=== PATIENT | female | born 1950 | race Caucasian/White ===

== ENCOUNTER 2019-12-05 06:48 | Observation (INO) | payer MEDICARE ==
[2019-12-05] MEDS ORDERED: Sodium Chloride 0.9% 10 ML Syringe FLUSH PRN ×2 (06:51→10:22)
[2019-12-05] MEDS ORDERED: Diltiazem 25 MG/5 ML SDV IVPUSH ONE (06:55)
[2019-12-05] MEDS ORDERED: Sodium Chloride 0.9% 1,000 ML IV SCH ×2 (07:00→10:22)
--- NOTE | 2019-12-05 07:03 | EDM.PDOC ---
<OfficerBabak - Last Filed: 12/05/19 18:29> ED HPI GENERAL MEDICAL PROBLEM - General Chief Complaint: Cardiovascular Problem Stated Complaint: MEDICAL Time Seen by Provider: 12/05/19 06:51 Source of Information: Reports: Patient, Old Records, RN Notes Reviewed History Limitations: Reports: No Limitations - History of Present Illness INITIAL COMMENTS - FREE TEXT/NARRATIVE: 6-year-old female presents emergency department a complaint of diaphoresis and weakness, she states this came on suddenly while she was going to work usually can walk into work without difficulty however going up the steps today she had a stop twice at rest because she felt so weak and was very diaphoretic by the time she arrived at work. She does have a history of paroxysmal atrial fibrillation total of 3 events over 10 years. Otherwise denies any chest pain or shortness of breath takes no medications has no cardiac history other than the remote history of the paroxysmal atrial fibrillation no diabetes. 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: Musculoskeletal History: Reports: Other (See Below) Other Musculoskeletal History: L knee pain - Infectious Disease History Infectious Disease History: Reports: Chicken Pox, Measles, Mumps, Rubella - Past Surgical History Head Surgeries/Procedures: Reports: None Female Surgical History: Reports: D&C Musculoskeletal Surgical History: Reports: None Social & Family History - Family History Cardiac: Reports: CAD - Tobacco Use Smoking Status *Q: Never Smoker - Caffeine Use Caffeine Use: Reports: Coffee ED ROS GENERAL - Review of Systems Review Of Systems: See Below Constitutional: Reports: Weakness, Diaphoresis HEENT: Reports: No Symptoms Respiratory: Reports: No Symptoms Cardiovascular: Reports: No Symptoms GI/Abdominal: Reports: No Symptoms : Reports: No Symptoms ED EXAM, GENERAL - Physical Exam Exam: See Below Exam Limited By: No Limitations General Appearance: Alert, WD/WN, No Apparent Distress Respiratory/Chest: No Respiratory Distress, Lungs Clear, Normal Breath Sounds, No Accessory Muscle Use, Chest Non-Tender Cardiovascular: No Murmur, Tachycardia GI/Abdominal: Soft, Non-Tender Departure - Departure Time of Disposition: 18:29 Disposition: Admitted As Inpatient 65 Condition: Fair Clinical Impression: Atrial fibrillation with rapid ventricular response, Hypotension <Aracely Marmolejo - Last Filed: 12/09/19 18:33> Course - Vital Signs Last Recorded V/S: Last Vital Signs Temp 36.3 C 12/05/19 10:22 Pulse 69 12/05/19 15:00 Resp 11 L 12/05/19 15:00 BP 123/71 12/05/19 16:00 Pulse Ox 97 12/05/19 10:22 - Orders/Labs/Meds Labs: Laboratory Tests 12/05/19 12/05/19 12/05/19 Range/Units 06:56 06:56 06:56 WBC 6.8 (4.5-11.0) K/uL RBC 4.15 (3.30-5.50) M/uL Hgb 12.5 (12.0-15.0) g/dL Hct 39.5 (36.0-48.0) % MCV 95 (80-98) fL MCH 30 (27-31) pg MCHC 32 (32-36) % Plt Count 341 (150-400) K/uL Neut % (Auto) 53 (36-66) % Lymph % (Auto) 35 (24-44) % [place] % (Auto) 9 H (2-6) % Eos % (Auto) 2 (2-4) % Baso % (Auto) 1 (0-1) % Sodium 137 L (140-148) mmol/L Potassium 4.4 (3.6-5.2) mmol/L Chloride 104 (100-108) mmol/L Carbon Dioxide 24 (21-32) mmol/L Anion Gap 13.4 (5.0-14.0) mmol/L BUN 16 (7-18) mg/dL Creatinine 0.8 (0.6-1.0) mg/dL Est Cr Clr Drug Dosing 51.75 mL/min Estimated GFR (MDRD) > 60 (>60) Glucose 178 H (74-106) mg/dL Lactic Acid 3.5 H (0.4-2.0) mmol/L Calcium 8.9 (8.5-10.1) mg/dL Phosphorus 3.7 (2.5-4.9) mg/dL Magnesium 2.2 (1.8-2.4) mg/dL Total Bilirubin 0.6 D (0.2-1.0) mg/dL AST 33 (15-37) U/L ALT 38 (12-78) U/L Alkaline Phosphatase 91 (46-116) U/L Troponin I < 0.017 (0.000-0.056) ng/mL Total Protein 6.8 (6.4-8.2) g/dL Albumin 3.2 L (3.4-5.0) g/dL Globulin 3.6 H (2.3-3.5) g/dL Albumin/Globulin Ratio 0.9 L (1.2-2.2) Meds: Medications Discontinued Medications Generic Name Dose Route Start Last Admin Trade Name Freq PRN Reason Stop Dose Admin Acetaminophen 650 mg 12/05/19 10:22 Tylenol PO Q4H PRN Pain (Mild 1-3)/fever Diltiazem HCl 25 mg 12/05/19 06:55 12/05/19 07:01 Diltiazem IVPUSH 12/05/19 06:56 25 mg ONETIME ONE Administration Enoxaparin Sodium 40 mg 12/05/19 10:22 12/05/19 10:54 Lovenox SUBCUT 40 mg DAILY ANA Administration Sodium Chloride 1,000 mls @ 125 mls/hr 12/05/19 07:00 12/05/19 07:01 Normal Saline IV 125 mls/hr ASDIRECTED ANA Administration Diltiazem HCl 125 mg/ Sodium 125 mls @ 5 mls/hr 12/05/19 09:45 12/05/19 09:50 Chloride IV 5 mls/hr TITRATE ANA 5 mls/hr Administration Protocol Sodium Chloride 1,000 mls @ 100 mls/hr 12/05/19 10:22 Normal Saline IV ASDIRECTED ANA Diltiazem HCl 125 mg/ Sodium 125 mls @ 5 mls/hr 12/05/19 10:30 Chloride IV TITRATE ANA Protocol Ondansetron HCl 4 mg 12/05/19 10:22 Zofran IV Q4H PRN Nausea/Vomiting Polyethylene Glycol 17 gm 12/05/19 10:22 Miralax PO DAILY PRN Constipation Sodium Chloride 10 ml 12/05/19 06:51 12/05/19 07:01 Saline Flush FLUSH 10 ml ASDIRECTED PRN Administration Keep Vein Open Sodium Chloride 10 ml 12/05/19 10:22 Saline Flush FLUSH ASDIRECTED PRN Keep Vein Open - Re-Assessments/Exams Free Text/Narrative Re-Assessment/Exam: 12/05/19 08:52 pt remains quite hypotensiveafter the 20 mg of cardizem. She did slow down to the 80-90 range but she remains in atrial fib. She has been over doing inher estimation. will have Dr Nguyen see in consult to consider a cardioversion. This is her third episode of atrial fib in 10 years.
[2019-12-05] MEDS ORDERED: Diltiazem 100 MG in Sodium Chloride 0.9% 100 ML IV SCH ×2 (09:30→10:22)
[2019-12-05] MEDS ORDERED: Diltiazem 125 MG in Sodium Chloride 0.9% 100 ML IV SCH ×2 (09:45→10:30)
--- NOTE | 2019-12-05 09:49 | PCM.HP.2 ---
H&P History of Present Illness - General Date of Service: 12/05/19 Admit Problem/Dx: Admission Diagnosis/Problem Admission Diagnosis/Problem Atrial fibrillation Source of Information: Patient, Old Records, Provider, RN Notes Reviewed History Limitations: Reports: No Limitations - History of Present Illness Initial Comments - Free Text/Narative: Ms. Powers is a 69-year-old woman who was admitted to observation status through the emergency department for further evaluation and management of atrial fibrillation with rapid ventricular response. She has had 2 previous documented episodes of atrial fibrillation, most recent of which was 4 years ago. She feels that she may have rare episodes of shorter duration atrial fibrillation but is not needed to come in for medical care. She felt well through the day yesterday but does admit that she has been under more stress and has been very active lately. She did not sleep well last night and feels that she went into the atrial fibrillation sometime between 2 and 3 AM. This morning she felt weak, lightheaded, with poor exercise tolerance. She denies overt shortness of breath or chest pain. She presented to the emergency department for evaluation was noted to be in atrial fibrillation with rapid ventricular response. She did receive a 20 mg bolus dose of diltiazem which did work well to control her rate but resulted in significant hypotension with systolic pressures into the 70s. Blood pressure has now recovered but as the diltiazem is wearing off her heart rate is slowly increasing. We discussed options for ongoing management including ongoing medical management versus elective electrical cardioversion this morning. She is very leery about cardioversion and would like to see if medical management is better tolerated going forward. - Related Data Allergies/Adverse Reactions: Allergies Allergy/AdvReac Type Severity Reaction Status Date / Time Penicillins Allergy Hives Verified 12/05/19 06:52 Home Medications: Home Meds Ubidecarenone [Coenzyme Q10] 100 mg PO DAILY 03/01/16 [History] Cholecalciferol (Vitamin D3) [Vitamin D] 5,000 unit PO DAILY 03/16/19 [History] Magnesium Oxide [Magnesium] 3 tab PO BEDTIME 10/05/19 [History] Zinc 50 mg PO DAILY 10/05/19 [History] Vit C/Ascorbate Calcium,Sodium [Vitamin C] 500 mg PO DAILY 12/05/19 [History] Past Medical History HEENT History: Reports: Impaired Vision Cardiovascular History: Reports: Afib (Paroxysmal) Respiratory History: Reports: None Gastrointestinal History: Reports: None Genitourinary History: Reports: None P[employer] F[employer]ER History: Reports: Musculoskeletal History: Reports: Other (See Below) Other Musculoskeletal History: L knee pain Neurological History: Reports: None Psychiatric History: Reports: None Endocrine/Metabolic History: Reports: None Hematologic History: Reports: None Immunologic History: Reports: None Oncologic (Cancer) History: Reports: None Dermatologic History: Reports: None - Infectious Disease History Infectious Disease History: Reports: Chicken Pox, Measles, Mumps, Rubella Other Infectious Disease History: staph on the skin - Past Surgical History Head Surgeries/Procedures: Reports: None Female Surgical History: Reports: D&C Musculoskeletal Surgical History: Reports: None Social & Family History - Family History Cardiac: Reports: CAD - Tobacco Use Smoking Status *Q: Never Smoker - Caffeine Use Caffeine Use: Reports: Coffee H&P Review of Systems - Review of Systems: Review Of Systems: See Below General: Reports: Malaise, Weakness, Fatigue. Denies: Fever, Chills HEENT: Reports: No Symptoms Pulmonary: Reports: No Symptoms Cardiovascular: Reports: Palpitations, Lightheadedness. Denies: Chest Pain, Dyspnea on Exertion, Orthopnea, PND, Edema Gastrointestinal: Reports: No Symptoms Genitourinary: Reports: No Symptoms Musculoskeletal: Reports: No Symptoms Skin: Reports: No Symptoms Psychiatric: Reports: No Symptoms Neurological: Reports: No Symptoms Hematologic/Lymphatic: Reports: No Symptoms Immunologic: Reports: No Symptoms Exam - Exam Exam: See Below - Vital Signs Vital Signs: Last Vital Signs Temp 97.4 F 12/05/19 08:40 Pulse 78 12/05/19 09:21 Resp 11 L 12/05/19 09:21 BP 130/91 H 12/05/19 09:21 Pulse Ox 100 12/05/19 09:21 Weight: 190 lb - Exam Quality Assessment: DVT Prophylaxis General: Alert, Oriented, Cooperative, Mild Distress HEENT: Conjunctiva Clear, Hearing Intact, Mucosa Moist & [place], Normal Nasal Septum, Posterior Pharynx Clear, Pupils Equal Neck: Supple, Trachea Midline Lungs: Clear to Auscultation, Normal Respiratory Effort Cardiovascular: Normal S1, Irregular Rhythm, Tachycardia. No: Systolic Murmur, Diastolic Murmur GI/Abdominal Exam: Soft, Non-Tender, No Organomegaly, No Distention Back Exam: Normal Inspection, Full Range of Motion Extremities: Non-Tender, No Pedal Edema Skin: Warm, Dry, Intact Neurological: Cranial Nerves Intact, Strength Equal Bilateral, Normal Speech, Normal Tone, Sensation Intact. No: Focal Deficit Neuro Extensive - Mental Status: Alert, Oriented x3, Normal Mood/Affect, Normal Cognition, Memory Intact - Patient Data Lab Results Last 24 hrs: Laboratory Results - last 24 hr 12/05/19 12/05/19 12/05/19 Range/Units 06:56 06:56 06:56 WBC 6.8 (4.5-11.0) K/uL RBC 4.15 (3.30-5.50) M/uL Hgb 12.5 (12.0-15.0) g/dL Hct 39.5 (36.0-48.0) % MCV 95 (80-98) fL MCH 30 (27-31) pg MCHC 32 (32-36) % Plt Count 341 (150-400) K/uL Neut % (Auto) 53 (36-66) % Lymph % (Auto) 35 (24-44) % [place] % (Auto) 9 H (2-6) % Eos % (Auto) 2 (2-4) % Baso % (Auto) 1 (0-1) % Sodium 137 L (140-148) mmol/L Potassium 4.4 (3.6-5.2) mmol/L Chloride 104 (100-108) mmol/L Carbon Dioxide 24 (21-32) mmol/L Anion Gap 13.4 (5.0-14.0) mmol/L BUN 16 (7-18) mg/dL Creatinine 0.8 (0.6-1.0) mg/dL Est Cr Clr Drug Dosing 51.75 mL/min Estimated GFR (MDRD) > 60 (>60) Glucose 178 H (74-106) mg/dL Lactic Acid 3.5 H (0.4-2.0) mmol/L Calcium 8.9 (8.5-10.1) mg/dL Phosphorus 3.7 (2.5-4.9) mg/dL Magnesium 2.2 (1.8-2.4) mg/dL Total Bilirubin 0.6 D (0.2-1.0) mg/dL AST 33 (15-37) U/L ALT 38 (12-78) U/L Alkaline Phosphatase 91 (46-116) U/L Troponin I < 0.017 (0.000-0.056) ng/mL Total Protein 6.8 (6.4-8.2) g/dL Albumin 3.2 L (3.4-5.0) g/dL Globulin 3.6 H (2.3-3.5) g/dL Albumin/Globulin Ratio 0.9 L (1.2-2.2) Result Diagrams: 12/05/19 06:56 12/05/19 06:56 Sepsis Event Note - Evaluation Sepsis Screening Result: No Definite Risk - Focused Exam Vital Signs: Vital Signs Temp Pulse Resp BP Pulse Ox 12/05/19 09:21 78 11 L 130/91 H 100 12/05/19 09:10 60 17 114/68 97 12/05/19 09:00 82 17 106/67 96 12/05/19 08:50 89 17 102/73 99 12/05/19 08:40 97.4 F 69 14 99/67 99 12/05/19 08:31 67 17 84/57 L 98 12/05/19 08:20 72 18 77/53 L 97 12/05/19 08:06 67 20 85/52 L 98 12/05/19 08:01 61 18 75/51 L 95 12/05/19 07:56 64 19 82/51 L 96 12/05/19 07:51 65 20 80/47 L 96 12/05/19 07:46 70 19 86/65 L 98 12/05/19 07:41 57 L 12 82/55 L 97 12/05/19 07:36 64 12 92/56 L 99 12/05/19 07:31 65 13 80/57 L 98 12/05/19 07:26 67 13 87/59 L 97 12/05/19 07:22 63 13 80/53 L 97 12/05/19 07:21 60 14 84/55 L 97 12/05/19 07:20 64 15 89/62 L 97 12/05/19 07:13 66 13 85/62 L 98 12/05/19 07:10 57 L 16 87/63 L 98 12/05/19 07:06 66 14 87/63 L 99 12/05/19 07:02 98 19 82/57 L 98 12/05/19 06:49 96.8 F L 130 H 19 133/103 H 98 Date Exam was Performed: 12/05/19 Time Exam was Performed: 09:44 *Q Meaningful Use (ADM) - VTE Risk Assess *Q Each Risk Factor Represents 1 Point: Obesity ( BMI > 25 kg/m2) Total Score 1 Point Risk Factors: 1 Each Risk Factor Represents 2 Points: Age 60 - 74 Years Total Score 2 Point Risk Factors: 2 Each Risk Factor Represents 3 Points: None Total Score 3 Point Risk Factors: 0 Each Risk Factor Represents 5 Points: None Total Score 5 Point Risk Factors: 0 Venous Thromboembolism Risk Factor Score *Q: 3 Problem List Initiated/Reviewed/Updated: Yes Orders Last 24hrs: Active Orders 24 hr Category Date Time Status Patient Status Manage Transfer [TRANSFER] Routine ADT 12/05/19 09:40 Active Cardiac Monitoring [RC] .As Directed Care 12/05/19 06:51 Active EKG Documentation Completion [RC] ASDIRECTED Care 12/05/19 06:52 Active Peripheral IV Care [RC] . DIRECTED Care 12/05/19 06:52 Active Chest 1V Frontal [CR] Stat Exams 12/05/19 06:52 Taken UA W/MICROSCOPIC [URIN] Urgent Lab 12/05/19 08:51 Ordered Diltiazem [Cardizem] 125 mg Med 12/05/19 09:45 Active Sodium Chloride 0.9% [Normal Saline] 100 ml IV TITRATE Sodium Chloride 0.9% [Normal Saline] 1,000 ml Med 12/05/19 07:00 Active IV ASDIRECTED Sodium Chloride 0.9% [Saline Flush] Med 12/05/19 06:51 Active 10 ml FLUSH ASDIRECTED PRN Peripheral IV Insertion Adult [OM.PC] Stat Oth 12/05/19 06:51 Ordered Saline Lock Insert [OM.PC] Stat Oth 12/05/19 06:51 Ordered Resuscitation Status Routine Resus Stat 12/05/19 09:41 Ordered EKG 12 Lead [EK] Stat Ther 12/05/19 06:52 Ordered Medication Orders Sodium Chloride (Normal Saline) 1,000 mls @ 125 mls/hr IV ASDIRECTED ANA Last Admin: 12/05/19 07:01 Dose: 125 mls/hr Documented by: BAR Diltiazem HCl 125 mg/ Sodium (Chloride) 125 mls @ 5 mls/hr IV TITRATE ANA; Protocol Sodium Chloride (Saline Flush) 10 ml FLUSH ASDIRECTED PRN PRN Reason: Keep Vein Open Last Admin: 12/05/19 07:01 Dose: 10 ml Documented by: BAR Assessment/Plan Comment:: ASSESSMENT AND PLAN ATRIAL FIBRILLATION WITH RAPID VENTRICULAR RESPONSE-set during the night with symptoms of weakness, lightheadedness, and decreased exercise tolerance noted this morning. On evaluation in the emergency department found to have atrial fibrillation with rapid ventricular response. Bolus dose of IV diltiazem did result in good rate control but also resulted in significant systolic hypotension. We discussed options concerning medical management versus electrical cardioversion. She prefers to proceed with medical management at this time. -Continuous infusion of IV diltiazem without repeating bolus dose -Consider electrical cardioversion if she has recurrent hypotension with diltiazem RECENT SKIN INFECTIONS-resolved after 2 weeks of IV antibiotic therapy with vanc omycin and doxycycline MAINTENANCE ISSUES -DVT prophylaxis; Lovenox 40 mg subcu daily -GI prophylaxis; not indicated -Marrero catheter; not indicated -Nutrition; n.p.o. -Nicotine dependence; not required CODE STATUS-FULL CODE ADMISSION STATUS-this patient will be admitted to observation status, expect no more than a one night hospital stay for evaluation and management of problems as outlined above. DISPOSITION-anticipate discharge to home after the hospital stay. PRIMARY CARE PROVIDER-Drs. Urbano - Mortality Measure Prognosis:: Good
[2019-12-05] MEDS ORDERED: Polyethylene Glycol 3350 Powder 17 GM Packet PO PRN (10:22)
[2019-12-05] MEDS ORDERED: Ondansetron 4 MG/2 ML SDV IV PRN (10:22)
[2019-12-05] MEDS ORDERED: Enoxaparin 40 MG/0.4 ML Syringe SUBCUT SCH (10:22)
[2019-12-05] MEDS ORDERED: Acetaminophen 325 MG Tab PO PRN (10:22)
[2019-12-05 15:27] VITALS: PULSE 69
[2019-12-05 16:54] VITALS: BP 123/71
--- NOTE | 2019-12-05 17:11 | PCM.DCSUM1 ---
Discharge Summary - Hospital Course Brief History: Ms. Powers is a 69-year-old woman who was admitted to observation status through the emergency department for further management of atrial fibrillation with rapid ventricular response. - Discharge Data Discharge Date: 12/05/19 Discharge Disposition: Home, Self-Care 01 Condition: Good - Referral to Home Health Primary Care Physician: PCP None - Discharge Diagnosis/Problem(s) (1) Atrial fibrillation with rapid ventricular response SNOMED Code(s): 414446575958368 ICD Code: I48.91 - UNSPECIFIED ATRIAL FIBRILLATION Status: Acute Current Visit: Yes - Patient Summary/Data Hospital Course: Ms. Powers is a 69-year-old woman who was admitted to observation status through the emergency department for further evaluation and management of atrial fibrillation with rapid ventricular response. She has had 2 previous documented episodes of atrial fibrillation, most recent of which was 4 years ago. She feels that she may have rare episodes of shorter duration atrial fibrillation but has not needed to come in for medical care. She felt well through the day yesterday but does admit that she has been under more stress and has been very active lately. She did not sleep well last night and feels that she went into the atrial fibrillation sometime between 2 and 3 AM. This morning she felt weak, lightheaded, with poor exercise tolerance. She denies overt shortness of breath or chest pain. She presented to the emergency department for evaluation was noted to be in atrial fibrillation with rapid ventricular response. She did receive a 20 mg bolus dose of diltiazem which did work well to control her rate but resulted in significant hypotension with systolic pressures into the 70s. Blood pressure has now recovered but as the diltiazem is wearing off her heart rate is slowly increasing. We discussed options for ongoing management including ongoing medical management versus elective electrical cardioversion this morning. She is very leery about cardioversion and would like to see if medical management is better tolerated going forward. On admission she was started on continuous infusion of IV diltiazem, which she tolerated well. Shortly after admission she spontaneously converted to sinus rhythm and remained in sinus rhythm through the rest of her hospital stay. She reported feeling much improved and much better energy. She will be discharged home on her usual diet with activity as tolerated. Follow-up appointment should be scheduled with her primary care provider within 1 week. - Patient Instructions Diet: Usual Diet as Tolerated Activity: As Tolerated Other/Special Instructions: Please schedule follow-up appointment with primary care provider within 1 week. - Discharge Plan *PRESCRIPTION DRUG MONITORING PROGRAM REVIEWED*: Not Applicable *COPY OF PRESCRIPTION DRUG MONITORING REPORT IN PATIENT ANIVAL: Not Applicable Home Medications: Home Meds Ubidecarenone [Coenzyme Q10] 100 mg PO DAILY 03/01/16 [History] Cholecalciferol (Vitamin D3) [Vitamin D] 5,000 unit PO DAILY 03/16/19 [History] Magnesium Oxide [Magnesium] 3 tab PO BEDTIME 10/05/19 [History] Zinc 50 mg PO DAILY 10/05/19 [History] Vit C/Ascorbate Calcium,Sodium [Vitamin C] 500 mg PO DAILY 12/05/19 [History] Referrals: Ab Urbano MD [Physician] - - Discharge Summary/Plan Comment DC Time >30 min.: No - Patient Data Vitals - Most Recent: Last Vital Signs Temp 97.3 F 12/05/19 10:22 Pulse 69 12/05/19 15:00 Resp 11 L 12/05/19 15:00 BP 123/71 12/05/19 16:00 Pulse Ox 97 12/05/19 10:22 Weight - Most Recent: 192 lb I&O - Last 24 hours: Intake & Output 12/05/19 12/05/19 12/05/19 06:59 14:59 22:59 Intake Total 200 Balance 200 Lab Results - Last 24 hrs: Laboratory Results - last 24 hr 12/05/19 12/05/19 12/05/19 Range/Units 06:56 06:56 06:56 WBC 6.8 (4.5-11.0) K/uL RBC 4.15 (3.30-5.50) M/uL Hgb 12.5 (12.0-15.0) g/dL Hct 39.5 (36.0-48.0) % MCV 95 (80-98) fL MCH 30 (27-31) pg MCHC 32 (32-36) % Plt Count 341 (150-400) K/uL Neut % (Auto) 53 (36-66) % Lymph % (Auto) 35 (24-44) % [place] % (Auto) 9 H (2-6) % Eos % (Auto) 2 (2-4) % Baso % (Auto) 1 (0-1) % Sodium 137 L (140-148) mmol/L Potassium 4.4 (3.6-5.2) mmol/L Chloride 104 (100-108) mmol/L Carbon Dioxide 24 (21-32) mmol/L Anion Gap 13.4 (5.0-14.0) mmol/L BUN 16 (7-18) mg/dL Creatinine 0.8 (0.6-1.0) mg/dL Est Cr Clr Drug Dosing 51.75 mL/min Estimated GFR (MDRD) > 60 (>60) Glucose 178 H (74-106) mg/dL Lactic Acid 3.5 H (0.4-2.0) mmol/L Calcium 8.9 (8.5-10.1) mg/dL Phosphorus 3.7 (2.5-4.9) mg/dL Magnesium 2.2 (1.8-2.4) mg/dL Total Bilirubin 0.6 D (0.2-1.0) mg/dL AST 33 (15-37) U/L ALT 38 (12-78) U/L Alkaline Phosphatase 91 (46-116) U/L Troponin I < 0.017 (0.000-0.056) ng/mL Total Protein 6.8 (6.4-8.2) g/dL Albumin 3.2 L (3.4-5.0) g/dL Globulin 3.6 H (2.3-3.5) g/dL Albumin/Globulin Ratio 0.9 L (1.2-2.2) Med Orders - Current: Current Medications Acetaminophen (Tylenol) 650 mg PO Q4H PRN PRN Reason: Pain (Mild 1-3)/fever Enoxaparin Sodium (Lovenox) 40 mg SUBCUT DAILY [facility] Last Admin: 12/05/19 10:54 Dose: 40 mg Documented by: Sodium Chloride (Normal Saline) 1,000 mls @ 100 mls/hr IV ASDIRECTED ANA Diltiazem HCl 125 mg/ Sodium (Chloride) 125 mls @ 5 mls/hr IV TITRATE ANA; Protocol Ondansetron HCl (Zofran) 4 mg IV Q4H PRN PRN Reason: Nausea/Vomiting Polyethylene Glycol (Miralax) 17 gm PO DAILY PRN PRN Reason: Constipation Sodium Chloride (Saline Flush) 10 ml FLUSH ASDIRECTED PRN PRN Reason: Keep Vein Open Discontinued Medications Diltiazem HCl (Diltiazem) 25 mg IVPUSH ONETIME ONE Stop: 12/05/19 06:56 Last Admin: 12/05/19 07:01 Dose: 25 mg Documented by: Sodium Chloride (Normal Saline) 1,000 mls @ 125 mls/hr IV ASDIRECTED ANA Last Admin: 12/05/19 07:01 Dose: 125 mls/hr Documented by: Diltiazem HCl 125 mg/ Sodium (Chloride) 125 mls @ 5 mls/hr IV TITRATE ANA; Protocol Last Admin: 12/05/19 09:50 Dose: 5 mls/hr, 5 mls/hr Documented by: Sodium Chloride (Saline Flush) 10 ml FLUSH ASDIRECTED PRN PRN Reason: Keep Vein Open Last Admin: 12/05/19 07:01 Dose: 10 ml Documented by: - Exam General: Reports: Alert, Oriented, Cooperative, No Acute Distress Lungs: Reports: Clear to Auscultation, Normal Respiratory Effort Cardiovascular: Reports: Regular Rate, Regular Rhythm, No Murmurs GI/Abdominal Exam: Soft, Non-Tender, No Organomegaly, No Distention
--- NOTE | 2019-12-06 09:24 | CR ---
CHEST: Portable 12/05/2019 at 7:11 AM CLINICAL HISTORY:Weakness COMPARISON:2016 FINDINGS: The heart is enlarged. Pulmonary vascularity is normal. There are atherosclerotic changes in the aorta and proximal brachiocephalic vessels. No infiltrate effusion or pneumothorax is seen Impression: Cardiomegaly Atherosclerotic and widening of the aortic arch and proximal brachycephalic vessels No acute cardiopulmonary process.
== END 2019-12-05 17:25 | disposition home or self-care (01) ==
LOC: JP.ED 06:48 → JP.ICU 09:40
PROVIDERS: ADMIT Hospitalist; ATTEND Hospitalist
DX: I48.91 Unspecified atrial fibrillation (principal); I95.9 Hypotension, unspecified; L08.9 Local infection of the skin and subcutaneous tissue, unspecified; Z88.0 Allergy status to penicillin; Z79.899 Other long term (current) drug therapy
CPT/HCPCS: 36415; 71045; 80053; 83605; 83735; 84100; 84484; 85025; 93005; 96361; 96365; 96372; 96376; 99285; G0378; J1650; J3490; J7030; J7050

== ENCOUNTER 2020-06-26 05:31 | Inpatient (IN) | payer MEDICARE ==
[2020-06-26] MEDS ORDERED: Povidone-Iodine 10% Soln 118.25 ML Bottle ONE (06:32)
[2020-06-26] MEDS ORDERED: Lactated Ringers 1,000 ML IV SCH (07:00)
[2020-06-26] MEDS ORDERED: Propofol 200 MG/20 ML SDV ONE (07:28)
[2020-06-26] MEDS ORDERED: fentaNYL 100 MCG/2 ML SDV ONE (07:28)
[2020-06-26] MEDS ORDERED: Midazolam 1 MG/ML 2 ML SDV ONE ×2 (07:28→10:21)
[2020-06-26] MEDS ORDERED: Nozin Nasal Sanitizer NASBOTH SCH (07:30)
[2020-06-26] MEDS ORDERED: Lactated Ringers 1,000 ML ONE (09:01)
[2020-06-26] MEDS ORDERED: Magnesium Hydroxide 400 MG/5 ML Susp 30 ML Cup PO PRN (10:53)
[2020-06-26] MEDS ORDERED: Acetaminophen/HYDROcodone 325-5 MG Tab PO PRN (10:53)
[2020-06-26] MEDS ORDERED: Morphine 2 MG/ML SYRINGE IVPUSH PRN (10:53)
[2020-06-26] MEDS ORDERED: Acetaminophen 325 MG Tab PO PRN (10:53)
[2020-06-26] MEDS ORDERED: Metoprolol Succinate 25 MG Tab.ER PO PRN (11:00)
--- NOTE | 2020-06-26 11:21 | CR ---
Knee 1V or 2V Rt CLINICAL HISTORY: Postop FINDINGS: Patient has had recent 3 component total arthroplasty. Components appear well seated. There is intra-articular and subcutaneous air Impression: Postop 3 component total knee arthroplasty
[2020-06-26] MEDS: Ondansetron 4 MG/2 ML SDV IVPUSH PRN (11:56)
[2020-06-26] MEDS: Morphine 2 MG/ML SYRINGE IVPUSH PRN ×2 (13:29→15:05)
[2020-06-26] MEDS ORDERED: Ketorolac 30 MG/ML SDV IVPUSH ONE (13:30)
[2020-06-26] MEDS ORDERED: Sodium Chloride 0.9% 10 ML SDV IV ONE (13:50)
[2020-06-26] MEDS: Acetaminophen/oxyCODONE 325-5 MG Tab PO PRN ×2 (13:59→19:49)
[2020-06-26] MEDS ORDERED: Sodium Chloride 0.9% 500 ML IV ONE (14:00)
[2020-06-26] MEDS: Sodium Chloride 0.9% 1,000 ML IV SCH (14:59)
[2020-06-26] MEDS: hydrOXYzine HCl 25 MG Tab PO PRN (18:09)
[2020-06-26] MEDS ORDERED: Docusate Sodium 100 MG Cap PO SCH (21:00)
[2020-06-26] MEDS: Nozin Nasal Sanitizer NASBOTH SCH (21:06)
[2020-06-26] MEDS: Docusate Sodium 100 MG Cap PO SCH (21:06)
[2020-06-26] MEDS: Melatonin 3 MG Tab PO PRN (21:06)
--- NOTE | 2020-06-26 23:07 | OR ---
DATE OF PROCEDURE: 06/26/2020 SURGEON: Segun Bustillo MD PREOPERATIVE DIAGNOSIS: Osteoarthritis, right knee. POSTOPERATIVE DIAGNOSIS: Severe osteoarthritis, right knee. PROCEDURE: Right total knee arthroplasty using [employer] Oxinium components with a size 6 femur, size 5 tibia, 9 mm polyethylene, and 32 mm patella. PUBLIC SPEAKER: JANETT Koch. ANESTHESIA: Spinal with sedation. INDICATIONS: Donna is a 69-year-old female with a history of long-standing knee pain and arthritic changes on x-ray. Pain and limited range of motion have been getting progressively worse for the past year. Now having increasing difficulty with activities of daily living and at work. X-rays reveal severe osteoarthritis with medial compartment collapse and varus deformity and large osteophyte formation. She now presents for right total knee arthroplasty. She does have a history of nickel allergy, and therefore the Oxinium components were being utilized. chef assistant duties are performed by JANETT Koch and required for leg positioning, exposure, and assistance with closure. Risks, benefits, and potential complications of the procedure were discussed. DESCRIPTION OF PROCEDURE: After adequate anesthesia was obtained, the patient was placed supine with a tourniquet about the right upper thigh. The right leg was prepped and draped in a sterile fashion. The leg was exsanguinated and tourniquet inflated to 300 mmHg pressure. A longitudinal incision was made over the patella, carried down to the subcutaneous tissues, and a medial parapatellar arthrotomy was performed. A small-to- moderate effusion was present. Synovitis was present throughout the knee with hypertrophic synovium. Severe arthritic changes were noted with large medial peripheral osteophytes and complete articular cartilage loss. The patella was partially everted, and the posterior aspect of the patella was resected with an oscillating saw. Intramedullary canal of the femur was drilled. Intramedullary guide was placed. Distal cutting jig was secured to the femur and the distal femoral cut was then made. Attention was turned to the tibia. Extramedullary tibial alignment jig was placed, positioned 4 mm distal to the medial joint line, aligned with the long axis and secured with 3 pins. The proximal tibial resection was then completed. Attention was returned to the femur, which was sized to a number 6 component. Drill holes were placed, and the cutting jig was secured. Anterior, posterior, and chamfer cuts were completed. Remaining meniscus excised medially and laterally. The tibia was sized to a number 6 component. This was pinned in position. PEG was drilled and pins were then cut into the metaphysis. Femoral trial was then tapped into position. Intercondylar groove was cut for a posterior cruciate-sacrificing component. Trial reduction was then made with a 9 mm insert, which provided full extension and excellent balance in flexion and extension. The patella was sized to a 32 mm. Trial patella was placed after drilling the PEG holes, and patella sat centrally with no lateral release. Trial components were then removed. The knee was then thoroughly irrigated with pulse lavage. Bone surfaces were dried, and components were cemented in place. Excess cement was removed. The knee was held in full extension with a 9 mm trial insert as the cement cured. The knee was again taken through range of motion. She had full extension with excellent balance in flexion and extension, and the patella tracked very well. The trial polyethylene was removed. The knee was irrigated and the final polyethylene was snapped into position. The knee was irrigated once again. A dilute Betadine solution was then placed and left in the knee for 2-1/2 minutes, and then irrigated out once again. The knee was closed with #2 Vicryl in an interrupted fashion in the capsule, 2-0 Vicryl and a running 3-0 Monocryl in the skin. Steri-Strips were applied. Sterile dressing was then placed with a light compressive dressing. The patient tolerated the procedure well. There were no complications. She was taken from the operating room in stable condition. Segun Bustillo MD /[id number]
[2020-06-27] MEDS: hydrOXYzine HCl 25 MG Tab PO PRN ×3 (00:26→20:43)
[2020-06-27] MEDS: Sodium Chloride 0.9% 1,000 ML IV SCH ×3 (00:26→17:19)
[2020-06-27] MEDS: Acetaminophen/oxyCODONE 325-5 MG Tab PO PRN ×6 (00:27→21:34)
[2020-06-27] MEDS: Nozin Nasal Sanitizer NASBOTH SCH ×3 (07:55→20:37)
[2020-06-27] MEDS: Docusate Sodium 100 MG Cap PO SCH ×2 (08:04→20:37)
[2020-06-27] MEDS: Magnesium Oxide 400 MG Tab PO SCH (08:04)
[2020-06-27] MEDS: Enoxaparin 30 MG/0.3 ML Syringe SUBCUT SCH (08:04)
--- NOTE | 2020-06-27 08:19 | PCM.SURGPN ---
- General Info Date of Service: 06/27/20 Date of Surgery/Procedure: 06/26/20 POD#: 1 Post-Op Diagnosis: right knee osteoarthritis Functional Status: Reports: Tolerating Diet - Review of Systems General: Reports: No Symptoms HEENT: Reports: No Symptoms Pulmonary: Reports: No Symptoms Cardiovascular: Reports: No Symptoms Gastrointestinal: Reports: Nausea Genitourinary: Reports: No Symptoms Musculoskeletal: Reports: Leg Pain (right ), Joint Swelling (right lower extremity ) Skin: Reports: No Symptoms Neurological: Reports: No Symptoms Psychiatric: Reports: Anxiety - Patient Data Vitals - Most Recent: Last Vital Signs Temp 97.2 F 06/27/20 02:19 Pulse 68 06/27/20 02:19 Resp 16 06/27/20 02:19 BP 92/57 L 06/27/20 02:19 Pulse Ox 96 06/27/20 02:19 Weight - Most Recent: 187 lb 1.6 oz I&O - Last 24 Hours: Intake & Output 06/26/20 06/27/20 06/27/20 22:59 06:59 14:59 Intake Total 750 3526 Output Total 100 340 Balance 650 3186 Lab Results Last 24 Hrs: Laboratory Results - last 24 hr 06/27/20 Range/Units 05:11 WBC 6.9 (4.5-11.0) K/uL RBC 3.11 L (3.30-5.50) M/uL Hgb 9.5 L D (12.0-15.0) g/dL Hct 30.7 L (36.0-48.0) % MCV 99 H (80-98) fL MCH 31 (27-31) pg MCHC 31 L (32-36) % Plt Count 221 (150-400) K/uL Med Orders - Current: Current Medications Acetaminophen (Tylenol) 650 mg PO Q4H PRN PRN Reason: Pain/Fever Hydrocodone Bitart/Acetaminophen (Ceresco 325-5 Mg) 1 tab PO Q4H PRN PRN Reason: Pain (mild 1-3) Last Admin: 06/26/20 12:47 Dose: 1 tab Documented by: Bandage/Support Products ( Nasal Shrimp Packer) 1 applic NASBOTH BID ANA Stop: 07/02/20 21:01 Last Admin: 06/26/20 21:06 Dose: 1 applic Documented by: Docusate Sodium (Colace) 100 mg PO BID [facility] Last Admin: 06/26/20 21:06 Dose: 100 mg Documented by: Enoxaparin Sodium (Lovenox) 30 mg SUBCUT DAILY [facility] Hydroxyzine HCl (Atarax) 25 mg PO Q6H PRN PRN Reason: Nausea Last Admin: 06/27/20 00:26 Dose: 25 mg Documented by: Sodium Chloride (Normal Saline) 1,000 mls @ 125 mls/hr IV ASDIRECTED [facility] Last Admin: 06/27/20 00:26 Dose: 125 mls/hr Documented by: Vancomycin HCl 1 gm/ Sodium (Chloride) 250 mls @ 150 mls/hr IV Q12H [facility] Stop: 06/27/20 21:39 Last Admin: 06/26/20 19:49 Dose: 150 mls/hr Documented by: Magnesium Hydroxide (Milk Of Magnesia) 30 ml PO BID PRN PRN Reason: Constipation Magnesium Oxide (Magnesium Oxide) 800 mg PO DAILY [facility] Melatonin (Melatonin) 9 mg PO ASDIRECTED PRN PRN Reason: Insomnia Last Admin: 06/26/20 21:06 Dose: 9 mg Documented by: Metoprolol Succinate (Toprol Xl) 25 mg PO BID PRN PRN Reason: Arrhythmia Morphine Sulfate (Morphine) 2 mg IVPUSH Q1H PRN PRN Reason: Pain (severe 7-10) Last Admin: 06/26/20 15:05 Dose: 1 mg Documented by: Ondansetron HCl (Zofran) 4 mg IVPUSH Q4H PRN PRN Reason: Nausea/Vomiting Last Admin: 06/26/20 11:56 Dose: 4 mg Documented by: Oxycodone/Acetaminophen (Percocet 325-5 Mg) 1 - 2 tab PO Q4H PRN PRN Reason: Pain Last Admin: 06/27/20 05:19 Dose: 2 tab Documented by: Discontinued Medications Bandage/Support Products ( Nasal Shrimp Packer) 1 applic NASBOTH BID [facility] Last Admin: 06/26/20 07:02 Dose: 1 applic Documented by: Docusate Sodium (Colace) 100 mg PO BID [facility] Enoxaparin Sodium (Lovenox) 30 mg SUBCUT DAILY [facility] Fentanyl (Sublimaze) Confirm Administered Dose 100 mcg .ROUTE .[facility]-MED ONE Stop: 06/26/20 07:29 Vancomycin HCl 1 gm/ Sodium (Chloride) 250 mls @ 167 mls/hr IV ONETIME ONE Stop: 06/26/20 09:59 Last Admin: 06/26/20 08:46 Dose: 167 mls/hr Documented by: Lactated Ringer's (Ringers, Lactated) 1,000 mls @ 75 mls/hr IV ASDIRECTED [facility] Last Admin: 06/26/20 07:24 Dose: 75 mls/hr Documented by: Lactated Ringer's (Ringers, Lactated) Confirm Administered Dose 1,000 mls @ as directed .ROUTE .ST[facility]-MED ONE Stop: 06/26/20 09:02 Vancomycin HCl 1 gm/ Sodium (Chloride) 250 mls @ 150 mls/hr IV Q12H [facility] Stop: 06/27/20 13:39 Sodium Chloride (Normal Saline) 500 mls @ 500 mls/hr IV ONETIME ONE Stop: 06/26/20 14:59 Last Admin: 06/26/20 13:54 Dose: 500 mls/hr Documented by: Ketorolac Tromethamine (Toradol) 30 mg IVPUSH ONETIME ONE Stop: 06/26/20 13:31 Last Admin: 06/26/20 13:27 Dose: 30 mg Documented by: Midazolam HCl (Versed 1 Mg/Ml) Confirm Administered Dose 2 mg .ROUTE .STK-MED ONE Stop: 06/26/20 07:29 Midazolam HCl (Versed 1 Mg/Ml) Confirm Administered Dose 2 mg .ROUTE .STK-MED ONE Stop: 06/26/20 10:22 Morphine Sulfate (Morphine) 1 mg IVPUSH Q1H PRN PRN Reason: Breakthrough Pain Last Admin: 06/26/20 12:45 Dose: 1 mg Documented by: Non-Formulary Medication (Magnesium Oxide [Magnesium]) 1,000 mg PO DAILY [facility] Povidone Iodine (Betadine 10% Soln) Confirm Administered Dose 1 ml .ROUTE .STK- MED ONE Stop: 06/26/20 06:33 Last Admin: 06/26/20 09:33 Dose: 1 ml Documented by: Propofol (Diprivan 20 Ml) Confirm Administered Dose 200 mg .ROUTE .STK-MED ONE Stop: 06/26/20 07:29 - Exam Wound/Incisions: Dressing Dry and Intact, No Drainage General: Alert, Oriented, Cooperative Extremities: Normal Capillary Refill, Pedal Edema (Right ), Joint Swelling (R knee ), Leg Pain (Right ), Limited Range of Motion (R LE ) Skin: Dry, Intact Neurological: No New Focal Deficit, Sensation Intact Psy/Mental Status: Alert, Normal Affect, Anxious Sepsis Event Note - Evaluation Sepsis Screening Result: No Definite Risk - Focused Exam Vital Signs: Vital Signs Temp Pulse Resp BP Pulse Ox 06/27/20 02:19 97.2 F 68 16 92/57 L 96 06/26/20 22:48 97.3 F 63 16 96/61 97 - Problem List & Annotations (1) Status post total right knee replacement SNOMED Code(s): 7076751585790, 4331294977614 Code(s): Z96.651 - PRESENCE OF RIGHT ARTIFICIAL KNEE JOINT Status: Acute Current Visit: Yes (2) Anemia, posthemorrhagic, acute SNOMED Code(s): 019566263 Code(s): D62 - ACUTE POSTHEMORRHAGIC ANEMIA Status: Acute Current Visit: Yes - Problem List Review Problem List Initiated/Reviewed/Updated: Yes - My Orders Last 24 Hours: Active Orders 24 hr Category Date Time Status Patient Status [ADT] Routine ADT 06/26/20 10:53 Active Ambulate [RC] QID Care 06/26/20 10:53 Active Dietary Supplements [RC] BIDMEALS Care 06/26/20 11:03 Active Head of Bed Elevation [RC] ASDIRECTED Care 06/26/20 10:53 Active Intake and Output [RC] QSHIFT Care 06/26/20 10:53 Active May Shower [RC] ASDIRECTED Care 06/26/20 10:53 Active Neurovascular Check [RC] Q4H Care 06/26/20 10:53 Active Notify Provider Vital Signs [RC] ASDIRECTED Care 06/26/20 10:53 Active Oxygen Therapy [RC] PRN Care 06/26/20 10:53 Active Pneumonia Education [RC] UPON Care 06/26/20 10:53 Active RT Incentive Spirometry [RC] Q1HWA Care 06/26/20 10:53 Active Up to Chair [RC] QID Care 06/26/20 10:53 Active VTE/DVT Education [RC] Click to Edit Care 06/26/20 10:54 Active Vital Signs [RC] Q4H Care 06/26/20 10:53 Active Wound Care [RC] Q12H Care 06/26/20 10:53 Active Consult to Case Management/Plasterer Spray Gun [CONS] Cons 06/26/20 10:53 Active Routine OT Evaluation and Treatment [CONS] Routine Cons 06/26/20 10:53 Active PT Evaluation and Treatment [CONS] Routine Cons 06/26/20 10:53 Active PT Evaluation and Treatment [CONS] Routine Cons 06/26/20 10:53 Active Regular Diet [DIET] Diet 06/26/20 Lunch Active Acetaminophen [TylenoL] Med 06/26/20 10:53 Active 650 mg PO Q4H PRN Acetaminophen/HYDROcodone [Ceresco 325-5 MG] Med 06/26/20 10:53 Active 1 tab PO Q4H PRN Acetaminophen/oxyCODONE [Percocet 325-5 MG] Med 06/26/20 10:53 Active 1 - 2 tab PO Q4H PRN Docusate Sodium [Colace] Med 06/26/20 21:00 Active 100 mg PO BID Enoxaparin [Lovenox] Med 06/27/20 09:00 Active 30 mg SUBCUT DAILY Magnesium Hydroxide [Milk of Magnesia] Med 06/26/20 10:53 Active 30 ml PO BID PRN Magnesium Oxide Med 06/27/20 09:00 Active 800 mg PO DAILY Melatonin Med 06/26/20 11:10 Active 9 mg PO ASDIRECTED PRN Metoprolol Succinate [Toprol XL] Med 06/26/20 11:00 Active 25 mg PO BID PRN Morphine Med 06/26/20 13:21 Active 2 mg IVPUSH Q1H PRN Nozin [ Nasal Shrimp Packer] Med 06/26/20 21:00 Active 1 applic NASBOTH BID Ondansetron [Zofran] Med 06/26/20 10:53 Active 4 mg IVPUSH Q4H PRN Sodium Chloride 0.9% [Normal Saline] 1,000 ml Med 06/26/20 11:00 Active IV ASDIRECTED Vancomycin 1 gm Med 06/26/20 20:00 Active Sodium Chloride 0.9% [Normal Saline] 250 ml IV Q12H hydrOXYzine HCL [Atarax] Med 06/26/20 17:49 Active 25 mg PO Q6H PRN Antiembolic Hose [OM.PC] Routine Oth 06/26/20 10:53 Ordered DVT/VTE Prophylaxis Reflex [OM.PC] Routine Oth 06/26/20 10:53 Ordered Ice Therapy [OM.PC] Per Unit Routine Oth 06/26/20 10:53 Ordered Medication Continuation Instructions [OM.PC] Per Unit Oth 06/26/20 10:53 Ordered Routine Oral Care [OM.PC] Routine Oth 06/26/20 10:53 Ordered Sequential Compression Device [OM.PC] Routine Oth 06/26/20 10:53 Ordered Resuscitation Status Routine Resus Stat 06/26/20 10:53 Ordered Medication Orders Acetaminophen (Tylenol) 650 mg PO Q4H PRN PRN Reason: Pain/Fever Hydrocodone Bitart/Acetaminophen (Ceresco 325-5 Mg) 1 tab PO Q4H PRN PRN Reason: Pain (mild 1-3) Last Admin: 06/26/20 12:47 Dose: 1 tab Documented by: EDDY Bandage/Support Products ( Nasal Shrimp Packer) 1 applic NASBOTH BID [facility] Stop: 07/02/20 21:01 Last Admin: 06/26/20 21:06 Dose: 1 applic Documented by: TYESHA Docusate Sodium (Colace) 100 mg PO BID [facility] Last Admin: 06/26/20 21:06 Dose: 100 mg Documented by: TYESHA Enoxaparin Sodium (Lovenox) 30 mg SUBCUT DAILY [facility] Hydroxyzine HCl (Atarax) 25 mg PO Q6H PRN PRN Reason: Nausea Last Admin: 06/27/20 00:26 Dose: 25 mg Documented by: Admin: 06/26/20 18:09 Dose: 25 mg Documented by: JENNIFER Sodium Chloride (Normal Saline) 1,000 mls @ 125 mls/hr IV ASDIRECTED [facility] Last Admin: 06/27/20 00:26 Dose: 125 mls/hr Documented by: Infusion: 06/26/20 22:59 Dose: 125 mls/hr Documented by: Admin: 06/26/20 14:59 Dose: 125 mls/hr Documented by: JENNIFER Vancomycin HCl 1 gm/ Sodium (Chloride) 250 mls @ 150 mls/hr IV Q12H [facility] Stop: 06/27/20 21:39 Last Admin: 06/26/20 19:49 Dose: 150 mls/hr Documented by: TYESHA Magnesium Hydroxide (Milk Of Magnesia) 30 ml PO BID PRN PRN Reason: Constipation Magnesium Oxide (Magnesium Oxide) 800 mg PO DAILY [facility] Melatonin (Melatonin) 9 mg PO ASDIRECTED PRN PRN Reason: Insomnia Last Admin: 06/26/20 21:06 Dose: 9 mg Documented by: TYESHA Metoprolol Succinate (Toprol Xl) 25 mg PO BID PRN PRN Reason: Arrhythmia Morphine Sulfate (Morphine) 2 mg IVPUSH Q1H PRN PRN Reason: Pain (severe 7-10) Last Admin: 06/26/20 15:05 Dose: 1 mg Documented by: Admin: 06/26/20 13:29 Dose: 2 mg Documented by: EDDY Ondansetron HCl (Zofran) 4 mg IVPUSH Q4H PRN PRN Reason: Nausea/Vomiting Last Admin: 06/26/20 11:56 Dose: 4 mg Documented by: EDDY Oxycodone/Acetaminophen (Percocet 325-5 Mg) 1 - 2 tab PO Q4H PRN PRN Reason: Pain Last Admin: 06/27/20 05:19 Dose: 2 tab Documented by: Admin: 06/27/20 00:27 Dose: 2 tab Documented by: Admin: 06/26/20 19:49 Dose: 2 tab Documented by: Admin: 06/26/20 13:59 Dose: 2 tab Documented by: EDDY - Assessment Assessment (Free Text/Narrative):: Patient is a pleasant 69 y/o female, s/p R TKA, POD#1. Patient tolerated surgery well. Struggled with pain management, anxiety, and nausea post-operatively. After the block wore out, patient was in severe pain and anxious about pain level. PRN pain medications were utilized yesterday; patient reports improvement in pain this morning, 6-7/10 [address] in bed. Did require 1-2L Oxygen throughout yesterday afternoon due to a decline in O2 sats; this was attributed to patient hyperventilating with anxiety. Patient is now on RA with O2 >96%. Endorsed improvement in anxiety level this morning, but still anxious surrounding her recovery and pain level. PRN Hydroxyzine was added and utilized yesterday evening for nausea, may also help with anxiety. Patient denied nausea this morning. Patient was able to transfer from bed to chair with a 2-person assist yesterday evening. Unable to ambulate yesterday due to pain. HgB POD#1 dropped to 9.5; attributed to acute post-operative anemia. Patient has been hypotensive, but asymptomatic. Denied dizziness, fatigue, or lightheadedness this morning. Patient status changed from same day surgery to inpatient, as patient requires additional hospitalization for physical and occupational therapy services to be safe for discharge. Patient is also requiring better pain control with PO medications prior to discharge. Exam: R knee dressing dry and intact. Edema present in R LE. Tibialis posterior pulse appreciated 2+. Sensation intact in R LE. Plan: -Participate in physical therapy and occupational therapy services daily while in the hospital -May discontinue thompson catheter this afternoon, pending improvement with ambulation status -Continue with IV fluids this morning, will reassess BP this afternoon and adjust this order accordingly -Dressing change will be performed by orthopedic provider tomorrow -Discussed anxiety surrounding pain and recovery with patient; assured patient that she is on the road to a good recovery. Discussed the prn pain medications available and the physical therapy plan to progress ambulation status today. Encouraged patient to engage in activities like reading her book, watching TV, etc. during down time to distract her from solely focusing on pain.
[2020-06-27] MEDS ORDERED: Enoxaparin 30 MG/0.3 ML Syringe SUBCUT SCH (09:00)
[2020-06-27] MEDS ORDERED: MAGNESIUM OXIDE 1000 MG PO SCH (09:00)
[2020-06-27] MEDS: Ondansetron 4 MG/2 ML SDV IVPUSH PRN (13:27)
[2020-06-27] MEDS: Melatonin 3 MG Tab PO PRN (20:43)
[2020-06-28] MEDS: Acetaminophen/oxyCODONE 325-5 MG Tab PO PRN ×5 (01:31→20:24)
[2020-06-28] MEDS: hydrOXYzine HCl 25 MG Tab PO PRN (03:00)
[2020-06-28] MEDS: Enoxaparin 30 MG/0.3 ML Syringe SUBCUT SCH (08:13)
[2020-06-28] MEDS: Magnesium Oxide 400 MG Tab PO SCH (08:13)
[2020-06-28] MEDS: Nozin Nasal Sanitizer NASBOTH SCH ×2 (08:13→20:23)
[2020-06-28] MEDS: Docusate Sodium 100 MG Cap PO SCH ×2 (08:13→20:24)
--- NOTE | 2020-06-28 11:42 | PCM.SURGPN ---
- General Info Date of Service: 06/28/20 Date of Surgery/Procedure: 06/26/20 POD#: 2 Post-Op Diagnosis: right knee osteoarthritis Functional Status: Reports: Tolerating Diet, Ambulating (with FWW, 1 assist ), Urinating, Incentive Spirometry - Review of Systems General: Reports: No Symptoms HEENT: Reports: No Symptoms Pulmonary: Reports: No Symptoms Cardiovascular: Reports: No Symptoms Gastrointestinal: Reports: No Symptoms Genitourinary: Reports: No Symptoms Musculoskeletal: Reports: Leg Pain (right ), Joint Pain (right knee ), Joint Swelling (right knee, right ankle ) Skin: Reports: No Symptoms Neurological: Reports: No Symptoms Psychiatric: Reports: Anxiety - Patient Data Vitals - Most Recent: Last Vital Signs Temp 97.8 F 06/28/20 10:41 Pulse 80 06/28/20 10:41 Resp 18 06/28/20 10:41 BP 117/57 L 06/28/20 10:41 Pulse Ox 93 L 06/28/20 10:41 Weight - Most Recent: 187 lb 1.595 oz I&O - Last 24 Hours: Intake & Output 06/27/20 06/28/20 06/28/20 22:59 06:59 14:59 Intake Total 3258 638 1100 Output Total 1600 1475 Balance 1658 -837 1100 Med Orders - Current: Current Medications Acetaminophen (Tylenol) 650 mg PO Q4H PRN PRN Reason: Pain/Fever Hydrocodone Bitart/Acetaminophen ([place] 325-5 Mg) 1 tab PO Q4H PRN PRN Reason: Pain (mild 1-3) Last Admin: 06/26/20 12:47 Dose: 1 tab Documented by: Bandage/Support Products ( Nasal Nursery Teacher) 1 applic NASBOTH BID [facility] Stop: 07/02/20 21:01 Last Admin: 06/28/20 08:13 Dose: 1 applic Documented by: Docusate Sodium (Colace) 100 mg PO BID [facility] Last Admin: 06/28/20 08:13 Dose: 100 mg Documented by: Enoxaparin Sodium (Lovenox) 30 mg SUBCUT DAILY [facility] Last Admin: 06/28/20 08:13 Dose: 30 mg Documented by: Hydroxyzine HCl (Atarax) 25 mg PO Q6H PRN PRN Reason: Nausea Last Admin: 06/28/20 03:00 Dose: 25 mg Documented by: Magnesium Hydroxide (Milk Of Magnesia) 30 ml PO BID PRN PRN Reason: Constipation Magnesium Oxide (Magnesium Oxide) 800 mg PO DAILY [facility] Last Admin: 06/28/20 08:13 Dose: 800 mg Documented by: Melatonin (Melatonin) 9 mg PO ASDIRECTED PRN PRN Reason: Insomnia Last Admin: 06/27/20 20:43 Dose: 9 mg Documented by: Metoprolol Succinate (Toprol Xl) 25 mg PO BID PRN PRN Reason: Arrhythmia Morphine Sulfate (Morphine) 2 mg IVPUSH Q1H PRN PRN Reason: Pain (severe 7-10) Last Admin: 06/26/20 15:05 Dose: 1 mg Documented by: Ondansetron HCl (Zofran) 4 mg IVPUSH Q4H PRN PRN Reason: Nausea/Vomiting Last Admin: 06/27/20 13:27 Dose: 4 mg Documented by: Oxycodone/Acetaminophen (Percocet 325-5 Mg) 1 - 2 tab PO Q4H PRN PRN Reason: Pain Last Admin: 06/28/20 11:03 Dose: 2 tab Documented by: Discontinued Medications Bandage/Support Products ( Nasal Nursery Teacher) 1 applic NASBOTH BID [facility] Last Admin: 06/26/20 07:02 Dose: 1 applic Documented by: Docusate Sodium (Colace) 100 mg PO BID [facility] Enoxaparin Sodium (Lovenox) 30 mg SUBCUT DAILY [facility] Fentanyl (Sublimaze) Confirm Administered Dose 100 mcg .ROUTE .STK-MED ONE Stop: 06/26/20 07:29 Vancomycin HCl 1 gm/ Sodium (Chloride) 250 mls @ 167 mls/hr IV ONETIME ONE Stop: 06/26/20 09:59 Last Admin: 06/26/20 08:46 Dose: 167 mls/hr Documented by: Lactated Ringer's (Ringers, Lactated) 1,000 mls @ 75 mls/hr IV ASDIRECTED [facility] Last Admin: 06/26/20 07:24 Dose: 75 mls/hr Documented by: Lactated Ringer's (Ringers, Lactated) Confirm Administered Dose 1,000 mls @ as directed .ROUTE .STK-MED ONE Stop: 06/26/20 09:02 Sodium Chloride (Normal Saline) 1,000 mls @ 125 mls/hr IV ASDIRECTED [facility] Last Admin: 06/27/20 17:19 Dose: 125 mls/hr Documented by: Vancomycin HCl 1 gm/ Sodium (Chloride) 250 mls @ 150 mls/hr IV Q12H [facility] Stop: 06/27/20 13:39 Vancomycin HCl 1 gm/ Sodium (Chloride) 250 mls @ 150 mls/hr IV Q12H [facility] Stop: 06/27/20 21:39 Last Admin: 06/27/20 19:37 Dose: 150 mls/hr Documented by: Sodium Chloride (Normal Saline) 500 mls @ 500 mls/hr IV ONETIME ONE Stop: 06/26/20 14:59 Last Admin: 06/26/20 13:54 Dose: 500 mls/hr Documented by: Ketorolac Tromethamine (Toradol) 30 mg IVPUSH ONETIME ONE Stop: 06/26/20 13:31 Last Admin: 06/26/20 13:27 Dose: 30 mg Documented by: Midazolam HCl (Versed 1 Mg/Ml) Confirm Administered Dose 2 mg .ROUTE .STK-MED ONE Stop: 06/26/20 07:29 Midazolam HCl (Versed 1 Mg/Ml) Confirm Administered Dose 2 mg .ROUTE .STK-MED ONE Stop: 06/26/20 10:22 Morphine Sulfate (Morphine) 1 mg IVPUSH Q1H PRN PRN Reason: Breakthrough Pain Last Admin: 06/26/20 12:45 Dose: 1 mg Documented by: Non-Formulary Medication (Magnesium Oxide [Magnesium]) 1,000 mg PO DAILY [facility] Povidone Iodine (Betadine 10% Soln) Confirm Administered Dose 1 ml .ROUTE .STK- MED ONE Stop: 06/26/20 06:33 Last Admin: 06/26/20 09:33 Dose: 1 ml Documented by: Propofol (Diprivan 20 Ml) Confirm Administered Dose 200 mg .ROUTE .STK-MED ONE Stop: 06/26/20 07:29 - Exam Wound/Incisions: Healing Well, Dressing Dry and Intact, No Drainage General: Alert, Oriented, Cooperative Extremities: Normal Capillary Refill, Pedal Edema (right ), Joint Swelling (right knee ), Leg Pain (right ), Limited Range of Motion Skin: Dry, Intact Neurological: No New Focal Deficit Psy/Mental Status: Alert, Normal Affect, Anxious Sepsis Event Note - Evaluation Sepsis Screening Result: No Definite Risk - Focused Exam Vital Signs: Vital Signs Temp Temp Pulse Resp BP Pulse Ox 06/28/20 10:41 97.8 F 80 18 117/57 L 93 L 06/28/20 07:06 98.7 F 84 18 113/67 92 L 06/28/20 03:00 97.5 F 70 14 110/53 L 92 L - Problem List & Annotations (1) Status post total right knee replacement SNOMED Code(s): 8123769966741, 3353834552635 Code(s): Z96.651 - PRESENCE OF RIGHT ARTIFICIAL KNEE JOINT Status: Acute Current Visit: Yes (2) Anemia, posthemorrhagic, acute SNOMED Code(s): 220691552 Code(s): D62 - ACUTE POSTHEMORRHAGIC ANEMIA Status: Acute Current Visit: Yes - Problem List Review Problem List Initiated/Reviewed/Updated: Yes - My Orders Last 24 Hours: Active Orders 24 hr Category Date Time Status Convert IV to Saline Lock [OM.PC] Routine Oth 06/28/20 11:09 Ordered Medication Orders Acetaminophen (Tylenol) 650 mg PO Q4H PRN PRN Reason: Pain/Fever Hydrocodone Bitart/Acetaminophen ([place] 325-5 Mg) 1 tab PO Q4H PRN PRN Reason: Pain (mild 1-3) Last Admin: 06/26/20 12:47 Dose: 1 tab Documented by: EDDY Bandage/Support Products ( Nasal Nursery Teacher) 1 applic NASBOTH BID [facility] Stop: 07/02/20 21:01 Last Admin: 06/28/20 08:13 Dose: 1 applic Documented by: Admin: 06/27/20 20:37 Dose: 1 applic Documented by: Admin: 06/27/20 08:04 Dose: Not Given Documented by: Admin: 06/27/20 07:55 Dose: 1 applic Documented by: Admin: 06/26/20 21:06 Dose: 1 applic Documented by: TYESHA Docusate Sodium (Colace) 100 mg PO BID [facility] Last Admin: 06/28/20 08:13 Dose: 100 mg Documented by: Admin: 06/27/20 20:37 Dose: 100 mg Documented by: Admin: 06/27/20 08:04 Dose: 100 mg Documented by: Admin: 06/26/20 21:06 Dose: 100 mg Documented by: TYESHA Enoxaparin Sodium (Lovenox) 30 mg SUBCUT DAILY [facility] Last Admin: 06/28/20 08:13 Dose: 30 mg Documented by: Admin: 06/27/20 08:04 Dose: 30 mg Documented by: ASHELY Hydroxyzine HCl (Atarax) 25 mg PO Q6H PRN PRN Reason: Nausea Last Admin: 06/28/20 03:00 Dose: 25 mg Documented by: Admin: 06/27/20 20:43 Dose: 25 mg Documented by: Admin: 06/27/20 08:27 Dose: 25 mg Documented by: Admin: 06/27/20 00:26 Dose: 25 mg Documented by: Admin: 06/26/20 18:09 Dose: 25 mg Documented by: JENNIFER Magnesium Hydroxide (Milk Of Magnesia) 30 ml PO BID PRN PRN Reason: Constipation Magnesium Oxide (Magnesium Oxide) 800 mg PO DAILY [facility] Admin: 06/28/20 08:13 Dose: 800 mg Documented by: Admin: 06/27/20 08:04 Dose: 800 mg Documented by: ASHELY Melatonin (Melatonin) 9 mg PO ASDIRECTED PRN PRN Reason: Insomnia Last Admin: 06/27/20 20:43 Dose: 9 mg Documented by: Admin: 06/26/20 21:06 Dose: 9 mg Documented by: TYESHA Metoprolol Succinate (Toprol Xl) 25 mg PO BID PRN PRN Reason: Arrhythmia Morphine Sulfate (Morphine) 2 mg IVPUSH Q1H PRN PRN Reason: Pain (severe 7-10) Last Admin: 06/26/20 15:05 Dose: 1 mg Documented by: Admin: 06/26/20 13:29 Dose: 2 mg Documented by: EDDY Ondansetron HCl (Zofran) 4 mg IVPUSH Q4H PRN PRN Reason: Nausea/Vomiting Last Admin: 06/27/20 13:27 Dose: 4 mg Documented by: Admin: 06/26/20 11:56 Dose: 4 mg Documented by: EDDY Oxycodone/Acetaminophen (Percocet 325-5 Mg) 1 - 2 tab PO Q4H PRN PRN Reason: Pain Last Admin: 06/28/20 11:03 Dose: 2 tab Documented by: Admin: 06/28/20 07:10 Dose: 2 tab Documented by: Admin: 06/28/20 01:31 Dose: 2 tab Documented by: Admin: 06/27/20 21:34 Dose: 2 tab Documented by: Admin: 06/27/20 17:31 Dose: 2 tab Documented by: Admin: 06/27/20 13:28 Dose: 2 tab Documented by: Admin: 06/27/20 09:52 Dose: 2 tab Documented by: Admin: 06/27/20 05:19 Dose: 2 tab Documented by: Admin: 06/27/20 00:27 Dose: 2 tab Documented by: Admin: 06/26/20 19:49 Dose: 2 tab Documented by: Admin: 06/26/20 13:59 Dose: 2 tab Documented by: EDDY - Assessment Assessment (Free Text/Narrative):: Patient is a pleasant 69 y/o female, s/p R TKA, POD #2. Patient tolerated surgery well. Struggled post-operatively with pain management and anxiety. Patient endorsed pain 6/10 at rest in chair this afternoon. Endorsed heaviness and swelling in R LE. Denied numbness/tingling to R LE. Anxiety much improved from the evening of surgery, but does endorse anxious thoughts regarding pain level and recovery process. Patient is still having persistent pain with ambulation, limiting her ambulation distance. Has been compliant with physical and occupational therapy daily. Was able to ambulate 10 feet with FWW yesterday and 30 ft with FWW today with physical therapy. Flexion to 90 degrees in R knee. In occupational therapy, nikolai alba is completing ADLs with appropriate assistive equipment and a mod x1 assist. Knee is painful with prolonged standing and patient is requiring breaks to sit/rest knee frequently throughout ADLs. IV was saline locked this morning as blood pressures are improving and patient tolerating oral intake. With ambulation status improving, Marrero catheter was discontinued with morning. Patient has been tolerating regular diet. Some mild nausea, prns have been utilized. Exam: R knee incision healing well; dried blood on steri strips. Modest edema of R knee, expected s/p TKA. Pedal edema in R foot. Mild ecchymosis. No surrounding erythema, active drainage to R knee. Mild warmth to touch. Capillary refill appropriate. Sensation to R LE intact. Plan: * Marrero was discontinued and IV was saline locked this morning. * Dressing change was performed by orthopedic provider this morning. * Patient requiring prolonged hospitalization for additional physical and occupational therapy services to be safe for discharge home. Continue with physical and occupational therapy services daily while in the hospital. * Acute post-operative anemia stable; patient remains asymptomatic. Will continue to monitor for dizziness, lightheadedness, or orthostatic hypotension. Will re-check CBC if patient becomes symptomatic. * Encouraged patient to engage in reading, watching tv, visiting with friends on phone during her down time to distract her from solely focusing on pain and anxious thoughts.
[2020-06-29] MEDS: Acetaminophen/oxyCODONE 325-5 MG Tab PO PRN ×6 (00:40→21:38)
[2020-06-29] MEDS: hydrOXYzine HCl 25 MG Tab PO PRN ×2 (00:52→10:59)
--- NOTE | 2020-06-29 08:03 | PCM.SURGPN ---
- General Info Date of Service: 06/29/20 Date of Surgery/Procedure: 06/26/20 POD#: 3 Post-Op Diagnosis: right knee osteoarthritis Functional Status: Reports: Tolerating Diet, Ambulating (with FWW, x1 assist for safety ), Urinating, Incentive Spirometry - Review of Systems General: Reports: No Symptoms HEENT: Reports: No Symptoms Pulmonary: Reports: No Symptoms Cardiovascular: Reports: No Symptoms Gastrointestinal: Reports: No Symptoms Genitourinary: Reports: No Symptoms Musculoskeletal: Reports: Leg Pain (Right ), Joint Pain (R knee ), Joint Swelling (R knee ) Skin: Reports: No Symptoms Neurological: Reports: No Symptoms Psychiatric: Reports: No Symptoms - Patient Data Vitals - Most Recent: Last Vital Signs Temp 98.0 F 06/29/20 04:22 Pulse 93 06/28/20 23:00 Resp 18 06/29/20 04:22 BP 100/60 06/29/20 04:22 Pulse Ox 94 L 06/29/20 04:22 Weight - Most Recent: 187 lb 1.595 oz I&O - Last 24 Hours: Intake & Output 06/28/20 06/29/20 06/29/20 22:59 06:59 14:59 Intake Total 1080 Output Total 550 850 Balance 530 -850 Med Orders - Current: Current Medications Acetaminophen (Tylenol) 650 mg PO Q4H PRN PRN Reason: Pain/Fever Hydrocodone Bitart/Acetaminophen ([place] 325-5 Mg) 1 tab PO Q4H PRN PRN Reason: Pain (mild 1-3) Last Admin: 06/26/20 12:47 Dose: 1 tab Documented by: Bandage/Support Products ( Nasal Dessert Cup Machine Feeder) 1 applic NASBOTH BID [facility] Stop: 07/02/20 21:01 Last Admin: 06/28/20 20:23 Dose: 1 applic Documented by: Docusate Sodium (Colace) 100 mg PO BID [facility] Last Admin: 06/28/20 20:24 Dose: 100 mg Documented by: Enoxaparin Sodium (Lovenox) 30 mg SUBCUT DAILY [facility] Last Admin: 06/28/20 08:13 Dose: 30 mg Documented by: Hydroxyzine HCl (Atarax) 25 mg PO Q6H PRN PRN Reason: Nausea Last Admin: 06/29/20 00:52 Dose: 25 mg Documented by: Magnesium Hydroxide (Milk Of Magnesia) 30 ml PO BID PRN PRN Reason: Constipation Magnesium Oxide (Magnesium Oxide) 800 mg PO DAILY [facility] Last Admin: 06/28/20 08:13 Dose: 800 mg Documented by: Melatonin (Melatonin) 9 mg PO ASDIRECTED PRN PRN Reason: Insomnia Last Admin: 06/27/20 20:43 Dose: 9 mg Documented by: Metoprolol Succinate (Toprol Xl) 25 mg PO BID PRN PRN Reason: Arrhythmia Morphine Sulfate (Morphine) 2 mg IVPUSH Q1H PRN PRN Reason: Pain (severe 7-10) Last Admin: 06/26/20 15:05 Dose: 1 mg Documented by: Ondansetron HCl (Zofran) 4 mg IVPUSH Q4H PRN PRN Reason: Nausea/Vomiting Last Admin: 06/27/20 13:27 Dose: 4 mg Documented by: Oxycodone/Acetaminophen (Percocet 325-5 Mg) 1 - 2 tab PO Q4H PRN PRN Reason: Pain Last Admin: 06/29/20 04:31 Dose: 2 tab Documented by: Discontinued Medications Bandage/Support Products ( Nasal Dessert Cup Machine Feeder) 1 applic NASBOTH BID [facility] Last Admin: 06/26/20 07:02 Dose: 1 applic Documented by: Docusate Sodium (Colace) 100 mg PO BID [facility] Enoxaparin Sodium (Lovenox) 30 mg SUBCUT DAILY [facility] Fentanyl (Sublimaze) Confirm Administered Dose 100 mcg .ROUTE .[facility] ONE Stop: 06/26/20 07:29 Vancomycin HCl 1 gm/ Sodium (Chloride) 250 mls @ 167 mls/hr IV ONETIME ONE Stop: 06/26/20 09:59 Last Admin: 06/26/20 08:46 Dose: 167 mls/hr Documented by: Lactated Ringer's (Ringers, Lactated) 1,000 mls @ 75 mls/hr IV ASDIRECTED [facility] Last Admin: 06/26/20 07:24 Dose: 75 mls/hr Documented by: Lactated Ringer's (Ringers, Lactated) Confirm Administered Dose 1,000 mls @ as directed .ROUTE .[facility] ONE Stop: 06/26/20 09:02 Sodium Chloride (Normal Saline) 1,000 mls @ 125 mls/hr IV ASDIRECTED [facility] Last Admin: 06/27/20 17:19 Dose: 125 mls/hr Documented by: Vancomycin HCl 1 gm/ Sodium (Chloride) 250 mls @ 150 mls/hr IV Q12H [facility] Stop: 06/27/20 13:39 Vancomycin HCl 1 gm/ Sodium (Chloride) 250 mls @ 150 mls/hr IV Q12H [facility] Stop: 06/27/20 21:39 Last Admin: 06/27/20 19:37 Dose: 150 mls/hr Documented by: Sodium Chloride (Normal Saline) 500 mls @ 500 mls/hr IV ONETIME ONE Stop: 06/26/20 14:59 Last Admin: 06/26/20 13:54 Dose: 500 mls/hr Documented by: Ketorolac Tromethamine (Toradol) 30 mg IVPUSH ONETIME ONE Stop: 06/26/20 13:31 Last Admin: 06/26/20 13:27 Dose: 30 mg Documented by: Midazolam HCl (Versed 1 Mg/Ml) Confirm Administered Dose 2 mg .ROUTE .STK-MED ONE Stop: 06/26/20 07:29 Midazolam HCl (Versed 1 Mg/Ml) Confirm Administered Dose 2 mg .ROUTE .STK-MED ONE Stop: 06/26/20 10:22 Morphine Sulfate (Morphine) 1 mg IVPUSH Q1H PRN PRN Reason: Breakthrough Pain Last Admin: 06/26/20 12:45 Dose: 1 mg Documented by: Non-Formulary Medication (Magnesium Oxide [Magnesium]) 1,000 mg PO DAILY [facility] Povidone Iodine (Betadine 10% Soln) Confirm Administered Dose 1 ml .ROUTE .STK- MED ONE Stop: 06/26/20 06:33 Last Admin: 06/26/20 09:33 Dose: 1 ml Documented by: Propofol (Diprivan 20 Ml) Confirm Administered Dose 200 mg .ROUTE .STK-MED ONE Stop: 06/26/20 07:29 - Exam Wound/Incisions: Dressing Dry and Intact, No Drainage General: Alert, Oriented, Cooperative Extremities: Normal Capillary Refill, Joint Swelling (R knee ), Leg Pain (Right ), Limited Range of Motion Skin: Dry, Intact Neurological: Sensation Intact Psy/Mental Status: Alert, Normal Affect Sepsis Event Note - Evaluation Sepsis Screening Result: No Definite Risk - Focused Exam Vital Signs: Vital Signs Temp Pulse Resp BP Pulse Ox 06/29/20 04:22 98.0 F 18 100/60 94 L 06/28/20 23:00 97.0 F 93 20 136/66 - Problem List & Annotations (1) Status post total right knee replacement SNOMED Code(s): 1185696331185, 4528888676963 Code(s): Z96.651 - PRESENCE OF RIGHT ARTIFICIAL KNEE JOINT Status: Acute Current Visit: Yes (2) Anemia, posthemorrhagic, acute SNOMED Code(s): 186665125 Code(s): D62 - ACUTE POSTHEMORRHAGIC ANEMIA Status: Acute Current Visit: Yes - Problem List Review Problem List Initiated/Reviewed/Updated: Yes - My Orders Last 24 Hours: Active Orders 24 hr Category Date Time Status Convert IV to Saline Lock [OM.PC] Routine Oth 06/28/20 11:09 Ordered Medication Orders Acetaminophen (Tylenol) 650 mg PO Q4H PRN PRN Reason: Pain/Fever Hydrocodone Bitart/Acetaminophen ([place] 325-5 Mg) 1 tab PO Q4H PRN PRN Reason: Pain (mild 1-3) Last Admin: 06/26/20 12:47 Dose: 1 tab Documented by: EDDY Bandage/Support Products ( Nasal Dessert Cup Machine Feeder) 1 applic NASBOTH BID [facility] Stop: 07/02/20 21:01 Last Admin: 06/28/20 20:23 Dose: 1 applic Documented by: Admin: 06/28/20 08:13 Dose: 1 applic Documented by: Admin: 06/27/20 20:37 Dose: 1 applic Documented by: Admin: 06/27/20 08:04 Dose: Not Given Documented by: Admin: 06/27/20 07:55 Dose: 1 applic Documented by: Admin: 06/26/20 21:06 Dose: 1 applic Documented by: TYESHA Docusate Sodium (Colace) 100 mg PO BID [facility] Admin: 06/28/20 20:24 Dose: 100 mg Documented by: Admin: 06/28/20 08:13 Dose: 100 mg Documented by: Admin: 06/27/20 20:37 Dose: 100 mg Documented by: Admin: 06/27/20 08:04 Dose: 100 mg Documented by: Admin: 06/26/20 21:06 Dose: 100 mg Documented by: TYESHA Enoxaparin Sodium (Lovenox) 30 mg SUBCUT DAILY [facility] Last Admin: 06/28/20 08:13 Dose: 30 mg Documented by: Admin: 06/27/20 08:04 Dose: 30 mg Documented by: ASHELY Hydroxyzine HCl (Atarax) 25 mg PO Q6H PRN PRN Reason: Nausea Last Admin: 06/29/20 00:52 Dose: 25 mg Documented by: Admin: 06/28/20 03:00 Dose: 25 mg Documented by: Admin: 06/27/20 20:43 Dose: 25 mg Documented by: Admin: 06/27/20 08:27 Dose: 25 mg Documented by: Admin: 06/27/20 00:26 Dose: 25 mg Documented by: Admin: 06/26/20 18:09 Dose: 25 mg Documented by: JENNIFER Magnesium Hydroxide (Milk Of Magnesia) 30 ml PO BID PRN PRN Reason: Constipation Magnesium Oxide (Magnesium Oxide) 800 mg PO DAILY [facility] Last Admin: 06/28/20 08:13 Dose: 800 mg Documented by: Admin: 06/27/20 08:04 Dose: 800 mg Documented by: ASHELY Melatonin (Melatonin) 9 mg PO ASDIRECTED PRN PRN Reason: Insomnia Last Admin: 06/27/20 20:43 Dose: 9 mg Documented by: Admin: 06/26/20 21:06 Dose: 9 mg Documented by: TYESHA Metoprolol Succinate (Toprol Xl) 25 mg PO BID PRN PRN Reason: Arrhythmia Morphine Sulfate (Morphine) 2 mg IVPUSH Q1H PRN PRN Reason: Pain (severe 7-10) Last Admin: 06/26/20 15:05 Dose: 1 mg Documented by: Admin: 06/26/20 13:29 Dose: 2 mg Documented by: EDDY Ondansetron HCl (Zofran) 4 mg IVPUSH Q4H PRN PRN Reason: Nausea/Vomiting Last Admin: 06/27/20 13:27 Dose: 4 mg Documented by: Admin: 06/26/20 11:56 Dose: 4 mg Documented by: EDDY Oxycodone/Acetaminophen (Percocet 325-5 Mg) 1 - 2 tab PO Q4H PRN PRN Reason: Pain Last Admin: 06/29/20 04:31 Dose: 2 tab Documented by: Admin: 06/29/20 00:40 Dose: 2 tab Documented by: Admin: 06/28/20 20:24 Dose: 2 tab Documented by: Admin: 06/28/20 16:14 Dose: 2 tab Documented by: Admin: 06/28/20 11:03 Dose: 2 tab Documented by: Admin: 06/28/20 07:10 Dose: 2 tab Documented by: Admin: 06/28/20 01:31 Dose: 2 tab Documented by: Admin: 06/27/20 21:34 Dose: 2 tab Documented by: Admin: 06/27/20 17:31 Dose: 2 tab Documented by: Admin: 06/27/20 13:28 Dose: 2 tab Documented by: Admin: 06/27/20 09:52 Dose: 2 tab Documented by: Admin: 06/27/20 05:19 Dose: 2 tab Documented by: Admin: 06/27/20 00:27 Dose: 2 tab Documented by: Admin: 06/26/20 19:49 Dose: 2 tab Documented by: Admin: 06/26/20 13:59 Dose: 2 tab Documented by: EDDY - Assessment Assessment (Free Text/Narrative):: Assessment: Patient is a pleasant 69 y/o female, s/p R TKA, POD #3. Patient tolerated surgery well. Has struggled with pain management, anxiety, ambulation, and performing ADLs independently post-operatively. Patient reports pain 4/10 this morning at rest. Denied numbness or tingling of LE. Endorsed swelling in R LE. Patient remains hemodynamically stable. Denied lightheadedness, dizziness. No orthostatic hypotension. Anxiety is much improved from the previous days; patient denied any anxious thoughts this morning. Has been complaint with daily physical and occupational therapy services. Ambulated 50 ft with FWW and got to 90 degrees flexion of R knee with physical therapy yesterday. Is requiring assistive devices + mod x1 assist to complete ADLs during occupational therapy. Knee discomfort continues to limit her ability to ambulate past 50 ft and complete ADLs without frequent breaks to sit/rest R knee. Tolerating regular diet well. Endorsed mild nausea; prns have been utilized. No emesis. On POD#2, thompson catheter was d/c, IV was saline locked, and dressing change was performed. Exam: R knee dressing dry and intact. No surrounding erythema, ecchymosis, nor active drainage. Mild warmth to touch of R knee. Modest edema of R knee and R pedal edema, appropriate following R TKA. Capillary refill appropriate. Sensation intact in R LE. Plan: * Post-operative anemia is stable. Patient remains hemodynamically stable and asymptomatic. Continue to monitor for dizziness, lightheadedness, or orthostatic hypotension. Can recheck CBC if patient becomes symptomatic. * Patient is requiring further physical and occupational therapy sessions to progress ambulation and ability to perform ADLs independently prior to safe discharge home. Continue with physical therapy and occupational therapy sessions daily while in the hospital. * Pain management: continue with Percocet prn, elevation, and ice for pain control.
[2020-06-29] MEDS: Docusate Sodium 100 MG Cap PO SCH ×2 (08:29→21:35)
[2020-06-29] MEDS: Magnesium Oxide 400 MG Tab PO SCH (08:29)
[2020-06-29] MEDS: Enoxaparin 30 MG/0.3 ML Syringe SUBCUT SCH (08:30)
[2020-06-29] MEDS: Nozin Nasal Sanitizer NASBOTH SCH ×2 (08:30→21:35)
[2020-06-30] MEDS: Acetaminophen/oxyCODONE 325-5 MG Tab PO PRN ×3 (03:01→13:49)
[2020-06-30] MEDS: Nozin Nasal Sanitizer NASBOTH SCH (09:52)
[2020-06-30] MEDS: Magnesium Oxide 400 MG Tab PO SCH (09:53)
[2020-06-30] MEDS: Enoxaparin 30 MG/0.3 ML Syringe SUBCUT SCH (09:53)
[2020-06-30] MEDS: Docusate Sodium 100 MG Cap PO SCH (09:53)
--- NOTE | 2020-06-30 10:09 | PCM.DCSUM1 ---
Discharge Summary - Hospital Course HPI Initial Comments: Patient is a 69 y/o female, severe R knee osteoarthritis. Failed conservative management. Elected to undergo R TKA on 06/26/20. Tolerated surgery well. Patient had a prolonged hospital stay to obtain adequate pain control and for progression of safe ambulation + ability to perform ADLs independently prior to discharge home. Diagnosis: Stroke: No Modified [place] Scale: No Symptoms at All Modified [place] Scale Score: 0 - Discharge Data Discharge Date: 06/30/20 Discharge Disposition: Home, Self-Care 01 Condition: Good - Referral to Home Health Date of Face to Face Encounter: 06/30/20 Reason for Homebound Status: Able to ambulate with FWW and complete ADLs independently and safely. Primary Care Physician: Ab Urbano MD - Discharge Diagnosis/Problem(s) (1) Status post total right knee replacement SNOMED Code(s): 4408580936126, [id number] ICD Code: Z96.651 - PRESENCE OF RIGHT ARTIFICIAL KNEE JOINT Status: Acute Current Visit: Yes (2) Anemia, posthemorrhagic, acute SNOMED Code(s): 953062591 ICD Code: D62 - ACUTE POSTHEMORRHAGIC ANEMIA Status: Acute Current Visit: Yes - Patient Summary/Data Operative Procedure(s) Performed: Right total knee arthroplasty Consults: Consultations 06/26/20 10:53 Consult to Case Management/Integrated Circuit Design Engineer [CONS] Routine Comment: Physician Instructions: Service(s) to be Consulted: Case Management Reason for Consult: Plan for Discharge OT Evaluation and Treatment [CONS] Routine Please Evaluate and Treat. OT Reason for Consult: ADL's Special Instructions: s/p r TKA This query below is only for informational purposes and is not editable. PT Evaluation and Treatment [CONS] Routine Please Evaluate and Treat. PT Reason for Consult: Post op Ortho Surgery Special Instructions: s/p r tka This query below is only for informational purposes and is not editable. PT Evaluation and Treatment [CONS] Routine Please Evaluate and Treat. PT Reason for Consult: Post op Ortho Surgery Knee Pending Discharge: Yes, 1- 2 days Special Instructions: Schedule first outpatient PT appointment in 3-5 day post discharge. This query below is only for informational purposes and is not editable. Hospital Course: Patient is a pleasant 69 y/o female, s/p R TKA, POD #4. Patient tolerated surge ry well. She struggled with pain management, anxiety, and ambulation abilities post-operatively, resulting in a prolonged hospital stay. On the afternoon of surgery, patient struggled with pain management after the block wore off; had severe anxiety with her pain and hyperventilated, requiring 2L of O2. PRN pain medications were utilized and patient was weaned off of O2 on POD#1. Due to pain and anxiety, ambulation was limited on POD#1. On POD#2 Marrero catheter was discontinued, IV was saline locked, and dressing change was performed. Tolerated regular diet well throughout stay. Some nausea on POD#1, 2, and 3. No emesis. Patient had bowel movement on POD#4. Patient did have acute post-operative anemia; HgB 9.5 on POD#1. Patient remained hemodynamically stable throughout her stay. No symptoms of dizziness, weakness, lightheadedness. No orthostatic hypotension. Patient was compliant with physical therapy BID and occupational therapy daily while in the hospital. Patient feels more confident with weight bearing and ambulation; ambulated 200 ft with FWW and completed stairs successfully with physical therapy on POD#4. Worked on bilateral LE ROM and exercises with PT throughout stay. Demonstrated ability to safely transfer in/out of bed and into chair independently, and has shown improvements in performing ADLs independently with occupational therapy. Patient made improvements with ambulation status daily, pain is well controlled with PO medications, and anxiety has significantly decreased. Patient voiced confidence in ability to safely return home. Care team is in agreement patient is safe for discharge to home. Exam: Incision intact and healing well. No surrounding erythema, ecchymosis, nor active drainage. Mild warmth to touch. Edema of R LE compared to L LE. Sensation of R LE intact. Capillary refill appropriate. Tibialis posterior pulse appreciated 2+. - Patient Instructions Diet: Usual Diet as Tolerated Activity: Apply Ice, Elevate Extremity, Full Weight Bearing Driving: Do Not Drive Showering/Bathing: May Shower Wound/Incision Care: Keep Operative Site/Wound Site Clean and Dry, Change Dressing Daily Notify Provider of: Fever, Increased Pain, Swelling and Redness, Drainage - Discharge Plan *PRESCRIPTION DRUG MONITORING PROGRAM REVIEWED*: Yes *COPY OF PRESCRIPTION DRUG MONITORING REPORT IN PATIENT ANIVAL: Not Applicable Prescriptions/Med Rec: Acetaminophen/oxyCODONE [Percocet 325-5 MG] 2 tab PO Q6HR PRN 7 Days #56 tab PRN Reason: Pain Home Medications: Home Meds Ubidecarenone [Coenzyme Q10] 100 mg PO DAILY 03/01/16 [History] Magnesium Oxide [Magnesium] 1,000 mg PO DAILY 10/05/19 [History] Vit C/Ascorbate Calcium,Sodium [Vitamin C] 500 mg PO DAILY 12/05/19 [History] Metoprolol Succinate 25 mg PO BID PRN 05/24/20 [History] Multivitamin with Minerals [Multiple Vitamin] 1 tab PO DAILY 05/24/20 [History] Cholecalciferol (Vitamin D3) [Vitamin D] 5,000 unit PO DAILY 06/26/20 [History] Melatonin 10 mg PO ASDIRECTED PRN 06/26/20 [History] Acetaminophen/oxyCODONE [Percocet 325-5 MG] 2 tab PO Q6HR PRN 7 Days #56 tab 06/30/20 [Rx] Aspirin [Halfprin] 81 mg PO BID 06/30/20 [History] Oxygen Therapy Mode: Room Air Referrals: Segun Bustillo MD [Physician] - 07/11/20 2:30 pm (Please arrive 15 minutes early to register for appointment.) - Discharge Summary/Plan Comment DC Time >30 min.: No Discharge Summary/Plan Comment: * Anticipate discharge to home today * Patient to complete outpatient physical therapy; associate financial planner has sent the appropriate order to patients requested PT location * Script for 1 week supply of pain medication sent to patients pharmacy; 5mg-325 mg Percocet 2 tabs PO q6 hrs prn #56. * Educated patient to take 1 Aspirin BID for DVT/VTE prophylaxis * Educated patient to continue with Nozin spray * Patient to follow up with orthopedic clinic in 2 weeks * Encouraged patient to call with any concerns or questions prior to scheduled apt. Patient agreeable to and expressed understanding of above plan. - General Info Date of Service: 06/30/20 Functional Status: Reports: Pain Controlled, Tolerating Diet, Ambulating (with FWW ), Urinating - Review of Systems General: Reports: No Symptoms HEENT: Reports: No Symptoms Pulmonary: Reports: No Symptoms Cardiovascular: Reports: No Symptoms Gastrointestinal: Reports: No Symptoms Genitourinary: Reports: No Symptoms Musculoskeletal: Reports: Leg Pain (Right ), Joint Pain (Right Knee ), Joint Swelling (R knee ) Skin: Reports: No Symptoms Neurological: Reports: No Symptoms Psychiatric: Reports: No Symptoms - Patient Data Vitals - Most Recent: Last Vital Signs Temp 98.4 F 06/30/20 08:27 Pulse 107 H 06/30/20 08:27 Resp 16 06/30/20 08:27 BP 128/74 06/30/20 08:27 Pulse Ox 98 06/30/20 08:27 Weight - Most Recent: 187 lb 1.595 oz I&O - Last 24 hours: Intake & Output 06/29/20 06/30/20 06/30/20 22:59 06:59 14:59 Intake Total 600 120 240 Output Total 900 Balance -300 120 240 Med Orders - Current: Current Medications Acetaminophen (Tylenol) 650 mg PO Q4H PRN PRN Reason: Pain/Fever Hydrocodone Bitart/Acetaminophen ([place] 325-5 Mg) 1 tab PO Q4H PRN PRN Reason: Pain (mild 1-3) Last Admin: 06/26/20 12:47 Dose: 1 tab Documented by: Bandage/Support Products ( Nasal Sleeve Wheel Maker) 1 applic NASBOTH BID [facility] Stop: 07/02/20 21:01 Last Admin: 06/30/20 09:52 Dose: 1 applic Documented by: Docusate Sodium (Colace) 100 mg PO BID [facility] Last Admin: 06/30/20 09:53 Dose: 100 mg Documented by: Enoxaparin Sodium (Lovenox) 30 mg SUBCUT DAILY [facility] Last Admin: 06/30/20 09:53 Dose: 30 mg Documented by: Hydroxyzine HCl (Atarax) 25 mg PO Q6H PRN PRN Reason: Nausea Last Admin: 06/29/20 10:59 Dose: 25 mg Documented by: Magnesium Hydroxide (Milk Of Magnesia) 30 ml PO BID PRN PRN Reason: Constipation Last Admin: 06/29/20 17:41 Dose: 30 ml Documented by: Magnesium Oxide (Magnesium Oxide) 800 mg PO DAILY [facility] Last Admin: 06/30/20 09:53 Dose: 800 mg Documented by: Melatonin (Melatonin) 9 mg PO ASDIRECTED PRN PRN Reason: Insomnia Last Admin: 06/27/20 20:43 Dose: 9 mg Documented by: Metoprolol Succinate (Toprol Xl) 25 mg PO BID PRN PRN Reason: Arrhythmia Morphine Sulfate (Morphine) 2 mg IVPUSH Q1H PRN PRN Reason: Pain (severe 7-10) Last Admin: 06/26/20 15:05 Dose: 1 mg Documented by: Ondansetron HCl (Zofran) 4 mg IVPUSH Q4H PRN PRN Reason: Nausea/Vomiting Last Admin: 06/27/20 13:27 Dose: 4 mg Documented by: Oxycodone/Acetaminophen (Percocet 325-5 Mg) 1 - 2 tab PO Q4H PRN PRN Reason: Pain Last Admin: 06/30/20 07:48 Dose: 2 tab Documented by: Discontinued Medications Bandage/Support Products ( Nasal Sleeve Wheel Maker) 1 applic NASBOTH BID [facility] Last Admin: 06/26/20 07:02 Dose: 1 applic Documented by: Docusate Sodium (Colace) 100 mg PO BID [facility] Enoxaparin Sodium (Lovenox) 30 mg SUBCUT DAILY [facility] Fentanyl (Sublimaze) Confirm Administered Dose 100 mcg .ROUTE .STK-MED ONE Stop: 06/26/20 07:29 Vancomycin HCl 1 gm/ Sodium (Chloride) 250 mls @ 167 mls/hr IV ONETIME ONE Stop: 06/26/20 09:59 Last Admin: 06/26/20 08:46 Dose: 167 mls/hr Documented by: Lactated Ringer's (Ringers, Lactated) 1,000 mls @ 75 mls/hr IV ASDIRECTED [facility] Last Admin: 06/26/20 07:24 Dose: 75 mls/hr Documented by: Lactated Ringer's (Ringers, Lactated) Confirm Administered Dose 1,000 mls @ as directed .ROUTE .STK-MED ONE Stop: 06/26/20 09:02 Sodium Chloride (Normal Saline) 1,000 mls @ 125 mls/hr IV ASDIRECTED [facility] Last Admin: 06/27/20 17:19 Dose: 125 mls/hr Documented by: Vancomycin HCl 1 gm/ Sodium (Chloride) 250 mls @ 150 mls/hr IV Q12H [facility] Stop: 06/27/20 13:39 Vancomycin HCl 1 gm/ Sodium (Chloride) 250 mls @ 150 mls/hr IV Q12H [facility] Stop: 06/27/20 21:39 Last Admin: 06/27/20 19:37 Dose: 150 mls/hr Documented by: Sodium Chloride (Normal Saline) 500 mls @ 500 mls/hr IV ONETIME ONE Stop: 06/26/20 14:59 Last Admin: 06/26/20 13:54 Dose: 500 mls/hr Documented by: Ketorolac Tromethamine (Toradol) 30 mg IVPUSH ONETIME ONE Stop: 06/26/20 13:31 Last Admin: 06/26/20 13:27 Dose: 30 mg Documented by: Midazolam HCl (Versed 1 Mg/Ml) Confirm Administered Dose 2 mg .ROUTE .STK-MED ON E Stop: 06/26/20 07:29 Midazolam HCl (Versed 1 Mg/Ml) Confirm Administered Dose 2 mg .ROUTE .STK-MED ONE Stop: 06/26/20 10:22 Morphine Sulfate (Morphine) 1 mg IVPUSH Q1H PRN PRN Reason: Breakthrough Pain Last Admin: 06/26/20 12:45 Dose: 1 mg Documented by: Non-Formulary Medication (Magnesium Oxide [Magnesium]) 1,000 mg PO DAILY [facility] Povidone Iodine (Betadine 10% Soln) Confirm Administered Dose 1 ml .ROUTE .STK- MED ONE Stop: 06/26/20 06:33 Last Admin: 06/26/20 09:33 Dose: 1 ml Documented by: Propofol (Diprivan 20 Ml) Confirm Administered Dose 200 mg .ROUTE .STK-MED ONE Stop: 06/26/20 07:29 - Exam General: Reports: Alert, Oriented, Cooperative, No Acute Distress Extremities: Normal Capillary Refill, Pedal Edema (right ), Joint Swelling (R knee ), Leg Pain (Right ), Limited Range of Motion Skin: Reports: Warm, Dry, Intact Wound/Incisions: Reports: Healing Well, Dressing Dry and Intact, No Drainage Neurological: Reports: No New Focal Deficit Psy/Mental Status: Reports: Alert, Normal Affect, Normal Mood
[2020-06-30 11:46] VITALS: BP 127/79; PULSE 88
== END 2020-06-30 17:25 | disposition home or self-care (01) | DRG 470 ==
LOC: JP.SDSSCHI 05:31 → JP.SDS 05:31 → EDSTATUS 07:30 → JP.MS 11:38
PROVIDERS: ADMIT Specialist; ATTEND Specialist
PROC: 0SRC069 Replacement of Right Knee Joint with Oxidized Zirconium on Polyethylene Synthetic Substitute, Cemented, Open Approach (ICD-10-PCS; principal; 2020-06-26)
DX: M17.11 Unilateral primary osteoarthritis, right knee (principal); D62 Acute posthemorrhagic anemia; R06.4 Hyperventilation; E78.5 Hyperlipidemia, unspecified; I48.0 Paroxysmal atrial fibrillation; I95.9 Hypotension, unspecified; F41.9 Anxiety disorder, unspecified; Z88.8 Allergy status to other drugs, medicaments and biological substances; Z79.899 Other long term (current) drug therapy
CPT/HCPCS: 36415; 73560-26-RT; 73560-RT; 80053; 85027; 86850; 86900; 86901; 97110-GP; 97116-GP; 97161-GP; 97165-GO; 97530-GP; 97535-GO; 97535-GP; A9270-GY; C1713; C1776; J1650; J1885; J2250; J2270; J2405; J2704; J3010; J3370; J7030; J7040; J7050; J7120

== ENCOUNTER 2020-07-05 16:25 | Observation (INO) | payer MEDICARE ==
[2020-07-05] MEDS ORDERED: Diltiazem 25 MG/5 ML SDV IVPUSH ONE (16:44)
--- NOTE | 2020-07-05 16:52 | EDM.PDOC ---
ED HPI GENERAL MEDICAL PROBLEM - General Chief Complaint: Cardiovascular Problem Stated Complaint: AFIB Time Seen by Provider: 07/05/20 16:48 Source of Information: Reports: Patient History Limitations: Reports: No Limitations - History of Present Illness INITIAL COMMENTS - FREE TEXT/NARRATIVE: pt has a past history of atrial fib which has converted on the cardiozem. She had pt today and had alot of pain with exercise of the knee. She thinks she went into the atrial fib this afternoon after therapy. She did not have actuial chest pain. Onset: Today, Sudden Duration: Hour(s): Location: Reports: Chest, Lower Extremity, Right, Other (pt has alot of swelling in the rt lower leg, with tenderness, She is not on lovenox. ) Associated Symptoms: Reports: Other (pt is nauseated and she is feeling quite weak, q) - Related Data Allergies Allergy/AdvReac Type Severity Reaction Status Date / Time nickel Allergy Rash Verified 07/05/20 16:44 Penicillins Allergy Hives Verified 07/05/20 16:44 Home Meds: Home Meds Ubidecarenone [Coenzyme Q10] 100 mg PO DAILY 03/01/16 [History] Magnesium Oxide [Magnesium] 1,000 mg PO DAILY 10/05/19 [History] Vit C/Ascorbate Calcium,Sodium [Vitamin C] 500 mg PO DAILY 12/05/19 [History] Metoprolol Succinate 25 mg PO BID PRN 05/24/20 [History] Multivitamin with Minerals [Multiple Vitamin] 1 tab PO DAILY 05/24/20 [History] Cholecalciferol (Vitamin D3) [Vitamin D] 5,000 unit PO DAILY 06/26/20 [History] Melatonin 10 mg PO ASDIRECTED PRN 06/26/20 [History] Acetaminophen/oxyCODONE [Percocet 325-5 MG] 2 tab PO Q6HR PRN 7 Days #56 tab 06/30/20 [Rx] Aspirin [Halfprin] 81 mg PO BID 06/30/20 [History] Acetaminophen/HYDROcodone [[place] 325-5 MG] 1 tab PO Q6H PRN #28 tab 07/03/20 [Rx] hydrOXYzine HCL [Atarax] 25 mg PO Q6H PRN 7 Days #28 tab 07/03/20 [Rx] Past Medical History HEENT History: Reports: Impaired Vision Cardiovascular History: Reports: Afib Respiratory History: Reports: None Gastrointestinal History: Reports: None Genitourinary History: Reports: None SPECIMEN PROCESSOR History: Reports: Musculoskeletal History: Reports: Other (See Below) Other Musculoskeletal History: R knee pain Neurological History: Reports: None Psychiatric History: Reports: None Endocrine/Metabolic History: Reports: Obesity/BMI 30+ Hematologic History: Reports: None Immunologic History: Reports: None Oncologic (Cancer) History: Reports: None Dermatologic History: Reports: None - Infectious Disease History Infectious Disease History: Reports: Chicken Pox, Measles, Mumps, Rubella Other Infectious Disease History: staph on the skin - Past Surgical History Head Surgeries/Procedures: Reports: None GI Surgical History: Reports: Colonoscopy Female Surgical History: Reports: D&C Musculoskeletal Surgical History: Reports: None, Knee Replacement Social & Family History - Family History Cardiac: Reports: CAD Oncologic: Reports: Lung - Caffeine Use Caffeine Use: Reports: Coffee ED ROS GENERAL - Review of Systems Review Of Systems: See Below Constitutional: Reports: Weakness, Fatigue, Diaphoresis HEENT: Reports: No Symptoms Respiratory: Reports: Shortness of Breath Cardiovascular: Reports: Palpitations Endocrine: Reports: No Symptoms GI/Abdominal: Reports: No Symptoms Musculoskeletal: Reports: No Symptoms Skin: Reports: No Symptoms Neurological: Reports: Dizziness ED EXAM, GENERAL - Physical Exam Exam: See Below Free Text/Narrative:: pt arrived very pale with a heart rate of nearly 170 in atrial fib. She is a few days post total knee on the rt. Exam Limited By: No Limitations General Appearance: Anxious, Other (pupils equal and reactive. ) Ears: Normal TMs Nose: Normal Inspection Throat/Mouth: Normal Inspection Head: Atraumatic Neck: Normal Inspection Respiratory/Chest: No Respiratory Distress Cardiovascular: Tachycardia, Irregularly Irregular, Other (pt had a rate nearly 170. ) GI/Abdominal: Soft, Non-Tender (Female) Exam: Deferred Rectal (Female) Exam: Deferred Back Exam: Normal Inspection Extremities: Other (pt has alot of swelling in the rt leg. She is a few days post total knee. ) Neurological: Alert, Oriented, Normal Cognition Course - Vital Signs Last Recorded V/S: Last Vital Signs Temp 36.5 C 07/05/20 16:41 Pulse 66 07/05/20 17:12 Resp 13 07/05/20 17:09 BP 104/66 07/05/20 17:09 Pulse Ox 96 07/05/20 17:09 - Orders/Labs/Meds Orders: Active Orders 24 hr Category Date Time Status EKG Documentation Completion [RC] ASDIRECTED Care 07/05/20 16:39 Active Chest 1V Frontal [CR] Stat Exams 07/05/20 16:46 Taken VL Duplex Lwr Ext Veins Ltd Rt [US] Stat Exams 07/05/20 16:47 Ordered UA W/MICROSCOPIC [URIN] Urgent Lab 07/05/20 16:39 Ordered Diltiazem [Cardizem] 100 mg Med 07/05/20 16:45 Active Sodium Chloride 0.9% [Normal Saline] 100 ml IV TITRATE Sodium Chloride 0.9% [Normal Saline] 1,000 ml Med 07/05/20 17:00 Active IV ASDIRECTED EKG 12 Lead [EK] Routine Ther 07/05/20 16:39 Ordered Medication Orders Diltiazem HCl 100 mg/ Sodium (Chloride) 100 mls @ 5 mls/hr IV TITRATE ANA; Protocol Last Admin: 07/05/20 16:57 Dose: 5 mg/hr, 5 mls/hr Documented by: PREILOR Sodium Chloride (Normal Saline) 1,000 mls @ 100 mls/hr IV ASDIRECTED ANA Last Admin: 07/05/20 16:59 Dose: 100 mls/hr Documented by: PREILOR Labs: Laboratory Tests 07/05/20 07/05/20 07/05/20 Range/Units 16:48 16:48 16:48 WBC 9.7 (4.5-11.0) K/uL RBC 3.21 L (3.30-5.50) M/uL Hgb 10.0 L (12.0-15.0) g/dL Hct 31.5 L (36.0-48.0) % MCV 98 (80-98) fL MCH 31 (27-31) pg MCHC 32 (32-36) % Plt Count 500 H (150-400) K/uL Neut % (Auto) 68 H (36-66) % Lymph % (Auto) 18 L (24-44) % [place] % (Auto) 12 H (2-6) % Eos % (Auto) 2 (2-4) % Baso % (Auto) 0 (0-1) % Sodium 138 L (140-148) mmol/L Potassium 4.0 (3.6-5.2) mmol/L Chloride 101 (100-108) mmol/L Carbon Dioxide 24 (21-32) mmol/L Anion Gap 17.0 H (5.0-14.0) mmol/L BUN 20 H (7-18) mg/dL Creatinine 0.7 (0.6-1.0) mg/dL Est Cr Clr Drug Dosing 56.43 mL/min Estimated GFR (MDRD) > 60 (>60) Glucose 144 H (74-106) mg/dL Calcium 9.3 (8.5-10.1) mg/dL Total Bilirubin 0.6 (0.2-1.0) mg/dL AST 39 H (15-37) U/L ALT 94 H (12-78) U/L Alkaline Phosphatase 359 H D (46-116) U/L Troponin I < 0.017 (0.000-0.056) ng/mL Total Protein 6.8 (6.4-8.2) g/dL Albumin 2.9 L (3.4-5.0) g/dL Globulin 3.9 H (2.3-3.5) g/dL Albumin/Globulin Ratio 0.7 L (1.2-2.2) Meds: Medications Generic Name Dose Route Start Last Admin Trade Name Freq PRN Reason Stop Dose Admin Diltiazem HCl 100 mg/ Sodium 100 mls @ 5 mls/hr 07/05/20 16:45 07/05/20 16:57 Chloride IV 5 mg/hr TITRATE ANA 5 mls/hr Administration Protocol 5 MG/HR Sodium Chloride 1,000 mls @ 100 mls/hr 07/05/20 17:00 07/05/20 16:59 Normal Saline IV 100 mls/hr ASDIRECTED ANA Administration Discontinued Medications Generic Name Dose Route Start Last Admin Trade Name Freq PRN Reason Stop Dose Admin Diltiazem HCl 10 mg 07/05/20 16:44 07/05/20 16:55 Diltiazem 25 Mg/5 Ml Sdv IVPUSH 07/05/20 16:45 10 mg ONETIME ONE Administration Ondansetron HCl 4 mg 07/05/20 16:56 07/05/20 17:04 Ondansetron 4 Mg/2 Ml Sdv IVPUSH 07/05/20 16:57 4 mg ONETIME ONE Administration - Re-Assessments/Exams Free Text/Narrative Re-Assessment/Exam: 07/05/20 17:31 pt was given a 10 mg bolus of cardizem and she did slow her rate to 100. She does remain in atrial fib. She is on a cardizem drip. She has marked swelling in the rt leg and a US will be done to r/o a clot. Pt is feeling much better since her rate is better. Departure - Departure Time of Disposition: 17:33 Disposition: Admitted As Inpatient 65 Condition: Fair Clinical Impression: Atrial fibrillation, FH: total knee replacement Referrals: PCP,None [Primary Care Provider] - Forms: ED Department Discharge Care Plan Goals: admit to Dr Russell. Sepsis Event Note (ED) - Focused Exam Vital Signs: Vital Signs Temp Pulse Resp BP Pulse Ox 07/05/20 17:12 66 07/05/20 17:09 66 13 104/66 96 07/05/20 16:53 78 23 H 108/74 99 07/05/20 16:41 36.5 C 160 H 18 111/70 99 - My Orders Last 24 Hours: My Active Orders 07/05/20 16:39 EKG Documentation Completion [RC] ASDIRECTED UA W/MICROSCOPIC [URIN] Urgent EKG 12 Lead [EK] Routine 07/05/20 16:45 Diltiazem [Cardizem] 100 mg Sodium Chloride 0.9% [Normal Saline] 100 ml IV TITRATE 07/05/20 16:46 Chest 1V Frontal [CR] Stat 07/05/20 16:47 VL Duplex Lwr Ext Veins Ltd Rt [US] Stat 07/05/20 17:00 Sodium Chloride 0.9% [Normal Saline] 1,000 ml IV ASDIRECTED - Assessment/Plan Last 24 Hours: My Active Orders 07/05/20 16:39 EKG Documentation Completion [RC] ASDIRECTED UA W/MICROSCOPIC [URIN] Urgent EKG 12 Lead [EK] Routine 07/05/20 16:45 Diltiazem [Cardizem] 100 mg Sodium Chloride 0.9% [Normal Saline] 100 ml IV TITRATE 07/05/20 16:46 Chest 1V Frontal [CR] Stat 07/05/20 16:47 VL Duplex Lwr Ext Veins Ltd Rt [US] Stat 07/05/20 17:00 Sodium Chloride 0.9% [Normal Saline] 1,000 ml IV ASDIRECTED
[2020-07-05] MEDS ORDERED: Ondansetron 4 MG/2 ML SDV IVPUSH ONE (16:56)
[2020-07-05] MEDS: Diltiazem 100 MG in Sodium Chloride 0.9% 100 ML IV SCH (16:57)
[2020-07-05] MEDS: Sodium Chloride 0.9% 1,000 ML IV SCH (16:59)
[2020-07-05] MEDS ORDERED: Sodium Chloride 0.9% 10 ML Syringe FLUSH PRN (17:56)
[2020-07-05] MEDS ORDERED: Acetaminophen 325 MG Tab PO PRN (17:56)
[2020-07-05] MEDS ORDERED: Prochlorperazine 10 MG in Sodium Chloride 0.9% 50 ML IV PRN (18:00)
[2020-07-05] MEDS ORDERED: Enoxaparin 40 MG/0.4 ML Syringe SUBCUT SCH (18:00)
--- NOTE | 2020-07-05 18:15 | PCM.HP.2 ---
H&P History of Present Illness - General Date of Service: 07/05/20 Admit Problem/Dx: Admission Diagnosis/Problem Admission Diagnosis/Problem Atrial fibrillation with rapid ventricular response Source of Information: Patient History Limitations: Reports: No Limitations - History of Present Illness Initial Comments - Free Text/Narative: 6-year-old female with a past medical history of paroxysmal atrial fibrillation. She is required several admissions for this in the past with her last being in November of last year. She is prescribed metoprolol to take as needed and reports typically taking that in the evenings of late. Notably, the patient is postop from a right knee replacement on 06/26. She reports significant swelling since surgery and required prolonged admission due to pain. She continues to have pain primarily with physical therapy and had physical therapy earlier today. During physical therapy, the patient requested the therapist stop moving her leg due to severe pain. Following her appointment, the patient reports "knowing [she] went into A. fib" at around 1500. She subsequently had her daughter bring her to the ER. In the ER, the patient was noted to be in atrial fibrillation with rapid ventricular response and a rate of 167 bpm. She received 10 mg of IV diltiazem and subsequently was placed on a drip. Even on the drip, the patient continued to have heart rates in the 110s to 120s. She did report improved symptoms with improved rate control. Admission was requested for further evaluation and treatment of A. fib/RVR. Onset of Symptoms: Reports: Today Symptom Onset Date: 07/05/20 Symptom Onset Time: 15:00 Duration of Symptoms: Reports: Hour(s): Location: Reports: Chest Quality: Reports: Pressure Severity: Mild Improves with: Reports: Immobilization Worsens with: Reports: Movement Associated Symptoms: Reports: No Other Symptoms - Related Data Allergies/Adverse Reactions: Allergies Allergy/AdvReac Type Severity Reaction Status Date / Time nickel Allergy Rash Verified 07/05/20 16:44 Penicillins Allergy Hives Verified 07/05/20 16:44 Home Medications: Home Meds Ubidecarenone [Coenzyme Q10] 100 mg PO DAILY 03/01/16 [History] Magnesium Oxide [Magnesium] 1,000 mg PO DAILY 10/05/19 [History] Vit C/Ascorbate Calcium,Sodium [Vitamin C] 500 mg PO DAILY 12/05/19 [History] Metoprolol Succinate 25 mg PO BID PRN 05/24/20 [History] Multivitamin with Minerals [Multiple Vitamin] 1 tab PO DAILY 05/24/20 [History] Cholecalciferol (Vitamin D3) [Vitamin D] 5,000 unit PO DAILY 06/26/20 [History] Melatonin 10 mg PO ASDIRECTED PRN 06/26/20 [History] Acetaminophen/oxyCODONE [Percocet 325-5 MG] 2 tab PO Q6HR PRN 7 Days #56 tab 06/30/20 [Rx] Aspirin [Halfprin] 81 mg PO BID 06/30/20 [History] Acetaminophen/HYDROcodone [[place] 325-5 MG] 1 tab PO Q6H PRN #28 tab 07/03/20 [Rx] hydrOXYzine HCL [Atarax] 25 mg PO Q6H PRN 7 Days #28 tab 07/03/20 [Rx] Past Medical History HEENT History: Reports: Impaired Vision Cardiovascular History: Reports: Afib Respiratory History: Reports: None Gastrointestinal History: Reports: None Genitourinary History: Reports: None 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: Musculoskeletal History: Reports: Other (See Below) Other Musculoskeletal History: R knee pain Neurological History: Reports: None Psychiatric History: Reports: None Endocrine/Metabolic History: Reports: Obesity/BMI 30+ Hematologic History: Reports: None Immunologic History: Reports: None Oncologic (Cancer) History: Reports: None Dermatologic History: Reports: None - Infectious Disease History Infectious Disease History: Reports: Chicken Pox, Measles, Mumps, Rubella Other Infectious Disease History: staph on the skin - Past Surgical History Head Surgeries/Procedures: Reports: None GI Surgical History: Reports: Colonoscopy Female Surgical History: Reports: D&C Musculoskeletal Surgical History: Reports: None, Knee Replacement Social & Family History - Family History Cardiac: Reports: CAD Oncologic: Reports: Lung - Tobacco Use Tobacco Use Status *Q: Never Tobacco User - Caffeine Use Caffeine Use: Reports: Coffee H&P Review of Systems - Review of Systems: Review Of Systems: See Below General: Reports: No Symptoms. Denies: Fever, Chills HEENT: Reports: No Symptoms Pulmonary: Reports: No Symptoms Cardiovascular: Reports: Chest Pain, Palpitations Gastrointestinal: Reports: No Symptoms Genitourinary: Reports: No Symptoms Musculoskeletal: Reports: Leg Pain Skin: Reports: No Symptoms Psychiatric: Reports: No Symptoms Neurological: Reports: No Symptoms Hematologic/Lymphatic: Reports: No Symptoms Immunologic: Reports: No Symptoms Exam - Exam Exam: See Below - Vital Signs Vital Signs: Last Vital Signs Temp 97.7 F 07/05/20 16:41 Pulse 74 07/05/20 17:42 Resp 18 07/05/20 17:42 BP 101/70 07/05/20 17:42 Pulse Ox 95 07/05/20 17:42 Weight: 195 lb - Exam General: Alert, Oriented HEENT: Conjunctiva Clear, Hearing Intact Neck: Supple, Trachea Midline. No: JVD Lungs: Clear to Auscultation Cardiovascular: Irregular Rhythm, Tachycardia GI/Abdominal Exam: Soft, Non-Tender Extremities: Leg Pain Skin: Warm, Dry Psychiatric: Normal Affect, Normal Mood Physical Exam Comments:: Right lower extremity with significant edema. No significant erythema to suggest infection. No palpable cord at the right calf. Trace pretibial edema on the left lower extremity compared to 2-3+ edema on the right. - Patient Data Lab Results Last 24 hrs: Laboratory Results - last 24 hr 07/05/20 07/05/20 07/05/20 Range/Units 16:48 16:48 16:48 WBC 9.7 (4.5-11.0) K/uL RBC 3.21 L (3.30-5.50) M/uL Hgb 10.0 L (12.0-15.0) g/dL Hct 31.5 L (36.0-48.0) % MCV 98 (80-98) fL MCH 31 (27-31) pg MCHC 32 (32-36) % Plt Count 500 H (150-400) K/uL Neut % (Auto) 68 H (36-66) % Lymph % (Auto) 18 L (24-44) % [place] % (Auto) 12 H (2-6) % Eos % (Auto) 2 (2-4) % Baso % (Auto) 0 (0-1) % Sodium 138 L (140-148) mmol/L Potassium 4.0 (3.6-5.2) mmol/L Chloride 101 (100-108) mmol/L Carbon Dioxide 24 (21-32) mmol/L Anion Gap 17.0 H (5.0-14.0) mmol/L BUN 20 H (7-18) mg/dL Creatinine 0.7 (0.6-1.0) mg/dL Est Cr Clr Drug Dosing 56.43 mL/min Estimated GFR (MDRD) > 60 (>60) Glucose 144 H (74-106) mg/dL Calcium 9.3 (8.5-10.1) mg/dL Total Bilirubin 0.6 (0.2-1.0) mg/dL AST 39 H (15-37) U/L ALT 94 H (12-78) U/L Alkaline Phosphatase 359 H D (46-116) U/L Troponin I < 0.017 (0.000-0.056) ng/mL Total Protein 6.8 (6.4-8.2) g/dL Albumin 2.9 L (3.4-5.0) g/dL Globulin 3.9 H (2.3-3.5) g/dL Albumin/Globulin Ratio 0.7 L (1.2-2.2) Result Diagrams: 07/05/20 16:48 07/05/20 16:48 #1 Interpretation EKG Date: 07/05/20 Rhythm: A-Fib P-Wave: Absent QRS: Other QT: Prolonged (Atrial fibrillation with rapid ventricular response. Right bundle branch block with left anterior fascicular block. Rate of 167.) Sepsis Event Note - Evaluation Sepsis Screening Result: No Definite Risk - Focused Exam Vital Signs: Vital Signs Temp Pulse Resp BP Pulse Ox 07/05/20 17:42 74 18 101/70 95 07/05/20 17:12 66 07/05/20 17:09 66 13 104/66 96 07/05/20 16:53 78 23 H 108/74 99 07/05/20 16:41 97.7 F 160 H 18 111/70 99 Problem List Initiated/Reviewed/Updated: Yes Orders Last 24hrs: Active Orders 24 hr Category Date Time Status Patient Status [ADT] Routine ADT 07/05/20 17:56 Ordered Bedrest Bathroom Privileges [RC] ASDIRECTED Care 07/05/20 17:56 Ordered Cardiac Monitoring [RC] .As Directed Care 07/05/20 17:57 Ordered EKG Documentation Completion [RC] ASDIRECTED Care 07/05/20 16:39 Active Height and Weight [RC] DAILY Care 07/05/20 17:56 Ordered Intake and Output [RC] QSHIFT Care 07/05/20 17:57 Ordered Oxygen Therapy [RC] PRN Care 07/05/20 17:56 Ordered Peripheral IV Care [RC] . DIRECTED Care 07/05/20 17:59 Ordered VTE/DVT Education [RC] Per Unit Routine Care 07/05/20 17:56 Ordered Vital Signs [RC] Q4H Care 07/05/20 17:56 Ordered Heart Healthy Diet [DIET] Diet 07/06/20 Breakfast Ordered Chest 1V Frontal [CR] Stat Exams 07/05/20 16:46 Taken VL Duplex Lwr Ext Veins Ltd Rt [US] Stat Exams 07/05/20 16:47 Taken BASIC METABOLIC PANEL,BMP [CHEM] AM Lab 07/06/20 05:11 Ordered MAGNESIUM [CHEM] Stat Lab 07/05/20 18:00 Ordered UA W/MICROSCOPIC [URIN] Urgent Lab 07/05/20 16:39 Ordered Acetaminophen [TylenoL] Med 07/05/20 17:56 Ordered 650 mg PO Q4H PRN Diltiazem [Cardizem] 100 mg Med 07/05/20 16:45 Active Sodium Chloride 0.9% [Normal Saline] 100 ml IV TITRATE Enoxaparin [Lovenox] Med 07/05/20 18:00 Ordered 40 mg SUBCUT DAILY Prochlorperazine [Compazine] 10 mg Med 07/05/20 18:00 Ordered Sodium Chloride 0.9% [Normal Saline] 50 ml IV Q6H Sodium Chloride 0.9% [Normal Saline] 1,000 ml Med 07/05/20 17:00 Active IV ASDIRECTED Sodium Chloride 0.9% [Saline Flush] Med 07/05/20 17:56 Ordered 10 ml FLUSH ASDIRECTED PRN oxyCODONE Med 07/05/20 18:00 Ordered 10 mg PO Q4H PRN oxyCODONE Med 07/05/20 18:02 Ordered 5 mg PO Q4H PRN Peripheral IV Insertion Adult [OM.PC] Routine Oth 07/05/20 17:56 Ordered Saline Lock Insert [OM.PC] Routine Oth 07/05/20 17:56 Ordered Resuscitation Status Routine Resus Stat 07/05/20 17:56 Ordered EKG 12 Lead [EK] Routine Ther 07/05/20 16:39 Ordered Medication Orders Acetaminophen (Acetaminophen 325 Mg Tab) 650 mg PO Q4H PRN PRN Reason: Pain (Mild 1-3)/fever Enoxaparin Sodium (Enoxaparin 40 Mg/0.4 Ml Syringe) 40 mg SUBCUT DAILY [facility] Diltiazem HCl 100 mg/ Sodium (Chloride) 100 mls @ 5 mls/hr IV TITRATE ANA; Protocol Last Admin: 07/05/20 16:57 Dose: 5 mg/hr, 5 mls/hr Documented by: PREILOR Sodium Chloride (Normal Saline) 1,000 mls @ 100 mls/hr IV ASDIRECTED ANA Last Admin: 07/05/20 16:59 Dose: 100 mls/hr Documented by: PREILOR Prochlorperazine Edisylate 10 (mg/ Sodium Chloride) 52 mls @ 150 mls/hr IV Q6H PRN PRN Reason: Nausea/Vomiting Oxycodone HCl (Oxycodone 5 Mg Tab) 10 mg PO Q4H PRN PRN Reason: Pain (severe 7-10) Sodium Chloride (Sodium Chloride 0.9% 10 Ml Syringe) 10 ml FLUSH ASDIRECTED PRN PRN Reason: Keep Vein Open Assessment/Plan Comment:: ATRIAL FIBRILLATION WITH RAPID VENTRICULAR RESPONSE Patient with paroxysmal atrial fibrillation last admitted in November. She reports taking nightly metoprolol and had been doing well. Likely went into A. fib/RVR due to significant pain from therapy session today. Continue Cardizem drip. Goal heart rate less than 100. Add on magnesium. Assure optimization of electrolytes. Reassess BMP in a.m. Recommend consideration for anticoagulation given [id number] score of 2. Given known time of patient going into A. fib, consideration for electrical ablation was discussed. The patient would like to defer that for now. I advised her that she could see how her symptoms are with rate control and if remains significant, consider electrical cardioversion tomorrow. Recommend consideration for cardiology consult and possible electrical ablation given frequency of A. fib/RVR. RIGHT LOWER EXTREMITY SWELLING Status post right total knee arthroplasty on 06/26. Follow-up right lower extremity ultrasound to rule out DVT performed in ER. Elevate right lower extremity as able. Requested oxycodone if needed for pain. DVT PROPHYLAXIS Requested Lovenox DISPOSITION Patient admitted under observation. Projected hospitalization is less than 48 hours with target disposition home.
[2020-07-05] MEDS ORDERED: LORazepam 2 MG/ML SDV IVPUSH PRN (18:25)
[2020-07-05] MEDS: oxyCODONE 5 MG Tab PO PRN ×2 (18:26→22:28)
[2020-07-06] MEDS: Sodium Chloride 0.9% 1,000 ML IV SCH (02:25)
[2020-07-06] MEDS: oxyCODONE 5 MG Tab PO PRN ×6 (02:25→22:05)
[2020-07-06] MEDS: Diltiazem 100 MG in Sodium Chloride 0.9% 100 ML IV SCH (07:35)
--- NOTE | 2020-07-06 09:09 | CR ---
CHEST: Portable 07/05/2020 at 5:06 PM CLINICAL HISTORY:Atrial fibrillation COMPARISON:November 2019 FINDINGS: The heart is enlarged. Pulmonary vascularity is normal. No infiltrate effusion or pneumothorax is seen. There are atherosclerotic changes in the aorta. IMPRESSION: Mild cardiomegaly with normal pulmonary vascularity No infiltrates are seen .
--- NOTE | 2020-07-06 09:09 | US ---
VL Duplex Lwr Ext Veins Ltd Rt INDICATION: pt had a total knee on Friday. FINDINGS: Ultrasound examination of the lower extremity using Doppler and compressive technique demonstrates that the common femoral, femoral, and popliteal veins are patent, and negative for thrombus. The calf veins were segmentally visualized and are negative where seen. IMPRESSION: Negative for deep venous thrombosis.
--- NOTE | 2020-07-06 12:06 | PCM.PN ---
- General Info Date of Service: 07/06/20 Subjective Update: No acute events overnight. Patient converted to sinus rhythm about 7 PM last night and has remained in sinus rhythm overnight. No complaints of shortness of breath and no palpitations. She is complaining of persistent moderate right knee and leg pain. Still has a fair amount of right leg swelling but this is a little better. She was able to ambulate in the hallway. Functional Status: Reports: Pain Controlled, Tolerating Diet - Review of Systems General: Denies: Fever Cardiovascular: Reports: Edema (right leg) - Patient Data Vitals - Most Recent: Last Vital Signs Temp 36.1 C 07/06/20 04:00 Pulse 67 07/06/20 09:00 Resp 16 07/06/20 09:00 BP 130/79 07/06/20 10:00 Pulse Ox 93 L 07/06/20 09:00 Weight - Most Recent: 83.915 kg I&O - Last 24 Hours: Intake & Output 07/05/20 07/06/20 07/06/20 22:59 06:59 14:59 Intake Total 1916 360 Output Total 400 Balance 1916 -40 Lab Results Last 24 Hours: Laboratory Results - last 24 hr 07/05/20 07/05/20 07/05/20 Range/Units 16:48 16:48 16:48 WBC 9.7 (4.5-11.0) K/uL RBC 3.21 L (3.30-5.50) M/uL Hgb 10.0 L (12.0-15.0) g/dL Hct 31.5 L (36.0-48.0) % MCV 98 (80-98) fL MCH 31 (27-31) pg MCHC 32 (32-36) % Plt Count 500 H (150-400) K/uL Neut % (Auto) 68 H (36-66) % Lymph % (Auto) 18 L (24-44) % [place] % (Auto) 12 H (2-6) % Eos % (Auto) 2 (2-4) % Baso % (Auto) 0 (0-1) % Sodium 138 L (140-148) mmol/L Potassium 4.0 (3.6-5.2) mmol/L Chloride 101 (100-108) mmol/L Carbon Dioxide 24 (21-32) mmol/L Anion Gap 17.0 H (5.0-14.0) mmol/L BUN 20 H (7-18) mg/dL Creatinine 0.7 (0.6-1.0) mg/dL Est Cr Clr Drug Dosing 56.43 mL/min Estimated GFR (MDRD) > 60 (>60) Glucose 144 H (74-106) mg/dL Calcium 9.3 (8.5-10.1) mg/dL Magnesium (1.8-2.4) mg/dL Total Bilirubin 0.6 (0.2-1.0) mg/dL AST 39 H (15-37) U/L ALT 94 H (12-78) U/L Alkaline Phosphatase 359 H D (46-116) U/L Troponin I < 0.017 (0.000-0.056) ng/mL Total Protein 6.8 (6.4-8.2) g/dL Albumin 2.9 L (3.4-5.0) g/dL Globulin 3.9 H (2.3-3.5) g/dL Albumin/Globulin Ratio 0.7 L (1.2-2.2) 07/05/20 07/06/20 Range/Units 18:00 05:30 WBC (4.5-11.0) K/uL RBC (3.30-5.50) M/uL Hgb (12.0-15.0) g/dL Hct (36.0-48.0) % MCV (80-98) fL MCH (27-31) pg MCHC (32-36) % Plt Count (150-400) K/uL Neut % (Auto) (36-66) % Lymph % (Auto) (24-44) % [place] % (Auto) (2-6) % Eos % (Auto) (2-4) % Baso % (Auto) (0-1) % Sodium 140 (140-148) mmol/L Potassium 4.1 (3.6-5.2) mmol/L Chloride 105 (100-108) mmol/L Carbon Dioxide 28 (21-32) mmol/L Anion Gap 6.8 (5.0-14.0) mmol/L BUN 13 (7-18) mg/dL Creatinine 0.6 (0.6-1.0) mg/dL Est Cr Clr Drug Dosing 65.84 mL/min Estimated GFR (MDRD) > 60 (>60) Glucose 92 (74-106) mg/dL Calcium 8.9 (8.5-10.1) mg/dL Magnesium 2.0 (1.8-2.4) mg/dL Total Bilirubin (0.2-1.0) mg/dL AST (15-37) U/L ALT (12-78) U/L Alkaline Phosphatase (46-116) U/L Troponin I (0.000-0.056) ng/mL Total Protein (6.4-8.2) g/dL Albumin (3.4-5.0) g/dL Globulin (2.3-3.5) g/dL Albumin/Globulin Ratio (1.2-2.2) Med Orders - Current: Current Medications Acetaminophen (Acetaminophen 325 Mg Tab) 650 mg PO Q4H PRN PRN Reason: Pain (Mild 1-3)/fever Enoxaparin Sodium (Enoxaparin 40 Mg/0.4 Ml Syringe) 40 mg SUBCUT Q24H ANA Prochlorperazine Edisylate 10 (mg/ Sodium Chloride) 52 mls @ 150 mls/hr IV Q6H PRN PRN Reason: Nausea/Vomiting Lorazepam (Lorazepam 2 Mg/Ml Sdv) 1 mg IVPUSH Q2H PRN PRN Reason: Anxiety Oxycodone HCl (Oxycodone 5 Mg Tab) 10 mg PO Q4H PRN PRN Reason: Pain (severe 7-10) Last Admin: 07/05/20 22:28 Dose: 10 mg Documented by: Oxycodone HCl (Oxycodone 5 Mg Tab) 5 mg PO Q4H PRN PRN Reason: Pain (moderate 4-6) Last Admin: 07/06/20 10:39 Dose: 5 mg Documented by: Sodium Chloride (Sodium Chloride 0.9% 10 Ml Syringe) 10 ml FLUSH ASDIRECTED PRN PRN Reason: Keep Vein Open Discontinued Medications Diltiazem HCl (Diltiazem 25 Mg/5 Ml Sdv) 10 mg IVPUSH ONETIME ONE Stop: 07/05/20 16:45 Last Admin: 07/05/20 16:55 Dose: 10 mg Documented by: Enoxaparin Sodium (Enoxaparin 40 Mg/0.4 Ml Syringe) 40 mg SUBCUT DAILY ANA Last Admin: 07/05/20 18:36 Dose: 40 mg Documented by: Diltiazem HCl 100 mg/ Sodium (Chloride) 100 mls @ 5 mls/hr IV TITRATE ANA; Protocol Last Admin: 07/06/20 07:35 Dose: 5 mg/hr, 5 mls/hr Documented by: Sodium Chloride (Normal Saline) 1,000 mls @ 100 mls/hr IV ASDIRECTED ANA Last Admin: 07/06/20 02:25 Dose: 100 mls/hr Documented by: Ondansetron HCl (Ondansetron 4 Mg/2 Ml Sdv) 4 mg IVPUSH ONETIME ONE Stop: 07/05/20 16:57 Last Admin: 07/05/20 17:04 Dose: 4 mg Documented by: - Exam Quality Assessment: No: Supplemental Oxygen General: Alert, Oriented, Cooperative, No Acute Distress Lungs: Normal Respiratory Effort Cardiovascular: Regular Rate, Regular Rhythm GI/Abdominal Exam: Soft, No Distention Extremities: Pedal Edema (right leg) Psy/Mental Status: Alert, Normal Affect - Patient Data Lab Results Last 24 hrs: Laboratory Results - last 24 hr 07/05/20 07/05/20 07/05/20 Range/Units 16:48 16:48 16:48 WBC 9.7 (4.5-11.0) K/uL RBC 3.21 L (3.30-5.50) M/uL Hgb 10.0 L (12.0-15.0) g/dL Hct 31.5 L (36.0-48.0) % MCV 98 (80-98) fL MCH 31 (27-31) pg MCHC 32 (32-36) % Plt Count 500 H (150-400) K/uL Neut % (Auto) 68 H (36-66) % Lymph % (Auto) 18 L (24-44) % [place] % (Auto) 12 H (2-6) % Eos % (Auto) 2 (2-4) % Baso % (Auto) 0 (0-1) % Sodium 138 L (140-148) mmol/L Potassium 4.0 (3.6-5.2) mmol/L Chloride 101 (100-108) mmol/L Carbon Dioxide 24 (21-32) mmol/L Anion Gap 17.0 H (5.0-14.0) mmol/L BUN 20 H (7-18) mg/dL Creatinine 0.7 (0.6-1.0) mg/dL Est Cr Clr Drug Dosing 56.43 mL/min Estimated GFR (MDRD) > 60 (>60) Glucose 144 H (74-106) mg/dL Calcium 9.3 (8.5-10.1) mg/dL Magnesium (1.8-2.4) mg/dL Total Bilirubin 0.6 (0.2-1.0) mg/dL AST 39 H (15-37) U/L ALT 94 H (12-78) U/L Alkaline Phosphatase 359 H D (46-116) U/L Troponin I < 0.017 (0.000-0.056) ng/mL Total Protein 6.8 (6.4-8.2) g/dL Albumin 2.9 L (3.4-5.0) g/dL Globulin 3.9 H (2.3-3.5) g/dL Albumin/Globulin Ratio 0.7 L (1.2-2.2) 07/05/20 07/06/20 Range/Units 18:00 05:30 WBC (4.5-11.0) K/uL RBC (3.30-5.50) M/uL Hgb (12.0-15.0) g/dL Hct (36.0-48.0) % MCV (80-98) fL MCH (27-31) pg MCHC (32-36) % Plt Count (150-400) K/uL Neut % (Auto) (36-66) % Lymph % (Auto) (24-44) % [place] % (Auto) (2-6) % Eos % (Auto) (2-4) % Baso % (Auto) (0-1) % Sodium 140 (140-148) mmol/L Potassium 4.1 (3.6-5.2) mmol/L Chloride 105 (100-108) mmol/L Carbon Dioxide 28 (21-32) mmol/L Anion Gap 6.8 (5.0-14.0) mmol/L BUN 13 (7-18) mg/dL Creatinine 0.6 (0.6-1.0) mg/dL Est Cr Clr Drug Dosing 65.84 mL/min Estimated GFR (MDRD) > 60 (>60) Glucose 92 (74-106) mg/dL Calcium 8.9 (8.5-10.1) mg/dL Magnesium 2.0 (1.8-2.4) mg/dL Total Bilirubin (0.2-1.0) mg/dL AST (15-37) U/L ALT (12-78) U/L Alkaline Phosphatase (46-116) U/L Troponin I (0.000-0.056) ng/mL Total Protein (6.4-8.2) g/dL Albumin (3.4-5.0) g/dL Globulin (2.3-3.5) g/dL Albumin/Globulin Ratio (1.2-2.2) Result Diagrams: 07/05/20 16:48 07/06/20 05:30 Sepsis Event Note - Evaluation Sepsis Screening Result: No Definite Risk - Focused Exam Vital Signs: Vital Signs Temp Pulse Resp BP Pulse Ox 07/06/20 10:00 130/79 07/06/20 09:00 67 16 115/69 93 L 07/06/20 07:00 84 12 127/82 07/06/20 06:00 61 13 115/65 93 L 07/06/20 05:00 60 14 114/62 92 L 07/06/20 04:00 36.1 C 58 L 12 107/64 95 07/06/20 03:00 59 L 12 109/65 94 L 07/06/20 01:59 57 L 13 110/62 92 L 07/06/20 01:00 67 12 100/56 L 96 - Problem List Review Problem List Initiated/Reviewed/Updated: Yes - My Orders Last 24 Hours: My Active Orders 07/06/20 12:04 Transfer Patient (Change bed) [ADT] Routine Up With Assistance [RC] ASDIRECTED - Plan Plan:: ATRIAL FIBRILLATION WITH RAPID VENTRICULAR RESPONSE-converted to sinus rhythm last night and has remained there. Still in sinus rhythm after the diltiazem infusion was stopped. Electrolytes have been optimized. She has not tolerated low-dose beta-nafisa in the past except as needed for A. fib. Stop diltiazem infusion Continue beta-nafisa -Continue cardiac monitoring Outpatient follow-up for consideration of ablation RIGHT LOWER EXTREMITY SWELLING-Status post right total knee arthroplasty on 06/26. Ultrasound negative for DVT. Elevate right lower extremity as able Pain control DVT PROPHYLAXIS Enoxaparin DISPOSITION-anticipate discharge home tomorrow if stable overnight Kee Valdivia MD
[2020-07-06] MEDS ORDERED: Enoxaparin 40 MG/0.4 ML Syringe SUBCUT SCH (18:00)
[2020-07-07] MEDS: oxyCODONE 5 MG Tab PO PRN ×3 (02:04→09:59)
--- NOTE | 2020-07-07 09:15 | PCM.DCSUM1 ---
Discharge Summary - Hospital Course Brief History: 69-year-old female with history of paroxysmal atrial fibrillation and recent right knee arthroplasty who presented with palpitations and fatigue. She was admitted for management of paroxysmal atrial fibrillation with a rapid ventricular response. Diagnosis: Stroke: No - Discharge Data Discharge Date: 07/07/20 Discharge Disposition: Home, Self-Care 01 Condition: Good - Referral to Home Health Primary Care Physician: PCP None - Discharge Diagnosis/Problem(s) (1) Atrial fibrillation with rapid ventricular response SNOMED Code(s): 195257471960717 ICD Code: I48.91 - UNSPECIFIED ATRIAL FIBRILLATION Status: Acute (2) Status post total right knee replacement SNOMED Code(s): 0550141550832, 6131513819317 ICD Code: Z96.651 - PRESENCE OF RIGHT ARTIFICIAL KNEE JOINT Status: Acute - Patient Summary/Data Consults: Consultations 07/06/20 12:23 PT Evaluation and Treatment [CONS] Routine Please Evaluate and Treat. PT Reason for Consult: Strengthening This query below is only for informational purposes and is not editable. Admission Diagnosis/Problem: Atrial fibrillation with rapid ventricular response Hospital Course: Donna presented to the emergency room with fatigue and palpitations. Work-up in the emergency room revealed atrial fibrillation with a rapid ventricular response. She did have a history of paroxysmal atrial fibrillation. With the acute onset cardioversion was discussed but she wanted to try medications first. She was started on a diltiazem infusion and admitted to the intensive care unit for further management. During the evening after admission the patient did convert to a sinus rhythm. The diltiazem infusion was slowly decreased overnight and then stopped. She has remained in sinus rhythm since her conversion. She continued to work with physical therapy with regards to her recent knee replacement. She is slowly making progress. She did retain fluid and gained about 15 pounds after the surgery but this is slowly coming off. She is making progress each day and has a little less pain each day. Dr Segun Bustillo of the orthopedic service did visit with her during the hospital stay as well. Patient has improved and is ready for discharge home. She has good support at home from family and friends. She is interested in having a consultation with interventional cardiology to consider an ablation. I think she would be a good candidate for an ablation. A referral was sent to the cardiology team down at in [place], [place]. - Patient Instructions Diet: Regular Diet as Tolerated Activity: As Tolerated Showering/Bathing: May Shower Notify Provider of: Fever, Increased Pain Other/Special Instructions: 1. You were in the hospital for management of paroxysmal atrial fibrillation with rapid ventricular response. You have converted to a sinus rhythm with the use of a diltiazem infusion. I do not recommend any medication changes at this time. Continue your prior to admission medications as previously prescribed. 2. I have placed a referral to cardiology at in [place]. They should be contacting you to schedule an appointment in the near future. - Discharge Plan *PRESCRIPTION DRUG MONITORING PROGRAM REVIEWED*: Not Applicable *COPY OF PRESCRIPTION DRUG MONITORING REPORT IN PATIENT ANIVAL: Not Applicable Home Medications: Home Meds Ubidecarenone [Coenzyme Q10] 100 mg PO DAILY 03/01/16 [History] Magnesium Oxide [Magnesium] 1,000 mg PO DAILY 10/05/19 [History] Vit C/Ascorbate Calcium,Sodium [Vitamin C] 500 mg PO DAILY 12/05/19 [History] Metoprolol Succinate 25 mg PO BID PRN 05/24/20 [History] Multivitamin with Minerals [Multiple Vitamin] 1 tab PO DAILY 05/24/20 [History] Cholecalciferol (Vitamin D3) [Vitamin D] 5,000 unit PO DAILY 06/26/20 [History] Melatonin 10 mg PO ASDIRECTED PRN 06/26/20 [History] Acetaminophen/oxyCODONE [Percocet 325-5 MG] 2 tab PO Q6HR PRN 7 Days #56 tab 06/30/20 [Rx] Aspirin [Halfprin] 81 mg PO BID 06/30/20 [History] Acetaminophen/HYDROcodone [[place] 325-5 MG] 1 tab PO Q6H PRN #28 tab 07/03/20 [Rx] hydrOXYzine HCL [hydrOXYzine] 25 mg PO Q6H PRN 7 Days #28 tab 07/03/20 [Rx] Patient Handouts: Cardiac Ablation Referrals: Patricia Johns, PT [Physical Therapist] - 07/12/20 3:30 pm (Please arrive 15 minutes early to register for your appointment.) Misbah Hayward MD [Ordering Only Provider] - 08/17/20 12:45 pm (Your appointment is located at . Phone number is [phone]) Ab Urbano MD [Physician] - 07/18/20 1:40 pm (Please arrive 15 minutes early to register for your appointment) - Discharge Summary/Plan Comment DC Time >30 min.: No - Patient Data Vitals - Most Recent: Last Vital Signs Temp 36.7 C 07/07/20 02:04 Pulse 90 07/07/20 02:04 Resp 16 07/07/20 02:04 BP 160/90 H 07/07/20 02:04 Pulse Ox 95 07/07/20 02:04 Weight - Most Recent: 83.915 kg I&O - Last 24 hours: Intake & Output 07/06/20 07/07/20 07/07/20 22:59 06:59 14:59 Intake Total 2100 400 Output Total 2000 400 Balance 100 400 -400 Med Orders - Current: Current Medications Acetaminophen (Acetaminophen 325 Mg Tab) 650 mg PO Q4H PRN PRN Reason: Pain (Mild 1-3)/fever Enoxaparin Sodium (Enoxaparin 40 Mg/0.4 Ml Syringe) 40 mg SUBCUT Q24H ANA Last Admin: 07/06/20 17:53 Dose: 40 mg Documented by: Prochlorperazine Edisylate 10 (mg/ Sodium Chloride) 52 mls @ 150 mls/hr IV Q6H PRN PRN Reason: Nausea/Vomiting Lorazepam (Lorazepam 2 Mg/Ml Sdv) 1 mg IVPUSH Q2H PRN PRN Reason: Anxiety Oxycodone HCl (Oxycodone 5 Mg Tab) 10 mg PO Q4H PRN PRN Reason: Pain (severe 7-10) Last Admin: 07/05/20 22:28 Dose: 10 mg Documented by: Oxycodone HCl (Oxycodone 5 Mg Tab) 5 mg PO Q4H PRN PRN Reason: Pain (moderate 4-6) Last Admin: 07/07/20 06:16 Dose: 5 mg Documented by: Sodium Chloride (Sodium Chloride 0.9% 10 Ml Syringe) 10 ml FLUSH ASDIRECTED PRN PRN Reason: Keep Vein Open Discontinued Medications Diltiazem HCl (Diltiazem 25 Mg/5 Ml Sdv) 10 mg IVPUSH ONETIME ONE Stop: 07/05/20 16:45 Last Admin: 07/05/20 16:55 Dose: 10 mg Documented by: Enoxaparin Sodium (Enoxaparin 40 Mg/0.4 Ml Syringe) 40 mg SUBCUT DAILY ANA Last Admin: 07/05/20 18:36 Dose: 40 mg Documented by: Diltiazem HCl 100 mg/ Sodium (Chloride) 100 mls @ 5 mls/hr IV TITRATE ANA; Protocol Last Admin: 07/06/20 07:35 Dose: 5 mg/hr, 5 mls/hr Documented by: Sodium Chloride (Normal Saline) 1,000 mls @ 100 mls/hr IV ASDIRECTED ANA Last Admin: 07/06/20 02:25 Dose: 100 mls/hr Documented by: Ondansetron HCl (Ondansetron 4 Mg/2 Ml Sdv) 4 mg IVPUSH ONETIME ONE Stop: 07/05/20 16:57 Last Admin: 07/05/20 17:04 Dose: 4 mg Documented by:
[2020-07-07 09:30] VITALS: BP 140/84; PULSE 82
== END 2020-07-07 11:53 | disposition home or self-care (01) ==
LOC: JP.ED 16:25 → JP.ICU 17:56
PROVIDERS: ADMIT Hospitalist; ATTEND Internal Medicine
DX: I48.0 Paroxysmal atrial fibrillation (principal); R53.83 Other fatigue; M79.89 Other specified soft tissue disorders; E66.9 Obesity, unspecified; Z68.35 Body mass index [BMI] 35.0-35.9, adult; Z88.0 Allergy status to penicillin; Z79.82 Long term (current) use of aspirin; Z79.899 Other long term (current) drug therapy; Z91.09 Other allergy status, other than to drugs and biological substances; Z96.651 Presence of right artificial knee joint; Z82.49 Family history of ischemic heart disease and other diseases of the circulatory system; Z98.890 Other specified postprocedural states
CPT/HCPCS: 36415; 71045; 71045-26; 80048; 80053; 83735; 84484; 85025; 93005; 93971-26; 93971-RT; 97110-GP; 97161-GP; A9270-GY; J1650; J2405; J3490; J7030

== ENCOUNTER 2021-03-02 17:40 | Inpatient (IN) | payer MEDICARE ==
--- NOTE | 2021-03-02 18:42 | EDM.PDOC ---
ED HPI GENERAL MEDICAL PROBLEM - General Chief Complaint: Respiratory Problem Stated Complaint: Shortness of breath Time Seen by Provider: 03/02/21 18:27 Source of Information: Reports: Patient History Limitations: Reports: No Limitations - History of Present Illness INITIAL COMMENTS - FREE TEXT/NARRATIVE: Donna is a 70-year-old female who was sent in from Dr. Urbano's office with concerns of worsening Covid symptoms. Patient was diagnosed with COVID-19 on Friday (5 days ago) and has already received a monoclonal antibody treatment. She was seen in follow-up today and found to have a low SpO2 prompting her presentation to the ER from the clinic. Patient has had diminished appetite, generalized weakness, worsening shortness of breath and hypoxia. She still has a significant headache, body aches, fever and chills, and dyspnea at rest. She is currently on 4 L via nasal cannula to maintain sats above 90%. Neck Pain Score (Numeric/FACES): 6 - Related Data Allergies Allergy/AdvReac Type Severity Reaction Status Date / Time nickel Allergy Rash Verified 03/01/21 12:04 Penicillins Allergy Hives Verified 03/01/21 12:04 Home Meds: Home Meds Ubidecarenone [Coenzyme Q10] 100 mg PO DAILY 03/01/16 [History] Magnesium Oxide [Magnesium] 1,000 mg PO DAILY 10/05/19 [History] Vit C/Ascorbate Calcium,Sodium [Vitamin C] 500 mg PO DAILY 12/05/19 [History] Metoprolol Succinate 25 mg PO DAILY 05/24/20 [History] Multivitamin with Minerals [Multiple Vitamin] 1 tab PO DAILY 05/24/20 [History] Cholecalciferol (Vitamin D3) [Vitamin D] 5,000 unit PO DAILY 06/26/20 [History] Melatonin 10 mg PO ASDIRECTED PRN 06/26/20 [History] Aspirin [Halfprin] 81 mg PO DAILY 06/30/20 [History] Past Medical History HEENT History: Reports: Impaired Vision Cardiovascular History: Reports: Afib Respiratory History: Reports: None Gastrointestinal History: Reports: None Genitourinary History: Reports: None [employer] History: Reports: Musculoskeletal History: Reports: Other (See Below) Other Musculoskeletal History: R knee pain Neurological History: Reports: None Psychiatric History: Reports: None Endocrine/Metabolic History: Reports: Obesity/BMI 30+ Hematologic History: Reports: None Immunologic History: Reports: None Oncologic (Cancer) History: Reports: None Dermatologic History: Reports: None - Infectious Disease History Infectious Disease History: Reports: Chicken Pox, Measles, Mumps, Rubella Other Infectious Disease History: staph on the skin - Past Surgical History Head Surgeries/Procedures: Reports: None GI Surgical History: Reports: Colonoscopy Female Surgical History: Reports: D&C Musculoskeletal Surgical History: Reports: Knee Replacement Other Musculoskeletal Surgeries/Procedures:: s/p RTKA 06/26/20 Social & Family History - Family History Cardiac: Reports: CAD Oncologic: Reports: Lung - Tobacco Use Tobacco Use Status *Q: Never Tobacco User Second Hand Smoke Exposure: No - Caffeine Use Caffeine Use: Reports: Coffee - Recreational Drug Use Recreational Drug Use: No ED ROS GENERAL - Review of Systems Review Of Systems: See Below Constitutional: Reports: Fever, Chills, Malaise, Weakness, Fatigue, Decreased Appetite HEENT: Reports: Rhinitis, Throat Pain Respiratory: Reports: Shortness of Breath, Wheezing, Cough, Sputum Cardiovascular: Reports: Chest Pain Endocrine: Reports: Fatigue GI/Abdominal: Reports: Abdominal Pain, Decreased Appetite, Nausea. Denies: Diarrhea, Vomiting : Reports: No Symptoms Musculoskeletal: Reports: Muscle Pain Skin: Reports: No Symptoms Neurological: Reports: Headache, Weakness Psychiatric: Reports: Anxiety Hematologic/Lymphatic: Reports: No Symptoms Immunologic: Reports: No Symptoms ED EXAM, GENERAL - Physical Exam Exam: See Below Exam Limited By: No Limitations General Appearance: Alert, Anxious, Mild Distress, Moderate Distress Eye Exam: Bilateral Eye: EOMI, PERRL Nose: Nasal Swelling. No: Nasal Drainage Throat/Mouth: Normal Oropharynx, Normal Voice, No Airway Compromise Head: Atraumatic, Normocephalic Neck: Normal Inspection, Supple. No: Lymphadenopathy (R), Lymphadenopathy (L) Respiratory/Chest: No Accessory Muscle Use, Rhonchi (Okay two thirds the way up both lung franklin) Cardiovascular: Normal Peripheral Pulses, Regular Rate, Rhythm, No Murmur Peripheral Pulses: 2+: Radial (L), Radial (R) GI/Abdominal: Normal Bowel Sounds, Soft, Non-Tender Back Exam: Normal Inspection, Full Range of Motion Extremities: Normal Inspection, No Pedal Edema Neurological: Alert, Oriented, Normal Cognition, No Motor/Sensory Deficits Psychiatric: Normal Affect, Anxious Skin Exam: Warm, Dry, Intact, Normal Color Course - Vital Signs Last Recorded V/S: Last Vital Signs Temp 36.7 C 03/02/21 18:17 Pulse 102 H 03/02/21 19:40 Resp 18 03/02/21 18:17 BP 121/65 03/02/21 19:40 Pulse Ox 92 L 03/02/21 19:40 - Orders/Labs/Meds Orders: Active Orders 24 hr Category Date Time Status Nurse Communication: Isolation [RC] ASDIRECTED Care 03/02/21 20:06 Ordered Chest 1V Frontal [CR] Stat Exams 03/02/21 18:26 Taken BLOOD GAS ARTERIAL [BG] Stat Lab 03/02/21 20:04 Ordered CULTURE BLOOD [BC] Stat Lab 03/02/21 20:04 Ordered HEPATIC FUNCTION PANEL,HFP [CHEM] DAILY Lab 03/03/21 20:15 Ordered HEPATIC FUNCTION PANEL,HFP [CHEM] DAILY Lab 03/04/21 20:15 Ordered HEPATIC FUNCTION PANEL,HFP [CHEM] DAILY Lab 03/05/21 20:15 Ordered HEPATIC FUNCTION PANEL,HFP [CHEM] DAILY Lab 03/06/21 20:15 Ordered HEPATIC FUNCTION PANEL,HFP [CHEM] Stat Lab 03/02/21 20:06 Ordered INR,PT,PROTHROMBIN TIME [COAG] Timed Lab 03/02/21 20:05 Ordered LACTIC ACID [CHEM] Stat Lab 03/02/21 18:40 Received PTT,PARTIAL THROMBOPLSTIN TIME [COAG] Routine Lab 03/02/21 20:04 Ordered Acetaminophen [TylenoL] Med 03/02/21 20:04 Ordered 650 mg PO Q4H PRN Sodium Chloride 0.9% @ 150 MLS/HR (1000ml) Med 03/02/21 20:15 Ordered Sodium Chloride 0.9% [Normal Saline] 1,000 ml IV ASDIRECTED Sodium Chloride 0.9% [Saline Flush] Med 03/02/21 20:04 Ordered 10 ml FLUSH ASDIRECTED PRN dexAMETHasone [Decadron] Med 03/02/21 20:15 Ordered 6 mg IVPUSH DAILY Isolation [COMM] Stat Oth 03/02/21 20:04 Ordered Saline Lock Insert [OM.PC] Routine Oth 03/02/21 20:04 Ordered Medication Orders Acetaminophen (Acetaminophen 325 Mg Tab) 650 mg PO Q4H PRN PRN Reason: Fever Greater Than 101 Dexamethasone (Dexamethasone 4 Mg/Ml Sdv) 6 mg IVPUSH DAILY ANA Stop: 03/11/21 09:01 Sodium Chloride (Normal Saline) 1,000 mls @ 150 mls/hr IV ASDIRECTED ANA Sodium Chloride (Sodium Chloride 0.9% 10 Ml Syringe) 10 ml FLUSH ASDIRECTED PRN PRN Reason: Keep Vein Open Labs: Laboratory Tests 03/02/21 03/02/21 03/02/21 Range/Units 18:40 18:40 18:40 WBC 7.3 (4.5-11.0) K/uL RBC 3.99 (3.30-5.50) M/uL Hgb 12.3 D (12.0-15.0) g/dL Hct 35.2 L (36.0-48.0) % MCV 88 (80-98) fL MCH 31 (27-31) pg MCHC 35 (32-36) % Plt Count 213 (150-400) K/uL Neut % (Auto) 87.8 H (36-66) % Lymph % (Auto) 7.8 L (24-44) % [place] % (Auto) 4.3 (2-6) % Eos % (Auto) 0.0 L (2-4) % Baso % (Auto) 0.1 (0-1) % D-Dimer, Quantitative 1411.89 H (0.0-500.0) ng/mL Sodium 118 L* (140-148) mmol/L Potassium 4.3 (3.6-5.2) mmol/L Chloride 85 L (100-108) mmol/L Carbon Dioxide 24 (21-32) mmol/L Anion Gap 13.3 (5.0-14.0) mmol/L BUN 10 (7-18) mg/dL Creatinine 0.6 (0.6-1.0) mg/dL Est Cr Clr Drug Dosing 68.02 mL/min Estimated GFR (MDRD) > 60 (>60) Glucose 121 H (74-106) mg/dL Calcium 8.0 L (8.5-10.1) mg/dL Ferritin 2362 H (8-388) ng/ml Total Bilirubin 0.4 (0.2-1.0) mg/dL AST 146 H D (15-37) U/L ALT 117 H (12-78) U/L Alkaline Phosphatase 259 H (46-116) U/L Lactate Dehydrogenase 566 H (82-234) U/L C-Reactive Protein 10.53 H (0.0-0.3) mg/dL Total Protein 6.5 (6.4-8.2) g/dL Albumin 2.6 L (3.4-5.0) g/dL Globulin 3.9 H (2.3-3.5) g/dL Albumin/Globulin Ratio 0.7 L (1.2-2.2) Procalcitonin ng/mL 03/02/21 Range/Units 18:40 WBC (4.5-11.0) K/uL RBC (3.30-5.50) M/uL Hgb (12.0-15.0) g/dL Hct (36.0-48.0) % MCV (80-98) fL MCH (27-31) pg MCHC (32-36) % Plt Count (150-400) K/uL Neut % (Auto) (36-66) % Lymph % (Auto) (24-44) % [place] % (Auto) (2-6) % Eos % (Auto) (2-4) % Baso % (Auto) (0-1) % D-Dimer, Quantitative (0.0-500.0) ng/mL Sodium (140-148) mmol/L Potassium (3.6-5.2) mmol/L Chloride (100-108) mmol/L Carbon Dioxide (21-32) mmol/L Anion Gap (5.0-14.0) mmol/L BUN (7-18) mg/dL Creatinine (0.6-1.0) mg/dL Est Cr Clr Drug Dosing mL/min Estimated GFR (MDRD) (>60) Glucose (74-106) mg/dL Calcium (8.5-10.1) mg/dL Ferritin (8-388) ng/ml Total Bilirubin (0.2-1.0) mg/dL AST (15-37) U/L ALT (12-78) U/L Alkaline Phosphatase (46-116) U/L Lactate Dehydrogenase (82-234) U/L C-Reactive Protein (0.0-0.3) mg/dL Total Protein (6.4-8.2) g/dL Albumin (3.4-5.0) g/dL Globulin (2.3-3.5) g/dL Albumin/Globulin Ratio (1.2-2.2) Procalcitonin 0.09 ng/mL Meds: Medications Generic Name Dose Route Start Last Admin Trade Name Freq PRN Reason Stop Dose Admin Acetaminophen 650 mg 03/02/21 20:04 Acetaminophen 325 Mg Tab PO Q4H PRN Fever Greater Than 101 Dexamethasone 6 mg 03/02/21 20:15 Dexamethasone 4 Mg/Ml Sdv IVPUSH 03/11/21 09:01 DAILY ANA Sodium Chloride 1,000 mls @ 150 mls/hr 03/02/21 20:15 Normal Saline IV ASDIRECTED ANA Sodium Chloride 10 ml 03/02/21 20:04 Sodium Chloride 0.9% 10 Ml Syringe FLUSH ASDIRECTED PRN Keep Vein Open Discontinued Medications Generic Name Dose Route Start Last Admin Trade Name Freq PRN Reason Stop Dose Admin Remdesivir 200 mg/ Sodium 250 mls @ 250 mls/hr 03/02/21 20:04 Chloride IV 03/02/21 20:05 ONETIME ONE Ondansetron HCl 4 mg 03/02/21 19:33 03/02/21 19:51 Ondansetron 4 Mg Tab.Dis PO 03/02/21 19:34 4 mg ONETIME ONE Administration Ondansetron HCl Confirm 03/02/21 19:35 Ondansetron 4 Mg Tab.Dis Administered 03/02/21 19:36 Dose 4 mg .ROUTE .K-[facility] - Radiology Interpretation Free Text/Narrative:: I reviewed the one-view portable chest x-ray showing diffuse bilateral groundglass infiltrates throughout both lungs consistent with Covid pneumonia. - Re-Assessments/Exams Free Text/Narrative Re-Assessment/Exam: 03/02/21 20:08 I reviewed the patient's labs showing a leukocyte count of 7.3, hemoglobin of 12.3, hematocrit of 35.2, platelet count of 213,000. D-dimer is elevated at 1411 and procalcitonin 0.09. Metabolic panel significant for a sodium of 118, potassium 4.3, chloride of 85, carbonate of 24, BUN of 10 with a creatinine of 0.6 and a glucose of 121. Calcium is 8.0 with an albumin of 2.6, AST is 146, ALT is 117, 8 alkaline phosphatase is 259, of the Covid panel the LDH is 566, CRP is 10.53, ferritin is 2362, D-dimer is 1411, and procalcitonin is 0.09. The chest x-ray shows groundglass patchy infiltrates throughout both lung franklin. The patient is requiring oxygen at 6 L by nasal cannula. We will initiate remdesivir 200 milligrams IV and dexamethasone 6 mg IV for Covid therapy. I have discussed the case with Chioma Johnson CNP to arrange for admission of the patient for further care. Departure - Departure Time of Disposition: 20:16 Disposition: Admitted As Inpatient 65 Clinical Impression: Pneumonia due to COVID-19 virus, Hyponatremia Respiratory failure with hypoxia Qualifiers: Chronicity: acute Qualified Code(s): J96.01 - Acute respiratory failure with hypoxia - Discharge Information Referrals: PCP,None [Primary Care Provider] - Forms: ED Department Discharge Sepsis Event Note (ED) - Evaluation Sepsis Screening Result: No Definite Risk - Focused Exam Vital Signs: Vital Signs Temp Pulse Resp BP Pulse Ox 03/02/21 19:40 102 H 121/65 92 L 03/02/21 18:17 36.7 C 103 H 18 121/87 90 L 03/02/21 17:51 36.7 C 103 H 18 121/87 81 L - Problem List & Annotations (1) Hyponatremia SNOMED Code(s): 34388035 Code(s): E87.1 - HYPO-OSMOLALITY AND HYPONATREMIA Status: Acute Priority: High Current Visit: Yes (2) Pneumonia due to COVID-19 virus SNOMED Code(s): 974505762691225435 Code(s): U07.1 - COVID-19; J12.82 - PNEUMONIA DUE TO CORONAVIRUS DISEASE 2019 Status: Acute Priority: High Current Visit: Yes (3) Respiratory failure with hypoxia SNOMED Code(s): 62950035735913029 Code(s): J96.91 - RESPIRATORY FAILURE, UNSPECIFIED WITH HYPOXIA Status: Acute Priority: High Current Visit: Yes Qualifiers: Chronicity: acute Qualified Code(s): J96.01 - Acute respiratory failure with hypoxia - Problem List Review Problem List Initiated/Reviewed/Updated: Yes - My Orders Last 24 Hours: My Active Orders 03/02/21 18:26 Chest 1V Frontal [CR] Stat 03/02/21 18:40 LACTIC ACID [CHEM] Stat 03/02/21 20:04 BLOOD GAS ARTERIAL [BG] Stat CULTURE BLOOD [BC] Stat PTT,PARTIAL THROMBOPLSTIN TIME [COAG] Routine Acetaminophen [TylenoL] 650 mg PO Q4H PRN Sodium Chloride 0.9% [Saline Flush] 10 ml FLUSH ASDIRECTED PRN Isolation [COMM] Stat Saline Lock Insert [OM.PC] Routine 03/02/21 20:05 INR,PT,PROTHROMBIN TIME [COAG] Timed 03/02/21 20:06 Nurse Communication: Isolation [RC] ASDIRECTED HEPATIC FUNCTION PANEL,HFP [CHEM] Stat 03/02/21 20:15 Sodium Chloride 0.9% @ 150 MLS/HR (1000ml) Sodium Chloride 0.9% [Normal Saline] 1,000 ml IV ASDIRECTED dexAMETHasone [Decadron] 6 mg IVPUSH DAILY 03/03/21 20:15 HEPATIC FUNCTION PANEL,HFP [CHEM] DAILY 03/04/21 20:15 HEPATIC FUNCTION PANEL,HFP [CHEM] DAILY 03/05/21 20:15 HEPATIC FUNCTION PANEL,HFP [CHEM] DAILY 03/06/21 20:15 HEPATIC FUNCTION PANEL,HFP [CHEM] DAILY - Assessment/Plan Last 24 Hours: My Active Orders 03/02/21 18:26 Chest 1V Frontal [CR] Stat 03/02/21 18:40 LACTIC ACID [CHEM] Stat 03/02/21 20:04 BLOOD GAS ARTERIAL [BG] Stat CULTURE BLOOD [BC] Stat PTT,PARTIAL THROMBOPLSTIN TIME [COAG] Routine Acetaminophen [TylenoL] 650 mg PO Q4H PRN Sodium Chloride 0.9% [Saline Flush] 10 ml FLUSH ASDIRECTED PRN Isolation [COMM] Stat Saline Lock Insert [OM.PC] Routine 03/02/21 20:05 INR,PT,PROTHROMBIN TIME [COAG] Timed 03/02/21 20:06 Nurse Communication: Isolation [RC] ASDIRECTED HEPATIC FUNCTION PANEL,HFP [CHEM] Stat 03/02/21 20:15 Sodium Chloride 0.9% @ 150 MLS/HR (1000ml) Sodium Chloride 0.9% [Normal Saline] 1,000 ml IV ASDIRECTED dexAMETHasone [Decadron] 6 mg IVPUSH DAILY 03/03/21 20:15 HEPATIC FUNCTION PANEL,HFP [CHEM] DAILY 03/04/21 20:15 HEPATIC FUNCTION PANEL,HFP [CHEM] DAILY 03/05/21 20:15 HEPATIC FUNCTION PANEL,HFP [CHEM] DAILY 03/06/21 20:15 HEPATIC FUNCTION PANEL,HFP [CHEM] DAILY
[2021-03-02] MEDS ORDERED: Ondansetron 4 MG Tab.DIS PO ONE (19:33)
[2021-03-02] MEDS ORDERED: Ondansetron 4 MG Tab.DIS ONE (19:35)
[2021-03-02] MEDS ORDERED: Sodium Chloride 0.9% 10 ML Syringe FLUSH PRN (20:04)
[2021-03-02] MEDS ORDERED: REMDESIVIR 200 MG in Sodium Chloride 0.9% 250 ML IV ONE (20:04)
[2021-03-02] MEDS ORDERED: Dexamethasone 4 MG/ML SDV IVPUSH SCH (20:15)
[2021-03-02] MEDS ORDERED: Sodium Chloride 0.9% 1,000 ML IV SCH ×2 (20:15→21:21)
--- NOTE | 2021-03-02 21:02 | PCM.HP.2 ---
H&P History of Present Illness - General Date of Service: 03/02/21 Admit Problem/Dx: Admission Diagnosis/Problem Admission Diagnosis/Problem Pneumonia in infectious disease Source of Information: Patient, Provider, RN History Limitations: Reports: Respiratory Distress - History of Present Illness Initial Comments - Free Text/Narative: chief complaint- complication of Covid 19, shortness of breath copy from ER note - History of Present Illness INITIAL COMMENTS - FREE TEXT/NARRATIVE: Donna is a 70-year-old female who was sent in from Dr. Urbano's office with concerns of worsening Covid symptoms. Patient was diagnosed with COVID-19 on Friday (5 days ago) and has already received a monoclonal antibody treatment. She was seen in follow-up today and found to have a low SpO2 prompting her presentation to the ER from the clinic. Patient has had diminished appetite, generalized weakness, worsening shortness of breath and hypoxia. She still has a significant headache, body aches, fever and chills, and dyspnea at rest. She is currently on 4 L via nasal cannula to maintain sats above 90%. Onset of Symptoms: Reports: Sudden Symptom Onset Date: 02/24/21 Duration of Symptoms: Reports: Getting Worse Location: Reports: Generalized Quality: Reports: Other (shortness of breath) Severity: Severe Improves with: Reports: Rest Worsens with: Reports: Movement Context: Reports: Other (Covid-19) Associated Symptoms: Reports: Cough, Headaches, Loss of Appetite, Nausea/Vomiting, Shortness of Breath, Weakness Neck Pain Score (Numeric/FACES): 6 - Related Data Allergies/Adverse Reactions: Allergies Allergy/AdvReac Type Severity Reaction Status Date / Time nickel Allergy Rash Verified 03/01/21 12:04 Penicillins Allergy Hives Verified 03/01/21 12:04 Home Medications: Home Meds Ubidecarenone [Coenzyme Q10] 100 mg PO DAILY 03/01/16 [History] Magnesium Oxide [Magnesium] 1,000 mg PO DAILY 10/05/19 [History] Vit C/Ascorbate Calcium,Sodium [Vitamin C] 500 mg PO DAILY 12/05/19 [History] Metoprolol Succinate 25 mg PO DAILY 05/24/20 [History] Multivitamin with Minerals [Multiple Vitamin] 1 tab PO DAILY 05/24/20 [History] Cholecalciferol (Vitamin D3) [Vitamin D] 5,000 unit PO DAILY 06/26/20 [History] Melatonin 10 mg PO ASDIRECTED PRN 06/26/20 [History] Aspirin [Halfprin] 81 mg PO DAILY 06/30/20 [History] Past Medical History HEENT History: Reports: Impaired Vision Cardiovascular History: Reports: Afib Respiratory History: Reports: None Gastrointestinal History: Reports: None Genitourinary History: Reports: None [employer] History: Reports: Musculoskeletal History: Reports: Other (See Below) Other Musculoskeletal History: R knee pain Neurological History: Reports: None Psychiatric History: Reports: None Endocrine/Metabolic History: Reports: Obesity/BMI 30+ Hematologic History: Reports: None Immunologic History: Reports: None Oncologic (Cancer) History: Reports: None Dermatologic History: Reports: None - Infectious Disease History Infectious Disease History: Reports: Chicken Pox, Measles, Mumps, Rubella Other Infectious Disease History: staph on the skin - Past Surgical History Head Surgeries/Procedures: Reports: None GI Surgical History: Reports: Colonoscopy Female Surgical History: Reports: D&C Musculoskeletal Surgical History: Reports: Knee Replacement Other Musculoskeletal Surgeries/Procedures:: s/p RTKA 06/26/20 Social & Family History - Family History Cardiac: Reports: CAD Oncologic: Reports: Lung - Tobacco Use Tobacco Use Status *Q: Never Tobacco User Second Hand Smoke Exposure: No - Caffeine Use Caffeine Use: Reports: Coffee - Recreational Drug Use Recreational Drug Use: No - Living Situation & Occupation Living situation: Reports: Occupation: Employed ( , has 2 Children, 5 Step-Children. Employed at [employer] for many years.) H&P Review of Systems - Review of Systems: Review Of Systems: See Below General: Reports: Fever, Chills, Malaise, Weakness, Fatigue, Decreased Appetite HEENT: Reports: Glasses Pulmonary: Reports: Shortness of Breath, Cough Cardiovascular: Reports: No Symptoms Gastrointestinal: Reports: Diarrhea, Decreased Appetite, Nausea, Vomiting Genitourinary: Reports: No Symptoms Musculoskeletal: Reports: Muscle Pain Skin: Reports: No Symptoms Psychiatric: Reports: Anxiety Neurological: Reports: No Symptoms Hematologic/Lymphatic: Reports: No Symptoms Immunologic: Reports: No Symptoms Exam - Exam Exam: See Below - Vital Signs Vital Signs: Last Vital Signs Temp 97.8 F 03/02/21 20:33 Pulse 122 H 03/02/21 20:41 Resp 24 H 03/02/21 20:41 BP 123/77 03/02/21 20:33 Pulse Ox 91 L 03/02/21 20:41 Weight: 185 lb - Exam Quality Assessment: Supplemental Oxygen, DVT Prophylaxis General: Alert, Oriented, Cooperative, Mild Distress HEENT: PERRLA, Conjunctiva Clear, Hearing Intact, Mucosa Moist & Friedens, Glasses Neck: Supple, Trachea Midline, Full Range of Motion Lungs: Decreased Breath Sounds Cardiovascular: Regular Rate, Regular Rhythm, Normal S1, Normal S2 GI/Abdominal Exam: Normal Bowel Sounds, Soft, Non-Tender, No Distention (Female) Exam: Deferred Rectal (Female) Exam: Deferred Back Exam: Normal Inspection, Full Range of Motion Extremities: Normal Inspection, Normal Range of Motion, Non-Tender, Normal Capillary Refill, Pedal Edema Peripheral Pulses: 2+: Radial (L), Radial (R) Skin: Warm, Dry, Intact Neurological: Cranial Nerves Intact, Reflexes Equal Bilateral, Strength Equal Bilateral Neuro Extensive - Mental Status: Alert, Oriented x3, Normal Mood/Affect, Normal Cognition Neuro Extensive - Motor, Sensory, Reflexes: CN II-XII Intact, Normal Gait, Normal Reflexes Psychiatric: Alert, Normal Affect, Normal Mood - Patient Data Lab Results Last 24 hrs: Laboratory Results - last 24 hr 03/02/21 03/02/21 03/02/21 Range/Units 18:40 18:40 18:40 WBC 7.3 (4.5-11.0) K/uL RBC 3.99 (3.30-5.50) M/uL Hgb 12.3 D (12.0-15.0) g/dL Hct 35.2 L (36.0-48.0) % MCV 88 (80-98) fL MCH 31 (27-31) pg MCHC 35 (32-36) % Plt Count 213 (150-400) K/uL Neut % (Auto) 87.8 H (36-66) % Lymph % (Auto) 7.8 L (24-44) % [place] % (Auto) 4.3 (2-6) % Eos % (Auto) 0.0 L (2-4) % Baso % (Auto) 0.1 (0-1) % PT (9.2-10.6) sec INR APTT (21.4-31.8) sec D-Dimer, Quantitative 1411.89 H (0.0-500.0) ng/mL Puncture Site ABG pH (7.350-7.450) ABG pCO2 (35.0-42.0) mmHg ABG pO2 (75.0-100.0) mmHg ABG HCO3 (22.0-26.0) mmol/L ABG Total CO2 (21.0-25.0) mmol/L ABG O2 Saturation (95.0-98.0) % ABG O2 Content (15.0-23.0) %vol ABG Base Excess mm/L ABG Hemoglobin (12.0-16.0) g/dL ABG Oxyhemoglobin % ABG Carboxyhemoglobin (0.0-1.6) % ABG Methemoglobin % Esequiel Test O2 Delivery Device Oxygen Flow Rate L Sodium 118 L* (140-148) mmol/L Potassium 4.3 (3.6-5.2) mmol/L Chloride 85 L (100-108) mmol/L Carbon Dioxide 24 (21-32) mmol/L Anion Gap 13.3 (5.0-14.0) mmol/L BUN 10 (7-18) mg/dL Creatinine 0.6 (0.6-1.0) mg/dL Est Cr Clr Drug Dosing 68.02 mL/min Estimated GFR (MDRD) > 60 (>60) Glucose 121 H (74-106) mg/dL Lactic Acid (0.4-2.0) mmol/L Calcium 8.0 L (8.5-10.1) mg/dL Ferritin 2362 H (8-388) ng/ml Total Bilirubin 0.4 (0.2-1.0) mg/dL AST 146 H D (15-37) U/L ALT 117 H (12-78) U/L Alkaline Phosphatase 259 H (46-116) U/L Lactate Dehydrogenase 566 H (82-234) U/L C-Reactive Protein 10.53 H (0.0-0.3) mg/dL Total Protein 6.5 (6.4-8.2) g/dL Albumin 2.6 L (3.4-5.0) g/dL Globulin 3.9 H (2.3-3.5) g/dL Albumin/Globulin Ratio 0.7 L (1.2-2.2) Procalcitonin ng/mL 03/02/21 03/02/21 03/02/21 Range/Units 18:40 18:40 18:40 WBC (4.5-11.0) K/uL RBC (3.30-5.50) M/uL Hgb (12.0-15.0) g/dL Hct (36.0-48.0) % MCV (80-98) fL MCH (27-31) pg MCHC (32-36) % Plt Count (150-400) K/uL Neut % (Auto) (36-66) % Lymph % (Auto) (24-44) % [place] % (Auto) (2-6) % Eos % (Auto) (2-4) % Baso % (Auto) (0-1) % PT (9.2-10.6) sec INR APTT 35.0 H (21.4-31.8) sec D-Dimer, Quantitative (0.0-500.0) ng/mL Puncture Site ABG pH (7.350-7.450) ABG pCO2 (35.0-42.0) mmHg ABG pO2 (75.0-100.0) mmHg ABG HCO3 (22.0-26.0) mmol/L ABG Total CO2 (21.0-25.0) mmol/L ABG O2 Saturation (95.0-98.0) % ABG O2 Content (15.0-23.0) %vol ABG Base Excess mm/L ABG Hemoglobin (12.0-16.0) g/dL ABG Oxyhemoglobin % ABG Carboxyhemoglobin (0.0-1.6) % ABG Methemoglobin % Esequiel Test O2 Delivery Device Oxygen Flow Rate L Sodium (140-148) mmol/L Potassium (3.6-5.2) mmol/L Chloride (100-108) mmol/L Carbon Dioxide (21-32) mmol/L Anion Gap (5.0-14.0) mmol/L BUN (7-18) mg/dL Creatinine (0.6-1.0) mg/dL Est Cr Clr Drug Dosing mL/min Estimated GFR (MDRD) (>60) Glucose (74-106) mg/dL Lactic Acid 2.1 H (0.4-2.0) mmol/L Calcium (8.5-10.1) mg/dL Ferritin (8-388) ng/ml Total Bilirubin (0.2-1.0) mg/dL AST (15-37) U/L ALT (12-78) U/L Alkaline Phosphatase (46-116) U/L Lactate Dehydrogenase (82-234) U/L C-Reactive Protein (0.0-0.3) mg/dL Total Protein (6.4-8.2) g/dL Albumin (3.4-5.0) g/dL Globulin (2.3-3.5) g/dL Albumin/Globulin Ratio (1.2-2.2) Procalcitonin 0.09 ng/mL 03/02/21 03/02/21 Range/Units 18:40 20:04 WBC (4.5-11.0) K/uL RBC (3.30-5.50) M/uL Hgb (12.0-15.0) g/dL Hct (36.0-48.0) % MCV (80-98) fL MCH (27-31) pg MCHC (32-36) % Plt Count (150-400) K/uL Neut % (Auto) (36-66) % Lymph % (Auto) (24-44) % [place] % (Auto) (2-6) % Eos % (Auto) (2-4) % Baso % (Auto) (0-1) % PT 11.0 H (9.2-10.6) sec INR 1.1 APTT (21.4-31.8) sec D-Dimer, Quantitative (0.0-500.0) ng/mL Puncture Site Lt.radial ABG pH 7.534 H (7.350-7.450) ABG pCO2 25.6 L (35.0-42.0) mmHg ABG pO2 50.1 L (75.0-100.0) mmHg ABG HCO3 21.5 L (22.0-26.0) mmol/L ABG Total CO2 18.9 L (21.0-25.0) mmol/L ABG O2 Saturation 88.8 L (95.0-98.0) % ABG O2 Content 15.1 (15.0-23.0) %vol ABG Base Excess 0.3 mm/L ABG Hemoglobin 12.4 (12.0-16.0) g/dL ABG Oxyhemoglobin 87.2 % ABG Carboxyhemoglobin 0.9 (0.0-1.6) % ABG Methemoglobin 0.9 % Esequiel Test Passed O2 Delivery Device Nasal cannula Oxygen Flow Rate 6.0 L Sodium (140-148) mmol/L Potassium (3.6-5.2) mmol/L Chloride (100-108) mmol/L Carbon Dioxide (21-32) mmol/L Anion Gap (5.0-14.0) mmol/L BUN (7-18) mg/dL Creatinine (0.6-1.0) mg/dL Est Cr Clr Drug Dosing mL/min Estimated GFR (MDRD) (>60) Glucose (74-106) mg/dL Lactic Acid (0.4-2.0) mmol/L Calcium (8.5-10.1) mg/dL Ferritin (8-388) ng/ml Total Bilirubin (0.2-1.0) mg/dL AST (15-37) U/L ALT (12-78) U/L Alkaline Phosphatase (46-116) U/L Lactate Dehydrogenase (82-234) U/L C-Reactive Protein (0.0-0.3) mg/dL Total Protein (6.4-8.2) g/dL Albumin (3.4-5.0) g/dL Globulin (2.3-3.5) g/dL Albumin/Globulin Ratio (1.2-2.2) Procalcitonin ng/mL Result Diagrams: 03/02/21 18:40 03/02/21 18:40 Sepsis Event Note - Evaluation Sepsis Screening Result: No Definite Risk - Focused Exam Vital Signs: Vital Signs Temp Pulse Resp BP Pulse Ox 03/02/21 20:41 122 H 24 H 91 L 03/02/21 20:33 97.8 F 102 H 24 H 123/77 86 L 03/02/21 19:40 102 H 121/65 92 L 03/02/21 19:27 86 119/67 03/02/21 18:17 98.1 F 103 H 18 121/87 90 L 03/02/21 17:51 98.1 F 103 H 18 121/87 81 L - Problem List (1) Pneumonia due to COVID-19 virus SNOMED Code(s): 874969310325231528 ICD Code: U07.1 - COVID-19; J12.82 - PNEUMONIA DUE TO CORONAVIRUS DISEASE 2019 Status: Acute Priority: High Current Visit: Yes (2) Hyponatremia SNOMED Code(s): 02632999 ICD Code: E87.1 - HYPO-OSMOLALITY AND HYPONATREMIA Status: Acute Priority: High Current Visit: Yes (3) Atrial fibrillation SNOMED Code(s): 84925085 ICD Code: I48.91 - UNSPECIFIED ATRIAL FIBRILLATION Status: Acute Priority: Low Current Visit: Yes (4) Cardiovascular disease Status: Acute Priority: Low Current Visit: Yes Problem List Initiated/Reviewed/Updated: Yes Orders Last 24hrs: Active Orders 24 hr Category Date Time Status Patient Status Manage Transfer [TRANSFER] Routine ADT 03/02/21 20:08 Active Chest 1V Frontal [CR] Stat Exams 03/02/21 18:26 Taken CULTURE BLOOD [BC] Stat Lab 03/02/21 20:34 Received HEPATIC FUNCTION PANEL,HFP [CHEM] DAILY Lab 03/03/21 20:15 Ordered HEPATIC FUNCTION PANEL,HFP [CHEM] DAILY Lab 03/04/21 20:15 Ordered HEPATIC FUNCTION PANEL,HFP [CHEM] DAILY Lab 03/05/21 20:15 Ordered HEPATIC FUNCTION PANEL,HFP [CHEM] DAILY Lab 03/06/21 20:15 Ordered HEPATIC FUNCTION PANEL,HFP [CHEM] Stat Lab 03/02/21 20:06 Received Acetaminophen [TylenoL] Med 03/02/21 20:04 Active 650 mg PO Q4H PRN Sodium Chloride 0.9% [Normal Saline] 1,000 ml Med 03/02/21 20:15 Active IV ASDIRECTED Sodium Chloride 0.9% [Saline Flush] Med 03/02/21 20:04 Active 10 ml FLUSH ASDIRECTED PRN dexAMETHasone [Decadron] Med 03/02/21 20:15 Active 6 mg IVPUSH DAILY Isolation [COMM] Stat Oth 03/02/21 20:04 Ordered Saline Lock Insert [OM.PC] Routine Oth 03/02/21 20:04 Ordered Resuscitation Status Routine Resus Stat 03/02/21 20:42 Ordered Medication Orders Acetaminophen (Acetaminophen 325 Mg Tab) 650 mg PO Q4H PRN PRN Reason: Fever Greater Than 101 Dexamethasone (Dexamethasone 4 Mg/Ml Sdv) 6 mg IVPUSH DAILY ANA Stop: 03/11/21 09:01 Last Admin: 03/02/21 20:30 Dose: 6 mg Documented by: JOHNSON Sodium Chloride (Normal Saline) 1,000 mls @ 150 mls/hr IV ASDIRECTED ANA Last Admin: 03/02/21 20:28 Dose: 150 mls/hr Documented by: JOHNSON Sodium Chloride (Sodium Chloride 0.9% 10 Ml Syringe) 10 ml FLUSH ASDIRECTED PRN PRN Reason: Keep Vein Open Last Admin: 03/02/21 20:32 Dose: 10 ml Documented by: JOHNSON Assessment/Plan Comment:: ASSESSMENT AND PLAN OF CARE- COVID 19 PNEUMONIA WITH HYPOXIA, HYPONATREMIA, CARDIOVASCULAR DISEASE, HX OF ATRIAL FIB, HX HYPERLIPIDEMIA COVID-19 pneumonia-complicated by hypoxia. Symptoms of fatigue, nausea, vomiting, diarrhea, cough started on February 24., tested positive on February 26, 2021. She has been not been eating due to the nausea and diarrhea. Cough and shortness of breath has been getting worse since Friday. ER Labs- chemistries Na+ 118, K+ 4.3, Cl 85, Co2, 24, anion gap 13.3, bun 10, cr 0.6, GFR >60, glucose 121, Ca+8.0, Ferritin 2362, Elevation of D-dimer 1411.89, elevation of CRP 10.53, Procalcitonin 0.09, Lactic acid 2.1. will start on Remdesivir, Dexamethasone and Lovenox -Dexamethasone 6 mg daily- give first dose on 03/02/2021 -Remdesivir 200mg given in ER then 100mg daily -Supplement oxygen as needed -albuterol inhaler 2 puffs every 2 to 4 hours -Symptomatic management of cough -Goal of negative fluid balance each day -Isolation precautions -daily labs CBC, BMP, LFTS Hyponatremia- Sodium at time of admission 118, will rehydrate, serial Na+ until normal range. -IV fluid Normal Saline 125 ml/hr -sodium recheck at 22:00 Cardiovascular disease - history of atrial fib., hyperlipidemia -Metoprolol 25 mg po daily -cardiac monitoring. Maintenance issues - - DVT prophylaxis - Lovenox 40 mg daily - GI prophylaxis -PPI - Nutrition -regular - Marrero catheter -not indicated CODE STATUS -full code Admission justification -this patient will be admitted for inpatient services and is medically appropriate meeting medical necessity for inpatient admission as outlined in my documentation. I reasonably expect the patient will require inpatient services that span a period time over 2 midnights. I reasonably expect this patient to be discharged or transferred within 96 hours after admission to the [facility]. Disposition -I would anticipate discharge home Primary care physician -Dr. Urbano Hospitalist - Dr. Jake Valdivia M.D. - Mortality Measure Prognosis:: Good - Mortality Measure Prognosis:: Good
[2021-03-02] MEDS ORDERED: Morphine 2 MG/ML SYRINGE IVPUSH PRN (21:21)
[2021-03-02] MEDS ORDERED: Ondansetron 4 MG/2 ML SDV IV PRN (21:21)
[2021-03-02] MEDS ORDERED: Enoxaparin 40 MG/0.4 ML Syringe SUBCUT SCH (21:21)
[2021-03-02] MEDS ORDERED: Non-Formulary Medication 1 Each (Melatonin [Melatonin] 5 MG Tablet) PO PRN (21:21)
[2021-03-02] MEDS ORDERED: Acetaminophen 325 MG Tab PO PRN ×2 (21:21)
[2021-03-02] MEDS ORDERED: LORazepam 2 MG/ML SDV IV PRN (21:21)
[2021-03-02] MEDS ORDERED: oxyCODONE 5 MG Tab PO PRN (21:21)
[2021-03-02] MEDS ORDERED: Albuterol 8 GM Inhaler INH PRN (21:48)
[2021-03-02] MEDS ORDERED: Albuterol/Ipratropium 4 GM Inhalation Spray INH PRN (21:48)
[2021-03-02] MEDS ORDERED: guaiFENesin 100 MG/5 ML Soln ML (118 ML Bottle) PO PRN (21:50)
[2021-03-02] MEDS: Diltiazem IR 30 MG Tab PO SCH (22:54)
[2021-03-02] MEDS ORDERED: Sodium Chloride 3% 500 ML IV SCH (23:00)
--- NOTE | 2021-03-02 23:04 | PCM.SN.2 ---
- Free Text/Narrative Note: time 2253 call from 2nd floor O: atrial fib with RVR- rate of 130-140 blood pressure 124/82 A: Atrial fib with RVR P: consult with Dr. Valdivia- give po Cardiazem 60 mg IR now and every 6 hours. Hyponatremia O: Sodium 118 A:Hyponatremia P: stop Normal Saline, give Hypertonic Saline 100ml/hour over one hour then saline lock recheck Sodium at 0300 and with am labs.
[2021-03-03] MEDS ORDERED: Digoxin 125 MCG Tab PO ONE (00:34)
[2021-03-03] MEDS: Diltiazem IR 30 MG Tab PO SCH ×4 (03:58→22:39)
[2021-03-03] MEDS: LORazepam 0.5 MG Tab PO PRN ×2 (04:31→17:54)
[2021-03-03] MEDS ORDERED: guaiFENesin 100 MG/5 ML Soln ML (118 ML Bottle) PO PRN (07:07)
[2021-03-03] MEDS ORDERED: Dexamethasone 4 MG/ML SDV IVPUSH SCH (09:00)
[2021-03-03] MEDS ORDERED: Non-Formulary Medication 1 Each (Magnesium Oxide [Magnesium] 500 MG Capsule) PO SCH (09:00)
[2021-03-03] MEDS: Magnesium Oxide 400 MG Tab PO SCH (09:56)
[2021-03-03] MEDS: Pantoprazole 40 MG Tab.CR PO SCH (09:56)
[2021-03-03] MEDS: Metoprolol Succinate 25 MG Tab.ER PO SCH (09:56)
[2021-03-03] MEDS ORDERED: Sodium Chloride 3% 100 ML IV SCH (11:00)
--- NOTE | 2021-03-03 12:33 | PCM.PN ---
- General Info Date of Service: 03/03/21 Subjective Update: Overnight following admission the patient had difficulty with rapid atrial fibrillation that did improve with oral diltiazem and digoxin. She did have worsening respiratory status and was started on the heated high flow nasal cannula. She has had adequate oxygen saturations since that time. She feels weak and fatigued and miserable. She is short of breath with any activity. She is having nausea. We did talk about adding baricitinib and she was interested in this. Sodium is marginally better this morning. - Review of Systems General: Reports: Weakness. Denies: Fever Pulmonary: Reports: Shortness of Breath Gastrointestinal: Reports: Nausea Neurological: Reports: Confusion - Patient Data Vitals - Most Recent: Last Vital Signs Temp 34.9 C L 03/03/21 07:38 Pulse 75 03/03/21 10:56 Resp 18 03/03/21 10:56 BP 94/54 L 03/03/21 10:56 Pulse Ox 95 03/03/21 10:56 Weight - Most Recent: 83.915 kg I&O - Last 24 Hours: Intake & Output 03/02/21 03/03/21 03/03/21 22:59 06:59 14:59 Intake Total 1131 100 Output Total 800 Balance 1131 -700 Lab Results Last 24 Hours: Laboratory Results - last 24 hr 03/02/21 03/02/21 03/02/21 Range/Units 18:40 18:40 18:40 WBC 7.3 (4.5-11.0) K/uL RBC 3.99 (3.30-5.50) M/uL Hgb 12.3 D (12.0-15.0) g/dL Hct 35.2 L (36.0-48.0) % MCV 88 (80-98) fL MCH 31 (27-31) pg MCHC 35 (32-36) % Plt Count 213 (150-400) K/uL Neut % (Auto) 87.8 H (36-66) % Lymph % (Auto) 7.8 L (24-44) % [place] % (Auto) 4.3 (2-6) % Eos % (Auto) 0.0 L (2-4) % Baso % (Auto) 0.1 (0-1) % PT (9.2-10.6) sec INR APTT (21.4-31.8) sec D-Dimer, Quantitative 1411.89 H (0.0-500.0) ng/mL Puncture Site ABG pH (7.350-7.450) ABG pCO2 (35.0-42.0) mmHg ABG pO2 (75.0-100.0) mmHg ABG HCO3 (22.0-26.0) mmol/L ABG Total CO2 (21.0-25.0) mmol/L ABG O2 Saturation (95.0-98.0) % ABG O2 Content (15.0-23.0) %vol ABG Base Excess mm/L ABG Hemoglobin (12.0-16.0) g/dL ABG Oxyhemoglobin % ABG Carboxyhemoglobin (0.0-1.6) % ABG Methemoglobin % Esequiel Test O2 Delivery Device Oxygen Flow Rate L Sodium 118 L* (140-148) mmol/L Potassium 4.3 (3.6-5.2) mmol/L Chloride 85 L (100-108) mmol/L Carbon Dioxide 24 (21-32) mmol/L Anion Gap 13.3 (5.0-14.0) mmol/L BUN 10 (7-18) mg/dL Creatinine 0.6 (0.6-1.0) mg/dL Est Cr Clr Drug Dosing 68.02 mL/min Estimated GFR (MDRD) > 60 (>60) Glucose 121 H (74-106) mg/dL Lactic Acid (0.4-2.0) mmol/L Calcium 8.0 L (8.5-10.1) mg/dL Magnesium (1.8-2.4) mg/dL Ferritin 2362 H (8-388) ng/ml Total Bilirubin 0.4 (0.2-1.0) mg/dL Direct Bilirubin (0.0-0.2) mg/dL Indirect Bilirubin AST 146 H D (15-37) U/L ALT 117 H (12-78) U/L Alkaline Phosphatase 259 H (46-116) U/L Lactate Dehydrogenase 566 H (82-234) U/L Creatine Kinase (26-192) U/L C-Reactive Protein 10.53 H (0.0-0.3) mg/dL Total Protein 6.5 (6.4-8.2) g/dL Albumin 2.6 L (3.4-5.0) g/dL Globulin 3.9 H (2.3-3.5) g/dL Albumin/Globulin Ratio 0.7 L (1.2-2.2) Procalcitonin ng/mL Urine Color (YELLOW) Urine Appearance (CLEAR) Urine pH (5.0-8.0) Ur Specific [place] (1.008-1.030) Urine Protein (NEGATIVE) mg/dL Urine Glucose (UA) (NEGATIVE) mg/dL Urine Ketones (NEGATIVE) mg/dL Urine Occult Blood (NEGATIVE) Urine Nitrite (NEGATIVE) Urine Bilirubin (NEGATIVE) Urine Urobilinogen (0.2-1.0) EU/dL Ur Leukocyte Esterase (NEGATIVE) Urine RBC (0-5) Urine WBC (0-5) Ur Epithelial Cells Amorphous Sediment Urine Bacteria Urine Mucus 03/02/21 03/02/21 03/02/21 Range/Units 18:40 18:40 18:40 WBC (4.5-11.0) K/uL RBC (3.30-5.50) M/uL Hgb (12.0-15.0) g/dL Hct (36.0-48.0) % MCV (80-98) fL MCH (27-31) pg MCHC (32-36) % Plt Count (150-400) K/uL Neut % (Auto) (36-66) % Lymph % (Auto) (24-44) % [place] % (Auto) (2-6) % Eos % (Auto) (2-4) % Baso % (Auto) (0-1) % PT (9.2-10.6) sec INR APTT 35.0 H (21.4-31.8) sec D-Dimer, Quantitative (0.0-500.0) ng/mL Puncture Site ABG pH (7.350-7.450) ABG pCO2 (35.0-42.0) mmHg ABG pO2 (75.0-100.0) mmHg ABG HCO3 (22.0-26.0) mmol/L ABG Total CO2 (21.0-25.0) mmol/L ABG O2 Saturation (95.0-98.0) % ABG O2 Content (15.0-23.0) %vol ABG Base Excess mm/L ABG Hemoglobin (12.0-16.0) g/dL ABG Oxyhemoglobin % ABG Carboxyhemoglobin (0.0-1.6) % ABG Methemoglobin % Esequiel Test O2 Delivery Device Oxygen Flow Rate L Sodium (140-148) mmol/L Potassium (3.6-5.2) mmol/L Chloride (100-108) mmol/L Carbon Dioxide (21-32) mmol/L Anion Gap (5.0-14.0) mmol/L BUN (7-18) mg/dL Creatinine (0.6-1.0) mg/dL Est Cr Clr Drug Dosing mL/min Estimated GFR (MDRD) (>60) Glucose (74-106) mg/dL Lactic Acid 2.1 H (0.4-2.0) mmol/L Calcium (8.5-10.1) mg/dL Magnesium (1.8-2.4) mg/dL Ferritin (8-388) ng/ml Total Bilirubin (0.2-1.0) mg/dL Direct Bilirubin (0.0-0.2) mg/dL Indirect Bilirubin AST (15-37) U/L ALT (12-78) U/L Alkaline Phosphatase (46-116) U/L Lactate Dehydrogenase (82-234) U/L Creatine Kinase (26-192) U/L C-Reactive Protein (0.0-0.3) mg/dL Total Protein (6.4-8.2) g/dL Albumin (3.4-5.0) g/dL Globulin (2.3-3.5) g/dL Albumin/Globulin Ratio (1.2-2.2) Procalcitonin 0.09 ng/mL Urine Color (YELLOW) Urine Appearance (CLEAR) Urine pH (5.0-8.0) Ur Specific [place] (1.008-1.030) Urine Protein (NEGATIVE) mg/dL Urine Glucose (UA) (NEGATIVE) mg/dL Urine Ketones (NEGATIVE) mg/dL Urine Occult Blood (NEGATIVE) Urine Nitrite (NEGATIVE) Urine Bilirubin (NEGATIVE) Urine Urobilinogen (0.2-1.0) EU/dL Ur Leukocyte Esterase (NEGATIVE) Urine RBC (0-5) Urine WBC (0-5) Ur Epithelial Cells Amorphous Sediment Urine Bacteria Urine Mucus 03/02/21 03/02/21 03/02/21 Range/Units 18:40 20:04 20:06 WBC (4.5-11.0) K/uL RBC (3.30-5.50) M/uL Hgb (12.0-15.0) g/dL Hct (36.0-48.0) % MCV (80-98) fL MCH (27-31) pg MCHC (32-36) % Plt Count (150-400) K/uL Neut % (Auto) (36-66) % Lymph % (Auto) (24-44) % [place] % (Auto) (2-6) % Eos % (Auto) (2-4) % Baso % (Auto) (0-1) % PT 11.0 H (9.2-10.6) sec INR 1.1 APTT (21.4-31.8) sec D-Dimer, Quantitative (0.0-500.0) ng/mL Puncture Site Lt.radial ABG pH 7.534 H (7.350-7.450) ABG pCO2 25.6 L (35.0-42.0) mmHg ABG pO2 50.1 L (75.0-100.0) mmHg ABG HCO3 21.5 L (22.0-26.0) mmol/L ABG Total CO2 18.9 L (21.0-25.0) mmol/L ABG O2 Saturation 88.8 L (95.0-98.0) % ABG O2 Content 15.1 (15.0-23.0) %vol ABG Base Excess 0.3 mm/L ABG Hemoglobin 12.4 (12.0-16.0) g/dL ABG Oxyhemoglobin 87.2 % ABG Carboxyhemoglobin 0.9 (0.0-1.6) % ABG Methemoglobin 0.9 % Esequiel Test Passed O2 Delivery Device Nasal cannula Oxygen Flow Rate 6.0 L Sodium (140-148) mmol/L Potassium (3.6-5.2) mmol/L Chloride (100-108) mmol/L Carbon Dioxide (21-32) mmol/L Anion Gap (5.0-14.0) mmol/L BUN (7-18) mg/dL Creatinine (0.6-1.0) mg/dL Est Cr Clr Drug Dosing mL/min Estimated GFR (MDRD) (>60) Glucose (74-106) mg/dL Lactic Acid (0.4-2.0) mmol/L Calcium (8.5-10.1) mg/dL Magnesium (1.8-2.4) mg/dL Ferritin (8-388) ng/ml Total Bilirubin 0.5 (0.2-1.0) mg/dL Direct Bilirubin 0.09 (0.0-0.2) mg/dL Indirect Bilirubin TNP AST 155 H (15-37) U/L ALT 110 H (12-78) U/L Alkaline Phosphatase 267 H (46-116) U/L Lactate Dehydrogenase (82-234) U/L Creatine Kinase (26-192) U/L C-Reactive Protein (0.0-0.3) mg/dL Total Protein 6.6 (6.4-8.2) g/dL Albumin 2.5 L (3.4-5.0) g/dL Globulin 4.1 H (2.3-3.5) g/dL Albumin/Globulin Ratio 0.6 L (1.2-2.2) Procalcitonin ng/mL Urine Color (YELLOW) Urine Appearance (CLEAR) Urine pH (5.0-8.0) Ur Specific [place] (1.008-1.030) Urine Protein (NEGATIVE) mg/dL Urine Glucose (UA) (NEGATIVE) mg/dL Urine Ketones (NEGATIVE) mg/dL Urine Occult Blood (NEGATIVE) Urine Nitrite (NEGATIVE) Urine Bilirubin (NEGATIVE) Urine Urobilinogen (0.2-1.0) EU/dL Ur Leukocyte Esterase (NEGATIVE) Urine RBC (0-5) Urine WBC (0-5) Ur Epithelial Cells Amorphous Sediment Urine Bacteria Urine Mucus 03/02/21 03/02/21 03/03/21 Range/Units 22:10 23:13 02:55 WBC 7.0 (4.5-11.0) K/uL RBC 3.94 (3.30-5.50) M/uL Hgb 12.0 (12.0-15.0) g/dL Hct 34.7 L (36.0-48.0) % MCV 88 (80-98) fL MCH 31 (27-31) pg MCHC 35 (32-36) % Plt Count 203 (150-400) K/uL Neut % (Auto) 90.0 H (36-66) % Lymph % (Auto) 5.7 L (24-44) % [place] % (Auto) 4.0 (2-6) % Eos % (Auto) 0.0 L (2-4) % Baso % (Auto) 0.3 (0-1) % PT (9.2-10.6) sec INR APTT (21.4-31.8) sec D-Dimer, Quantitative (0.0-500.0) ng/mL Puncture Site ABG pH (7.350-7.450) ABG pCO2 (35.0-42.0) mmHg ABG pO2 (75.0-100.0) mmHg ABG HCO3 (22.0-26.0) mmol/L ABG Total CO2 (21.0-25.0) mmol/L ABG O2 Saturation (95.0-98.0) % ABG O2 Content (15.0-23.0) %vol ABG Base Excess mm/L ABG Hemoglobin (12.0-16.0) g/dL ABG Oxyhemoglobin % ABG Carboxyhemoglobin (0.0-1.6) % ABG Methemoglobin % Esequiel Test O2 Delivery Device Oxygen Flow Rate L Sodium 118 L* (140-148) mmol/L Potassium (3.6-5.2) mmol/L Chloride (100-108) mmol/L Carbon Dioxide (21-32) mmol/L Anion Gap (5.0-14.0) mmol/L BUN (7-18) mg/dL Creatinine (0.6-1.0) mg/dL Est Cr Clr Drug Dosing mL/min Estimated GFR (MDRD) (>60) Glucose (74-106) mg/dL Lactic Acid 1.4 (0.4-2.0) mmol/L Calcium (8.5-10.1) mg/dL Magnesium (1.8-2.4) mg/dL Ferritin (8-388) ng/ml Total Bilirubin (0.2-1.0) mg/dL Direct Bilirubin (0.0-0.2) mg/dL Indirect Bilirubin AST (15-37) U/L ALT (12-78) U/L Alkaline Phosphatase (46-116) U/L Lactate Dehydrogenase (82-234) U/L Creatine Kinase (26-192) U/L C-Reactive Protein (0.0-0.3) mg/dL Total Protein (6.4-8.2) g/dL Albumin (3.4-5.0) g/dL Globulin (2.3-3.5) g/dL Albumin/Globulin Ratio (1.2-2.2) Procalcitonin ng/mL Urine Color (YELLOW) Urine Appearance (CLEAR) Urine pH (5.0-8.0) Ur Specific [place] (1.008-1.030) Urine Protein (NEGATIVE) mg/dL Urine Glucose (UA) (NEGATIVE) mg/dL Urine Ketones (NEGATIVE) mg/dL Urine Occult Blood (NEGATIVE) Urine Nitrite (NEGATIVE) Urine Bilirubin (NEGATIVE) Urine Urobilinogen (0.2-1.0) EU/dL Ur Leukocyte Esterase (NEGATIVE) Urine RBC (0-5) Urine WBC (0-5) Ur Epithelial Cells Amorphous Sediment Urine Bacteria Urine Mucus 03/03/21 03/03/21 03/03/21 Range/Units 02:55 02:55 02:55 WBC (4.5-11.0) K/uL RBC (3.30-5.50) M/uL Hgb (12.0-15.0) g/dL Hct (36.0-48.0) % MCV (80-98) fL MCH (27-31) pg MCHC (32-36) % Plt Count (150-400) K/uL Neut % (Auto) (36-66) % Lymph % (Auto) (24-44) % [place] % (Auto) (2-6) % Eos % (Auto) (2-4) % Baso % (Auto) (0-1) % PT 11.1 H (9.2-10.6) sec INR 1.1 APTT (21.4-31.8) sec D-Dimer, Quantitative 1284.44 H (0.0-500.0) ng/mL Puncture Site ABG pH (7.350-7.450) ABG pCO2 (35.0-42.0) mmHg ABG pO2 (75.0-100.0) mmHg ABG HCO3 (22.0-26.0) mmol/L ABG Total CO2 (21.0-25.0) mmol/L ABG O2 Saturation (95.0-98.0) % ABG O2 Content (15.0-23.0) %vol ABG Base Excess mm/L ABG Hemoglobin (12.0-16.0) g/dL ABG Oxyhemoglobin % ABG Carboxyhemoglobin (0.0-1.6) % ABG Methemoglobin % Esequiel Test O2 Delivery Device Oxygen Flow Rate L Sodium (140-148) mmol/L Potassium (3.6-5.2) mmol/L Chloride (100-108) mmol/L Carbon Dioxide (21-32) mmol/L Anion Gap (5.0-14.0) mmol/L BUN (7-18) mg/dL Creatinine (0.6-1.0) mg/dL Est Cr Clr Drug Dosing mL/min Estimated GFR (MDRD) (>60) Glucose (74-106) mg/dL Lactic Acid (0.4-2.0) mmol/L Calcium (8.5-10.1) mg/dL Magnesium 1.5 L (1.8-2.4) mg/dL Ferritin (8-388) ng/ml Total Bilirubin (0.2-1.0) mg/dL Direct Bilirubin (0.0-0.2) mg/dL Indirect Bilirubin AST (15-37) U/L ALT (12-78) U/L Alkaline Phosphatase (46-116) U/L Lactate Dehydrogenase 637 H (82-234) U/L Creatine Kinase 402 H (26-192) U/L C-Reactive Protein 10.29 H (0.0-0.3) mg/dL Total Protein (6.4-8.2) g/dL Albumin (3.4-5.0) g/dL Globulin (2.3-3.5) g/dL Albumin/Globulin Ratio (1.2-2.2) Procalcitonin ng/mL Urine Color (YELLOW) Urine Appearance (CLEAR) Urine pH (5.0-8.0) Ur Specific [place] (1.008-1.030) Urine Protein (NEGATIVE) mg/dL Urine Glucose (UA) (NEGATIVE) mg/dL Urine Ketones (NEGATIVE) mg/dL Urine Occult Blood (NEGATIVE) Urine Nitrite (NEGATIVE) Urine Bilirubin (NEGATIVE) Urine Urobilinogen (0.2-1.0) EU/dL Ur Leukocyte Esterase (NEGATIVE) Urine RBC (0-5) Urine WBC (0-5) Ur Epithelial Cells Amorphous Sediment Urine Bacteria Urine Mucus 03/03/21 03/03/21 Range/Units 02:55 10:00 WBC (4.5-11.0) K/uL RBC (3.30-5.50) M/uL Hgb (12.0-15.0) g/dL Hct (36.0-48.0) % MCV (80-98) fL MCH (27-31) pg MCHC (32-36) % Plt Count (150-400) K/uL Neut % (Auto) (36-66) % Lymph % (Auto) (24-44) % [place] % (Auto) (2-6) % Eos % (Auto) (2-4) % Baso % (Auto) (0-1) % PT (9.2-10.6) sec INR APTT (21.4-31.8) sec D-Dimer, Quantitative (0.0-500.0) ng/mL Puncture Site ABG pH (7.350-7.450) ABG pCO2 (35.0-42.0) mmHg ABG pO2 (75.0-100.0) mmHg ABG HCO3 (22.0-26.0) mmol/L ABG Total CO2 (21.0-25.0) mmol/L ABG O2 Saturation (95.0-98.0) % ABG O2 Content (15.0-23.0) %vol ABG Base Excess mm/L ABG Hemoglobin (12.0-16.0) g/dL ABG Oxyhemoglobin % ABG Carboxyhemoglobin (0.0-1.6) % ABG Methemoglobin % Esequiel Test O2 Delivery Device Oxygen Flow Rate L Sodium 120 L (140-148) mmol/L Potassium (3.6-5.2) mmol/L Chloride (100-108) mmol/L Carbon Dioxide (21-32) mmol/L Anion Gap (5.0-14.0) mmol/L BUN (7-18) mg/dL Creatinine (0.6-1.0) mg/dL Est Cr Clr Drug Dosing mL/min Estimated GFR (MDRD) (>60) Glucose (74-106) mg/dL Lactic Acid (0.4-2.0) mmol/L Calcium (8.5-10.1) mg/dL Magnesium (1.8-2.4) mg/dL Ferritin (8-388) ng/ml Total Bilirubin (0.2-1.0) mg/dL Direct Bilirubin (0.0-0.2) mg/dL Indirect Bilirubin AST (15-37) U/L ALT (12-78) U/L Alkaline Phosphatase (46-116) U/L Lactate Dehydrogenase (82-234) U/L Creatine Kinase (26-192) U/L C-Reactive Protein (0.0-0.3) mg/dL Total Protein (6.4-8.2) g/dL Albumin (3.4-5.0) g/dL Globulin (2.3-3.5) g/dL Albumin/Globulin Ratio (1.2-2.2) Procalcitonin ng/mL Urine Color Yellow (YELLOW) Urine Appearance Clear (CLEAR) Urine pH 6.0 (5.0-8.0) Ur Specific [place] 1.025 (1.008-1.030) Urine Protein 30 H (NEGATIVE) mg/dL Urine Glucose (UA) Negative (NEGATIVE) mg/dL Urine Ketones Negative (NEGATIVE) mg/dL Urine Occult Blood Negative (NEGATIVE) Urine Nitrite Negative (NEGATIVE) Urine Bilirubin Negative (NEGATIVE) Urine Urobilinogen 0.2 (0.2-1.0) EU/dL Ur Leukocyte Esterase Negative (NEGATIVE) Urine RBC Not seen (0-5) Urine WBC 0-5 (0-5) Ur Epithelial Cells Not seen Amorphous Sediment Not seen Urine Bacteria Not seen Urine Mucus Moderate Med Orders - Current: Current Medications Acetaminophen (Acetaminophen 325 Mg Tab) 650 mg PO Q4H PRN PRN Reason: Fever Greater Than 101 Albuterol (Albuterol 8 Gm Inhaler) 0 gm INH Q2H PRN PRN Reason: Dyspnea Albuterol/Ipratropium (Albuterol/Ipratropium 4 Gm Inhalation Banks) 0 gm INH Q4H PRN PRN Reason: Dyspnea Dexamethasone (Dexamethasone 4 Mg/Ml Sdv) 6 mg IVPUSH BEDTIME ANA Stop: 03/11/21 21:01 Diltiazem HCl (Diltiazem Ir 30 Mg Tab) 60 mg PO Q6HR ANA Last Admin: 03/03/21 09:56 Dose: 60 mg Documented by: Docusate Sodium (Docusate Sodium 100 Mg Cap) 100 mg PO BID PRN PRN Reason: Constipation Enoxaparin Sodium (Enoxaparin 40 Mg/0.4 Ml Syringe) 40 mg SUBCUT BEDTIME [facility] Guaifenesin (Guaifenesin 100 Mg/5 Ml Soln Ml (118 Ml Bottle)) 200 mg PO Q4H PRN PRN Reason: Cough Guaifenesin/Codeine Phosphate (Codeine/Guaifenesin 10-100 Mg/5 Ml Syrup 5 Ml Cup) 10 ml PO Q6H PRN PRN Reason: Cough Sodium Chloride (Normal Saline) 1,000 mls @ 125 mls/hr IV ASDIRECTED [facility] Last Admin: 03/03/21 05:44 Dose: 125 mls/hr Documented by: Remdesivir 100 mg/ Sodium (Chloride) 100 mls @ 100 mls/hr IV Q24H [facility] Stop: 03/06/21 21:59 Magnesium Sulfate 2 gm/ Premix 50 mls @ 25 mls/hr IV Q6H [facility] Stop: 03/03/21 20:59 Lorazepam (Lorazepam 2 Mg/Ml Sdv) 1 mg IV Q6H PRN PRN Reason: Nausea/Vomiting Lorazepam (Lorazepam 0.5 Mg Tab) 0.5 mg PO Q4H PRN PRN Reason: Anxiety Last Admin: 03/03/21 04:31 Dose: 0.5 mg Documented by: Magnesium Oxide (Magnesium Oxide 400 Mg Tab) 400 mg PO DAILY [facility] Last Admin: 03/03/21 09:56 Dose: 400 mg Documented by: Melatonin (Melatonin 3 Mg Tab) 9 mg PO BEDTIME PRN PRN Reason: Insomnia Metoprolol Succinate (Metoprolol Succinate 25 Mg Tab.Er) 25 mg PO DAILY [facility] Last Admin: 03/03/21 09:56 Dose: 25 mg Documented by: Morphine Sulfate (Morphine 2 Mg/Ml Syringe) 2 mg IVPUSH Q2H PRN PRN Reason: Pain (severe 7-10) Ondansetron HCl (Ondansetron 4 Mg Tab.Dis) 4 mg PO Q6H PRN PRN Reason: Nausea able to take PO Ondansetron HCl (Ondansetron 4 Mg/2 Ml Sdv) 4 mg IV Q4H PRN PRN Reason: Nausea/Vomiting Last Admin: 03/03/21 10:08 Dose: 4 mg Documented by: Oxycodone HCl (Oxycodone 5 Mg Tab) 5 mg PO Q4H PRN PRN Reason: Pain (moderate 4-6) Pantoprazole Sodium (Pantoprazole 40 Mg Tab.Cr) 40 mg PO ACBREAKFAST [facility] Last Admin: 03/03/21 09:56 Dose: 40 mg Documented by: Sodium Chloride (Sodium Chloride 0.9% 10 Ml Syringe) 10 ml FLUSH ASDIRECTED PRN PRN Reason: Keep Vein Open Last Admin: 03/02/21 20:32 Dose: 10 ml Documented by: Discontinued Medications Dexamethasone (Dexamethasone 4 Mg/Ml Sdv) 6 mg IVPUSH DAILY [facility] Stop: 03/11/21 09:01 Last Admin: 03/02/21 20:30 Dose: 6 mg Documented by: Digoxin (Digoxin 125 Mcg Tab) 250 mcg PO ONETIME ONE Stop: 03/03/21 00:35 Last Admin: 03/03/21 01:09 Dose: 250 mcg Documented by: Enoxaparin Sodium (Enoxaparin 40 Mg/0.4 Ml Syringe) 40 mg SUBCUT DAILY [facility] Last Admin: 03/02/21 23:08 Dose: 40 mg Documented by: Guaifenesin (Guaifenesin 100 Mg/5 Ml Soln Ml (118 Ml Bottle)) 200 mg PO Q4H PRN PRN Reason: Cough Sodium Chloride (Normal Saline) 1,000 mls @ 150 mls/hr IV ASDIRECTED [facility] Last Admin: 03/02/21 20:28 Dose: 150 mls/hr Documented by: Remdesivir 200 mg/ Sodium (Chloride) 250 mls @ 250 mls/hr IV ONETIME ONE Stop: 03/02/21 20:05 Last Admin: 03/02/21 23:05 Dose: 250 mls/hr Documented by: Sodium Chloride (Sodium Chloride 3%) 500 mls @ 100 mls/hr IV ASDIRECTED [facility] Stop: 03/03/21 00:01 Last Admin: 03/03/21 00:41 Dose: 100 mls/hr Documented by: Sodium Chloride (Sodium Chloride 3%) 100 mls @ 100 mls/hr IV ASDIRECTED [facility] Stop: 03/03/21 12:01 Last Admin: 03/03/21 11:16 Dose: 100 mls/hr Documented by: Non-Formulary Medication (Magnesium Oxide [Magnesium]) 1,000 mg PO DAILY ANA Non-Formulary Medication (Melatonin [Melatonin]) 10 mg PO ASDIRECTED PRN PRN Reason: Insomnia Ondansetron HCl (Ondansetron 4 Mg Tab.Dis) 4 mg PO ONETIME ONE Stop: 03/02/21 19:34 Last Admin: 03/02/21 19:51 Dose: 4 mg Documented by: Ondansetron HCl (Ondansetron 4 Mg Tab.Dis) Confirm Administered Dose 4 mg .ROUTE .STK-MED ONE Stop: 03/02/21 19:36 Last Admin: 03/02/21 20:19 Dose: Not Given Documented by: - Exam Quality Assessment: Supplemental Oxygen General: Alert, Cooperative, No Acute Distress Lungs: Normal Respiratory Effort, Crackles (moderate both lower lungs, mild/moderate both mid lungs) Cardiovascular: Regular Rate, Irregular Rhythm GI/Abdominal Exam: Soft, No Distention Extremities: No Pedal Edema. No: Increased Warmth Skin: Warm, Dry Psy/Mental Status: Alert, Normal Affect - Patient Data Lab Results Last 24 hrs: Laboratory Results - last 24 hr 03/02/21 03/02/21 03/02/21 Range/Units 18:40 18:40 18:40 WBC 7.3 (4.5-11.0) K/uL RBC 3.99 (3.30-5.50) M/uL Hgb 12.3 D (12.0-15.0) g/dL Hct 35.2 L (36.0-48.0) % MCV 88 (80-98) fL MCH 31 (27-31) pg MCHC 35 (32-36) % Plt Count 213 (150-400) K/uL Neut % (Auto) 87.8 H (36-66) % Lymph % (Auto) 7.8 L (24-44) % [place] % (Auto) 4.3 (2-6) % Eos % (Auto) 0.0 L (2-4) % Baso % (Auto) 0.1 (0-1) % PT (9.2-10.6) sec INR APTT (21.4-31.8) sec D-Dimer, Quantitative 1411.89 H (0.0-500.0) ng/mL Puncture Site ABG pH (7.350-7.450) ABG pCO2 (35.0-42.0) mmHg ABG pO2 (75.0-100.0) mmHg ABG HCO3 (22.0-26.0) mmol/L ABG Total CO2 (21.0-25.0) mmol/L ABG O2 Saturation (95.0-98.0) % ABG O2 Content (15.0-23.0) %vol ABG Base Excess mm/L ABG Hemoglobin (12.0-16.0) g/dL ABG Oxyhemoglobin % ABG Carboxyhemoglobin (0.0-1.6) % ABG Methemoglobin % Esequiel Test O2 Delivery Device Oxygen Flow Rate L Sodium 118 L* (140-148) mmol/L Potassium 4.3 (3.6-5.2) mmol/L Chloride 85 L (100-108) mmol/L Carbon Dioxide 24 (21-32) mmol/L Anion Gap 13.3 (5.0-14.0) mmol/L BUN 10 (7-18) mg/dL Creatinine 0.6 (0.6-1.0) mg/dL Est Cr Clr Drug Dosing 68.02 mL/min Estimated GFR (MDRD) > 60 (>60) Glucose 121 H (74-106) mg/dL Lactic Acid (0.4-2.0) mmol/L Calcium 8.0 L (8.5-10.1) mg/dL Magnesium (1.8-2.4) mg/dL Ferritin 2362 H (8-388) ng/ml Total Bilirubin 0.4 (0.2-1.0) mg/dL Direct Bilirubin (0.0-0.2) mg/dL Indirect Bilirubin AST 146 H D (15-37) U/L ALT 117 H (12-78) U/L Alkaline Phosphatase 259 H (46-116) U/L Lactate Dehydrogenase 566 H (82-234) U/L Creatine Kinase (26-192) U/L C-Reactive Protein 10.53 H (0.0-0.3) mg/dL Total Protein 6.5 (6.4-8.2) g/dL Albumin 2.6 L (3.4-5.0) g/dL Globulin 3.9 H (2.3-3.5) g/dL Albumin/Globulin Ratio 0.7 L (1.2-2.2) Procalcitonin ng/mL Urine Color (YELLOW) Urine Appearance (CLEAR) Urine pH (5.0-8.0) Ur Specific [place] (1.008-1.030) Urine Protein (NEGATIVE) mg/dL Urine Glucose (UA) (NEGATIVE) mg/dL Urine Ketones (NEGATIVE) mg/dL Urine Occult Blood (NEGATIVE) Urine Nitrite (NEGATIVE) Urine Bilirubin (NEGATIVE) Urine Urobilinogen (0.2-1.0) EU/dL Ur Leukocyte Esterase (NEGATIVE) Urine RBC (0-5) Urine WBC (0-5) Ur Epithelial Cells Amorphous Sediment Urine Bacteria Urine Mucus 03/02/21 03/02/21 03/02/21 Range/Units 18:40 18:40 18:40 WBC (4.5-11.0) K/uL RBC (3.30-5.50) M/uL Hgb (12.0-15.0) g/dL Hct (36.0-48.0) % MCV (80-98) fL MCH (27-31) pg MCHC (32-36) % Plt Count (150-400) K/uL Neut % (Auto) (36-66) % Lymph % (Auto) (24-44) % [place] % (Auto) (2-6) % Eos % (Auto) (2-4) % Baso % (Auto) (0-1) % PT (9.2-10.6) sec INR APTT 35.0 H (21.4-31.8) sec D-Dimer, Quantitative (0.0-500.0) ng/mL Puncture Site ABG pH (7.350-7.450) ABG pCO2 (35.0-42.0) mmHg ABG pO2 (75.0-100.0) mmHg ABG HCO3 (22.0-26.0) mmol/L ABG Total CO2 (21.0-25.0) mmol/L ABG O2 Saturation (95.0-98.0) % ABG O2 Content (15.0-23.0) %vol ABG Base Excess mm/L ABG Hemoglobin (12.0-16.0) g/dL ABG Oxyhemoglobin % ABG Carboxyhemoglobin (0.0-1.6) % ABG Methemoglobin % Esequiel Test O2 Delivery Device Oxygen Flow Rate L Sodium (140-148) mmol/L Potassium (3.6-5.2) mmol/L Chloride (100-108) mmol/L Carbon Dioxide (21-32) mmol/L Anion Gap (5.0-14.0) mmol/L BUN (7-18) mg/dL Creatinine (0.6-1.0) mg/dL Est Cr Clr Drug Dosing mL/min Estimated GFR (MDRD) (>60) Glucose (74-106) mg/dL Lactic Acid 2.1 H (0.4-2.0) mmol/L Calcium (8.5-10.1) mg/dL Magnesium (1.8-2.4) mg/dL Ferritin (8-388) ng/ml Total Bilirubin (0.2-1.0) mg/dL Direct Bilirubin (0.0-0.2) mg/dL Indirect Bilirubin AST (15-37) U/L ALT (12-78) U/L Alkaline Phosphatase (46-116) U/L Lactate Dehydrogenase (82-234) U/L Creatine Kinase (26-192) U/L C-Reactive Protein (0.0-0.3) mg/dL Total Protein (6.4-8.2) g/dL Albumin (3.4-5.0) g/dL Globulin (2.3-3.5) g/dL Albumin/Globulin Ratio (1.2-2.2) Procalcitonin 0.09 ng/mL Urine Color (YELLOW) Urine Appearance (CLEAR) Urine pH (5.0-8.0) Ur Specific [place] (1.008-1.030) Urine Protein (NEGATIVE) mg/dL Urine Glucose (UA) (NEGATIVE) mg/dL Urine Ketones (NEGATIVE) mg/dL Urine Occult Blood (NEGATIVE) Urine Nitrite (NEGATIVE) Urine Bilirubin (NEGATIVE) Urine Urobilinogen (0.2-1.0) EU/dL Ur Leukocyte Esterase (NEGATIVE) Urine RBC (0-5) Urine WBC (0-5) Ur Epithelial Cells Amorphous Sediment Urine Bacteria Urine Mucus 03/02/21 03/02/21 03/02/21 Range/Units 18:40 20:04 20:06 WBC (4.5-11.0) K/uL RBC (3.30-5.50) M/uL Hgb (12.0-15.0) g/dL Hct (36.0-48.0) % MCV (80-98) fL MCH (27-31) pg MCHC (32-36) % Plt Count (150-400) K/uL Neut % (Auto) (36-66) % Lymph % (Auto) (24-44) % [place] % (Auto) (2-6) % Eos % (Auto) (2-4) % Baso % (Auto) (0-1) % PT 11.0 H (9.2-10.6) sec INR 1.1 APTT (21.4-31.8) sec D-Dimer, Quantitative (0.0-500.0) ng/mL Puncture Site Lt.radial ABG pH 7.534 H (7.350-7.450) ABG pCO2 25.6 L (35.0-42.0) mmHg ABG pO2 50.1 L (75.0-100.0) mmHg ABG HCO3 21.5 L (22.0-26.0) mmol/L ABG Total CO2 18.9 L (21.0-25.0) mmol/L ABG O2 Saturation 88.8 L (95.0-98.0) % ABG O2 Content 15.1 (15.0-23.0) %vol ABG Base Excess 0.3 mm/L ABG Hemoglobin 12.4 (12.0-16.0) g/dL ABG Oxyhemoglobin 87.2 % ABG Carboxyhemoglobin 0.9 (0.0-1.6) % ABG Methemoglobin 0.9 % Esequiel Test Passed O2 Delivery Device Nasal cannula Oxygen Flow Rate 6.0 L Sodium (140-148) mmol/L Potassium (3.6-5.2) mmol/L Chloride (100-108) mmol/L Carbon Dioxide (21-32) mmol/L Anion Gap (5.0-14.0) mmol/L BUN (7-18) mg/dL Creatinine (0.6-1.0) mg/dL Est Cr Clr Drug Dosing mL/min Estimated GFR (MDRD) (>60) Glucose (74-106) mg/dL Lactic Acid (0.4-2.0) mmol/L Calcium (8.5-10.1) mg/dL Magnesium (1.8-2.4) mg/dL Ferritin (8-388) ng/ml Total Bilirubin 0.5 (0.2-1.0) mg/dL Direct Bilirubin 0.09 (0.0-0.2) mg/dL Indirect Bilirubin TNP AST 155 H (15-37) U/L ALT 110 H (12-78) U/L Alkaline Phosphatase 267 H (46-116) U/L Lactate Dehydrogenase (82-234) U/L Creatine Kinase (26-192) U/L C-Reactive Protein (0.0-0.3) mg/dL Total Protein 6.6 (6.4-8.2) g/dL Albumin 2.5 L (3.4-5.0) g/dL Globulin 4.1 H (2.3-3.5) g/dL Albumin/Globulin Ratio 0.6 L (1.2-2.2) Procalcitonin ng/mL Urine Color (YELLOW) Urine Appearance (CLEAR) Urine pH (5.0-8.0) Ur Specific [place] (1.008-1.030) Urine Protein (NEGATIVE) mg/dL Urine Glucose (UA) (NEGATIVE) mg/dL Urine Ketones (NEGATIVE) mg/dL Urine Occult Blood (NEGATIVE) Urine Nitrite (NEGATIVE) Urine Bilirubin (NEGATIVE) Urine Urobilinogen (0.2-1.0) EU/dL Ur Leukocyte Esterase (NEGATIVE) Urine RBC (0-5) Urine WBC (0-5) Ur Epithelial Cells Amorphous Sediment Urine Bacteria Urine Mucus 03/02/21 03/02/21 03/03/21 Range/Units 22:10 23:13 02:55 WBC 7.0 (4.5-11.0) K/uL RBC 3.94 (3.30-5.50) M/uL Hgb 12.0 (12.0-15.0) g/dL Hct 34.7 L (36.0-48.0) % MCV 88 (80-98) fL MCH 31 (27-31) pg MCHC 35 (32-36) % Plt Count 203 (150-400) K/uL Neut % (Auto) 90.0 H (36-66) % Lymph % (Auto) 5.7 L (24-44) % [place] % (Auto) 4.0 (2-6) % Eos % (Auto) 0.0 L (2-4) % Baso % (Auto) 0.3 (0-1) % PT (9.2-10.6) sec INR APTT (21.4-31.8) sec D-Dimer, Quantitative (0.0-500.0) ng/mL Puncture Site ABG pH (7.350-7.450) ABG pCO2 (35.0-42.0) mmHg ABG pO2 (75.0-100.0) mmHg ABG HCO3 (22.0-26.0) mmol/L ABG Total CO2 (21.0-25.0) mmol/L ABG O2 Saturation (95.0-98.0) % ABG O2 Content (15.0-23.0) %vol ABG Base Excess mm/L ABG Hemoglobin (12.0-16.0) g/dL ABG Oxyhemoglobin % ABG Carboxyhemoglobin (0.0-1.6) % ABG Methemoglobin % Esequiel Test O2 Delivery Device Oxygen Flow Rate L Sodium 118 L* (140-148) mmol/L Potassium (3.6-5.2) mmol/L Chloride (100-108) mmol/L Carbon Dioxide (21-32) mmol/L Anion Gap (5.0-14.0) mmol/L BUN (7-18) mg/dL Creatinine (0.6-1.0) mg/dL Est Cr Clr Drug Dosing mL/min Estimated GFR (MDRD) (>60) Glucose (74-106) mg/dL Lactic Acid 1.4 (0.4-2.0) mmol/L Calcium (8.5-10.1) mg/dL Magnesium (1.8-2.4) mg/dL Ferritin (8-388) ng/ml Total Bilirubin (0.2-1.0) mg/dL Direct Bilirubin (0.0-0.2) mg/dL Indirect Bilirubin AST (15-37) U/L ALT (12-78) U/L Alkaline Phosphatase (46-116) U/L Lactate Dehydrogenase (82-234) U/L Creatine Kinase (26-192) U/L C-Reactive Protein (0.0-0.3) mg/dL Total Protein (6.4-8.2) g/dL Albumin (3.4-5.0) g/dL Globulin (2.3-3.5) g/dL Albumin/Globulin Ratio (1.2-2.2) Procalcitonin ng/mL Urine Color (YELLOW) Urine Appearance (CLEAR) Urine pH (5.0-8.0) Ur Specific [place] (1.008-1.030) Urine Protein (NEGATIVE) mg/dL Urine Glucose (UA) (NEGATIVE) mg/dL Urine Ketones (NEGATIVE) mg/dL Urine Occult Blood (NEGATIVE) Urine Nitrite (NEGATIVE) Urine Bilirubin (NEGATIVE) Urine Urobilinogen (0.2-1.0) EU/dL Ur Leukocyte Esterase (NEGATIVE) Urine RBC (0-5) Urine WBC (0-5) Ur Epithelial Cells Amorphous Sediment Urine Bacteria Urine Mucus 03/03/21 03/03/21 03/03/21 Range/Units 02:55 02:55 02:55 WBC (4.5-11.0) K/uL RBC (3.30-5.50) M/uL Hgb (12.0-15.0) g/dL Hct (36.0-48.0) % MCV (80-98) fL MCH (27-31) pg MCHC (32-36) % Plt Count (150-400) K/uL Neut % (Auto) (36-66) % Lymph % (Auto) (24-44) % [place] % (Auto) (2-6) % Eos % (Auto) (2-4) % Baso % (Auto) (0-1) % PT 11.1 H (9.2-10.6) sec INR 1.1 APTT (21.4-31.8) sec D-Dimer, Quantitative 1284.44 H (0.0-500.0) ng/mL Puncture Site ABG pH (7.350-7.450) ABG pCO2 (35.0-42.0) mmHg ABG pO2 (75.0-100.0) mmHg ABG HCO3 (22.0-26.0) mmol/L ABG Total CO2 (21.0-25.0) mmol/L ABG O2 Saturation (95.0-98.0) % ABG O2 Content (15.0-23.0) %vol ABG Base Excess mm/L ABG Hemoglobin (12.0-16.0) g/dL ABG Oxyhemoglobin % ABG Carboxyhemoglobin (0.0-1.6) % ABG Methemoglobin % Esequiel Test O2 Delivery Device Oxygen Flow Rate L Sodium (140-148) mmol/L Potassium (3.6-5.2) mmol/L Chloride (100-108) mmol/L Carbon Dioxide (21-32) mmol/L Anion Gap (5.0-14.0) mmol/L BUN (7-18) mg/dL Creatinine (0.6-1.0) mg/dL Est Cr Clr Drug Dosing mL/min Estimated GFR (MDRD) (>60) Glucose (74-106) mg/dL Lactic Acid (0.4-2.0) mmol/L Calcium (8.5-10.1) mg/dL Magnesium 1.5 L (1.8-2.4) mg/dL Ferritin (8-388) ng/ml Total Bilirubin (0.2-1.0) mg/dL Direct Bilirubin (0.0-0.2) mg/dL Indirect Bilirubin AST (15-37) U/L ALT (12-78) U/L Alkaline Phosphatase (46-116) U/L Lactate Dehydrogenase 637 H (82-234) U/L Creatine Kinase 402 H (26-192) U/L C-Reactive Protein 10.29 H (0.0-0.3) mg/dL Total Protein (6.4-8.2) g/dL Albumin (3.4-5.0) g/dL Globulin (2.3-3.5) g/dL Albumin/Globulin Ratio (1.2-2.2) Procalcitonin ng/mL Urine Color (YELLOW) Urine Appearance (CLEAR) Urine pH (5.0-8.0) Ur Specific [place] (1.008-1.030) Urine Protein (NEGATIVE) mg/dL Urine Glucose (UA) (NEGATIVE) mg/dL Urine Ketones (NEGATIVE) mg/dL Urine Occult Blood (NEGATIVE) Urine Nitrite (NEGATIVE) Urine Bilirubin (NEGATIVE) Urine Urobilinogen (0.2-1.0) EU/dL Ur Leukocyte Esterase (NEGATIVE) Urine RBC (0-5) Urine WBC (0-5) Ur Epithelial Cells Amorphous Sediment Urine Bacteria Urine Mucus 03/03/21 03/03/21 Range/Units 02:55 10:00 WBC (4.5-11.0) K/uL RBC (3.30-5.50) M/uL Hgb (12.0-15.0) g/dL Hct (36.0-48.0) % MCV (80-98) fL MCH (27-31) pg MCHC (32-36) % Plt Count (150-400) K/uL Neut % (Auto) (36-66) % Lymph % (Auto) (24-44) % [place] % (Auto) (2-6) % Eos % (Auto) (2-4) % Baso % (Auto) (0-1) % PT (9.2-10.6) sec INR APTT (21.4-31.8) sec D-Dimer, Quantitative (0.0-500.0) ng/mL Puncture Site ABG pH (7.350-7.450) ABG pCO2 (35.0-42.0) mmHg ABG pO2 (75.0-100.0) mmHg ABG HCO3 (22.0-26.0) mmol/L ABG Total CO2 (21.0-25.0) mmol/L ABG O2 Saturation (95.0-98.0) % ABG O2 Content (15.0-23.0) %vol ABG Base Excess mm/L ABG Hemoglobin (12.0-16.0) g/dL ABG Oxyhemoglobin % ABG Carboxyhemoglobin (0.0-1.6) % ABG Methemoglobin % Esequiel Test O2 Delivery Device Oxygen Flow Rate L Sodium 120 L (140-148) mmol/L Potassium (3.6-5.2) mmol/L Chloride (100-108) mmol/L Carbon Dioxide (21-32) mmol/L Anion Gap (5.0-14.0) mmol/L BUN (7-18) mg/dL Creatinine (0.6-1.0) mg/dL Est Cr Clr Drug Dosing mL/min Estimated GFR (MDRD) (>60) Glucose (74-106) mg/dL Lactic Acid (0.4-2.0) mmol/L Calcium (8.5-10.1) mg/dL Magnesium (1.8-2.4) mg/dL Ferritin (8-388) ng/ml Total Bilirubin (0.2-1.0) mg/dL Direct Bilirubin (0.0-0.2) mg/dL Indirect Bilirubin AST (15-37) U/L ALT (12-78) U/L Alkaline Phosphatase (46-116) U/L Lactate Dehydrogenase (82-234) U/L Creatine Kinase (26-192) U/L C-Reactive Protein (0.0-0.3) mg/dL Total Protein (6.4-8.2) g/dL Albumin (3.4-5.0) g/dL Globulin (2.3-3.5) g/dL Albumin/Globulin Ratio (1.2-2.2) Procalcitonin ng/mL Urine Color Yellow (YELLOW) Urine Appearance Clear (CLEAR) Urine pH 6.0 (5.0-8.0) Ur Specific [place] 1.025 (1.008-1.030) Urine Protein 30 H (NEGATIVE) mg/dL Urine Glucose (UA) Negative (NEGATIVE) mg/dL Urine Ketones Negative (NEGATIVE) mg/dL Urine Occult Blood Negative (NEGATIVE) Urine Nitrite Negative (NEGATIVE) Urine Bilirubin Negative (NEGATIVE) Urine Urobilinogen 0.2 (0.2-1.0) EU/dL Ur Leukocyte Esterase Negative (NEGATIVE) Urine RBC Not seen (0-5) Urine WBC 0-5 (0-5) Ur Epithelial Cells Not seen Amorphous Sediment Not seen Urine Bacteria Not seen Urine Mucus Moderate Result Diagrams: 03/03/21 02:55 03/03/21 02:55 Sepsis Event Note - Evaluation Sepsis Screening Result: Possible Sepsis Risk - Focused Exam Vital Signs: Vital Signs Temp Pulse Pulse Resp BP BP Pulse Ox 03/03/21 10:56 75 18 94/54 L 95 03/03/21 09:56 88 120/76 03/03/21 07:38 34.9 C L 88 18 100/76 85 L 03/03/21 03:00 35.3 C L 98 18 126/89 92 L 03/03/21 01:21 93 L 03/03/21 01:09 90 - Problem List Review Problem List Initiated/Reviewed/Updated: Yes - My Orders Last 24 Hours: My Active Orders 03/03/21 12:30 Ascorbic Acid [Vitamin C] 500 mg PO DAILY Cholecalciferol (Vitamin D3) [Vitamin D3] 25 mcg PO DAILY 03/03/21 12:31 Convert IV to Saline Lock [OM.PC] Routine 03/03/21 13:00 Magnesium Sulfate/Water [Magnesium Sulfate in Water 2 GM/50 ML] 2 gm Premix Bag 1 bag IV Q6H 03/03/21 14:00 BASIC METABOLIC PANEL,BMP [CHEM] Routine 03/03/21 16:00 Albuterol/Ipratropium [Combivent Respimat] See Dose Instructions INH QID 03/04/21 05:00 CBC W/O DIFF,HEMOGRAM [HEME] Timed (1) COMPREHENSIVE METABOLIC PN,CMP [CHEM] Timed - Plan Plan:: ASSESSMENT AND PLAN - COVID-19 pneumonia-complicated by severe acute respiratory failure. Not vaccinated. Symptom onset 02/21. respiratory decline since admission now requiring heated/high flow supplemental oxygen. Tolerating treatment so far. Blood pressure and heart rate have stabilized. -Dexamethasone 6 mg daily (day 2) -Remdesivir x5 days (2) -Enoxaparin -Supplement oxygen as needed, wean as able -albuterol inhaler 2 puffs every 2 to 4 hours -Symptomatic management of cough -Goal of negative fluid balance each day -Isolation precautions Hyponatremia- Sodium 118 at admit, up to 120 now. -100 mL bolus of hypertonic saline -sodium recheck at 1400 Paroxysmal atrial fibrillation -A. fib overnight responded to diltiazem and digoxin as far as rate is concerned but still in atrial fibrillation. -Metoprolol 25 mg po daily -Continue diltiazem -cardiac monitoring Maintenance issues - - DVT prophylaxis - Lovenox 40 mg daily - GI prophylaxis -PPI - Nutrition -regular Disposition -I would anticipate discharge home Dr. Jake Valdivia M.D.
[2021-03-03] MEDS: Cholecalciferol (Vitamin D3) 25 MCG Tab PO SCH (13:15)
[2021-03-03] MEDS: Ascorbic Acid 500 MG Tab PO SCH (13:15)
[2021-03-03] MEDS: Magnesium Sulfate/Water 2 GM in Premix Bag 1 BAG IV SCH ×2 (13:16→19:43)
[2021-03-03] MEDS: Albuterol/Ipratropium 4 GM Inhalation Spray INH SCH ×2 (14:32→22:06)
[2021-03-03] MEDS: Ondansetron 4 MG Tab.DIS PO PRN (16:16)
[2021-03-03] MEDS: Enoxaparin 40 MG/0.4 ML Syringe SUBCUT SCH (22:31)
[2021-03-03] MEDS: Dexamethasone 4 MG/ML SDV IVPUSH SCH (22:32)
[2021-03-04] MEDS: REMDESIVIR 100 MG in Sodium Chloride 0.9% 100 ML IV SCH ×2 (00:21→20:36)
[2021-03-04] MEDS: Diltiazem IR 30 MG Tab PO SCH (05:04)
[2021-03-04] MEDS: Albuterol/Ipratropium 4 GM Inhalation Spray INH SCH ×3 (07:26→11:08)
[2021-03-04] MEDS: Pantoprazole 40 MG Tab.CR PO SCH (07:30)
[2021-03-04] MEDS: Ondansetron 4 MG Tab.DIS PO PRN (07:34)
[2021-03-04] MEDS: Metoprolol Succinate 25 MG Tab.ER PO SCH (10:07)
[2021-03-04] MEDS: Ascorbic Acid 500 MG Tab PO SCH (10:08)
[2021-03-04] MEDS: Cholecalciferol (Vitamin D3) 25 MCG Tab PO SCH (10:08)
[2021-03-04] MEDS: Magnesium Oxide 400 MG Tab PO SCH (10:08)
--- NOTE | 2021-03-04 12:13 | PCM.PN ---
- General Info Date of Service: 03/04/21 Subjective Update: No acute events overnight. Patient remains compromised but stable compared to yesterday. Still requiring a large amount of oxygen via high flow nasal cannula. Heart rate has improved with the diltiazem and was actually on the low side this morning. No fevers. Patient feels weak and tired. Having intermittent nausea. She reports that she feels lousy. Functional Status: Reports: Tolerating Diet - Review of Systems General: Reports: Weakness Pulmonary: Reports: Shortness of Breath Gastrointestinal: Reports: Nausea - Patient Data Vitals - Most Recent: Last Vital Signs Temp 36.3 C 03/04/21 10:03 Pulse 88 03/04/21 10:07 Resp 24 H 03/04/21 10:03 BP 117/73 03/04/21 10:07 Pulse Ox 94 L 03/04/21 10:03 Weight - Most Recent: 83.915 kg I&O - Last 24 Hours: Intake & Output 03/03/21 03/04/21 03/04/21 23:59 06:59 14:59 Intake Total Output Total 550 Balance -550 Lab Results Last 24 Hours: Laboratory Results - last 24 hr 03/03/21 03/04/21 03/04/21 Range/Units 14:00 04:15 04:15 WBC 6.5 (4.5-11.0) K/uL RBC 4.06 (3.30-5.50) M/uL Hgb 12.4 (12.0-15.0) g/dL Hct 35.8 L (36.0-48.0) % MCV 88 (80-98) fL MCH 31 (27-31) pg MCHC 35 (32-36) % Plt Count 244 (150-400) K/uL Sodium 121 L 125 L (140-148) mmol/L Potassium 4.1 4.1 (3.6-5.2) mmol/L Chloride 89 L 93 L (100-108) mmol/L Carbon Dioxide 23 22 (21-32) mmol/L Anion Gap 13.1 14.1 H (5.0-14.0) mmol/L BUN 12 13 (7-18) mg/dL Creatinine 0.6 0.5 L (0.6-1.0) mg/dL Est Cr Clr Drug Dosing 68.02 81.62 mL/min Estimated GFR (MDRD) > 60 > 60 (>60) Glucose 104 123 H (74-106) mg/dL Calcium 7.9 L 8.1 L (8.5-10.1) mg/dL Total Bilirubin 0.4 (0.2-1.0) mg/dL AST 146 H (15-37) U/L ALT 184 H (12-78) U/L Alkaline Phosphatase 412 H (46-116) U/L Total Protein 6.0 L (6.4-8.2) g/dL Albumin 2.2 L (3.4-5.0) g/dL Globulin 3.8 H (2.3-3.5) g/dL Albumin/Globulin Ratio 0.6 L (1.2-2.2) Darren Results Last 24 Hours: Microbiology 03/02/21 20:34 Aerobic Blood Culture - Preliminary Blood - Arm, Left NO GROWTH AFTER 1 DAY Anaerobic Blood Culture - Preliminary NO GROWTH AFTER 1 DAY Med Orders - Current: Current Medications Acetaminophen (Acetaminophen 325 Mg Tab) 650 mg PO Q4H PRN PRN Reason: Fever Greater Than 101 Albuterol (Albuterol 8 Gm Inhaler) 0 gm INH Q2H PRN PRN Reason: Dyspnea Ascorbic Acid (Ascorbic Acid 500 Mg Tab) 500 mg PO DAILY [facility] Last Admin: 03/04/21 10:08 Dose: 500 mg Documented by: Baricitinib (Baricitinib 2 Mg Tab) 4 mg PO DAILY ANA Stop: 03/16/21 09:01 Last Admin: 03/04/21 10:07 Dose: 4 mg Documented by: Cholecalciferol (Cholecalciferol (Vitamin D3) 25 Mcg Tab) 25 mcg PO DAILY ANA Last Admin: 03/04/21 10:08 Dose: 25 mcg Documented by: Dexamethasone (Dexamethasone 4 Mg/Ml Sdv) 6 mg IVPUSH BEDTIME ANA Stop: 03/11/21 21:01 Last Admin: 03/03/21 22:32 Dose: 6 mg Documented by: Docusate Sodium (Docusate Sodium 100 Mg Cap) 100 mg PO BID PRN PRN Reason: Constipation Enoxaparin Sodium (Enoxaparin 40 Mg/0.4 Ml Syringe) 40 mg SUBCUT BEDTIME ANA Last Admin: 03/03/21 22:31 Dose: 40 mg Documented by: Guaifenesin (Guaifenesin 100 Mg/5 Ml Soln Ml (118 Ml Bottle)) 200 mg PO Q4H PRN PRN Reason: Cough Guaifenesin/Codeine Phosphate (Codeine/Guaifenesin 10-100 Mg/5 Ml Syrup 5 Ml Cup) 10 ml PO Q6H PRN PRN Reason: Cough Remdesivir 100 mg/ Sodium (Chloride) 100 mls @ 100 mls/hr IV Q24H [facility] Stop: 03/06/21 21:59 Last Admin: 03/04/21 00:21 Dose: 100 mls/hr Documented by: Lorazepam (Lorazepam 2 Mg/Ml Sdv) 1 mg IV Q6H PRN PRN Reason: Nausea/Vomiting Lorazepam (Lorazepam 0.5 Mg Tab) 0.5 mg PO Q4H PRN PRN Reason: Anxiety Last Admin: 03/03/21 17:54 Dose: 0.5 mg Documented by: Magnesium Oxide (Magnesium Oxide 400 Mg Tab) 400 mg PO DAILY [facility] Last Admin: 03/04/21 10:08 Dose: 400 mg Documented by: Melatonin (Melatonin 3 Mg Tab) 9 mg PO BEDTIME PRN PRN Reason: Insomnia Metoprolol Succinate (Metoprolol Succinate 25 Mg Tab.Er) 25 mg PO DAILY [facility] Last Admin: 03/04/21 10:07 Dose: 25 mg Documented by: Morphine Sulfate (Morphine 2 Mg/Ml Syringe) 2 mg IVPUSH Q2H PRN PRN Reason: Pain (severe 7-10) Ondansetron HCl (Ondansetron 4 Mg Tab.Dis) 4 mg PO Q6H PRN PRN Reason: Nausea able to take PO Last Admin: 03/04/21 07:34 Dose: 4 mg Documented by: Ondansetron HCl (Ondansetron 4 Mg/2 Ml Sdv) 4 mg IV Q4H PRN PRN Reason: Nausea/Vomiting Last Admin: 03/03/21 10:08 Dose: 4 mg Documented by: Oxycodone HCl (Oxycodone 5 Mg Tab) 5 mg PO Q4H PRN PRN Reason: Pain (moderate 4-6) Pantoprazole Sodium (Pantoprazole 40 Mg Tab.Cr) 40 mg PO ACBREAKFAST [facility] Last Admin: 03/04/21 07:30 Dose: 40 mg Documented by: Sodium Chloride (Sodium Chloride 0.9% 10 Ml Syringe) 10 ml FLUSH ASDIRECTED PRN PRN Reason: Keep Vein Open Last Admin: 03/02/21 20:32 Dose: 10 ml Documented by: Discontinued Medications Albuterol/Ipratropium (Albuterol/Ipratropium 4 Gm Inhalation [place]) 0 gm INH Q4H PRN PRN Reason: Dyspnea Albuterol/Ipratropium (Albuterol/Ipratropium 4 Gm Inhalation [place]) 0 gm INH QIDRT [facility] Last Admin: 03/04/21 11:08 Dose: Not Given Documented by: Dexamethasone (Dexamethasone 4 Mg/Ml Sdv) 6 mg IVPUSH DAILY [facility] Stop: 03/11/21 09:01 Last Admin: 03/02/21 20:30 Dose: 6 mg Documented by: Digoxin (Digoxin 125 Mcg Tab) 250 mcg PO ONETIME ONE Stop: 03/03/21 00:35 Last Admin: 03/03/21 01:09 Dose: 250 mcg Documented by: Diltiazem HCl (Diltiazem Ir 30 Mg Tab) 60 mg PO Q6HR [facility] Last Admin: 03/04/21 05:04 Dose: Not Given Documented by: Enoxaparin Sodium (Enoxaparin 40 Mg/0.4 Ml Syringe) 40 mg SUBCUT DAILY [facility] Last Admin: 03/02/21 23:08 Dose: 40 mg Documented by: Guaifenesin (Guaifenesin 100 Mg/5 Ml Soln Ml (118 Ml Bottle)) 200 mg PO Q4H PRN PRN Reason: Cough Sodium Chloride (Normal Saline) 1,000 mls @ 150 mls/hr IV ASDIRECTED [facility] Last Admin: 03/02/21 20:28 Dose: 150 mls/hr Documented by: Remdesivir 200 mg/ Sodium (Chloride) 250 mls @ 250 mls/hr IV ONETIME ONE Stop: 03/02/21 20:05 Last Admin: 03/02/21 23:05 Dose: 250 mls/hr Documented by: Sodium Chloride (Normal Saline) 1,000 mls @ 125 mls/hr IV ASDIRECTED [facility] Last Admin: 03/03/21 05:44 Dose: 125 mls/hr Documented by: Sodium Chloride (Sodium Chloride 3%) 500 mls @ 100 mls/hr IV ASDIRECTED [facility] Stop: 03/03/21 00:01 Last Admin: 03/03/21 00:41 Dose: 100 mls/hr Documented by: Sodium Chloride (Sodium Chloride 3%) 100 mls @ 100 mls/hr IV ASDIRECTED ANA Stop: 03/03/21 12:01 Last Admin: 03/03/21 11:16 Dose: 100 mls/hr Documented by: Magnesium Sulfate 2 gm/ Premix 50 mls @ 25 mls/hr IV Q6H [facility] Stop: 03/03/21 20:59 Last Admin: 03/03/21 19:43 Dose: 25 mls/hr Documented by: Non-Formulary Medication (Magnesium Oxide [Magnesium]) 1,000 mg PO DAILY [facility] Non-Formulary Medication (Melatonin [Melatonin]) 10 mg PO ASDIRECTED PRN PRN Reason: Insomnia Ondansetron HCl (Ondansetron 4 Mg Tab.Dis) 4 mg PO ONETIME ONE Stop: 03/02/21 19:34 Last Admin: 03/02/21 19:51 Dose: 4 mg Documented by: Ondansetron HCl (Ondansetron 4 Mg Tab.Dis) Confirm Administered Dose 4 mg .ROUTE .STK-MED ONE Stop: 03/02/21 19:36 Last Admin: 03/02/21 20:19 Dose: Not Given Documented by: - Exam Quality Assessment: Supplemental Oxygen General: Alert, Oriented, Cooperative, Mild Distress Lungs: Crackles (moderate both lower lungs). No: Normal Respiratory Effort (tachypnea ) Cardiovascular: Regular Rate, Regular Rhythm GI/Abdominal Exam: Soft, No Distention Extremities: No Pedal Edema. No: Increased Warmth Skin: Warm, Dry Psy/Mental Status: Alert, Normal Affect - Patient Data Lab Results Last 24 hrs: Laboratory Results - last 24 hr 03/03/21 03/04/21 03/04/21 Range/Units 14:00 04:15 04:15 WBC 6.5 (4.5-11.0) K/uL RBC 4.06 (3.30-5.50) M/uL Hgb 12.4 (12.0-15.0) g/dL Hct 35.8 L (36.0-48.0) % MCV 88 (80-98) fL MCH 31 (27-31) pg MCHC 35 (32-36) % Plt Count 244 (150-400) K/uL Sodium 121 L 125 L (140-148) mmol/L Potassium 4.1 4.1 (3.6-5.2) mmol/L Chloride 89 L 93 L (100-108) mmol/L Carbon Dioxide 23 22 (21-32) mmol/L Anion Gap 13.1 14.1 H (5.0-14.0) mmol/L BUN 12 13 (7-18) mg/dL Creatinine 0.6 0.5 L (0.6-1.0) mg/dL Est Cr Clr Drug Dosing 68.02 81.62 mL/min Estimated GFR (MDRD) > 60 > 60 (>60) Glucose 104 123 H (74-106) mg/dL Calcium 7.9 L 8.1 L (8.5-10.1) mg/dL Total Bilirubin 0.4 (0.2-1.0) mg/dL AST 146 H (15-37) U/L ALT 184 H (12-78) U/L Alkaline Phosphatase 412 H (46-116) U/L Total Protein 6.0 L (6.4-8.2) g/dL Albumin 2.2 L (3.4-5.0) g/dL Globulin 3.8 H (2.3-3.5) g/dL Albumin/Globulin Ratio 0.6 L (1.2-2.2) Result Diagrams: 03/04/21 04:15 03/04/21 04:15 Darren Results Last 24 hrs: Microbiology 03/02/21 20:34 Aerobic Blood Culture - Preliminary Blood - Arm, Left NO GROWTH AFTER 1 DAY Anaerobic Blood Culture - Preliminary NO GROWTH AFTER 1 DAY Sepsis Event Note - Evaluation Sepsis Screening Result: No Definite Risk - Focused Exam Vital Signs: Vital Signs Temp Pulse Pulse Resp BP BP Pulse Ox 03/04/21 10:07 88 117/73 03/04/21 10:03 36.3 C 88 24 H 117/73 94 L 03/04/21 07:23 36.1 C 72 22 H 116/78 94 L 03/04/21 07:18 96 03/04/21 02:01 36.8 C 73 18 108/48 L 91 L 03/04/21 01: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 92 L 03/04/21 01:14 CDT 89 L - Problem List Review Problem List Initiated/Reviewed/Updated: Yes - My Orders Last 24 Hours: My Active Orders 03/03/21 12:31 Convert IV to Saline Lock [OM.PC] Routine 03/03/21 13:00 Baricitinib [Olumiant] 4 mg PO DAILY 03/03/21 13:30 Ascorbic Acid [Vitamin C] 500 mg PO DAILY Cholecalciferol (Vitamin D3) [Vitamin D3] 25 mcg PO DAILY 03/05/21 05:00 CBC W/O DIFF,HEMOGRAM [HEME] Timed (1) COMPREHENSIVE METABOLIC PN,CMP [CHEM] Timed CRP [C-REACTIVE PROTEIN] [CHEM] Timed D-DIMER QUANTITATIVE [COAG] Timed - Plan Plan:: ASSESSMENT AND PLAN - COVID-19 pneumonia-complicated by severe acute respiratory failure. Not vaccinated. Symptom onset 02/21. Respiratory status quite compromised but stable with supplementation from heated/high flow nasal cannula. No dramatic changes overnight. -Dexamethasone 6 mg daily (day 3) -Remdesivir x5 days (3) -Enoxaparin -Supplement oxygen as needed, wean as able -albuterol inhaler 2 puffs every 2 to 4 hours -Symptomatic management of cough -Goal of negative fluid balance each day -Isolation precautions Hyponatremia- Sodium slowly improving. -Recheck in the morning Paroxysmal atrial fibrillation -A. fib responded well to diltiazem. -Metoprolol 25 mg po daily -Discontinue diltiazem Maintenance issues - - DVT prophylaxis - Lovenox 40 mg daily - GI prophylaxis -PPI - Nutrition -regular Disposition -I would anticipate discharge home Dr. Jake Valdivia M.D.
[2021-03-04] MEDS: Codeine/guaiFENesin 10-100 MG/5 ML Syrup 5 ML Cup PO PRN ×2 (13:46→19:49)
[2021-03-04] MEDS: Dexamethasone 4 MG/ML SDV IVPUSH SCH (20:41)
[2021-03-04] MEDS: Enoxaparin 40 MG/0.4 ML Syringe SUBCUT SCH (20:41)
[2021-03-05] MEDS: Ondansetron 4 MG Tab.DIS PO PRN ×2 (01:38→17:50)
[2021-03-05] MEDS: Pantoprazole 40 MG Tab.CR PO SCH (09:22)
[2021-03-05] MEDS: Ascorbic Acid 500 MG Tab PO SCH (09:22)
[2021-03-05] MEDS: Magnesium Oxide 400 MG Tab PO SCH (09:23)
[2021-03-05] MEDS: Metoprolol Succinate 25 MG Tab.ER PO SCH (09:23)
[2021-03-05] MEDS: Cholecalciferol (Vitamin D3) 25 MCG Tab PO SCH (09:24)
--- NOTE | 2021-03-05 09:32 | CR ---
CHEST: Portable 03/02/2021 at 1903 CLINICAL HISTORY:[place] virus, hypoxia COMPARISON:07/05/2020 FINDINGS: Patient has moderate bilateral infiltrates and areas of consolidation. Heart is enlarged. Pulmonary vascularity is obscured. There are no effusions. IMPRESSION: Moderate diffuse bilateral pulmonary infiltrates and areas of consolidation
--- NOTE | 2021-03-05 14:32 | PCM.PN ---
- General Info Date of Service: 03/05/21 Subjective Update: Ms. Powers has been relatively stable since yesterday. She continues to require high level of supplemental oxygen but use of this has not changed significantly in the last 24 hours. She remains weak and fatigued. Does desaturate with minimal activity. Functional Status: Reports: Urinating - Review of Systems General: Reports: Weakness, Fatigue. Denies: Fever, Chills Pulmonary: Reports: Shortness of Breath, Cough. Denies: Pleuritic Chest Pain, Sputum, Hemoptysis, Wheezing Cardiovascular: Reports: Dyspnea on Exertion. Denies: Chest Pain, Palpitations, Orthopnea, PND, Edema, Lightheadedness Gastrointestinal: Reports: No Symptoms Genitourinary: Reports: No Symptoms - Patient Data Vitals - Most Recent: Last Vital Signs Temp 97.6 F 03/05/21 11:34 Pulse 96 03/05/21 11:34 Resp 24 H 03/05/21 11:34 BP 128/91 H 03/05/21 11:34 Pulse Ox 96 03/05/21 13:48 Weight - Most Recent: 185 lb I&O - Last 24 Hours: Intake & Output 03/04/21 03/05/21 03/05/21 22:59 06:59 14:59 Intake Total 800 200 170 Output Total 250 Balance 550 200 170 Lab Results Last 24 Hours: Laboratory Results - last 24 hr 03/05/21 03/05/21 03/05/21 Range/Units 04:25 04:25 04:25 WBC 10.1 (4.5-11.0) K/uL RBC 4.38 (3.30-5.50) M/uL Hgb 13.1 (12.0-15.0) g/dL Hct 39.1 (36.0-48.0) % MCV 89 (80-98) fL MCH 30 (27-31) pg MCHC 34 (32-36) % Plt Count 346 (150-400) K/uL D-Dimer, Quantitative 2058.25 H (0.0-500.0) ng/mL Sodium 131 L (140-148) mmol/L Potassium 4.4 (3.6-5.2) mmol/L Chloride 98 L (100-108) mmol/L Carbon Dioxide 24 (21-32) mmol/L Anion Gap 13.4 (5.0-14.0) mmol/L BUN 12 (7-18) mg/dL Creatinine 0.6 (0.6-1.0) mg/dL Est Cr Clr Drug Dosing 68.02 mL/min Estimated GFR (MDRD) > 60 (>60) Glucose 147 H (74-106) mg/dL Calcium 8.3 L (8.5-10.1) mg/dL Total Bilirubin 0.4 (0.2-1.0) mg/dL AST 66 H (15-37) U/L ALT 135 H (12-78) U/L Alkaline Phosphatase 378 H (46-116) U/L C-Reactive Protein 3.20 H (0.0-0.3) mg/dL Total Protein 6.2 L (6.4-8.2) g/dL Albumin 2.4 L (3.4-5.0) g/dL Globulin 3.8 H (2.3-3.5) g/dL Albumin/Globulin Ratio 0.6 L (1.2-2.2) Darren Results Last 24 Hours: Microbiology 03/02/21 20:34 Aerobic Blood Culture - Preliminary Blood - Arm, Left NO GROWTH AFTER 2 DAYS Anaerobic Blood Culture - Preliminary NO GROWTH AFTER 2 DAYS Med Orders - Current: Current Medications Acetaminophen (Acetaminophen 325 Mg Tab) 650 mg PO Q4H PRN PRN Reason: Fever Greater Than 101 Albuterol (Albuterol 8 Gm Inhaler) 0 gm INH Q2H PRN PRN Reason: Dyspnea Ascorbic Acid (Ascorbic Acid 500 Mg Tab) 500 mg PO DAILY [facility] Last Admin: 03/05/21 09:22 Dose: 500 mg Documented by: Baricitinib (Baricitinib 2 Mg Tab) 4 mg PO DAILY [facility] Stop: 03/16/21 09:01 Last Admin: 03/05/21 09:23 Dose: 4 mg Documented by: Benzonatate (Benzonatate 100 Mg Cap) 100 mg PO Q8H PRN PRN Reason: Cough Cholecalciferol (Cholecalciferol (Vitamin D3) 25 Mcg Tab) 25 mcg PO DAILY [facility] Last Admin: 03/05/21 09:24 Dose: 25 mcg Documented by: Dexamethasone (Dexamethasone 4 Mg/Ml Sdv) 6 mg IVPUSH BEDTIME [facility] Stop: 03/11/21 21:01 Last Admin: 03/04/21 20:41 Dose: 6 mg Documented by: Docusate Sodium (Docusate Sodium 100 Mg Cap) 100 mg PO BID PRN PRN Reason: Constipation Enoxaparin Sodium (Enoxaparin 40 Mg/0.4 Ml Syringe) 40 mg SUBCUT BEDTIME [facility] Last Admin: 03/04/21 20:41 Dose: 40 mg Documented by: Guaifenesin (Guaifenesin 100 Mg/5 Ml Soln Ml (118 Ml Bottle)) 200 mg PO Q4H PRN PRN Reason: Cough Last Admin: 03/04/21 18:15 Dose: 100 mg Documented by: Guaifenesin/Codeine Phosphate (Codeine/Guaifenesin 10-100 Mg/5 Ml Syrup 5 Ml Cup) 10 ml PO Q6H PRN PRN Reason: Cough Last Admin: 03/04/21 19:49 Dose: 10 ml Documented by: Remdesivir 100 mg/ Sodium (Chloride) 100 mls @ 100 mls/hr IV Q24H [facility] Stop: 03/06/21 21:59 Last Admin: 03/04/21 20:36 Dose: 100 mls/hr Documented by: Lorazepam (Lorazepam 2 Mg/Ml Sdv) 1 mg IV Q6H PRN PRN Reason: Nausea/Vomiting Lorazepam (Lorazepam 0.5 Mg Tab) 0.5 mg PO Q4H PRN PRN Reason: Anxiety Last Admin: 03/03/21 17:54 Dose: 0.5 mg Documented by: Magnesium Oxide (Magnesium Oxide 400 Mg Tab) 400 mg PO DAILY [facility] Last Admin: 03/05/21 09:23 Dose: 400 mg Documented by: Melatonin (Melatonin 3 Mg Tab) 9 mg PO BEDTIME PRN PRN Reason: Insomnia Metoprolol Succinate (Metoprolol Succinate 25 Mg Tab.Er) 25 mg PO DAILY [facility] Last Admin: 03/05/21 09:23 Dose: 25 mg Documented by: Morphine Sulfate (Morphine 2 Mg/Ml Syringe) 2 mg IVPUSH Q2H PRN PRN Reason: Pain (severe 7-10) Ondansetron HCl (Ondansetron 4 Mg Tab.Dis) 4 mg PO Q6H PRN PRN Reason: Nausea able to take PO Last Admin: 03/05/21 01:38 Dose: 4 mg Documented by: Ondansetron HCl (Ondansetron 4 Mg/2 Ml Sdv) 4 mg IV Q4H PRN PRN Reason: Nausea/Vomiting Last Admin: 03/03/21 10:08 Dose: 4 mg Documented by: Oxycodone HCl (Oxycodone 5 Mg Tab) 5 mg PO Q4H PRN PRN Reason: Pain (moderate 4-6) Pantoprazole Sodium (Pantoprazole 40 Mg Tab.Cr) 40 mg PO ACBREAKFAST [facility] Last Admin: 03/05/21 09:22 Dose: 40 mg Documented by: Patient's Own Medication Selenium 200 Mcg 0 each PO DAILY [facility] Sodium Chloride (Sodium Chloride 0.9% 10 Ml Syringe) 10 ml FLUSH ASDIRECTED PRN PRN Reason: Keep Vein Open Last Admin: 03/02/21 20:32 Dose: 10 ml Documented by: Discontinued Medications Albuterol/Ipratropium (Albuterol/Ipratropium 4 Gm Inhalation [place]) 0 gm INH Q4H PRN PRN Reason: Dyspnea Albuterol/Ipratropium (Albuterol/Ipratropium 4 Gm Inhalation [place]) 0 gm INH QIDRT [facility] Last Admin: 03/04/21 11:08 Dose: Not Given Documented by: Dexamethasone (Dexamethasone 4 Mg/Ml Sdv) 6 mg IVPUSH DAILY [facility] Stop: 03/11/21 09:01 Last Admin: 03/02/21 20:30 Dose: 6 mg Documented by: Digoxin (Digoxin 125 Mcg Tab) 250 mcg PO ONETIME ONE Stop: 03/03/21 00:35 Last Admin: 03/03/21 01:09 Dose: 250 mcg Documented by: Diltiazem HCl (Diltiazem Ir 30 Mg Tab) 60 mg PO Q6HR [facility] Last Admin: 03/04/21 05:04 Dose: Not Given Documented by: Enoxaparin Sodium (Enoxaparin 40 Mg/0.4 Ml Syringe) 40 mg SUBCUT DAILY [facility] Last Admin: 03/02/21 23:08 Dose: 40 mg Documented by: Guaifenesin (Guaifenesin 100 Mg/5 Ml Soln Ml (118 Ml Bottle)) 200 mg PO Q4H PRN PRN Reason: Cough Sodium Chloride (Normal Saline) 1,000 mls @ 150 mls/hr IV ASDIRECTED [facility] Last Admin: 03/02/21 20:28 Dose: 150 mls/hr Documented by: Remdesivir 200 mg/ Sodium (Chloride) 250 mls @ 250 mls/hr IV ONETIME ONE Stop: 03/02/21 20:05 Last Admin: 03/02/21 23:05 Dose: 250 mls/hr Documented by: Sodium Chloride (Normal Saline) 1,000 mls @ 125 mls/hr IV ASDIRECTED [facility] Last Admin: 03/03/21 05:44 Dose: 125 mls/hr Documented by: Sodium Chloride (Sodium Chloride 3%) 500 mls @ 100 mls/hr IV ASDIRECTED [facility] Stop: 03/03/21 00:01 Last Admin: 03/03/21 00:41 Dose: 100 mls/hr Documented by: Sodium Chloride (Sodium Chloride 3%) 100 mls @ 100 mls/hr IV ASDIRECTED [facility] Stop: 03/03/21 12:01 Last Admin: 03/03/21 11:16 Dose: 100 mls/hr Documented by: Magnesium Sulfate 2 gm/ Premix 50 mls @ 25 mls/hr IV Q6H [facility] Stop: 03/03/21 20:59 Last Admin: 03/03/21 19:43 Dose: 25 mls/hr Documented by: Non-Formulary Medication (Magnesium Oxide [Magnesium]) 1,000 mg PO DAILY [facility] Non-Formulary Medication (Melatonin [Melatonin]) 10 mg PO ASDIRECTED PRN PRN Reason: Insomnia Ondansetron HCl (Ondansetron 4 Mg Tab.Dis) 4 mg PO ONETIME ONE Stop: 03/02/21 19:34 Last Admin: 03/02/21 19:51 Dose: 4 mg Documented by: Ondansetron HCl (Ondansetron 4 Mg Tab.Dis) Confirm Administered Dose 4 mg .ROUTE .STK-MED ONE Stop: 03/02/21 19:36 Last Admin: 03/02/21 20:19 Dose: Not Given Documented by: - Exam Quality Assessment: Supplemental Oxygen, DVT Prophylaxis General: Alert, Oriented, Cooperative, Moderate Distress Lungs: Rales, Rhonchi. No: Crackles, Wheezing Cardiovascular: Regular Rate, No Murmurs, Irregular Rhythm GI/Abdominal Exam: Soft, Non-Tender, No Organomegaly, No Distention Extremities: Non-Tender, No Pedal Edema - Patient Data Lab Results Last 24 hrs: Laboratory Results - last 24 hr 03/05/21 03/05/21 03/05/21 Range/Units 04:25 04:25 04:25 WBC 10.1 (4.5-11.0) K/uL RBC 4.38 (3.30-5.50) M/uL Hgb 13.1 (12.0-15.0) g/dL Hct 39.1 (36.0-48.0) % MCV 89 (80-98) fL MCH 30 (27-31) pg MCHC 34 (32-36) % Plt Count 346 (150-400) K/uL D-Dimer, Quantitative 2058.25 H (0.0-500.0) ng/mL Sodium 131 L (140-148) mmol/L Potassium 4.4 (3.6-5.2) mmol/L Chloride 98 L (100-108) mmol/L Carbon Dioxide 24 (21-32) mmol/L Anion Gap 13.4 (5.0-14.0) mmol/L BUN 12 (7-18) mg/dL Creatinine 0.6 (0.6-1.0) mg/dL Est Cr Clr Drug Dosing 68.02 mL/min Estimated GFR (MDRD) > 60 (>60) Glucose 147 H (74-106) mg/dL Calcium 8.3 L (8.5-10.1) mg/dL Total Bilirubin 0.4 (0.2-1.0) mg/dL AST 66 H (15-37) U/L ALT 135 H (12-78) U/L Alkaline Phosphatase 378 H (46-116) U/L C-Reactive Protein 3.20 H (0.0-0.3) mg/dL Total Protein 6.2 L (6.4-8.2) g/dL Albumin 2.4 L (3.4-5.0) g/dL Globulin 3.8 H (2.3-3.5) g/dL Albumin/Globulin Ratio 0.6 L (1.2-2.2) Result Diagrams: 03/05/21 04:25 03/05/21 04:25 Darren Results Last 24 hrs: Microbiology 03/02/21 20:34 Aerobic Blood Culture - Preliminary Blood - Arm, Left NO GROWTH AFTER 2 DAYS Anaerobic Blood Culture - Preliminary NO GROWTH AFTER 2 DAYS Sepsis Event Note - Evaluation Sepsis Screening Result: Sepsis Risk - Focused Exam Vital Signs: Vital Signs Temp Pulse Pulse Resp BP BP Pulse Ox 03/05/21 13:48 96 03/05/21 11:34 97.6 F 96 24 H 128/91 H 93 L 03/05/21 09:23 106 H 122/74 03/05/21 09:16 97.5 F 106 H 28 H 122/74 90 L 03/05/21 07:21 88 L 03/05/21 03:00 97.9 F 101 H 18 117/78 94 L - Problem List Review Problem List Initiated/Reviewed/Updated: Yes - My Orders Last 24 Hours: My Active Orders 03/05/21 12:04 Communication Order [RC] ASDIRECTED 03/05/21 14:30 Patient's Own Medication [Ptom] 0 each PO DAILY 03/06/21 05:00 COMPREHENSIVE METABOLIC PN,CMP [CHEM] Timed - Plan Plan:: ASSESSMENT AND PLAN - COVID-19 pneumonia-complicated by severe acute respiratory failure. Not vaccinated. Symptom onset 02/21. Respiratory status quite compromised but stable with supplementation from heated/high flow nasal cannula. No dramatic changes overnight. -Dexamethasone 6 mg daily (day 4) -Remdesivir x5 days (4) -Baricitinib 4 mg p.o. daily, today is day 3 of 14 -Enoxaparin -Supplement oxygen as needed, wean as able -albuterol inhaler 2 puffs every 2 to 4 hours -Symptomatic management of cough -Goal of negative fluid balance each day -Isolation precautions Hyponatremia-improved -Recheck in the morning Paroxysmal atrial fibrillation -A. fib responded well to diltiazem. -Metoprolol 25 mg po daily -Discontinue diltiazem Maintenance issues - - DVT prophylaxis - Lovenox 40 mg daily - GI prophylaxis -PPI - Nutrition -regular Disposition -I would anticipate discharge home
[2021-03-05] MEDS: SELENIUM 200 MCG PO SCH (16:23)
[2021-03-05] MEDS: Dexamethasone 4 MG/ML SDV IVPUSH SCH (21:11)
[2021-03-05] MEDS: Enoxaparin 40 MG/0.4 ML Syringe SUBCUT SCH (21:16)
[2021-03-05] MEDS: REMDESIVIR 100 MG in Sodium Chloride 0.9% 100 ML IV SCH (21:22)
[2021-03-05] MEDS: Codeine/guaiFENesin 10-100 MG/5 ML Syrup 5 ML Cup PO PRN (21:42)
[2021-03-06] MEDS ORDERED: Diltiazem IR 30 MG Tab PO ONE (00:48)
[2021-03-06] MEDS: Ondansetron 4 MG Tab.DIS PO PRN (01:07)
[2021-03-06] MEDS: Metoprolol Succinate 25 MG Tab.ER PO SCH (08:21)
[2021-03-06] MEDS: Pantoprazole 40 MG Tab.CR PO SCH (08:21)
[2021-03-06] MEDS: Magnesium Oxide 400 MG Tab PO SCH (08:21)
[2021-03-06] MEDS: SELENIUM 200 MCG PO SCH (08:22)
[2021-03-06] MEDS: Cholecalciferol (Vitamin D3) 25 MCG Tab PO SCH (08:22)
[2021-03-06] MEDS: Ascorbic Acid 500 MG Tab PO SCH (08:22)
--- NOTE | 2021-03-06 14:29 | PCM.PN ---
- General Info Date of Service: 03/06/21 Subjective Update: Ms. Powers feels modestly improved today compared to yesterday, slightly less short of breath. She feels her appetite and overall energy level are also slightly improved. Functional Status: Reports: Urinating - Review of Systems General: Reports: Weakness, Fatigue. Denies: Fever, Chills Pulmonary: Reports: Shortness of Breath, Cough. Denies: Pleuritic Chest Pain, Sputum, Hemoptysis, Wheezing Cardiovascular: Reports: Dyspnea on Exertion. Denies: Chest Pain, Palpitations, Orthopnea, PND, Edema, Lightheadedness Gastrointestinal: Reports: No Symptoms Genitourinary: Reports: No Symptoms - Patient Data Vitals - Most Recent: Last Vital Signs Temp 98.0 F 03/06/21 11:04 Pulse 88 03/06/21 11:04 Resp 18 03/06/21 11:04 BP 126/97 H 03/06/21 11:04 Pulse Ox 92 L 03/06/21 13:07 Weight - Most Recent: 185 lb I&O - Last 24 Hours: Intake & Output 03/05/21 03/06/21 03/06/21 22:59 06:59 14:59 Intake Total 300 640 Output Total 800 Balance 300 -160 Lab Results Last 24 Hours: Laboratory Results - last 24 hr 03/06/21 Range/Units 04:20 Sodium 137 L (140-148) mmol/L Potassium 4.2 (3.6-5.2) mmol/L Chloride 102 (100-108) mmol/L Carbon Dioxide 25 (21-32) mmol/L Anion Gap 14.2 H (5.0-14.0) mmol/L BUN 16 (7-18) mg/dL Creatinine 0.7 (0.6-1.0) mg/dL Est Cr Clr Drug Dosing 58.30 mL/min Estimated GFR (MDRD) > 60 (>60) Glucose 146 H (74-106) mg/dL Calcium 8.2 L (8.5-10.1) mg/dL Total Bilirubin 0.4 (0.2-1.0) mg/dL AST 40 H (15-37) U/L ALT 100 H (12-78) U/L Alkaline Phosphatase 306 H (46-116) U/L Total Protein 5.7 L (6.4-8.2) g/dL Albumin 2.2 L (3.4-5.0) g/dL Globulin 3.5 (2.3-3.5) g/dL Albumin/Globulin Ratio 0.6 L (1.2-2.2) Darren Results Last 24 Hours: Microbiology 03/02/21 20:34 Aerobic Blood Culture - Preliminary Blood - Arm, Left NO GROWTH AFTER 3 DAYS Anaerobic Blood Culture - Preliminary NO GROWTH AFTER 3 DAYS Med Orders - Current: Current Medications Acetaminophen (Acetaminophen 325 Mg Tab) 650 mg PO Q4H PRN PRN Reason: Fever Greater Than 101 Albuterol (Albuterol 8 Gm Inhaler) 0 gm INH Q2H PRN PRN Reason: Dyspnea Ascorbic Acid (Ascorbic Acid 500 Mg Tab) 500 mg PO DAILY [facility] Last Admin: 03/06/21 08:22 Dose: 500 mg Documented by: Baricitinib (Baricitinib 2 Mg Tab) 4 mg PO DAILY [facility] Stop: 03/16/21 09:01 Last Admin: 03/06/21 08:21 Dose: 4 mg Documented by: Benzonatate (Benzonatate 100 Mg Cap) 100 mg PO Q8H PRN PRN Reason: Cough Cholecalciferol (Cholecalciferol (Vitamin D3) 25 Mcg Tab) 25 mcg PO DAILY [facility] Last Admin: 03/06/21 08:22 Dose: 25 mcg Documented by: Dexamethasone (Dexamethasone 4 Mg/Ml Sdv) 6 mg IVPUSH BEDTIME [facility] Stop: 03/11/21 21:01 Last Admin: 03/05/21 21:11 Dose: 6 mg Documented by: Diltiazem HCl (Diltiazem Ir 30 Mg Tab) 30 mg PO Q6HR [facility] Docusate Sodium (Docusate Sodium 100 Mg Cap) 100 mg PO BID PRN PRN Reason: Constipation Enoxaparin Sodium (Enoxaparin 40 Mg/0.4 Ml Syringe) 40 mg SUBCUT BEDTIME [facility] Last Admin: 03/05/21 21:16 Dose: 40 mg Documented by: Guaifenesin (Guaifenesin 100 Mg/5 Ml Soln Ml (118 Ml Bottle)) 200 mg PO Q4H PRN PRN Reason: Cough Last Admin: 03/04/21 18:15 Dose: 100 mg Documented by: Guaifenesin/Codeine Phosphate (Codeine/Guaifenesin 10-100 Mg/5 Ml Syrup 5 Ml Cup) 10 ml PO Q6H PRN PRN Reason: Cough Last Admin: 03/05/21 21:42 Dose: 10 ml Documented by: Remdesivir 100 mg/ Sodium (Chloride) 100 mls @ 100 mls/hr IV Q24H [facility] Stop: 03/06/21 21:59 Last Admin: 03/05/21 21:22 Dose: 100 mls/hr Documented by: Lorazepam (Lorazepam 2 Mg/Ml Sdv) 1 mg IV Q6H PRN PRN Reason: Nausea/Vomiting Lorazepam (Lorazepam 0.5 Mg Tab) 0.5 mg PO Q4H PRN PRN Reason: Anxiety Last Admin: 03/03/21 17:54 Dose: 0.5 mg Documented by: Magnesium Oxide (Magnesium Oxide 400 Mg Tab) 400 mg PO DAILY [facility] Last Admin: 03/06/21 08:21 Dose: 400 mg Documented by: Melatonin (Melatonin 3 Mg Tab) 9 mg PO BEDTIME PRN PRN Reason: Insomnia Metoprolol Succinate (Metoprolol Succinate 25 Mg Tab.Er) 25 mg PO DAILY [facility] Last Admin: 03/06/21 08:21 Dose: 25 mg Documented by: Morphine Sulfate (Morphine 2 Mg/Ml Syringe) 2 mg IVPUSH Q2H PRN PRN Reason: Pain (severe 7-10) Ondansetron HCl (Ondansetron 4 Mg Tab.Dis) 4 mg PO Q6H PRN PRN Reason: Nausea able to take PO Last Admin: 03/06/21 01:07 Dose: 4 mg Documented by: Ondansetron HCl (Ondansetron 4 Mg/2 Ml Sdv) 4 mg IV Q4H PRN PRN Reason: Nausea/Vomiting Last Admin: 03/03/21 10:08 Dose: 4 mg Documented by: Oxycodone HCl (Oxycodone 5 Mg Tab) 5 mg PO Q4H PRN PRN Reason: Pain (moderate 4-6) Pantoprazole Sodium (Pantoprazole 40 Mg Tab.Cr) 40 mg PO ACBREAKFAST [facility] Last Admin: 03/06/21 08:21 Dose: 40 mg Documented by: Patient's Own Medication Selenium 200 Mcg 0 each PO DAILY [facility] Last Admin: 03/06/21 08:22 Dose: 2 each Documented by: Sodium Chloride (Sodium Chloride 0.9% 10 Ml Syringe) 10 ml FLUSH ASDIRECTED PRN PRN Reason: Keep Vein Open Last Admin: 03/02/21 20:32 Dose: 10 ml Documented by: Discontinued Medications Albuterol/Ipratropium (Albuterol/Ipratropium 4 Gm Inhalation [place]) 0 gm INH Q4H PRN PRN Reason: Dyspnea Albuterol/Ipratropium (Albuterol/Ipratropium 4 Gm Inhalation [place]) 0 gm INH QIDRT [facility] Last Admin: 03/04/21 11:08 Dose: Not Given Documented by: Dexamethasone (Dexamethasone 4 Mg/Ml Sdv) 6 mg IVPUSH DAILY [facility] Stop: 03/11/21 09:01 Last Admin: 03/02/21 20:30 Dose: 6 mg Documented by: Digoxin (Digoxin 125 Mcg Tab) 250 mcg PO ONETIME ONE Stop: 03/03/21 00:35 Last Admin: 03/03/21 01:09 Dose: 250 mcg Documented by: Diltiazem HCl (Diltiazem Ir 30 Mg Tab) 60 mg PO Q6HR [facility] Last Admin: 03/04/21 05:04 Dose: Not Given Documented by: Diltiazem HCl (Diltiazem Ir 30 Mg Tab) 60 mg PO ONETIME ONE Stop: 03/06/21 00:49 Last Admin: 03/06/21 01:07 Dose: 60 mg Documented by: Diltiazem HCl (Diltiazem Ir 30 Mg Tab) 30 mg PO Q6HR [facility] Enoxaparin Sodium (Enoxaparin 40 Mg/0.4 Ml Syringe) 40 mg SUBCUT DAILY [facility] Last Admin: 03/02/21 23:08 Dose: 40 mg Documented by: Guaifenesin (Guaifenesin 100 Mg/5 Ml Soln Ml (118 Ml Bottle)) 200 mg PO Q4H PRN PRN Reason: Cough Sodium Chloride (Normal Saline) 1,000 mls @ 150 mls/hr IV ASDIRECTED [facility] Last Admin: 03/02/21 20:28 Dose: 150 mls/hr Documented by: Remdesivir 200 mg/ Sodium (Chloride) 250 mls @ 250 mls/hr IV ONETIME ONE Stop: 03/02/21 20:05 Last Admin: 03/02/21 23:05 Dose: 250 mls/hr Documented by: Sodium Chloride (Normal Saline) 1,000 mls @ 125 mls/hr IV ASDIRECTED [facility] Last Admin: 03/03/21 05:44 Dose: 125 mls/hr Documented by: Sodium Chloride (Sodium Chloride 3%) 500 mls @ 100 mls/hr IV ASDIRECTED [facility] Stop: 03/03/21 00:01 Last Admin: 03/03/21 00:41 Dose: 100 mls/hr Documented by: Sodium Chloride (Sodium Chloride 3%) 100 mls @ 100 mls/hr IV ASDIRECTED [facility] Stop: 03/03/21 12:01 Last Admin: 03/03/21 11:16 Dose: 100 mls/hr Documented by: Magnesium Sulfate 2 gm/ Premix 50 mls @ 25 mls/hr IV Q6H [facility] Stop: 03/03/21 20:59 Last Admin: 03/03/21 19:43 Dose: 25 mls/hr Documented by: Non-Formulary Medication (Magnesium Oxide [Magnesium]) 1,000 mg PO DAILY [facility] Non-Formulary Medication (Melatonin [Melatonin]) 10 mg PO ASDIRECTED PRN PRN Reason: Insomnia Ondansetron HCl (Ondansetron 4 Mg Tab.Dis) 4 mg PO ONETIME ONE Stop: 03/02/21 19:34 Last Admin: 03/02/21 19:51 Dose: 4 mg Documented by: Ondansetron HCl (Ondansetron 4 Mg Tab.Dis) Confirm Administered Dose 4 mg .ROUTE .STK-MED ONE Stop: 03/02/21 19:36 Last Admin: 03/02/21 20:19 Dose: Not Given Documented by: - Exam Quality Assessment: Supplemental Oxygen, DVT Prophylaxis General: Alert, Oriented, Cooperative, Moderate Distress Lungs: Normal Respiratory Effort, Decreased Breath Sounds, Crackles. No: Rales, Rhonchi, Wheezing Cardiovascular: Regular Rate, Regular Rhythm, No Murmurs GI/Abdominal Exam: Soft, Non-Tender, No Organomegaly, No Distention Extremities: Non-Tender, No Pedal Edema - Patient Data Lab Results Last 24 hrs: Laboratory Results - last 24 hr 03/06/21 Range/Units 04:20 Sodium 137 L (140-148) mmol/L Potassium 4.2 (3.6-5.2) mmol/L Chloride 102 (100-108) mmol/L Carbon Dioxide 25 (21-32) mmol/L Anion Gap 14.2 H (5.0-14.0) mmol/L BUN 16 (7-18) mg/dL Creatinine 0.7 (0.6-1.0) mg/dL Est Cr Clr Drug Dosing 58.30 mL/min Estimated GFR (MDRD) > 60 (>60) Glucose 146 H (74-106) mg/dL Calcium 8.2 L (8.5-10.1) mg/dL Total Bilirubin 0.4 (0.2-1.0) mg/dL AST 40 H (15-37) U/L ALT 100 H (12-78) U/L Alkaline Phosphatase 306 H (46-116) U/L Total Protein 5.7 L (6.4-8.2) g/dL Albumin 2.2 L (3.4-5.0) g/dL Globulin 3.5 (2.3-3.5) g/dL Albumin/Globulin Ratio 0.6 L (1.2-2.2) Result Diagrams: 03/05/21 04:25 03/06/21 04:20 Darren Results Last 24 hrs: Microbiology 03/02/21 20:34 Aerobic Blood Culture - Preliminary Blood - Arm, Left NO GROWTH AFTER 3 DAYS Anaerobic Blood Culture - Preliminary NO GROWTH AFTER 3 DAYS Sepsis Event Note - Evaluation Sepsis Screening Result: No Definite Risk - Focused Exam Vital Signs: Vital Signs Temp Pulse Pulse Resp BP BP Pulse Ox 03/06/21 13:07 92 L 03/06/21 11:04 98.0 F 88 18 126/97 H 92 L 03/06/21 08:21 108 H 137/86 03/06/21 07:21 97 03/06/21 07:00 106 H 18 137/86 94 L 03/06/21 03:24 97 F 101 H 20 132/80 94 L - Problem List Review Problem List Initiated/Reviewed/Updated: Yes - My Orders Last 24 Hours: My Active Orders 03/05/21 14:30 Patient's Own Medication [Ptom] 0 each PO DAILY 03/06/21 14:23 Resuscitation Status Routine 03/06/21 14:25 Diltiazem IR [Cardizem] 30 mg PO Q6HR 03/07/21 05:00 CBC WITH AUTO DIFF [HEME] Timed COMPREHENSIVE METABOLIC PN,CMP [CHEM] Timed 11/10/21 05:11 CRP [C-REACTIVE PROTEIN] [CHEM] AM D Dimer [D-DIMER QUANTITATIVE] [COAG] AM - Plan Plan:: ASSESSMENT AND PLAN - COVID-19 pneumonia-complicated by severe acute respiratory failure. Not vaccinated. Symptom onset 02/21. Respiratory status quite compromised but stable with supplementation from heated/high flow nasal cannula. She feels slightly improved over the last 24 hours -Dexamethasone 6 mg daily (day 5) -Remdesivir x5 days (5) -Baricitinib 4 mg p.o. daily, today is day 4 of 14 -Enoxaparin -Supplement oxygen as needed, wean as able -albuterol inhaler 2 puffs every 2 to 4 hours -Symptomatic management of cough -Goal of negative fluid balance each day -Isolation precautions Hyponatremia-improved -Recheck in the morning Paroxysmal atrial fibrillation -A. fib responded well to diltiazem. -Metoprolol 25 mg po daily -Diltiazem 30 mg p.o. every 6 hours Maintenance issues - - DVT prophylaxis - Lovenox 40 mg daily - GI prophylaxis -PPI - Nutrition -regular Disposition -I would anticipate discharge home
[2021-03-06] MEDS: Diltiazem IR 30 MG Tab PO SCH ×2 (15:39→20:06)
[2021-03-06] MEDS ORDERED: Diltiazem IR 30 MG Tab PO SCH (16:00)
[2021-03-06] MEDS: Acetaminophen 325 MG Tab PO PRN (17:20)
[2021-03-06] MEDS: Melatonin 3 MG Tab PO PRN (20:06)
[2021-03-06] MEDS: Dexamethasone 4 MG/ML SDV IVPUSH SCH (20:07)
[2021-03-06] MEDS: Enoxaparin 40 MG/0.4 ML Syringe SUBCUT SCH (20:07)
[2021-03-06] MEDS: REMDESIVIR 100 MG in Sodium Chloride 0.9% 100 ML IV SCH (20:36)
[2021-03-07] MEDS: Ondansetron 4 MG Tab.DIS PO PRN (00:53)
[2021-03-07] MEDS: Diltiazem IR 30 MG Tab PO SCH ×4 (02:21→20:26)
[2021-03-07] MEDS: SELENIUM 200 MCG PO SCH (09:39)
[2021-03-07] MEDS: Ascorbic Acid 500 MG Tab PO SCH (09:39)
[2021-03-07] MEDS: Magnesium Oxide 400 MG Tab PO SCH (09:39)
[2021-03-07] MEDS: Metoprolol Succinate 25 MG Tab.ER PO SCH (09:39)
[2021-03-07] MEDS: Pantoprazole 40 MG Tab.CR PO SCH (09:39)
[2021-03-07] MEDS: Cholecalciferol (Vitamin D3) 25 MCG Tab PO SCH (09:39)
[2021-03-07] MEDS: Benzonatate 100 MG Cap PO PRN ×2 (09:45→20:26)
--- NOTE | 2021-03-07 16:20 | PCM.PN ---
- General Info Date of Service: 03/07/21 Subjective Update: Ms. Powers has experienced some improvement over the last 24 hours, level of supplemental oxygen has decreased. She seems to have tolerated this well with adequate saturations. Energy level and appetite are modestly improved. - Review of Systems General: Reports: Weakness, Fatigue. Denies: Fever, Chills Pulmonary: Reports: Shortness of Breath, Cough. Denies: Pleuritic Chest Pain, Sputum, Hemoptysis, Wheezing Cardiovascular: Reports: Dyspnea on Exertion. Denies: Chest Pain, Palpitations, Orthopnea, PND, Edema, Lightheadedness Gastrointestinal: Reports: No Symptoms Genitourinary: Reports: No Symptoms - Patient Data Vitals - Most Recent: Last Vital Signs Temp 96.8 F L 03/07/21 14:13 Pulse 99 03/07/21 14:13 Resp 20 03/07/21 14:13 BP 128/83 03/07/21 14:13 Pulse Ox 96 03/07/21 14:13 Weight - Most Recent: 185 lb I&O - Last 24 Hours: Intake & Output 03/07/21 03/07/21 03/07/21 06:59 14:59 22:59 Intake Total 250 Output Total 625 Balance -375 Lab Results Last 24 Hours: Laboratory Results - last 24 hr 03/07/21 03/07/21 03/07/21 Range/Units 05:55 06:00 06:00 WBC 10.4 (4.5-11.0) K/uL RBC 3.82 (3.30-5.50) M/uL Hgb 11.9 L (12.0-15.0) g/dL Hct 35.0 L (36.0-48.0) % MCV 92 (80-98) fL MCH 31 (27-31) pg MCHC 34 (32-36) % Plt Count 351 (150-400) K/uL Neut % (Auto) 87.9 H (36-66) % Lymph % (Auto) 5.7 L (24-44) % [place] % (Auto) 6.3 H (2-6) % Eos % (Auto) 0.0 L (2-4) % Baso % (Auto) 0.1 (0-1) % D-Dimer, Quantitative 4330.62 H (0.0-500.0) ng/mL Sodium 137 L (140-148) mmol/L Potassium 4.8 (3.6-5.2) mmol/L Chloride 102 (100-108) mmol/L Carbon Dioxide 25 (21-32) mmol/L Anion Gap 14.8 H (5.0-14.0) mmol/L BUN 19 H (7-18) mg/dL Creatinine 0.6 (0.6-1.0) mg/dL Est Cr Clr Drug Dosing 68.02 mL/min Estimated GFR (MDRD) > 60 (>60) Glucose 153 H (74-106) mg/dL Calcium 7.9 L (8.5-10.1) mg/dL Total Bilirubin 0.5 (0.2-1.0) mg/dL AST 32 (15-37) U/L ALT 80 H (12-78) U/L Alkaline Phosphatase 270 H (46-116) U/L C-Reactive Protein (0.0-0.3) mg/dL Total Protein 5.3 L (6.4-8.2) g/dL Albumin 2.2 L (3.4-5.0) g/dL Globulin 3.1 (2.3-3.5) g/dL Albumin/Globulin Ratio 0.7 L (1.2-2.2) 03/07/21 Range/Units 06:00 WBC (4.5-11.0) K/uL RBC (3.30-5.50) M/uL Hgb (12.0-15.0) g/dL Hct (36.0-48.0) % MCV (80-98) fL MCH (27-31) pg MCHC (32-36) % Plt Count (150-400) K/uL Neut % (Auto) (36-66) % Lymph % (Auto) (24-44) % [place] % (Auto) (2-6) % Eos % (Auto) (2-4) % Baso % (Auto) (0-1) % D-Dimer, Quantitative (0.0-500.0) ng/mL Sodium (140-148) mmol/L Potassium (3.6-5.2) mmol/L Chloride (100-108) mmol/L Carbon Dioxide (21-32) mmol/L Anion Gap (5.0-14.0) mmol/L BUN (7-18) mg/dL Creatinine (0.6-1.0) mg/dL Est Cr Clr Drug Dosing mL/min Estimated GFR (MDRD) (>60) Glucose (74-106) mg/dL Calcium (8.5-10.1) mg/dL Total Bilirubin (0.2-1.0) mg/dL AST (15-37) U/L ALT (12-78) U/L Alkaline Phosphatase (46-116) U/L C-Reactive Protein 1.19 H (0.0-0.3) mg/dL Total Protein (6.4-8.2) g/dL Albumin (3.4-5.0) g/dL Globulin (2.3-3.5) g/dL Albumin/Globulin Ratio (1.2-2.2) Darren Results Last 24 Hours: Microbiology 03/02/21 20:34 Aerobic Blood Culture - Preliminary Blood - Arm, Left NO GROWTH AFTER 4 DAYS Anaerobic Blood Culture - Preliminary NO GROWTH AFTER 4 DAYS Med Orders - Current: Current Medications Acetaminophen (Acetaminophen 325 Mg Tab) 650 mg PO Q4H PRN PRN Reason: Fever Greater Than 101 Last Admin: 03/06/21 17:20 Dose: 325 mg Documented by: Albuterol (Albuterol 8 Gm Inhaler) 0 gm INH Q2H PRN PRN Reason: Dyspnea Ascorbic Acid (Ascorbic Acid 500 Mg Tab) 500 mg PO DAILY [facility] Last Admin: 03/07/21 09:39 Dose: 500 mg Documented by: Baricitinib (Baricitinib 2 Mg Tab) 4 mg PO DAILY [facility] Stop: 03/16/21 09:01 Last Admin: 03/07/21 09:39 Dose: 4 mg Documented by: Benzonatate (Benzonatate 100 Mg Cap) 100 mg PO Q8H PRN PRN Reason: Cough Last Admin: 03/07/21 09:45 Dose: 100 mg Documented by: Cholecalciferol (Cholecalciferol (Vitamin D3) 25 Mcg Tab) 25 mcg PO DAILY [facility] Last Admin: 03/07/21 09:39 Dose: 25 mcg Documented by: Dexamethasone (Dexamethasone 4 Mg/Ml Sdv) 6 mg IVPUSH BEDTIME ANA Stop: 03/11/21 21:01 Last Admin: 03/06/21 20:07 Dose: 6 mg Documented by: Diltiazem HCl (Diltiazem Ir 30 Mg Tab) 30 mg PO Q6H [facility] Last Admin: 03/07/21 14:02 Dose: 30 mg Documented by: Docusate Sodium (Docusate Sodium 100 Mg Cap) 100 mg PO BID PRN PRN Reason: Constipation Enoxaparin Sodium (Enoxaparin 40 Mg/0.4 Ml Syringe) 40 mg SUBCUT BEDTIME [facility] Last Admin: 03/06/21 20:07 Dose: 40 mg Documented by: Guaifenesin (Guaifenesin 100 Mg/5 Ml Soln Ml (118 Ml Bottle)) 200 mg PO Q4H PRN PRN Reason: Cough Last Admin: 03/04/21 18:15 Dose: 100 mg Documented by: Guaifenesin/Codeine Phosphate (Codeine/Guaifenesin 10-100 Mg/5 Ml Syrup 5 Ml Cu p) 10 ml PO Q6H PRN PRN Reason: Cough Last Admin: 03/05/21 21:42 Dose: 10 ml Documented by: Lorazepam (Lorazepam 2 Mg/Ml Sdv) 1 mg IV Q6H PRN PRN Reason: Nausea/Vomiting Lorazepam (Lorazepam 0.5 Mg Tab) 0.5 mg PO Q4H PRN PRN Reason: Anxiety Last Admin: 03/03/21 17:54 Dose: 0.5 mg Documented by: Magnesium Oxide (Magnesium Oxide 400 Mg Tab) 400 mg PO DAILY [facility] Last Admin: 03/07/21 09:39 Dose: 400 mg Documented by: Melatonin (Melatonin 3 Mg Tab) 9 mg PO BEDTIME PRN PRN Reason: Insomnia Last Admin: 03/06/21 20:06 Dose: 9 mg Documented by: Metoprolol Succinate (Metoprolol Succinate 25 Mg Tab.Er) 25 mg PO DAILY [facility] Last Admin: 03/07/21 09:39 Dose: 25 mg Documented by: Morphine Sulfate (Morphine 2 Mg/Ml Syringe) 2 mg IVPUSH Q2H PRN PRN Reason: Pain (severe 7-10) Ondansetron HCl (Ondansetron 4 Mg Tab.Dis) 4 mg PO Q6H PRN PRN Reason: Nausea able to take PO Last Admin: 03/07/21 00:53 Dose: 4 mg Documented by: Ondansetron HCl (Ondansetron 4 Mg/2 Ml Sdv) 4 mg IV Q4H PRN PRN Reason: Nausea/Vomiting Last Admin: 03/03/21 10:08 Dose: 4 mg Documented by: Oxycodone HCl (Oxycodone 5 Mg Tab) 5 mg PO Q4H PRN PRN Reason: Pain (moderate 4-6) Pantoprazole Sodium (Pantoprazole 40 Mg Tab.Cr) 40 mg PO ACBREAKFAST [facility] Last Admin: 03/07/21 09:39 Dose: 40 mg Documented by: Patient's Own Medication Selenium 200 Mcg 0 each PO DAILY [facility] Last Admin: 03/07/21 09:39 Dose: 2 each Documented by: Sodium Chloride (Sodium Chloride 0.9% 10 Ml Syringe) 10 ml FLUSH ASDIRECTED PRN PRN Reason: Keep Vein Open Last Admin: 03/02/21 20:32 Dose: 10 ml Documented by: Discontinued Medications Albuterol/Ipratropium (Albuterol/Ipratropium 4 Gm Inhalation [place]) 0 gm INH Q4H PRN PRN Reason: Dyspnea Albuterol/Ipratropium (Albuterol/Ipratropium 4 Gm Inhalation [place]) 0 gm INH QIDRT [facility] Last Admin: 03/04/21 11:08 Dose: Not Given Documented by: Dexamethasone (Dexamethasone 4 Mg/Ml Sdv) 6 mg IVPUSH DAILY [facility] Stop: 03/11/21 09:01 Last Admin: 03/02/21 20:30 Dose: 6 mg Documented by: Digoxin (Digoxin 125 Mcg Tab) 250 mcg PO ONETIME ONE Stop: 03/03/21 00:35 Last Admin: 03/03/21 01:09 Dose: 250 mcg Documented by: Diltiazem HCl (Diltiazem Ir 30 Mg Tab) 60 mg PO Q6HR [facility] Last Admin: 03/04/21 05:04 Dose: Not Given Documented by: Diltiazem HCl (Diltiazem Ir 30 Mg Tab) 60 mg PO ONETIME ONE Stop: 03/06/21 00:49 Last Admin: 03/06/21 01:07 Dose: 60 mg Documented by: Diltiazem HCl (Diltiazem Ir 30 Mg Tab) 30 mg PO Q6HR [facility] Enoxaparin Sodium (Enoxaparin 40 Mg/0.4 Ml Syringe) 40 mg SUBCUT DAILY [facility] Last Admin: 03/02/21 23:08 Dose: 40 mg Documented by: Guaifenesin (Guaifenesin 100 Mg/5 Ml Soln Ml (118 Ml Bottle)) 200 mg PO Q4H PRN PRN Reason: Cough Sodium Chloride (Normal Saline) 1,000 mls @ 150 mls/hr IV ASDIRECTED [facility] Last Admin: 03/02/21 20:28 Dose: 150 mls/hr Documented by: Remdesivir 200 mg/ Sodium (Chloride) 250 mls @ 250 mls/hr IV ONETIME ONE Stop: 03/02/21 20:05 Last Admin: 03/02/21 23:05 Dose: 250 mls/hr Documented by: Sodium Chloride (Normal Saline) 1,000 mls @ 125 mls/hr IV ASDIRECTED [facility] Last Admin: 03/03/21 05:44 Dose: 125 mls/hr Documented by: Remdesivir 100 mg/ Sodium (Chloride) 100 mls @ 100 mls/hr IV Q24H [facility] Stop: 03/06/21 21:59 Last Admin: 03/06/21 20:36 Dose: 100 mls/hr Documented by: Sodium Chloride (Sodium Chloride 3%) 500 mls @ 100 mls/hr IV ASDIRECTED [facility] Stop: 03/03/21 00:01 Last Admin: 03/03/21 00:41 Dose: 100 mls/hr Documented by: Sodium Chloride (Sodium Chloride 3%) 100 mls @ 100 mls/hr IV ASDIRECTED [facility] Stop: 03/03/21 12:01 Last Admin: 03/03/21 11:16 Dose: 100 mls/hr Documented by: Magnesium Sulfate 2 gm/ Premix 50 mls @ 25 mls/hr IV Q6H [facility] Stop: 03/03/21 20:59 Last Admin: 03/03/21 19:43 Dose: 25 mls/hr Documented by: Non-Formulary Medication (Magnesium Oxide [Magnesium]) 1,000 mg PO DAILY [facility] Non-Formulary Medication (Melatonin [Melatonin]) 10 mg PO ASDIRECTED PRN PRN Reason: Insomnia Ondansetron HCl (Ondansetron 4 Mg Tab.Dis) 4 mg PO ONETIME ONE Stop: 03/02/21 19:34 Last Admin: 03/02/21 19:51 Dose: 4 mg Documented by: Ondansetron HCl (Ondansetron 4 Mg Tab.Dis) Confirm Administered Dose 4 mg .ROUTE .STK-MED ONE Stop: 03/02/21 19:36 Last Admin: 03/02/21 20:19 Dose: Not Given Documented by: - Exam Quality Assessment: Supplemental Oxygen, DVT Prophylaxis General: Alert, Oriented, Cooperative, Moderate Distress Lungs: Clear to Auscultation, Normal Respiratory Effort, Crackles. No: Rales, Rhonchi, Wheezing Cardiovascular: Regular Rate, Regular Rhythm, No Murmurs GI/Abdominal Exam: Soft, Non-Tender, No Organomegaly Extremities: Non-Tender, No Pedal Edema - Patient Data Lab Results Last 24 hrs: Laboratory Results - last 24 hr 03/07/21 03/07/21 03/07/21 Range/Units 05:55 06:00 06:00 WBC 10.4 (4.5-11.0) K/uL RBC 3.82 (3.30-5.50) M/uL Hgb 11.9 L (12.0-15.0) g/dL Hct 35.0 L (36.0-48.0) % MCV 92 (80-98) fL MCH 31 (27-31) pg MCHC 34 (32-36) % Plt Count 351 (150-400) K/uL Neut % (Auto) 87.9 H (36-66) % Lymph % (Auto) 5.7 L (24-44) % [place] % (Auto) 6.3 H (2-6) % Eos % (Auto) 0.0 L (2-4) % Baso % (Auto) 0.1 (0-1) % D-Dimer, Quantitative 4330.62 H (0.0-500.0) ng/mL Sodium 137 L (140-148) mmol/L Potassium 4.8 (3.6-5.2) mmol/L Chloride 102 (100-108) mmol/L Carbon Dioxide 25 (21-32) mmol/L Anion Gap 14.8 H (5.0-14.0) mmol/L BUN 19 H (7-18) mg/dL Creatinine 0.6 (0.6-1.0) mg/dL Est Cr Clr Drug Dosing 68.02 mL/min Estimated GFR (MDRD) > 60 (>60) Glucose 153 H (74-106) mg/dL Calcium 7.9 L (8.5-10.1) mg/dL Total Bilirubin 0.5 (0.2-1.0) mg/dL AST 32 (15-37) U/L ALT 80 H (12-78) U/L Alkaline Phosphatase 270 H (46-116) U/L C-Reactive Protein (0.0-0.3) mg/dL Total Protein 5.3 L (6.4-8.2) g/dL Albumin 2.2 L (3.4-5.0) g/dL Globulin 3.1 (2.3-3.5) g/dL Albumin/Globulin Ratio 0.7 L (1.2-2.2) 03/07/21 Range/Units 06:00 WBC (4.5-11.0) K/uL RBC (3.30-5.50) M/uL Hgb (12.0-15.0) g/dL Hct (36.0-48.0) % MCV (80-98) fL MCH (27-31) pg MCHC (32-36) % Plt Count (150-400) K/uL Neut % (Auto) (36-66) % Lymph % (Auto) (24-44) % [place] % (Auto) (2-6) % Eos % (Auto) (2-4) % Baso % (Auto) (0-1) % D-Dimer, Quantitative (0.0-500.0) ng/mL Sodium (140-148) mmol/L Potassium (3.6-5.2) mmol/L Chloride (100-108) mmol/L Carbon Dioxide (21-32) mmol/L Anion Gap (5.0-14.0) mmol/L BUN (7-18) mg/dL Creatinine (0.6-1.0) mg/dL Est Cr Clr Drug Dosing mL/min Estimated GFR (MDRD) (>60) Glucose (74-106) mg/dL Calcium (8.5-10.1) mg/dL Total Bilirubin (0.2-1.0) mg/dL AST (15-37) U/L ALT (12-78) U/L Alkaline Phosphatase (46-116) U/L C-Reactive Protein 1.19 H (0.0-0.3) mg/dL Total Protein (6.4-8.2) g/dL Albumin (3.4-5.0) g/dL Globulin (2.3-3.5) g/dL Albumin/Globulin Ratio (1.2-2.2) Result Diagrams: 03/07/21 06:00 03/07/21 06:00 Darren Results Last 24 hrs: Microbiology 03/02/21 20:34 Aerobic Blood Culture - Preliminary Blood - Arm, Left NO GROWTH AFTER 4 DAYS Anaerobic Blood Culture - Preliminary NO GROWTH AFTER 4 DAYS Sepsis Event Note - Evaluation Sepsis Screening Result: Sepsis Risk - Focused Exam Vital Signs: Vital Signs Temp Temp Pulse Pulse Resp BP BP 03/07/21 14:13 96.8 F L 99 20 128/83 03/07/21 13:12 03/07/21 12:00 97.7 F 76 26 H 03/07/21 09:39 120 H 127/84 03/07/21 08:40 98.5 F 109 H 28 H 03/07/21 07:10 BP Pulse Ox 03/07/21 14:13 96 03/07/21 13:12 93 L 03/07/21 12:00 113/72 93 L 03/07/21 09:39 03/07/21 08:40 127/84 94 L 03/07/21 07:10 97 - Problem List Review Problem List Initiated/Reviewed/Updated: Yes - Plan Plan:: ASSESSMENT AND PLAN - COVID-19 pneumonia-complicated by severe acute respiratory failure. Not vaccinated. Symptom onset 02/21. Improvement in oxygenation over the last 24 hours and tolerating decreased level of supplemental oxygen. -Dexamethasone 6 mg daily (day 6) -Remdesivir x5 days, completed -Baricitinib 4 mg p.o. daily, today is day 5 of 14 -Enoxaparin -Supplement oxygen as needed, wean as able -albuterol inhaler 2 puffs every 2 to 4 hours -Symptomatic management of cough -Goal of negative fluid balance each day -Isolation precautions Hyponatremia-improved Paroxysmal atrial fibrillation -A. fib responded well to diltiazem. -Metoprolol 25 mg po daily -Diltiazem 30 mg p.o. every 6 hours Maintenance issues - - DVT prophylaxis - Lovenox 40 mg daily - GI prophylaxis -PPI - Nutrition -regular Disposition -I would anticipate discharge home
[2021-03-07] MEDS: Melatonin 3 MG Tab PO PRN (20:26)
[2021-03-07] MEDS: Enoxaparin 40 MG/0.4 ML Syringe SUBCUT SCH (20:26)
[2021-03-07] MEDS: Dexamethasone 4 MG/ML SDV IVPUSH SCH (20:27)
[2021-03-08] MEDS: Diltiazem IR 30 MG Tab PO SCH ×3 (01:37→15:59)
[2021-03-08] MEDS: Acetaminophen 325 MG Tab PO PRN ×3 (03:46→21:22)
[2021-03-08] MEDS: Ondansetron 4 MG Tab.DIS PO PRN (05:16)
[2021-03-08] MEDS: Pantoprazole 40 MG Tab.CR PO SCH (07:51)
[2021-03-08] MEDS: Ascorbic Acid 500 MG Tab PO SCH (08:25)
[2021-03-08] MEDS: Metoprolol Succinate 25 MG Tab.ER PO SCH (08:25)
[2021-03-08] MEDS: Cholecalciferol (Vitamin D3) 25 MCG Tab PO SCH (08:25)
[2021-03-08] MEDS: Magnesium Oxide 400 MG Tab PO SCH (08:26)
[2021-03-08] MEDS: SELENIUM 200 MCG PO SCH (08:26)
--- NOTE | 2021-03-08 15:02 | PCM.PN ---
- General Info Date of Service: 03/08/21 Subjective Update: Ms. Powers needs further improvement over the last 24 hours. Oxygen requirements continue to slowly decrease and she is now down to 40% FiO2. Overall strength a nd appetite seem to be improving. Functional Status: Reports: Tolerating Diet, Ambulating, Urinating - Review of Systems General: Reports: Weakness, Fatigue. Denies: Fever, Chills Pulmonary: Reports: Shortness of Breath, Cough. Denies: Pleuritic Chest Pain, Sputum, Hemoptysis, Wheezing Cardiovascular: Reports: Dyspnea on Exertion. Denies: Chest Pain, Palpitations, Orthopnea, PND, Edema, Lightheadedness Gastrointestinal: Reports: No Symptoms Genitourinary: Reports: No Symptoms - Patient Data Vitals - Most Recent: Last Vital Signs Temp 97.9 F 03/08/21 11:04 Pulse 82 03/08/21 11:04 Resp 18 03/08/21 11:04 BP 139/98 H 03/08/21 11:04 Pulse Ox 95 03/08/21 13:10 Weight - Most Recent: 185 lb I&O - Last 24 Hours: Intake & Output 03/07/21 03/08/21 03/08/21 22:59 06:59 14:59 Intake Total 300 Balance 300 Darren Results Last 24 Hours: Microbiology 03/02/21 20:34 Aerobic Blood Culture - Final Blood - Arm, Left NO GROWTH AFTER 5 DAYS Anaerobic Blood Culture - Final NO GROWTH AFTER 5 DAYS Med Orders - Current: Current Medications Acetaminophen (Acetaminophen 325 Mg Tab) 650 mg PO Q4H PRN PRN Reason: Fever Greater Than 101 Last Admin: 03/08/21 07:49 Dose: 650 mg Documented by: Albuterol (Albuterol 8 Gm Inhaler) 0 gm INH Q2H PRN PRN Reason: Dyspnea Ascorbic Acid (Ascorbic Acid 500 Mg Tab) 500 mg PO DAILY [facility] Last Admin: 03/08/21 08:25 Dose: 500 mg Documented by: Baricitinib (Baricitinib 2 Mg Tab) 4 mg PO DAILY [facility] Stop: 03/16/21 09:01 Last Admin: 03/08/21 08:25 Dose: 4 mg Documented by: Benzonatate (Benzonatate 100 Mg Cap) 100 mg PO Q8H PRN PRN Reason: Cough Last Admin: 03/07/21 20:26 Dose: 100 mg Documented by: Cholecalciferol (Cholecalciferol (Vitamin D3) 25 Mcg Tab) 25 mcg PO DAILY [facility] Last Admin: 03/08/21 08:25 Dose: 25 mcg Documented by: Dexamethasone (Dexamethasone 4 Mg/Ml Sdv) 6 mg IVPUSH BEDTIME [facility] Stop: 03/11/21 21:01 Last Admin: 03/07/21 20:27 Dose: 6 mg Documented by: Diltiazem HCl (Diltiazem 180 Mg Cap.Cd) 180 mg PO DAILY [facility] Docusate Sodium (Docusate Sodium 100 Mg Cap) 100 mg PO BID PRN PRN Reason: Constipation Enoxaparin Sodium (Enoxaparin 40 Mg/0.4 Ml Syringe) 40 mg SUBCUT BEDTIME [facility] Last Admin: 03/07/21 20:26 Dose: 40 mg Documented by: Guaifenesin (Guaifenesin 100 Mg/5 Ml Soln Ml (118 Ml Bottle)) 200 mg PO Q4H PRN PRN Reason: Cough Last Admin: 03/04/21 18:15 Dose: 100 mg Documented by: Guaifenesin/Codeine Phosphate (Codeine/Guaifenesin 10-100 Mg/5 Ml Syrup 5 Ml Cup) 10 ml PO Q6H PRN PRN Reason: Cough Last Admin: 03/05/21 21:42 Dose: 10 ml Documented by: Lorazepam (Lorazepam 2 Mg/Ml Sdv) 1 mg IV Q6H PRN PRN Reason: Nausea/Vomiting Lorazepam (Lorazepam 0.5 Mg Tab) 0.5 mg PO Q4H PRN PRN Reason: Anxiety Last Admin: 03/03/21 17:54 Dose: 0.5 mg Documented by: Magnesium Oxide (Magnesium Oxide 400 Mg Tab) 400 mg PO DAILY [facility] Last Admin: 03/08/21 08:26 Dose: 400 mg Documented by: Melatonin (Melatonin 3 Mg Tab) 9 mg PO BEDTIME PRN PRN Reason: Insomnia Last Admin: 03/07/21 20:26 Dose: 9 mg Documented by: Metoprolol Succinate (Metoprolol Succinate 25 Mg Tab.Er) 25 mg PO DAILY [facility] Last Admin: 03/08/21 08:25 Dose: 25 mg Documented by: Morphine Sulfate (Morphine 2 Mg/Ml Syringe) 2 mg IVPUSH Q2H PRN PRN Reason: Pain (severe 7-10) Ondansetron HCl (Ondansetron 4 Mg Tab.Dis) 4 mg PO Q6H PRN PRN Reason: Nausea able to take PO Last Admin: 03/08/21 05:16 Dose: 4 mg Documented by: Ondansetron HCl (Ondansetron 4 Mg/2 Ml Sdv) 4 mg IV Q4H PRN PRN Reason: Nausea/Vomiting Last Admin: 03/03/21 10:08 Dose: 4 mg Documented by: Oxycodone HCl (Oxycodone 5 Mg Tab) 5 mg PO Q4H PRN PRN Reason: Pain (moderate 4-6) Pantoprazole Sodium (Pantoprazole 40 Mg Tab.Cr) 40 mg PO ACBREAKFAST [facility] Last Admin: 03/08/21 07:51 Dose: 40 mg Documented by: Patient's Own Medication Selenium 200 Mcg 0 each PO DAILY [facility] Last Admin: 03/08/21 08:26 Dose: 1 each Documented by: Sodium Chloride (Sodium Chloride 0.9% 10 Ml Syringe) 10 ml FLUSH ASDIRECTED PRN PRN Reason: Keep Vein Open Last Admin: 03/02/21 20:32 Dose: 10 ml Documented by: Discontinued Medications Albuterol/Ipratropium (Albuterol/Ipratropium 4 Gm Inhalation [place]) 0 gm INH Q4H PRN PRN Reason: Dyspnea Albuterol/Ipratropium (Albuterol/Ipratropium 4 Gm Inhalation [place]) 0 gm INH QIDRT [facility] Last Admin: 03/04/21 11:08 Dose: Not Given Documented by: Dexamethasone (Dexamethasone 4 Mg/Ml Sdv) 6 mg IVPUSH DAILY [facility] Stop: 03/11/21 09:01 Last Admin: 03/02/21 20:30 Dose: 6 mg Documented by: Digoxin (Digoxin 125 Mcg Tab) 250 mcg PO ONETIME ONE Stop: 03/03/21 00:35 Last Admin: 03/03/21 01:09 Dose: 250 mcg Documented by: Diltiazem HCl (Diltiazem Ir 30 Mg Tab) 60 mg PO Q6HR [facility] Last Admin: 03/04/21 05:04 Dose: Not Given Documented by: Diltiazem HCl (Diltiazem Ir 30 Mg Tab) 60 mg PO ONETIME ONE Stop: 03/06/21 00:49 Last Admin: 03/06/21 01:07 Dose: 60 mg Documented by: Diltiazem HCl (Diltiazem Ir 30 Mg Tab) 30 mg PO Q6HR [facility] Diltiazem HCl (Diltiazem Ir 30 Mg Tab) 30 mg PO Q6H [facility] Last Admin: 03/08/21 07:51 Dose: 30 mg Documented by: Enoxaparin Sodium (Enoxaparin 40 Mg/0.4 Ml Syringe) 40 mg SUBCUT DAILY [facility] Last Admin: 03/02/21 23:08 Dose: 40 mg Documented by: Guaifenesin (Guaifenesin 100 Mg/5 Ml Soln Ml (118 Ml Bottle)) 200 mg PO Q4H PRN PRN Reason: Cough Sodium Chloride (Normal Saline) 1,000 mls @ 150 mls/hr IV ASDIRECTED [facility] Last Admin: 03/02/21 20:28 Dose: 150 mls/hr Documented by: Remdesivir 200 mg/ Sodium (Chloride) 250 mls @ 250 mls/hr IV ONETIME ONE Stop: 03/02/21 20:05 Last Admin: 03/02/21 23:05 Dose: 250 mls/hr Documented by: Sodium Chloride (Normal Saline) 1,000 mls @ 125 mls/hr IV ASDIRECTED [facility] Last Admin: 03/03/21 05:44 Dose: 125 mls/hr Documented by: Remdesivir 100 mg/ Sodium (Chloride) 100 mls @ 100 mls/hr IV Q24H [facility] Stop: 03/06/21 21:59 Last Admin: 03/06/21 20:36 Dose: 100 mls/hr Documented by: Sodium Chloride (Sodium Chloride 3%) 500 mls @ 100 mls/hr IV ASDIRECTED [facility] Stop: 03/03/21 00:01 Last Admin: 03/03/21 00:41 Dose: 100 mls/hr Documented by: Sodium Chloride (Sodium Chloride 3%) 100 mls @ 100 mls/hr IV ASDIRECTED [facility] Stop: 03/03/21 12:01 Last Admin: 03/03/21 11:16 Dose: 100 mls/hr Documented by: Magnesium Sulfate 2 gm/ Premix 50 mls @ 25 mls/hr IV Q6H [facility] Stop: 03/03/21 20:59 Last Admin: 03/03/21 19:43 Dose: 25 mls/hr Documented by: Non-Formulary Medication (Magnesium Oxide [Magnesium]) 1,000 mg PO DAILY [facility] Non-Formulary Medication (Melatonin [Melatonin]) 10 mg PO ASDIRECTED PRN PRN Reason: Insomnia Ondansetron HCl (Ondansetron 4 Mg Tab.Dis) 4 mg PO ONETIME ONE Stop: 03/02/21 19:34 Last Admin: 03/02/21 19:51 Dose: 4 mg Documented by: Ondansetron HCl (Ondansetron 4 Mg Tab.Dis) Confirm Administered Dose 4 mg .ROUTE .STK-MED ONE Stop: 03/02/21 19:36 Last Admin: 03/02/21 20:19 Dose: Not Given Documented by: - Exam Quality Assessment: Supplemental Oxygen, DVT Prophylaxis General: Alert, Oriented, Cooperative, Moderate Distress Lungs: Crackles. No: Rales, Rhonchi, Wheezing Cardiovascular: Regular Rate, No Murmurs, Irregular Rhythm GI/Abdominal Exam: Soft, Non-Tender, No Organomegaly, No Distention Extremities: Non-Tender, No Pedal Edema - Patient Data Result Diagrams: 03/07/21 06:00 03/07/21 06:00 Darren Results Last 24 hrs: Microbiology 03/02/21 20:34 Aerobic Blood Culture - Final Blood - Arm, Left NO GROWTH AFTER 5 DAYS Anaerobic Blood Culture - Final NO GROWTH AFTER 5 DAYS Sepsis Event Note - Evaluation Sepsis Screening Result: No Definite Risk - Focused Exam Vital Signs: Vital Signs Temp Pulse Pulse Resp BP BP Pulse Ox 03/08/21 13:10 95 03/08/21 11:04 97.9 F 82 18 139/98 H 94 L 03/08/21 08:25 113 H 130/80 03/08/21 07:44 98.5 F 113 H 20 133/80 93 L 03/08/21 07:28 95 03/08/21 03:06 97.8 F 126 H 20 155/61 H 88 L - Problem List Review Problem List Initiated/Reviewed/Updated: Yes - My Orders Last 24 Hours: My Active Orders 03/08/21 15:00 Diltiazem [Cardizem CD] 180 mg PO DAILY 03/09/21 05:00 CBC WITH AUTO DIFF [HEME] Timed COMPREHENSIVE METABOLIC PN,CMP [CHEM] Timed 03/09/21 05:11 CRP [C-REACTIVE PROTEIN] [CHEM] AM D Dimer [D-DIMER QUANTITATIVE] [COAG] AM - Plan Plan:: ASSESSMENT AND PLAN - COVID-19 pneumonia-complicated by severe acute respiratory failure. Not vaccinated. Symptom onset 02/21. Improvement in oxygenation over the last 24 hours and tolerating decreased level of supplemental oxygen. -Dexamethasone 6 mg daily (day 7) -Remdesivir x5 days, completed -Baricitinib 4 mg p.o. daily, today is day 6 of 14 -Enoxaparin -Supplement oxygen as needed, wean as able -albuterol inhaler 2 puffs every 2 to 4 hours -Symptomatic management of cough -Goal of negative fluid balance each day -Isolation precautions Hyponatremia-improved Paroxysmal atrial fibrillation -AElmer wise responded well to diltiazem. She continues to experience some increase in heart rate related to activity. We will convert to long-acting diltiazem and increase total daily dose to 180 mg. -Metoprolol 25 mg po daily -Diltiazem CD 180 mg daily Maintenance issues - - DVT prophylaxis - Lovenox 40 mg daily - GI prophylaxis -PPI - Nutrition -regular Disposition -I would anticipate discharge home
[2021-03-08] MEDS: Diltiazem 180 MG Cap.CD PO SCH (15:50)
[2021-03-08] MEDS: Enoxaparin 40 MG/0.4 ML Syringe SUBCUT SCH (21:16)
[2021-03-08] MEDS: Dexamethasone 4 MG/ML SDV IVPUSH SCH (21:16)
[2021-03-09] MEDS: Pantoprazole 40 MG Tab.CR PO SCH (07:22)
[2021-03-09] MEDS: Metoprolol Succinate 25 MG Tab.ER PO SCH (08:12)
[2021-03-09] MEDS: SELENIUM 200 MCG PO SCH (08:12)
[2021-03-09] MEDS: Magnesium Oxide 400 MG Tab PO SCH (08:12)
[2021-03-09] MEDS: Diltiazem 180 MG Cap.CD PO SCH (08:12)
[2021-03-09] MEDS: Ascorbic Acid 500 MG Tab PO SCH (08:13)
[2021-03-09] MEDS: Cholecalciferol (Vitamin D3) 25 MCG Tab PO SCH (08:13)
[2021-03-09] MEDS: Docusate Sodium 100 MG Cap PO PRN (08:21)
--- NOTE | 2021-03-09 12:10 | PCM.PN ---
- General Info Date of Service: 03/09/21 Subjective Update: Ms. Powers has remained stable and shown further improvement in oxygenation since yesterday. She now is on a nasal cannula at 5 L/min. Overall appetite and ener gy continue to slowly improve. Functional Status: Reports: Tolerating Diet, Ambulating, Urinating - Review of Systems General: Reports: Weakness, Fatigue. Denies: Fever, Chills Pulmonary: Reports: Shortness of Breath, Cough. Denies: Pleuritic Chest Pain, Sputum, Hemoptysis, Wheezing Cardiovascular: Reports: Dyspnea on Exertion. Denies: Chest Pain, Palpitations, Orthopnea, PND, Edema, Lightheadedness Gastrointestinal: Reports: No Symptoms Genitourinary: Reports: No Symptoms - Patient Data Vitals - Most Recent: Last Vital Signs Temp 98.5 F 03/09/21 12:04 Pulse 97 03/09/21 12:04 Resp 18 03/09/21 12:04 BP 123/72 03/09/21 12:04 Pulse Ox 95 03/09/21 12:04 Weight - Most Recent: 185 lb I&O - Last 24 Hours: Intake & Output 03/08/21 03/09/21 03/09/21 22:59 06:59 14:59 Intake Total 500 Balance 500 Lab Results Last 24 Hours: Laboratory Results - last 24 hr 03/09/21 03/09/21 03/09/21 Range/Units 05:35 05:35 05:35 WBC 10.9 (4.5-11.0) K/uL RBC 4.15 (3.30-5.50) M/uL Hgb 12.8 (12.0-15.0) g/dL Hct 38.2 (36.0-48.0) % MCV 92 (80-98) fL MCH 31 (27-31) pg MCHC 34 (32-36) % Plt Count 416 H (150-400) K/uL Neut % (Auto) 90.4 H (36-66) % Lymph % (Auto) 5.1 L (24-44) % [place] % (Auto) 4.4 (2-6) % Eos % (Auto) 0.0 L (2-4) % Baso % (Auto) 0.1 (0-1) % D-Dimer, Quantitative (0.0-500.0) ng/mL Sodium 137 L (140-148) mmol/L Potassium 4.9 (3.6-5.2) mmol/L Chloride 102 (100-108) mmol/L Carbon Dioxide 28 (21-32) mmol/L Anion Gap 11.9 (5.0-14.0) mmol/L BUN 17 (7-18) mg/dL Creatinine 0.7 (0.6-1.0) mg/dL Est Cr Clr Drug Dosing 58.30 mL/min Estimated GFR (MDRD) > 60 (>60) Glucose 162 H (74-106) mg/dL Calcium 8.6 (8.5-10.1) mg/dL Total Bilirubin 0.5 (0.2-1.0) mg/dL AST 27 (15-37) U/L ALT 69 (12-78) U/L Alkaline Phosphatase 242 H (46-116) U/L C-Reactive Protein 0.74 H (0.0-0.3) mg/dL Total Protein 6.3 L (6.4-8.2) g/dL Albumin 2.5 L (3.4-5.0) g/dL Globulin 3.8 H (2.3-3.5) g/dL Albumin/Globulin Ratio 0.7 L (1.2-2.2) 03/09/21 Range/Units 05:45 WBC (4.5-11.0) K/uL RBC (3.30-5.50) M/uL Hgb (12.0-15.0) g/dL Hct (36.0-48.0) % MCV (80-98) fL MCH (27-31) pg MCHC (32-36) % Plt Count (150-400) K/uL Neut % (Auto) (36-66) % Lymph % (Auto) (24-44) % [place] % (Auto) (2-6) % Eos % (Auto) (2-4) % Baso % (Auto) (0-1) % D-Dimer, Quantitative 3879.94 H (0.0-500.0) ng/mL Sodium (140-148) mmol/L Potassium (3.6-5.2) mmol/L Chloride (100-108) mmol/L Carbon Dioxide (21-32) mmol/L Anion Gap (5.0-14.0) mmol/L BUN (7-18) mg/dL Creatinine (0.6-1.0) mg/dL Est Cr Clr Drug Dosing mL/min Estimated GFR (MDRD) (>60) Glucose (74-106) mg/dL Calcium (8.5-10.1) mg/dL Total Bilirubin (0.2-1.0) mg/dL AST (15-37) U/L ALT (12-78) U/L Alkaline Phosphatase (46-116) U/L C-Reactive Protein (0.0-0.3) mg/dL Total Protein (6.4-8.2) g/dL Albumin (3.4-5.0) g/dL Globulin (2.3-3.5) g/dL Albumin/Globulin Ratio (1.2-2.2) Med Orders - Current: Current Medications Acetaminophen (Acetaminophen 325 Mg Tab) 650 mg PO Q4H PRN PRN Reason: Fever Greater Than 101 Last Admin: 03/08/21 21:22 Dose: 650 mg Documented by: Albuterol (Albuterol 8 Gm Inhaler) 0 gm INH Q2H PRN PRN Reason: Dyspnea Ascorbic Acid (Ascorbic Acid 500 Mg Tab) 500 mg PO DAILY [facility] Last Admin: 03/09/21 08:13 Dose: 500 mg Documented by: Baricitinib (Baricitinib 2 Mg Tab) 4 mg PO DAILY [facility] Stop: 03/16/21 09:01 Last Admin: 03/09/21 08:12 Dose: 4 mg Documented by: Benzonatate (Benzonatate 100 Mg Cap) 100 mg PO Q8H PRN PRN Reason: Cough Last Admin: 03/07/21 20:26 Dose: 100 mg Documented by: Cholecalciferol (Cholecalciferol (Vitamin D3) 25 Mcg Tab) 25 mcg PO DAILY [facility] Last Admin: 03/09/21 08:13 Dose: 25 mcg Documented by: Dexamethasone (Dexamethasone 4 Mg/Ml Sdv) 6 mg IVPUSH BEDTIME [facility] Stop: 03/11/21 21:01 Last Admin: 03/08/21 21:16 Dose: 6 mg Documented by: Diltiazem HCl (Diltiazem 180 Mg Cap.Cd) 180 mg PO DAILY [facility] Last Admin: 03/09/21 08:12 Dose: 180 mg Documented by: Docusate Sodium (Docusate Sodium 100 Mg Cap) 100 mg PO BID PRN PRN Reason: Constipation Last Admin: 03/09/21 08:21 Dose: 100 mg Documented by: Enoxaparin Sodium (Enoxaparin 40 Mg/0.4 Ml Syringe) 40 mg SUBCUT BEDTIME [facility] Last Admin: 03/08/21 21:16 Dose: 40 mg Documented by: Guaifenesin (Guaifenesin 100 Mg/5 Ml Soln Ml (118 Ml Bottle)) 200 mg PO Q4H PRN PRN Reason: Cough Last Admin: 03/04/21 18:15 Dose: 100 mg Documented by: Guaifenesin/Codeine Phosphate (Codeine/Guaifenesin 10-100 Mg/5 Ml Syrup 5 Ml Cup) 10 ml PO Q6H PRN PRN Reason: Cough Last Admin: 03/05/21 21:42 Dose: 10 ml Documented by: Lorazepam (Lorazepam 2 Mg/Ml Sdv) 1 mg IV Q6H PRN PRN Reason: Nausea/Vomiting Lorazepam (Lorazepam 0.5 Mg Tab) 0.5 mg PO Q4H PRN PRN Reason: Anxiety Last Admin: 03/03/21 17:54 Dose: 0.5 mg Documented by: Magnesium Oxide (Magnesium Oxide 400 Mg Tab) 400 mg PO DAILY [facility] Last Admin: 03/09/21 08:12 Dose: 400 mg Documented by: Melatonin (Melatonin 3 Mg Tab) 9 mg PO BEDTIME PRN PRN Reason: Insomnia Last Admin: 03/07/21 20:26 Dose: 9 mg Documented by: Metoprolol Succinate (Metoprolol Succinate 25 Mg Tab.Er) 25 mg PO DAILY [facility] Last Admin: 03/09/21 08:12 Dose: 25 mg Documented by: Morphine Sulfate (Morphine 2 Mg/Ml Syringe) 2 mg IVPUSH Q2H PRN PRN Reason: Pain (severe 7-10) Ondansetron HCl (Ondansetron 4 Mg Tab.Dis) 4 mg PO Q6H PRN PRN Reason: Nausea able to take PO Last Admin: 03/08/21 05:16 Dose: 4 mg Documented by: Ondansetron HCl (Ondansetron 4 Mg/2 Ml Sdv) 4 mg IV Q4H PRN PRN Reason: Nausea/Vomiting Last Admin: 03/03/21 10:08 Dose: 4 mg Documented by: Oxycodone HCl (Oxycodone 5 Mg Tab) 5 mg PO Q4H PRN PRN Reason: Pain (moderate 4-6) Pantoprazole Sodium (Pantoprazole 40 Mg Tab.Cr) 40 mg PO ACBREAKFAST [facility] Last Admin: 03/09/21 07:22 Dose: 40 mg Documented by: Patient's Own Medication Selenium 200 Mcg 0 each PO DAILY [facility] Last Admin: 03/09/21 08:12 Dose: 2 each Documented by: Sodium Chloride (Sodium Chloride 0.9% 10 Ml Syringe) 10 ml FLUSH ASDIRECTED PRN PRN Reason: Keep Vein Open Last Admin: 03/02/21 20:32 Dose: 10 ml Documented by: Discontinued Medications Albuterol/Ipratropium (Albuterol/Ipratropium 4 Gm Inhalation [place]) 0 gm INH Q4H PRN PRN Reason: Dyspnea Albuterol/Ipratropium (Albuterol/Ipratropium 4 Gm Inhalation [place]) 0 gm INH QIDRT [facility] Last Admin: 03/04/21 11:08 Dose: Not Given Documented by: Dexamethasone (Dexamethasone 4 Mg/Ml Sdv) 6 mg IVPUSH DAILY [facility] Stop: 03/11/21 09:01 Last Admin: 03/02/21 20:30 Dose: 6 mg Documented by: Digoxin (Digoxin 125 Mcg Tab) 250 mcg PO ONETIME ONE Stop: 03/03/21 00:35 Last Admin: 03/03/21 01:09 Dose: 250 mcg Documented by: Diltiazem HCl (Diltiazem Ir 30 Mg Tab) 60 mg PO Q6HR [facility] Last Admin: 03/04/21 05:04 Dose: Not Given Documented by: Diltiazem HCl (Diltiazem Ir 30 Mg Tab) 60 mg PO ONETIME ONE Stop: 03/06/21 00:49 Last Admin: 03/06/21 01:07 Dose: 60 mg Documented by: Diltiazem HCl (Diltiazem Ir 30 Mg Tab) 30 mg PO Q6HR [facility] Diltiazem HCl (Diltiazem Ir 30 Mg Tab) 30 mg PO Q6H [facility] Last Admin: 03/08/21 15:59 Dose: Not Given Documented by: Enoxaparin Sodium (Enoxaparin 40 Mg/0.4 Ml Syringe) 40 mg SUBCUT DAILY [facility] Last Admin: 03/02/21 23:08 Dose: 40 mg Documented by: Guaifenesin (Guaifenesin 100 Mg/5 Ml Soln Ml (118 Ml Bottle)) 200 mg PO Q4H PRN PRN Reason: Cough Sodium Chloride (Normal Saline) 1,000 mls @ 150 mls/hr IV ASDIRECTED [facility] Last Admin: 03/02/21 20:28 Dose: 150 mls/hr Documented by: Remdesivir 200 mg/ Sodium (Chloride) 250 mls @ 250 mls/hr IV ONETIME ONE Stop: 03/02/21 20:05 Last Admin: 03/02/21 23:05 Dose: 250 mls/hr Documented by: Sodium Chloride (Normal Saline) 1,000 mls @ 125 mls/hr IV ASDIRECTED [facility] Last Admin: 03/03/21 05:44 Dose: 125 mls/hr Documented by: Remdesivir 100 mg/ Sodium (Chloride) 100 mls @ 100 mls/hr IV Q24H [facility] Stop: 03/06/21 21:59 Last Admin: 03/06/21 20:36 Dose: 100 mls/hr Documented by: Sodium Chloride (Sodium Chloride 3%) 500 mls @ 100 mls/hr IV ASDIRECTED [facility] Stop: 03/03/21 00:01 Last Admin: 03/03/21 00:41 Dose: 100 mls/hr Documented by: Sodium Chloride (Sodium Chloride 3%) 100 mls @ 100 mls/hr IV ASDIRECTED [facility] Stop: 03/03/21 12:01 Last Admin: 03/03/21 11:16 Dose: 100 mls/hr Documented by: Magnesium Sulfate 2 gm/ Premix 50 mls @ 25 mls/hr IV Q6H [facility] Stop: 03/03/21 20:59 Last Admin: 03/03/21 19:43 Dose: 25 mls/hr Documented by: Non-Formulary Medication (Magnesium Oxide [Magnesium]) 1,000 mg PO DAILY [facility] Non-Formulary Medication (Melatonin [Melatonin]) 10 mg PO ASDIRECTED PRN PRN Reason: Insomnia Ondansetron HCl (Ondansetron 4 Mg Tab.Dis) 4 mg PO ONETIME ONE Stop: 03/02/21 19:34 Last Admin: 03/02/21 19:51 Dose: 4 mg Documented by: Ondansetron HCl (Ondansetron 4 Mg Tab.Dis) Confirm Administered Dose 4 mg .ROUTE .STK-MED ONE Stop: 03/02/21 19:36 Last Admin: 03/02/21 20:19 Dose: Not Given Documented by: - Exam Quality Assessment: Supplemental Oxygen, DVT Prophylaxis General: Alert, Oriented, Cooperative, Mild Distress Lungs: Clear to Auscultation, Normal Respiratory Effort. No: Crackles, Rales, Rhonchi, Wheezing Cardiovascular: Regular Rate, No Murmurs, Irregular Rhythm GI/Abdominal Exam: Soft, Non-Tender, No Organomegaly, No Distention Extremities: Non-Tender, No Pedal Edema - Patient Data Lab Results Last 24 hrs: Laboratory Results - last 24 hr 03/09/21 03/09/21 03/09/21 Range/Units 05:35 05:35 05:35 WBC 10.9 (4.5-11.0) K/uL RBC 4.15 (3.30-5.50) M/uL Hgb 12.8 (12.0-15.0) g/dL Hct 38.2 (36.0-48.0) % MCV 92 (80-98) fL MCH 31 (27-31) pg MCHC 34 (32-36) % Plt Count 416 H (150-400) K/uL Neut % (Auto) 90.4 H (36-66) % Lymph % (Auto) 5.1 L (24-44) % [place] % (Auto) 4.4 (2-6) % Eos % (Auto) 0.0 L (2-4) % Baso % (Auto) 0.1 (0-1) % D-Dimer, Quantitative (0.0-500.0) ng/mL Sodium 137 L (140-148) mmol/L Potassium 4.9 (3.6-5.2) mmol/L Chloride 102 (100-108) mmol/L Carbon Dioxide 28 (21-32) mmol/L Anion Gap 11.9 (5.0-14.0) mmol/L BUN 17 (7-18) mg/dL Creatinine 0.7 (0.6-1.0) mg/dL Est Cr Clr Drug Dosing 58.30 mL/min Estimated GFR (MDRD) > 60 (>60) Glucose 162 H (74-106) mg/dL Calcium 8.6 (8.5-10.1) mg/dL Total Bilirubin 0.5 (0.2-1.0) mg/dL AST 27 (15-37) U/L ALT 69 (12-78) U/L Alkaline Phosphatase 242 H (46-116) U/L C-Reactive Protein 0.74 H (0.0-0.3) mg/dL Total Protein 6.3 L (6.4-8.2) g/dL Albumin 2.5 L (3.4-5.0) g/dL Globulin 3.8 H (2.3-3.5) g/dL Albumin/Globulin Ratio 0.7 L (1.2-2.2) 03/09/21 Range/Units 05:45 WBC (4.5-11.0) K/uL RBC (3.30-5.50) M/uL Hgb (12.0-15.0) g/dL Hct (36.0-48.0) % MCV (80-98) fL MCH (27-31) pg MCHC (32-36) % Plt Count (150-400) K/uL Neut % (Auto) (36-66) % Lymph % (Auto) (24-44) % [place] % (Auto) (2-6) % Eos % (Auto) (2-4) % Baso % (Auto) (0-1) % D-Dimer, Quantitative 3879.94 H (0.0-500.0) ng/mL Sodium (140-148) mmol/L Potassium (3.6-5.2) mmol/L Chloride (100-108) mmol/L Carbon Dioxide (21-32) mmol/L Anion Gap (5.0-14.0) mmol/L BUN (7-18) mg/dL Creatinine (0.6-1.0) mg/dL Est Cr Clr Drug Dosing mL/min Estimated GFR (MDRD) (>60) Glucose (74-106) mg/dL Calcium (8.5-10.1) mg/dL Total Bilirubin (0.2-1.0) mg/dL AST (15-37) U/L ALT (12-78) U/L Alkaline Phosphatase (46-116) U/L C-Reactive Protein (0.0-0.3) mg/dL Total Protein (6.4-8.2) g/dL Albumin (3.4-5.0) g/dL Globulin (2.3-3.5) g/dL Albumin/Globulin Ratio (1.2-2.2) Result Diagrams: 03/09/21 05:35 03/09/21 05:35 Sepsis Event Note - Evaluation Sepsis Screening Result: No Definite Risk - Focused Exam Vital Signs: Vital Signs Temp Temp Pulse Pulse Resp BP BP 03/09/21 12:04 98.5 F 97 18 03/09/21 12:00 03/09/21 10:45 03/09/21 08:12 102 H 109/94 H 03/09/21 07:23 98.4 F 102 H 18 03/09/21 07:18 03/09/21 03:00 97.1 F 94 16 120/90 03/09/21 01:10 BP Pulse Ox 03/09/21 12:04 123/72 95 03/09/21 12:00 95 03/09/21 10:45 96 03/09/21 08:12 03/09/21 07:23 109/94 H 91 L 03/09/21 07:18 94 L 03/09/21 03:00 95 03/09/21 01:10 95 - Problem List Review Problem List Initiated/Reviewed/Updated: Yes - My Orders Last 24 Hours: My Active Orders 03/08/21 15:00 Diltiazem [Cardizem CD] 180 mg PO DAILY - Plan Plan:: ASSESSMENT AND PLAN - COVID-19 pneumonia-complicated by severe acute respiratory failure. Not vaccinated. Symptom onset 02/21. Improvement in oxygenation over the last 24 hours and tolerating decreased level of supplemental oxygen, now on 5 L of oxygen per minute via nasal cannula. -Dexamethasone 6 mg daily (day 8) -Remdesivir x5 days, completed -Baricitinib 4 mg p.o. daily, today is day 7 of 14 -Enoxaparin -Supplement oxygen as needed, wean as able -albuterol inhaler 2 puffs every 2 to 4 hours -Symptomatic management of cough -Isolation precautions Hyponatremia-improved Paroxysmal atrial fibrillation -A. fib responded well to diltiazem. She continues to experience some increase in heart rate related to activity. We will convert to long-acting diltiazem and increase total daily dose to 180 mg. -Metoprolol 25 mg po daily -Diltiazem CD 180 mg daily Maintenance issues - - DVT prophylaxis - Lovenox 40 mg daily - GI prophylaxis -PPI - Nutrition -regular Disposition -I would anticipate discharge home
[2021-03-09] MEDS: Enoxaparin 40 MG/0.4 ML Syringe SUBCUT SCH (21:30)
[2021-03-09] MEDS: Dexamethasone 4 MG/ML SDV IVPUSH SCH (21:30)
[2021-03-10] MEDS: Acetaminophen 325 MG Tab PO PRN (07:52)
[2021-03-10] MEDS: Pantoprazole 40 MG Tab.CR PO SCH (07:53)
[2021-03-10] MEDS: Diltiazem 180 MG Cap.CD PO SCH (08:07)
[2021-03-10] MEDS: Metoprolol Succinate 25 MG Tab.ER PO SCH (08:07)
[2021-03-10] MEDS: Cholecalciferol (Vitamin D3) 25 MCG Tab PO SCH (08:07)
[2021-03-10] MEDS: SELENIUM 200 MCG PO SCH (08:08)
[2021-03-10] MEDS: Ascorbic Acid 500 MG Tab PO SCH (08:08)
[2021-03-10] MEDS: Magnesium Oxide 400 MG Tab PO SCH (08:08)
--- NOTE | 2021-03-10 13:47 | PCM.PN ---
- General Info Date of Service: 03/10/21 Subjective Update: Ms. Powers has shown further improvement since yesterday and now is off of supplemental oxygen while sitting and at rest. Heart rate does increase significantly with activity. Functional Status: Reports: Tolerating Diet, Ambulating, Urinating - Review of Systems General: Reports: Weakness, Fatigue. Denies: Fever, Chills Pulmonary: Reports: Shortness of Breath. Denies: Pleuritic Chest Pain, Cough, Sputum, Hemoptysis, Wheezing Cardiovascular: Reports: Dyspnea on Exertion. Denies: Chest Pain, Palpitations, Orthopnea, PND, Edema, Lightheadedness Gastrointestinal: Reports: No Symptoms Genitourinary: Reports: No Symptoms - Patient Data Vitals - Most Recent: Last Vital Signs Temp 98.4 F 03/10/21 07:15 Pulse 93 03/10/21 12:00 Resp 17 03/10/21 12:00 BP 138/92 H 03/10/21 08:07 Pulse Ox 95 03/10/21 12:26 Weight - Most Recent: 185 lb I&O - Last 24 Hours: Intake & Output 03/09/21 03/10/21 03/10/21 22:59 06:59 14:59 Intake Total 840 720 Balance 840 720 Med Orders - Current: Current Medications Acetaminophen (Acetaminophen 325 Mg Tab) 650 mg PO Q4H PRN PRN Reason: Fever Greater Than 101 Last Admin: 03/10/21 07:52 Dose: 650 mg Documented by: Albuterol (Albuterol 8 Gm Inhaler) 0 gm INH Q2H PRN PRN Reason: Dyspnea Ascorbic Acid (Ascorbic Acid 500 Mg Tab) 500 mg PO DAILY [facility] Last Admin: 03/10/21 08:08 Dose: 500 mg Documented by: Baricitinib (Baricitinib 2 Mg Tab) 4 mg PO DAILY [facility] Stop: 03/16/21 09:01 Last Admin: 03/10/21 08:07 Dose: 4 mg Documented by: Benzonatate (Benzonatate 100 Mg Cap) 100 mg PO Q8H PRN PRN Reason: Cough Last Admin: 03/07/21 20:26 Dose: 100 mg Documented by: Cholecalciferol (Cholecalciferol (Vitamin D3) 25 Mcg Tab) 25 mcg PO DAILY [facility] Last Admin: 03/10/21 08:07 Dose: 25 mcg Documented by: Dexamethasone (Dexamethasone 4 Mg/Ml Sdv) 6 mg IVPUSH BEDTIME [facility] Stop: 03/11/21 21:01 Last Admin: 03/09/21 21:30 Dose: 6 mg Documented by: Diltiazem HCl (Diltiazem 120 Mg Cap.Cd) 240 mg PO DAILY [facility] Docusate Sodium (Docusate Sodium 100 Mg Cap) 100 mg PO BID PRN PRN Reason: Constipation Last Admin: 03/09/21 08:21 Dose: 100 mg Documented by: Enoxaparin Sodium (Enoxaparin 40 Mg/0.4 Ml Syringe) 40 mg SUBCUT BEDTIME [facility] Last Admin: 03/09/21 21:30 Dose: 40 mg Documented by: Guaifenesin (Guaifenesin 100 Mg/5 Ml Soln Ml (118 Ml Bottle)) 200 mg PO Q4H PRN PRN Reason: Cough Last Admin: 03/04/21 18:15 Dose: 100 mg Documented by: Guaifenesin/Codeine Phosphate (Codeine/Guaifenesin 10-100 Mg/5 Ml Syrup 5 Ml Cup) 10 ml PO Q6H PRN PRN Reason: Cough Last Admin: 03/05/21 21:42 Dose: 10 ml Documented by: Lorazepam (Lorazepam 2 Mg/Ml Sdv) 1 mg IV Q6H PRN PRN Reason: Nausea/Vomiting Lorazepam (Lorazepam 0.5 Mg Tab) 0.5 mg PO Q4H PRN PRN Reason: Anxiety Last Admin: 03/03/21 17:54 Dose: 0.5 mg Documented by: Magnesium Oxide (Magnesium Oxide 400 Mg Tab) 400 mg PO DAILY [facility] Last Admin: 03/10/21 08:08 Dose: 400 mg Documented by: Melatonin (Melatonin 3 Mg Tab) 9 mg PO BEDTIME PRN PRN Reason: Insomnia Last Admin: 03/07/21 20:26 Dose: 9 mg Documented by: Metoprolol Succinate (Metoprolol Succinate 25 Mg Tab.Er) 50 mg PO DAILY [facility] Morphine Sulfate (Morphine 2 Mg/Ml Syringe) 2 mg IVPUSH Q2H PRN PRN Reason: Pain (severe 7-10) Ondansetron HCl (Ondansetron 4 Mg Tab.Dis) 4 mg PO Q6H PRN PRN Reason: Nausea able to take PO Last Admin: 03/08/21 05:16 Dose: 4 mg Documented by: Ondansetron HCl (Ondansetron 4 Mg/2 Ml Sdv) 4 mg IV Q4H PRN PRN Reason: Nausea/Vomiting Last Admin: 03/03/21 10:08 Dose: 4 mg Documented by: Oxycodone HCl (Oxycodone 5 Mg Tab) 5 mg PO Q4H PRN PRN Reason: Pain (moderate 4-6) Pantoprazole Sodium (Pantoprazole 40 Mg Tab.Cr) 40 mg PO ACBREAKFAST [facility] Last Admin: 03/10/21 07:53 Dose: 40 mg Documented by: Patient's Own Medication Selenium 200 Mcg 0 each PO DAILY [facility] Last Admin: 03/10/21 08:08 Dose: 1 each Documented by: Sodium Chloride (Sodium Chloride 0.9% 10 Ml Syringe) 10 ml FLUSH ASDIRECTED PRN PRN Reason: Keep Vein Open Last Admin: 03/02/21 20:32 Dose: 10 ml Documented by: Discontinued Medications Albuterol/Ipratropium (Albuterol/Ipratropium 4 Gm Inhalation [place]) 0 gm INH Q4H PRN PRN Reason: Dyspnea Albuterol/Ipratropium (Albuterol/Ipratropium 4 Gm Inhalation [place]) 0 gm INH QIDRT [facility] Last Admin: 03/04/21 11:08 Dose: Not Given Documented by: Dexamethasone (Dexamethasone 4 Mg/Ml Sdv) 6 mg IVPUSH DAILY [facility] Stop: 03/11/21 09:01 Last Admin: 03/02/21 20:30 Dose: 6 mg Documented by: Digoxin (Digoxin 125 Mcg Tab) 250 mcg PO ONETIME ONE Stop: 03/03/21 00:35 Last Admin: 03/03/21 01:09 Dose: 250 mcg Documented by: Diltiazem HCl (Diltiazem Ir 30 Mg Tab) 60 mg PO Q6HR [facility] Last Admin: 03/04/21 05:04 Dose: Not Given Documented by: Diltiazem HCl (Diltiazem Ir 30 Mg Tab) 60 mg PO ONETIME ONE Stop: 03/06/21 00:49 Last Admin: 03/06/21 01:07 Dose: 60 mg Documented by: Diltiazem HCl (Diltiazem Ir 30 Mg Tab) 30 mg PO Q6HR [facility] Diltiazem HCl (Diltiazem Ir 30 Mg Tab) 30 mg PO Q6H [facility] Last Admin: 03/08/21 15:59 Dose: Not Given Documented by: Diltiazem HCl (Diltiazem 180 Mg Cap.Cd) 180 mg PO DAILY [facility] Last Admin: 03/10/21 08:07 Dose: 180 mg Documented by: Enoxaparin Sodium (Enoxaparin 40 Mg/0.4 Ml Syringe) 40 mg SUBCUT DAILY [facility] Last Admin: 03/02/21 23:08 Dose: 40 mg Documented by: Guaifenesin (Guaifenesin 100 Mg/5 Ml Soln Ml (118 Ml Bottle)) 200 mg PO Q4H PRN PRN Reason: Cough Sodium Chloride (Normal Saline) 1,000 mls @ 150 mls/hr IV ASDIRECTED [facility] Last Admin: 03/02/21 20:28 Dose: 150 mls/hr Documented by: Remdesivir 200 mg/ Sodium (Chloride) 250 mls @ 250 mls/hr IV ONETIME ONE Stop: 03/02/21 20:05 Last Admin: 03/02/21 23:05 Dose: 250 mls/hr Documented by: Sodium Chloride (Normal Saline) 1,000 mls @ 125 mls/hr IV ASDIRECTED [facility] Last Admin: 03/03/21 05:44 Dose: 125 mls/hr Documented by: Remdesivir 100 mg/ Sodium (Chloride) 100 mls @ 100 mls/hr IV Q24H [facility] Stop: 03/06/21 21:59 Last Admin: 03/06/21 20:36 Dose: 100 mls/hr Documented by: Sodium Chloride (Sodium Chloride 3%) 500 mls @ 100 mls/hr IV ASDIRECTED [facility] Stop: 03/03/21 00:01 Last Admin: 03/03/21 00:41 Dose: 100 mls/hr Documented by: Sodium Chloride (Sodium Chloride 3%) 100 mls @ 100 mls/hr IV ASDIRECTED [facility] Stop: 03/03/21 12:01 Last Admin: 03/03/21 11:16 Dose: 100 mls/hr Documented by: Magnesium Sulfate 2 gm/ Premix 50 mls @ 25 mls/hr IV Q6H [facility] Stop: 03/03/21 20:59 Last Admin: 03/03/21 19:43 Dose: 25 mls/hr Documented by: Metoprolol Succinate (Metoprolol Succinate 25 Mg Tab.Er) 25 mg PO DAILY [facility] Last Admin: 03/10/21 08:07 Dose: 25 mg Documented by: Non-Formulary Medication (Magnesium Oxide [Magnesium]) 1,000 mg PO DAILY [facility] Non-Formulary Medication (Melatonin [Melatonin]) 10 mg PO ASDIRECTED PRN PRN Reason: Insomnia Ondansetron HCl (Ondansetron 4 Mg Tab.Dis) 4 mg PO ONETIME ONE Stop: 03/02/21 19:34 Last Admin: 03/02/21 19:51 Dose: 4 mg Documented by: Ondansetron HCl (Ondansetron 4 Mg Tab.Dis) Confirm Administered Dose 4 mg .ROUTE .STK-MED ONE Stop: 03/02/21 19:36 Last Admin: 03/02/21 20:19 Dose: Not Given Documented by: - Exam Quality Assessment: DVT Prophylaxis. No: Supplemental Oxygen General: Alert, Oriented, Cooperative, Mild Distress Lungs: Crackles. No: Rales, Rhonchi, Wheezing Cardiovascular: Regular Rate, No Murmurs, Irregular Rhythm GI/Abdominal Exam: Soft, Non-Tender, No Organomegaly, No Distention Extremities: Non-Tender, No Pedal Edema - Patient Data Result Diagrams: 03/09/21 05:35 03/09/21 05:35 Sepsis Event Note - Evaluation Sepsis Screening Result: No Definite Risk - Focused Exam Vital Signs: Vital Signs Temp Pulse Pulse Resp BP BP Pulse Ox 03/10/21 12:26 95 03/10/21 12:00 93 17 99 03/10/21 08:07 79 138/92 H 03/10/21 07:17 94 L 03/10/21 07:15 98.4 F 79 16 138/92 H 94 L 03/10/21 02:19 95 - Problem List Review Problem List Initiated/Reviewed/Updated: Yes - My Orders Last 24 Hours: My Active Orders 03/11/21 05:00 CBC WITH AUTO DIFF [HEME] Timed COMPREHENSIVE METABOLIC PN,CMP [CHEM] Timed 03/11/21 05:11 CRP [C-REACTIVE PROTEIN] [CHEM] AM D Dimer [D-DIMER QUANTITATIVE] [COAG] AM 03/11/21 09:00 Diltiazem [Cardizem CD] 240 mg PO DAILY Metoprolol Succinate [Toprol XL] 50 mg PO DAILY - Plan Plan:: ASSESSMENT AND PLAN - COVID-19 pneumonia-complicated by severe acute respiratory failure. Not vaccinated. Symptom onset 02/21. Improvement in oxygenation over the last 2 days, now off of supplemental oxygen when at rest -Dexamethasone 6 mg daily (day 9) -Remdesivir x5 days, completed -Baricitinib 4 mg p.o. daily, today is day 8 of 14 -Enoxaparin -Supplement oxygen as needed, wean as able -albuterol inhaler 2 puffs every 2 to 4 hours -Symptomatic management of cough -Isolation precautions Hyponatremia-improved Paroxysmal atrial fibrillation -A. fib responded well to diltiazem. She continues to experience significant increase in heart rate with activity. Some of this is likely related to deconditioning as well as decreased saturations with activity. We will plan to increase dosing of both metoprolol and diltiazem -Metoprolol 50 mg po daily -Diltiazem CD 240 mg daily Maintenance issues - - DVT prophylaxis - Lovenox 40 mg daily - GI prophylaxis -PPI - Nutrition -regular Disposition -I would anticipate discharge home
[2021-03-10] MEDS: Enoxaparin 40 MG/0.4 ML Syringe SUBCUT SCH (21:01)
[2021-03-10] MEDS: Dexamethasone 4 MG/ML SDV IVPUSH SCH (21:01)
[2021-03-11] MEDS: Pantoprazole 40 MG Tab.CR PO SCH (08:18)
[2021-03-11] MEDS: Diltiazem 120 MG Cap.CD PO SCH (08:19)
[2021-03-11] MEDS: Magnesium Oxide 400 MG Tab PO SCH (08:19)
[2021-03-11] MEDS: SELENIUM 200 MCG PO SCH (08:19)
[2021-03-11] MEDS: Cholecalciferol (Vitamin D3) 25 MCG Tab PO SCH (08:20)
[2021-03-11] MEDS: Ascorbic Acid 500 MG Tab PO SCH (08:20)
[2021-03-11] MEDS ORDERED: Metoprolol Succinate 50 MG Tab.ER PO SCH (09:00)
[2021-03-11] MEDS: Docusate Sodium 100 MG Cap PO PRN ×2 (09:14→20:48)
--- NOTE | 2021-03-11 13:55 | PCM.PN ---
- General Info Date of Service: 03/11/21 Subjective Update: Ms. Powers has been stable over the last 24 hours except for episodes of increased heart rate. Respiratory status is doing well, she is currently on 1 to 2 L of oxygen via nasal cannula. Heart rate does increase significantly especially with activity despite current beta-nafias and calcium channel nafisa therapy. Functional Status: Reports: Tolerating Diet, Ambulating, Urinating - Review of Systems General: Reports: Weakness, Fatigue. Denies: Fever, Chills Pulmonary: Reports: Shortness of Breath. Denies: Pleuritic Chest Pain, Cough, Sputum, Hemoptysis, Wheezing Cardiovascular: Reports: Palpitations, Dyspnea on Exertion. Denies: Chest Pain, Orthopnea, PND, Edema, Lightheadedness Gastrointestinal: Reports: No Symptoms Genitourinary: Reports: No Symptoms - Patient Data Vitals - Most Recent: Last Vital Signs Temp 98.1 F 03/11/21 11:14 Pulse 73 03/11/21 12:30 Resp 17 03/11/21 12:30 BP 118/74 03/11/21 11:14 Pulse Ox 93 L 03/11/21 13:23 Weight - Most Recent: 185 lb I&O - Last 24 Hours: Intake & Output 03/10/21 03/11/21 03/11/21 22:59 06:59 14:59 Intake Total 800 Output Total 2000 Balance -1200 Lab Results Last 24 Hours: Laboratory Results - last 24 hr 03/11/21 03/11/21 03/11/21 Range/Units 04:30 04:30 04:30 WBC 10.5 (4.5-11.0) K/uL RBC 4.14 (3.30-5.50) M/uL Hgb 12.6 (12.0-15.0) g/dL Hct 38.1 (36.0-48.0) % MCV 92 (80-98) fL MCH 30 (27-31) pg MCHC 33 (32-36) % Plt Count 440 H (150-400) K/uL Neut % (Auto) 90.1 H (36-66) % Lymph % (Auto) 5.7 L (24-44) % [place] % (Auto) 4.0 (2-6) % Eos % (Auto) 0.1 L (2-4) % Baso % (Auto) 0.1 (0-1) % D-Dimer, Quantitative 3012.52 H (0.0-500.0) ng/mL Sodium 139 L (140-148) mmol/L Potassium 4.5 (3.6-5.2) mmol/L Chloride 103 (100-108) mmol/L Carbon Dioxide 27 (21-32) mmol/L Anion Gap 13.5 (5.0-14.0) mmol/L BUN 17 (7-18) mg/dL Creatinine 0.6 (0.6-1.0) mg/dL Est Cr Clr Drug Dosing 68.02 mL/min Estimated GFR (MDRD) > 60 (>60) Glucose 139 H (74-106) mg/dL Calcium 8.4 L (8.5-10.1) mg/dL Total Bilirubin 0.5 (0.2-1.0) mg/dL AST 21 (15-37) U/L ALT 52 (12-78) U/L Alkaline Phosphatase 194 H (46-116) U/L C-Reactive Protein (0.0-0.3) mg/dL Total Protein 6.0 L (6.4-8.2) g/dL Albumin 2.4 L (3.4-5.0) g/dL Globulin 3.6 H (2.3-3.5) g/dL Albumin/Globulin Ratio 0.7 L (1.2-2.2) 03/11/21 Range/Units 04:30 WBC (4.5-11.0) K/uL RBC (3.30-5.50) M/uL Hgb (12.0-15.0) g/dL Hct (36.0-48.0) % MCV (80-98) fL MCH (27-31) pg MCHC (32-36) % Plt Count (150-400) K/uL Neut % (Auto) (36-66) % Lymph % (Auto) (24-44) % [place] % (Auto) (2-6) % Eos % (Auto) (2-4) % Baso % (Auto) (0-1) % D-Dimer, Quantitative (0.0-500.0) ng/mL Sodium (140-148) mmol/L Potassium (3.6-5.2) mmol/L Chloride (100-108) mmol/L Carbon Dioxide (21-32) mmol/L Anion Gap (5.0-14.0) mmol/L BUN (7-18) mg/dL Creatinine (0.6-1.0) mg/dL Est Cr Clr Drug Dosing mL/min Estimated GFR (MDRD) (>60) Glucose (74-106) mg/dL Calcium (8.5-10.1) mg/dL Total Bilirubin (0.2-1.0) mg/dL AST (15-37) U/L ALT (12-78) U/L Alkaline Phosphatase (46-116) U/L C-Reactive Protein 0.30 (0.0-0.3) mg/dL Total Protein (6.4-8.2) g/dL Albumin (3.4-5.0) g/dL Globulin (2.3-3.5) g/dL Albumin/Globulin Ratio (1.2-2.2) Med Orders - Current: Current Medications Acetaminophen (Acetaminophen 325 Mg Tab) 650 mg PO Q4H PRN PRN Reason: Fever Greater Than 101 Last Admin: 03/10/21 07:52 Dose: 650 mg Documented by: Albuterol (Albuterol 8 Gm Inhaler) 0 gm INH Q2H PRN PRN Reason: Dyspnea Ascorbic Acid (Ascorbic Acid 500 Mg Tab) 500 mg PO DAILY [facility] Last Admin: 03/11/21 08:20 Dose: 500 mg Documented by: Baricitinib (Baricitinib 2 Mg Tab) 4 mg PO DAILY [facility] Stop: 03/16/21 09:01 Last Admin: 03/11/21 08:19 Dose: 4 mg Documented by: Benzonatate (Benzonatate 100 Mg Cap) 100 mg PO Q8H PRN PRN Reason: Cough Last Admin: 03/07/21 20:26 Dose: 100 mg Documented by: Cholecalciferol (Cholecalciferol (Vitamin D3) 25 Mcg Tab) 25 mcg PO DAILY [facility] Last Admin: 03/11/21 08:20 Dose: 25 mcg Documented by: Diltiazem HCl (Diltiazem 120 Mg Cap.Cd) 240 mg PO DAILY [facility] Last Admin: 03/11/21 08:19 Dose: 240 mg Documented by: Docusate Sodium (Docusate Sodium 100 Mg Cap) 100 mg PO BID PRN PRN Reason: Constipation Last Admin: 03/11/21 09:14 Dose: 100 mg Documented by: Enoxaparin Sodium (Enoxaparin 40 Mg/0.4 Ml Syringe) 40 mg SUBCUT BEDTIME ANA Last Admin: 03/10/21 21:01 Dose: 40 mg Documented by: Guaifenesin (Guaifenesin 100 Mg/5 Ml Soln Ml (118 Ml Bottle)) 200 mg PO Q4H PRN PRN Reason: Cough Last Admin: 03/04/21 18:15 Dose: 100 mg Documented by: Guaifenesin/Codeine Phosphate (Codeine/Guaifenesin 10-100 Mg/5 Ml Syrup 5 Ml Cup) 10 ml PO Q6H PRN PRN Reason: Cough Last Admin: 03/05/21 21:42 Dose: 10 ml Documented by: Lorazepam (Lorazepam 2 Mg/Ml Sdv) 1 mg IV Q6H PRN PRN Reason: Nausea/Vomiting Lorazepam (Lorazepam 0.5 Mg Tab) 0.5 mg PO Q4H PRN PRN Reason: Anxiety Last Admin: 03/03/21 17:54 Dose: 0.5 mg Documented by: Magnesium Oxide (Magnesium Oxide 400 Mg Tab) 400 mg PO DAILY [facility] Last Admin: 03/11/21 08:19 Dose: 400 mg Documented by: Melatonin (Melatonin 3 Mg Tab) 9 mg PO BEDTIME PRN PRN Reason: Insomnia Last Admin: 03/07/21 20:26 Dose: 9 mg Documented by: Metoprolol Succinate (Metoprolol Succinate 50 Mg Tab.Er) 50 mg PO Q12H ANA Morphine Sulfate (Morphine 2 Mg/Ml Syringe) 2 mg IVPUSH Q2H PRN PRN Reason: Pain (severe 7-10) Ondansetron HCl (Ondansetron 4 Mg Tab.Dis) 4 mg PO Q6H PRN PRN Reason: Nausea able to take PO Last Admin: 03/08/21 05:16 Dose: 4 mg Documented by: Ondansetron HCl (Ondansetron 4 Mg/2 Ml Sdv) 4 mg IV Q4H PRN PRN Reason: Nausea/Vomiting Last Admin: 03/03/21 10:08 Dose: 4 mg Documented by: Oxycodone HCl (Oxycodone 5 Mg Tab) 5 mg PO Q4H PRN PRN Reason: Pain (moderate 4-6) Pantoprazole Sodium (Pantoprazole 40 Mg Tab.Cr) 40 mg PO ACBREAKFAST [facility] Last Admin: 03/11/21 08:18 Dose: 40 mg Documented by: Patient's Own Medication Selenium 200 Mcg 0 each PO DAILY [facility] Last Admin: 03/11/21 08:19 Dose: 1 each Documented by: Sodium Chloride (Sodium Chloride 0.9% 10 Ml Syringe) 10 ml FLUSH ASDIRECTED PRN PRN Reason: Keep Vein Open Last Admin: 03/02/21 20:32 Dose: 10 ml Documented by: Discontinued Medications Albuterol/Ipratropium (Albuterol/Ipratropium 4 Gm Inhalation [place]) 0 gm INH Q4H PRN PRN Reason: Dyspnea Albuterol/Ipratropium (Albuterol/Ipratropium 4 Gm Inhalation [place]) 0 gm INH QIDRT [facility] Last Admin: 03/04/21 11:08 Dose: Not Given Documented by: Dexamethasone (Dexamethasone 4 Mg/Ml Sdv) 6 mg IVPUSH DAILY [facility] Stop: 03/11/21 09:01 Last Admin: 03/02/21 20:30 Dose: 6 mg Documented by: Dexamethasone (Dexamethasone 4 Mg/Ml Sdv) 6 mg IVPUSH BEDTIME [facility] Stop: 03/11/21 21:01 Last Admin: 03/10/21 21:01 Dose: 6 mg Documented by: Digoxin (Digoxin 125 Mcg Tab) 250 mcg PO ONETIME ONE Stop: 03/03/21 00:35 Last Admin: 03/03/21 01:09 Dose: 250 mcg Documented by: Diltiazem HCl (Diltiazem Ir 30 Mg Tab) 60 mg PO Q6HR [facility] Last Admin: 03/04/21 05:04 Dose: Not Given Documented by: Diltiazem HCl (Diltiazem Ir 30 Mg Tab) 60 mg PO ONETIME ONE Stop: 03/06/21 00:49 Last Admin: 03/06/21 01:07 Dose: 60 mg Documented by: Diltiazem HCl (Diltiazem Ir 30 Mg Tab) 30 mg PO Q6HR [facility] Diltiazem HCl (Diltiazem Ir 30 Mg Tab) 30 mg PO Q6H [facility] Last Admin: 03/08/21 15:59 Dose: Not Given Documented by: Diltiazem HCl (Diltiazem 180 Mg Cap.Cd) 180 mg PO DAILY [facility] Last Admin: 03/10/21 08:07 Dose: 180 mg Documented by: Enoxaparin Sodium (Enoxaparin 40 Mg/0.4 Ml Syringe) 40 mg SUBCUT DAILY [facility] Last Admin: 03/02/21 23:08 Dose: 40 mg Documented by: Guaifenesin (Guaifenesin 100 Mg/5 Ml Soln Ml (118 Ml Bottle)) 200 mg PO Q4H PRN PRN Reason: Cough Sodium Chloride (Normal Saline) 1,000 mls @ 150 mls/hr IV ASDIRECTED [facility] Last Admin: 03/02/21 20:28 Dose: 150 mls/hr Documented by: Remdesivir 200 mg/ Sodium (Chloride) 250 mls @ 250 mls/hr IV ONETIME ONE Stop: 03/02/21 20:05 Last Admin: 03/02/21 23:05 Dose: 250 mls/hr Documented by: Sodium Chloride (Normal Saline) 1,000 mls @ 125 mls/hr IV ASDIRECTED [facility] Last Admin: 03/03/21 05:44 Dose: 125 mls/hr Documented by: Remdesivir 100 mg/ Sodium (Chloride) 100 mls @ 100 mls/hr IV Q24H [facility] Stop: 03/06/21 21:59 Last Admin: 03/06/21 20:36 Dose: 100 mls/hr Documented by: Sodium Chloride (Sodium Chloride 3%) 500 mls @ 100 mls/hr IV ASDIRECTED [facility] Stop: 03/03/21 00:01 Last Admin: 03/03/21 00:41 Dose: 100 mls/hr Documented by: Sodium Chloride (Sodium Chloride 3%) 100 mls @ 100 mls/hr IV ASDIRECTED [facility] Stop: 03/03/21 12:01 Last Admin: 03/03/21 11:16 Dose: 100 mls/hr Documented by: Magnesium Sulfate 2 gm/ Premix 50 mls @ 25 mls/hr IV Q6H [facility] Stop: 03/03/21 20:59 Last Admin: 03/03/21 19:43 Dose: 25 mls/hr Documented by: Metoprolol Succinate (Metoprolol Succinate 25 Mg Tab.Er) 25 mg PO DAILY [facility] Last Admin: 03/10/21 08:07 Dose: 25 mg Documented by: Metoprolol Succinate (Metoprolol Succinate 50 Mg Tab.Er) 50 mg PO DAILY [facility] Last Admin: 03/11/21 08:20 Dose: 50 mg Documented by: Non-Formulary Medication (Magnesium Oxide [Magnesium]) 1,000 mg PO DAILY [facility] Non-Formulary Medication (Melatonin [Melatonin]) 10 mg PO ASDIRECTED PRN PRN Reason: Insomnia Ondansetron HCl (Ondansetron 4 Mg Tab.Dis) 4 mg PO ONETIME ONE Stop: 03/02/21 19:34 Last Admin: 03/02/21 19:51 Dose: 4 mg Documented by: Ondansetron HCl (Ondansetron 4 Mg Tab.Dis) Confirm Administered Dose 4 mg .ROUTE .STK-MED ONE Stop: 03/02/21 19:36 Last Admin: 03/02/21 20:19 Dose: Not Given Documented by: - Exam Quality Assessment: Supplemental Oxygen, DVT Prophylaxis General: Alert, Oriented, Cooperative, Mild Distress Lungs: Decreased Breath Sounds. No: Crackles, Rales, Rhonchi, Wheezing Cardiovascular: Regular Rate, No Murmurs, Irregular Rhythm GI/Abdominal Exam: Soft, Non-Tender, No Organomegaly, No Distention Extremities: Non-Tender, No Pedal Edema - Patient Data Lab Results Last 24 hrs: Laboratory Results - last 24 hr 03/11/21 03/11/21 03/11/21 Range/Units 04:30 04:30 04:30 WBC 10.5 (4.5-11.0) K/uL RBC 4.14 (3.30-5.50) M/uL Hgb 12.6 (12.0-15.0) g/dL Hct 38.1 (36.0-48.0) % MCV 92 (80-98) fL MCH 30 (27-31) pg MCHC 33 (32-36) % Plt Count 440 H (150-400) K/uL Neut % (Auto) 90.1 H (36-66) % Lymph % (Auto) 5.7 L (24-44) % [place] % (Auto) 4.0 (2-6) % Eos % (Auto) 0.1 L (2-4) % Baso % (Auto) 0.1 (0-1) % D-Dimer, Quantitative 3012.52 H (0.0-500.0) ng/mL Sodium 139 L (140-148) mmol/L Potassium 4.5 (3.6-5.2) mmol/L Chloride 103 (100-108) mmol/L Carbon Dioxide 27 (21-32) mmol/L Anion Gap 13.5 (5.0-14.0) mmol/L BUN 17 (7-18) mg/dL Creatinine 0.6 (0.6-1.0) mg/dL Est Cr Clr Drug Dosing 68.02 mL/min Estimated GFR (MDRD) > 60 (>60) Glucose 139 H (74-106) mg/dL Calcium 8.4 L (8.5-10.1) mg/dL Total Bilirubin 0.5 (0.2-1.0) mg/dL AST 21 (15-37) U/L ALT 52 (12-78) U/L Alkaline Phosphatase 194 H (46-116) U/L C-Reactive Protein (0.0-0.3) mg/dL Total Protein 6.0 L (6.4-8.2) g/dL Albumin 2.4 L (3.4-5.0) g/dL Globulin 3.6 H (2.3-3.5) g/dL Albumin/Globulin Ratio 0.7 L (1.2-2.2) 03/11/21 Range/Units 04:30 WBC (4.5-11.0) K/uL RBC (3.30-5.50) M/uL Hgb (12.0-15.0) g/dL Hct (36.0-48.0) % MCV (80-98) fL MCH (27-31) pg MCHC (32-36) % Plt Count (150-400) K/uL Neut % (Auto) (36-66) % Lymph % (Auto) (24-44) % [place] % (Auto) (2-6) % Eos % (Auto) (2-4) % Baso % (Auto) (0-1) % D-Dimer, Quantitative (0.0-500.0) ng/mL Sodium (140-148) mmol/L Potassium (3.6-5.2) mmol/L Chloride (100-108) mmol/L Carbon Dioxide (21-32) mmol/L Anion Gap (5.0-14.0) mmol/L BUN (7-18) mg/dL Creatinine (0.6-1.0) mg/dL Est Cr Clr Drug Dosing mL/min Estimated GFR (MDRD) (>60) Glucose (74-106) mg/dL Calcium (8.5-10.1) mg/dL Total Bilirubin (0.2-1.0) mg/dL AST (15-37) U/L ALT (12-78) U/L Alkaline Phosphatase (46-116) U/L C-Reactive Protein 0.30 (0.0-0.3) mg/dL Total Protein (6.4-8.2) g/dL Albumin (3.4-5.0) g/dL Globulin (2.3-3.5) g/dL Albumin/Globulin Ratio (1.2-2.2) Result Diagrams: 03/11/21 04:30 03/11/21 04:30 Sepsis Event Note - Evaluation Sepsis Screening Result: No Definite Risk - Focused Exam Vital Signs: Vital Signs Temp Pulse Pulse Resp BP BP Pulse Ox 03/11/21 13:23 93 L 03/11/21 12:30 73 17 91 L 03/11/21 11:14 98.1 F 105 H 18 118/74 94 L 03/11/21 08:20 110 H 137/96 H 03/11/21 08:19 110 H 137/96 H 03/11/21 07:20 93 L 03/11/21 07:00 98.1 F 110 H 18 137/96 H 94 L - Problem List Review Problem List Initiated/Reviewed/Updated: Yes - My Orders Last 24 Hours: My Active Orders 03/11/21 09:00 Diltiazem [Cardizem CD] 240 mg PO DAILY 03/11/21 21:00 Metoprolol Succinate [Toprol XL] 50 mg PO Q12H - Plan Plan:: ASSESSMENT AND PLAN - COVID-19 pneumonia-complicated by severe acute respiratory failure. Not vaccinated. Symptom onset 02/21. Improvement in oxygenation over the last 2 days, now using 1 to 2 L of oxygen via nasal cannula while at rest. Oxygen flow is increased with activity. -Dexamethasone 6 mg daily, completed -Remdesivir x5 days, completed -Baricitinib 4 mg p.o. daily, today is day 9 of 14 -Enoxaparin -Supplement oxygen as needed, wean as able -albuterol inhaler 2 puffs every 2 to 4 hours -Symptomatic management of cough -Isolation precautions Hyponatremia-improved Paroxysmal atrial fibrillation -She continues to experience significant increase in heart rate with activity. Some of this is likely related to deconditioning as well as decreased saturations with activity. -Metoprolol 50 mg po twice daily -Diltiazem CD 240 mg daily -Reassess in a.m. Maintenance issues - - DVT prophylaxis - Lovenox 40 mg daily - GI prophylaxis -PPI - Nutrition -regular Disposition -I would anticipate discharge home
[2021-03-11] MEDS: Enoxaparin 40 MG/0.4 ML Syringe SUBCUT SCH (20:48)
[2021-03-11] MEDS: Metoprolol Succinate 50 MG Tab.ER PO SCH (20:48)
[2021-03-12] MEDS: SELENIUM 200 MCG PO SCH (08:57)
[2021-03-12] MEDS: Ascorbic Acid 500 MG Tab PO SCH (09:01)
[2021-03-12] MEDS: Magnesium Oxide 400 MG Tab PO SCH (09:01)
[2021-03-12] MEDS: Diltiazem 120 MG Cap.CD PO SCH (09:02)
[2021-03-12] MEDS: Pantoprazole 40 MG Tab.CR PO SCH (09:02)
[2021-03-12] MEDS: Cholecalciferol (Vitamin D3) 25 MCG Tab PO SCH (09:02)
[2021-03-12] MEDS: Metoprolol Succinate 50 MG Tab.ER PO SCH ×2 (09:12→21:39)
[2021-03-12] MEDS: Docusate Sodium 100 MG Cap PO PRN (09:13)
--- NOTE | 2021-03-12 14:10 | PCM.PN ---
- General Info Date of Service: 03/12/21 Subjective Update: No acute events overnight. Patient is comfortable at rest with minimal shortness of breath. She does have mild shortness of breath with activity. She still feels weak and does not have a great appetite. Heart rate still jumps up into the 140-160 range with activity. She is minimally symptomatic with this. Still requiring supplemental oxygen but less so each day. She thinks she is within a day or 2 being ready to go home. Functional Status: Reports: Pain Controlled, Tolerating Diet - Review of Systems General: Reports: Weakness Pulmonary: Reports: Shortness of Breath - Patient Data Vitals - Most Recent: Last Vital Signs Temp 36.5 C 03/12/21 14:07 Pulse 74 03/12/21 14:07 Resp 18 03/12/21 14:07 BP 110/84 03/12/21 14:07 Pulse Ox 94 L 03/12/21 14:07 Weight - Most Recent: 83.915 kg I&O - Last 24 Hours: Intake & Output 03/11/21 03/12/21 03/12/21 22:59 06:59 14:59 Intake Total 500 Output Total 2200 Balance 500 -2200 Med Orders - Current: Current Medications Acetaminophen (Acetaminophen 325 Mg Tab) 650 mg PO Q4H PRN PRN Reason: Fever Greater Than 101 Last Admin: 03/10/21 07:52 Dose: 650 mg Documented by: Albuterol (Albuterol 8 Gm Inhaler) 0 gm INH Q2H PRN PRN Reason: Dyspnea Ascorbic Acid (Ascorbic Acid 500 Mg Tab) 500 mg PO DAILY [facility] Last Admin: 03/12/21 09:01 Dose: 500 mg Documented by: Baricitinib (Baricitinib 2 Mg Tab) 4 mg PO DAILY [facility] Stop: 03/16/21 09:01 Last Admin: 03/12/21 09:00 Dose: 4 mg Documented by: Benzonatate (Benzonatate 100 Mg Cap) 100 mg PO Q8H PRN PRN Reason: Cough Last Admin: 03/07/21 20:26 Dose: 100 mg Documented by: Cholecalciferol (Cholecalciferol (Vitamin D3) 25 Mcg Tab) 25 mcg PO DAILY [facility] Last Admin: 03/12/21 09:02 Dose: 25 mcg Documented by: Diltiazem HCl (Diltiazem 120 Mg Cap.Cd) 240 mg PO DAILY [facility] Last Admin: 03/12/21 09:02 Dose: 240 mg Documented by: Docusate Sodium (Docusate Sodium 100 Mg Cap) 100 mg PO BID PRN PRN Reason: Constipation Last Admin: 03/12/21 09:13 Dose: 100 mg Documented by: Enoxaparin Sodium (Enoxaparin 40 Mg/0.4 Ml Syringe) 40 mg SUBCUT BEDTIME [facility] Last Admin: 03/11/21 20:48 Dose: 40 mg Documented by: Guaifenesin (Guaifenesin 100 Mg/5 Ml Soln Ml (118 Ml Bottle)) 200 mg PO Q4H PRN PRN Reason: Cough Last Admin: 03/04/21 18:15 Dose: 100 mg Documented by: Guaifenesin/Codeine Phosphate (Codeine/Guaifenesin 10-100 Mg/5 Ml Syrup 5 Ml Cup) 10 ml PO Q6H PRN PRN Reason: Cough Last Admin: 03/05/21 21:42 Dose: 10 ml Documented by: Lorazepam (Lorazepam 2 Mg/Ml Sdv) 1 mg IV Q6H PRN PRN Reason: Nausea/Vomiting Lorazepam (Lorazepam 0.5 Mg Tab) 0.5 mg PO Q4H PRN PRN Reason: Anxiety Last Admin: 03/03/21 17:54 Dose: 0.5 mg Documented by: Magnesium Oxide (Magnesium Oxide 400 Mg Tab) 400 mg PO DAILY [facility] Last Admin: 03/12/21 09:01 Dose: 400 mg Documented by: Melatonin (Melatonin 3 Mg Tab) 9 mg PO BEDTIME PRN PRN Reason: Insomnia Last Admin: 03/07/21 20:26 Dose: 9 mg Documented by: Metoprolol Succinate (Metoprolol Succinate 50 Mg Tab.Er) 50 mg PO Q12H [facility] Last Admin: 03/12/21 09:12 Dose: 50 mg Documented by: Morphine Sulfate (Morphine 2 Mg/Ml Syringe) 2 mg IVPUSH Q2H PRN PRN Reason: Pain (severe 7-10) Ondansetron HCl (Ondansetron 4 Mg Tab.Dis) 4 mg PO Q6H PRN PRN Reason: Nausea able to take PO Last Admin: 03/08/21 05:16 Dose: 4 mg Documented by: Ondansetron HCl (Ondansetron 4 Mg/2 Ml Sdv) 4 mg IV Q4H PRN PRN Reason: Nausea/Vomiting Last Admin: 03/03/21 10:08 Dose: 4 mg Documented by: Oxycodone HCl (Oxycodone 5 Mg Tab) 5 mg PO Q4H PRN PRN Reason: Pain (moderate 4-6) Pantoprazole Sodium (Pantoprazole 40 Mg Tab.Cr) 40 mg PO ACBREAKFAST [facility] Last Admin: 03/12/21 09:02 Dose: 40 mg Documented by: Patient's Own Medication Selenium 200 Mcg 0 each PO DAILY [facility] Last Admin: 03/12/21 08:57 Dose: 1 each Documented by: Sodium Chloride (Sodium Chloride 0.9% 10 Ml Syringe) 10 ml FLUSH ASDIRECTED PRN PRN Reason: Keep Vein Open Last Admin: 03/02/21 20:32 Dose: 10 ml Documented by: Discontinued Medications Albuterol/Ipratropium (Albuterol/Ipratropium 4 Gm Inhalation [place]) 0 gm INH Q4H PRN PRN Reason: Dyspnea Albuterol/Ipratropium (Albuterol/Ipratropium 4 Gm Inhalation [place]) 0 gm INH QIDRT [facility] Last Admin: 03/04/21 11:08 Dose: Not Given Documented by: Dexamethasone (Dexamethasone 4 Mg/Ml Sdv) 6 mg IVPUSH DAILY [facility] Stop: 03/11/21 09:01 Last Admin: 03/02/21 20:30 Dose: 6 mg Documented by: Dexamethasone (Dexamethasone 4 Mg/Ml Sdv) 6 mg IVPUSH BEDTIME ANA Stop: 03/11/21 21:01 Last Admin: 03/10/21 21:01 Dose: 6 mg Documented by: Digoxin (Digoxin 125 Mcg Tab) 250 mcg PO ONETIME ONE Stop: 03/03/21 00:35 Last Admin: 03/03/21 01:09 Dose: 250 mcg Documented by: Diltiazem HCl (Diltiazem Ir 30 Mg Tab) 60 mg PO Q6HR [facility] Last Admin: 03/04/21 05:04 Dose: Not Given Documented by: Diltiazem HCl (Diltiazem Ir 30 Mg Tab) 60 mg PO ONETIME ONE Stop: 03/06/21 00:49 Last Admin: 03/06/21 01:07 Dose: 60 mg Documented by: Diltiazem HCl (Diltiazem Ir 30 Mg Tab) 30 mg PO Q6HR [facility] Diltiazem HCl (Diltiazem Ir 30 Mg Tab) 30 mg PO Q6H [facility] Last Admin: 03/08/21 15:59 Dose: Not Given Documented by: Diltiazem HCl (Diltiazem 180 Mg Cap.Cd) 180 mg PO DAILY [facility] Last Admin: 03/10/21 08:07 Dose: 180 mg Documented by: Enoxaparin Sodium (Enoxaparin 40 Mg/0.4 Ml Syringe) 40 mg SUBCUT DAILY [facility] Last Admin: 03/02/21 23:08 Dose: 40 mg Documented by: Guaifenesin (Guaifenesin 100 Mg/5 Ml Soln Ml (118 Ml Bottle)) 200 mg PO Q4H PRN PRN Reason: Cough Sodium Chloride (Normal Saline) 1,000 mls @ 150 [facility]ls[facility] Last Admin: 03/02/21 20:28 Dose: 150 mls/hr Documented by: Remdesivir 200 mg/ Sodium (Chloride) 250 mls @ 250 mls/hr IV ONETIME ONE Stop: 03/02/21 20:05 Last Admin: 03/02/21 23:05 Dose: 250 mls/hr Documented by: Sodium Chloride (Normal Saline) 1,000 mls @ 125 mls/hr IV ASDIRECTED [facility] Last Admin: 03/03/21 05:44 Dose: 125 mls/hr Documented by: Remdesivir 100 mg/ Sodium (Chloride) 100 mls @ 100 mls/hr IV Q24H [facility] Stop: 03/06/21 21:59 Last Admin: 03/06/21 20:36 Dose: 100 mls/hr Documented by: Sodium Chloride (Sodium Chloride 3%) 500 mls @ 100 mls/hr IV ASDIRECTED [facility] Stop: 03/03/21 00:01 Last Admin: 03/03/21 00:41 Dose: 100 mls/hr Documented by: Sodium Chloride (Sodium Chloride 3%) 100 mls @ 100 mls/hr IV ASDIRECTED [facility] Stop: 03/03/21 12:01 Last Admin: 03/03/21 11:16 Dose: 100 mls/hr Documented by: Magnesium Sulfate 2 gm/ Premix 50 mls @ 25 mls/hr IV Q6H [facility] Stop: 03/03/21 20:59 Last Admin: 03/03/21 19:43 Dose: 25 mls/hr Documented by: Metoprolol Succinate (Metoprolol Succinate 25 Mg Tab.Er) 25 mg PO DAILY [facility] Last Admin: 03/10/21 08:07 Dose: 25 mg Documented by: Metoprolol Succinate (Metoprolol Succinate 50 Mg Tab.Er) 50 mg PO DAILY [facility] Last Admin: 03/11/21 08:20 Dose: 50 mg Documented by: Non-Formulary Medication (Magnesium Oxide [Magnesium]) 1,000 mg PO DAILY [facility] Non-Formulary Medication (Melatonin [Melatonin]) 10 mg PO ASDIRECTED PRN PRN Reason: Insomnia Ondansetron HCl (Ondansetron 4 Mg Tab.Dis) 4 mg PO ONETIME ONE Stop: 03/02/21 19:34 Last Admin: 03/02/21 19:51 Dose: 4 mg Documented by: Ondansetron HCl (Ondansetron 4 Mg Tab.Dis) Confirm Administered Dose 4 mg .ROUTE .STK-MED ONE Stop: 03/02/21 19:36 Last Admin: 03/02/21 20:19 Dose: Not Given Documented by: - Exam Quality Assessment: Supplemental Oxygen General: Alert, Oriented, Cooperative, No Acute Distress Lungs: Normal Respiratory Effort, Crackles (rare both bases ) Cardiovascular: Regular Rate, Regular Rhythm GI/Abdominal Exam: Soft, No Distention Extremities: No Pedal Edema. No: Increased Warmth Skin: Warm, Dry Psy/Mental Status: Alert, Normal Affect - Patient Data Result Diagrams: 03/11/21 04:30 03/11/21 04:30 Sepsis Event Note - Evaluation Sepsis Screening Result: No Definite Risk - Focused Exam Vital Signs: Vital Signs Temp Pulse Pulse Resp BP BP Pulse Ox 03/12/21 14:07 36.5 C 74 18 110/84 94 L 03/12/21 12:41 96 03/12/21 11:31 36.1 C 105 H 18 129/71 91 L 03/12/21 09:12 105 H 116/64 03/12/21 09:02 105 H 116/64 03/12/21 07:06 95 03/12/21 07:00 36.7 C 105 H 18 116/64 96 03/12/21 03:17 36.1 C 73 16 111/76 93 L - Problem List Review Problem List Initiated/Reviewed/Updated: Yes - My Orders Last 24 Hours: My Active Orders 03/12/21 14:08 Up With Assistance [RC] ASDIRECTED 03/12/21 17:00 Rivaroxaban [Xarelto] 10 mg PO WITHDINNER 03/13/21 05:00 BASIC METABOLIC PANEL,BMP [CHEM] Timed CRP [C-REACTIVE PROTEIN] [CHEM] Timed D-DIMER QUANTITATIVE [COAG] Timed - Plan Plan:: ASSESSMENT AND PLAN - COVID-19 pneumonia-complicated by severe acute respiratory failure. Not vaccinated. Symptom onset 02/21. Steadily improving and requiring minimal oxygen. -Dexamethasone 6 mg daily, completed -Remdesivir x5 days, completed -Baricitinib 4 mg p.o. daily, today is day 10 of 14 -Enoxaparin -Supplement oxygen as needed, wean as able -albuterol inhaler 2 puffs every 2 to 4 hours -Symptomatic management of cough -Isolation precautions through 13 March Hyponatremia-improved Paroxysmal atrial fibrillation -She continues to experience significant increase in heart rate with activity. Not much change even with increased medications. With elevated D-dimer in the setting of Covid infection and a couple of weeks of atrial fibrillation I think she would benefit from anticoagulation after hos pital discharge. -Start rivaroxaban in the morning -Metoprolol 50 mg po twice daily -Diltiazem CD 240 mg daily -Reassess in a.m. Maintenance issues - - DVT prophylaxis -transition to rivaroxaban - GI prophylaxis -PPI - Nutrition -regular Disposition -I would anticipate discharge home possibly with home care Kee Valdivia MD
[2021-03-12] MEDS ORDERED: Magnesium Hydroxide 400 MG/5 ML Susp 30 ML Cup PO PRN (17:10)
[2021-03-12] MEDS: Rivaroxaban 10 MG Tab PO SCH (18:02)
[2021-03-13] MEDS: Docusate Sodium 100 MG Cap PO PRN ×2 (03:38→17:58)
[2021-03-13] MEDS: Metoprolol Succinate 50 MG Tab.ER PO SCH ×2 (08:04→21:49)
[2021-03-13] MEDS: Pantoprazole 40 MG Tab.CR PO SCH (08:05)
[2021-03-13] MEDS: Diltiazem 120 MG Cap.CD PO SCH (08:05)
[2021-03-13] MEDS: SELENIUM 200 MCG PO SCH (08:05)
[2021-03-13] MEDS: Cholecalciferol (Vitamin D3) 25 MCG Tab PO SCH (08:05)
[2021-03-13] MEDS: Magnesium Oxide 400 MG Tab PO SCH (08:05)
[2021-03-13] MEDS: Ascorbic Acid 500 MG Tab PO SCH (08:06)
--- NOTE | 2021-03-13 14:31 | PCM.PN ---
- General Info Date of Service: 03/13/21 Subjective Update: No acute events overnight. Patient is feeling better today with less shortness of breath. Heart rate did not rise as much with activity this morning as it had been in past days. She feels weak and fatigued but otherwise is doing okay. Appetite is not great yet. She was weaned off of oxygen as of late this morning. She is hoping for 1 more night to ensure that she does not require supplemental oxygen and is hoping to go home tomorrow. D-dimer has improved though CRP is slightly higher. Functional Status: Reports: Pain Controlled, Tolerating Diet - Review of Systems General: Reports: Weakness - Patient Data Vitals - Most Recent: Last Vital Signs Temp 36.7 C 03/13/21 10:48 Pulse 53 L 03/13/21 10:48 Resp 16 03/13/21 10:48 BP 113/78 03/13/21 10:48 Pulse Ox 92 L 03/13/21 13:15 Weight - Most Recent: 83.915 kg I&O - Last 24 Hours: Intake & Output 03/12/21 03/13/21 03/13/21 22:59 06:59 14:59 Intake Total 240 200 Balance 240 200 Lab Results Last 24 Hours: Laboratory Results - last 24 hr 03/13/21 03/13/21 Range/Units 04:25 04:25 D-Dimer, Quantitative 2654.52 H (0.0-500.0) ng/mL Sodium 139 L (140-148) mmol/L Potassium 4.6 (3.6-5.2) mmol/L Chloride 103 (100-108) mmol/L Carbon Dioxide 27 (21-32) mmol/L Anion Gap 13.6 (5.0-14.0) mmol/L BUN 18 (7-18) mg/dL Creatinine 0.7 (0.6-1.0) mg/dL Est Cr Clr Drug Dosing 58.30 mL/min Estimated GFR (MDRD) > 60 (>60) Glucose 87 (74-106) mg/dL Calcium 8.4 L (8.5-10.1) mg/dL C-Reactive Protein 1.77 H (0.0-0.3) mg/dL Med Orders - Current: Current Medications Acetaminophen (Acetaminophen 325 Mg Tab) 650 mg PO Q4H PRN PRN Reason: Fever Greater Than 101 Last Admin: 03/10/21 07:52 Dose: 650 mg Documented by: Albuterol (Albuterol 8 Gm Inhaler) 0 gm INH Q2H PRN PRN Reason: Dyspnea Ascorbic Acid (Ascorbic Acid 500 Mg Tab) 500 mg PO DAILY [facility] Last Admin: 03/13/21 08:06 Dose: 500 mg Documented by: Baricitinib (Baricitinib 2 Mg Tab) 4 mg PO DAILY [facility] Stop: 03/16/21 09:01 Last Admin: 03/13/21 08:04 Dose: 4 mg Documented by: Benzonatate (Benzonatate 100 Mg Cap) 100 mg PO Q8H PRN PRN Reason: Cough Last Admin: 03/07/21 20:26 Dose: 100 mg Documented by: Bisacodyl (Bisacodyl 5 Mg Tab) 10 mg PO DAILY PRN PRN Reason: Constipation Cholecalciferol (Cholecalciferol (Vitamin D3) 25 Mcg Tab) 25 mcg PO DAILY [facility] Last Admin: 03/13/21 08:05 Dose: 25 mcg Documented by: Diltiazem HCl (Diltiazem 120 Mg Cap.Cd) 240 mg PO DAILY [facility] Last Admin: 03/13/21 08:05 Dose: 240 mg Documented by: Docusate Sodium (Docusate Sodium 100 Mg Cap) 100 mg PO BID PRN PRN Reason: Constipation Last Admin: 03/13/21 03:38 Dose: 100 mg Documented by: Guaifenesin (Guaifenesin 100 Mg/5 Ml Soln Ml (118 Ml Bottle)) 200 mg PO Q4H PRN PRN Reason: Cough Last Admin: 03/04/21 18:15 Dose: 100 mg Documented by: Guaifenesin/Codeine Phosphate (Codeine/Guaifenesin 10-100 Mg/5 Ml Syrup 5 Ml Cup) 10 ml PO Q6H PRN PRN Reason: Cough Last Admin: 03/05/21 21:42 Dose: 10 ml Documented by: Lorazepam (Lorazepam 2 Mg/Ml Sdv) 1 mg IV Q6H PRN PRN Reason: Nausea/Vomiting Lorazepam (Lorazepam 0.5 Mg Tab) 0.5 mg PO Q4H PRN PRN Reason: Anxiety Last Admin: 03/03/21 17:54 Dose: 0.5 mg Documented by: Magnesium Hydroxide (Magnesium Hydroxide 400 Mg/5 Ml Susp 30 Ml Cup) 30 ml PO BID PRN PRN Reason: Constipation Last Admin: 03/12/21 18:02 Dose: 30 ml Documented by: Magnesium Oxide (Magnesium Oxide 400 Mg Tab) 400 mg PO DAILY [facility] Last Admin: 03/13/21 08:05 Dose: 400 mg Documented by: Melatonin (Melatonin 3 Mg Tab) 9 mg PO BEDTIME PRN PRN Reason: Insomnia Last Admin: 03/07/21 20:26 Dose: 9 mg Documented by: Metoprolol Succinate (Metoprolol Succinate 50 Mg Tab.Er) 50 mg PO Q12H [facility] Last Admin: 03/13/21 08:04 Dose: 50 mg Documented by: Morphine Sulfate (Morphine 2 Mg/Ml Syringe) 2 mg IVPUSH Q2H PRN PRN Reason: Pain (severe 7-10) Ondansetron HCl (Ondansetron 4 Mg Tab.Dis) 4 mg PO Q6H PRN PRN Reason: Nausea able to take PO Last Admin: 03/08/21 05:16 Dose: 4 mg Documented by: Ondansetron HCl (Ondansetron 4 Mg/2 Ml Sdv) 4 mg IV Q4H PRN PRN Reason: Nausea/Vomiting Last Admin: 03/03/21 10:08 Dose: 4 mg Documented by: Oxycodone HCl (Oxycodone 5 Mg Tab) 5 mg PO Q4H PRN PRN Reason: Pain (moderate 4-6) Pantoprazole Sodium (Pantoprazole 40 Mg Tab.Cr) 40 mg PO ACBREAKFAST [facility] Last Admin: 03/13/21 08:05 Dose: 40 mg Documented by: Patient's Own Medication Selenium 200 Mcg 0 each PO DAILY [facility] Last Admin: 03/13/21 08:05 Dose: 1 each Documented by: Rivaroxaban (Rivaroxaban 10 Mg Tab) 10 mg PO WITHDINNER [facility] Last Admin: 03/12/21 18:02 Dose: 10 mg Documented by: Sodium Chloride (Sodium Chloride 0.9% 10 Ml Syringe) 10 ml FLUSH ASDIRECTED PRN PRN Reason: Keep Vein Open Last Admin: 03/02/21 20:32 Dose: 10 ml Documented by: Discontinued Medications Albuterol/Ipratropium (Albuterol/Ipratropium 4 Gm Inhalation [place]) 0 gm INH Q4H PRN PRN Reason: Dyspnea Albuterol/Ipratropium (Albuterol/Ipratropium 4 Gm Inhalation [place]) 0 gm INH QIDRT [facility] Last Admin: 03/04/21 11:08 Dose: Not Given Documented by: Dexamethasone (Dexamethasone 4 Mg/Ml Sdv) 6 mg IVPUSH DAILY [facility] Stop: 03/11/21 09:01 Last Admin: 03/02/21 20:30 Dose: 6 mg Documented by: Dexamethasone (Dexamethasone 4 Mg/Ml Sdv) 6 mg IVPUSH BEDTIME [facility] Stop: 03/11/21 21:01 Last Admin: 03/10/21 21:01 Dose: 6 mg Documented by: Digoxin (Digoxin 125 Mcg Tab) 250 mcg PO ONETIME ONE Stop: 03/03/21 00:35 Last Admin: 03/03/21 01:09 Dose: 250 mcg Documented by: Diltiazem HCl (Diltiazem Ir 30 Mg Tab) 60 mg PO Q6HR [facility] Last Admin: 03/04/21 05:04 Dose: Not Given Documented by: Diltiazem HCl (Diltiazem Ir 30 Mg Tab) 60 mg PO ONETIME ONE Stop: 03/06/21 00:49 Last Admin: 03/06/21 01:07 Dose: 60 mg Documented by: Diltiazem HCl (Diltiazem Ir 30 Mg Tab) 30 mg PO Q6HR [facility] Diltiazem HCl (Diltiazem Ir 30 Mg Tab) 30 mg PO Q6H [facility] Last Admin: 03/08/21 15:59 Dose: Not Given Documented by: Diltiazem HCl (Diltiazem 180 Mg Cap.Cd) 180 mg PO DAILY [facility] Last Admin: 03/10/21 08:07 Dose: 180 mg Documented by: Enoxaparin Sodium (Enoxaparin 40 Mg/0.4 Ml Syringe) 40 mg SUBCUT DAILY [facility] Last Admin: 03/02/21 23:08 Dose: 40 mg Documented by: Enoxaparin Sodium (Enoxaparin 40 Mg/0.4 Ml Syringe) 40 mg SUBCUT BEDTIME [facility] Last Admin: 03/11/21 20:48 Dose: 40 mg Documented by: Guaifenesin (Guaifenesin 100 Mg/5 Ml Soln Ml (118 Ml Bottle)) 200 mg PO Q4H PRN PRN Reason: Cough Sodium Chloride (Normal Saline) 1,000 mls @ 150 mls/hr IV ASDIRECTED [facility] Last Admin: 03/02/21 20:28 Dose: 150 mls/hr Documented by: Remdesivir 200 mg/ Sodium (Chloride) 250 mls @ 250 mls/hr IV ONETIME ONE Stop: 03/02/21 20:05 Last Admin: 03/02/21 23:05 Dose: 250 mls/hr Documented by: Sodium Chloride (Normal Saline) 1,000 mls @ 125 mls/hr IV ASDIRECTED [facility] Last Admin: 03/03/21 05:44 Dose: 125 mls/hr Documented by: Remdesivir 100 mg/ Sodium (Chloride) 100 mls @ 100 mls/hr IV Q24H [facility] Stop: 03/06/21 21:59 Last Admin: 03/06/21 20:36 Dose: 100 mls/hr Documented by: Sodium Chloride (Sodium Chloride 3%) 500 mls @ 100 mls/hr IV ASDIRECTED [facility] Stop: 03/03/21 00:01 Last Admin: 03/03/21 00:41 Dose: 100 mls/hr Documented by: Sodium Chloride (Sodium Chloride 3%) 100 mls @ 100 mls/hr IV ASDIRECTED [facility] Stop: 03/03/21 12:01 Last Admin: 03/03/21 11:16 Dose: 100 mls/hr Documented by: Magnesium Sulfate 2 gm/ Premix 50 mls @ 25 mls/hr IV Q6H [facility] Stop: 03/03/21 20:59 Last Admin: 03/03/21 19:43 Dose: 25 mls/hr Documented by: Metoprolol Succinate (Metoprolol Succinate 25 Mg Tab.Er) 25 mg PO DAILY [facility] Last Admin: 03/10/21 08:07 Dose: 25 mg Documented by: Metoprolol Succinate (Metoprolol Succinate 50 Mg Tab.Er) 50 mg PO DAILY [facility] Last Admin: 03/11/21 08:20 Dose: 50 mg Documented by: Non-Formulary Medication (Magnesium Oxide [Magnesium]) 1,000 mg PO DAILY [facility] Non-Formulary Medication (Melatonin [Melatonin]) 10 mg PO ASDIRECTED PRN PRN Reason: Insomnia Ondansetron HCl (Ondansetron 4 Mg Tab.Dis) 4 mg PO ONETIME ONE Stop: 03/02/21 19:34 Last Admin: 03/02/21 19:51 Dose: 4 mg Documented by: Ondansetron HCl (Ondansetron 4 Mg Tab.Dis) Confirm Administered Dose 4 mg .ROUTE .STK-MED ONE Stop: 03/02/21 19:36 Last Admin: 03/02/21 20:19 Dose: Not Given Documented by: - Exam Quality Assessment: No: Supplemental Oxygen General: Alert, Oriented, Cooperative, No Acute Distress Lungs: Normal Respiratory Effort GI/Abdominal Exam: Soft, No Distention Extremities: No Pedal Edema Skin: Warm, Dry Psy/Mental Status: Alert, Normal Affect - Patient Data Lab Results Last 24 hrs: Laboratory Results - last 24 hr 03/13/21 03/13/21 Range/Units 04:25 04:25 D-Dimer, Quantitative 2654.52 H (0.0-500.0) ng/mL Sodium 139 L (140-148) mmol/L Potassium 4.6 (3.6-5.2) mmol/L Chloride 103 (100-108) mmol/L Carbon Dioxide 27 (21-32) mmol/L Anion Gap 13.6 (5.0-14.0) mmol/L BUN 18 (7-18) mg/dL Creatinine 0.7 (0.6-1.0) mg/dL Est Cr Clr Drug Dosing 58.30 mL/min Estimated GFR (MDRD) > 60 (>60) Glucose 87 (74-106) mg/dL Calcium 8.4 L (8.5-10.1) mg/dL C-Reactive Protein 1.77 H (0.0-0.3) mg/dL Result Diagrams: 03/11/21 04:30 03/13/21 04:25 Sepsis Event Note - Evaluation Sepsis Screening Result: No Definite Risk - Focused Exam Vital Signs: Vital Signs Temp Pulse Pulse Resp BP BP BP 03/13/21 13:15 03/13/21 10:48 36.7 C 53 L 16 113/78 03/13/21 08:05 70 126/73 03/13/21 08:04 70 126/73 03/13/21 07:38 03/13/21 07:00 36.8 C 70 16 126/73 03/13/21 03:08 36.2 C 86 16 112/81 Pulse Ox 03/13/21 13:15 92 L 03/13/21 10:48 97 03/13/21 08:05 03/13/21 08:04 03/13/21 07:38 95 03/13/21 07:00 94 L 03/13/21 03:08 92 L - Problem List Review Problem List Initiated/Reviewed/Updated: Yes - My Orders Last 24 Hours: My Active Orders 03/12/21 14:08 Up With Assistance [RC] ASDIRECTED 03/12/21 17:00 Rivaroxaban [Xarelto] 10 mg PO WITHDINNER 03/12/21 17:10 Magnesium Hydroxide [Milk of Magnesia] 30 ml PO BID PRN 03/13/21 10:38 bisacodyL [Dulcolax] 10 mg PO DAILY PRN - Plan Plan:: ASSESSMENT AND PLAN - COVID-19 pneumonia-complicated by severe acute respiratory failure. Not vaccinated. Symptom onset 02/21. Steadily improving and as of this morning she is off supplemental oxygen. -Dexamethasone 6 mg daily, completed -Remdesivir x5 days, completed -Baricitinib 4 mg p.o. daily, today is day 11 of 14 -Enoxaparin -Supplement oxygen as needed, wean as able -albuterol inhaler 2 puffs every 2 to 4 hours -Symptomatic management of cough -Isolation precautions through 13 March Hyponatremia-improved Paroxysmal atrial fibrillation -She continues to experience significant increase in heart rate with activity. Not much change even with increased medications. With elevated D-dimer in the setting of Covid infection and a couple of weeks of atrial fibrillation I think she would benefit from anticoagulation after hospital discharge. -Continue rivaroxaban in the morning -Metoprolol 50 mg po twice daily -Diltiazem CD 240 mg daily Maintenance issues - - DVT prophylaxis -rivaroxaban - GI prophylaxis -PPI - Nutrition -regular Disposition -I would anticipate discharge home tomorrow if she is stable overnight Kee Valdivia MD
[2021-03-13] MEDS: Rivaroxaban 10 MG Tab PO SCH (17:58)
[2021-03-13] MEDS: Bisacodyl 5 MG Tab PO PRN (17:58)
[2021-03-13] MEDS: Acetaminophen 325 MG Tab PO PRN (18:01)
[2021-03-14] MEDS: Pantoprazole 40 MG Tab.CR PO SCH (07:49)
[2021-03-14] MEDS: Magnesium Oxide 400 MG Tab PO SCH (08:37)
[2021-03-14] MEDS: SELENIUM 200 MCG PO SCH (08:37)
[2021-03-14] MEDS: Metoprolol Succinate 50 MG Tab.ER PO SCH (08:37)
[2021-03-14] MEDS: Docusate Sodium 100 MG Cap PO PRN (08:37)
[2021-03-14] MEDS: Ascorbic Acid 500 MG Tab PO SCH (08:38)
[2021-03-14] MEDS: Cholecalciferol (Vitamin D3) 25 MCG Tab PO SCH (08:38)
[2021-03-14] MEDS: Bisacodyl 5 MG Tab PO PRN (08:38)
--- NOTE | 2021-03-14 13:36 | PCM.DCSUM1 ---
Discharge Summary - Hospital Course Brief History: 70-year-old female with history of paroxysmal atrial fibrillation who presented with cough, weakness and shortness of breath. She was admitted for management of COVID-19 pneumonia complicated by acute respiratory failure with hypoxia. Diagnosis: Stroke: No - Discharge Data Discharge Date: 03/14/21 Discharge Disposition: Home, Self-Care 01 Condition: Good - Referral to Home Health Primary Care Physician: PCP None - Discharge Diagnosis/Problem(s) (1) Atrial fibrillation with RVR SNOMED Code(s): 131627359531616 ICD Code: I48.91 - UNSPECIFIED ATRIAL FIBRILLATION Status: Acute Current Visit: Yes (2) Pneumonia due to COVID-19 virus SNOMED Code(s): 494337283078964042 ICD Code: U07.1 - COVID-19; J12.82 - PNEUMONIA DUE TO CORONAVIRUS DISEASE 2019 Status: Acute Priority: High Current Visit: Yes (3) Respiratory failure with hypoxia SNOMED Code(s): 39957261984311554 ICD Code: J96.91 - RESPIRATORY FAILURE, UNSPECIFIED WITH HYPOXIA Status: Acute Priority: High Current Visit: Yes Qualifiers: Chronicity: acute Qualified Code(s): J96.01 - Acute respiratory failure with hypoxia - Patient Summary/Data Hospital Course: Estefanía presented to the emergency room with progressive cough, dyspnea and weakness. She had not a known Covid infection. In the emergency room she was noted to be quite hypoxic and started on supplemental oxygen. She received dexamethasone as well as remdesivir. She also had severe hyponatremia and received a small bolus of normal saline. She was admitted to the hospital for further management. Overnight she had difficulty with paroxysmal atrial fibrillation and a rapid ventricular response. This was able to be managed using oral diltiazem along with her metoprolol. The next morning her heart rate was under better control. She had increasing supplemental oxygen needs. We discussed adding baricitinib for additional antiviral management. She was agreeable to using this along with the other medications. She did progress to the point that she needed heated/high flow supplemental oxygen at a high level of support. Her sodium level remained critically low despite the IV fluids so we gave her several small boluses of hypertonic saline and saw steady improvement in her sodium level after that. Over the next several days her condition seem to stabilize but she continued to require a high level of supplemental oxygen support. She completed 5 days of remdesivir without incident. She did continue on the baricitinib throughout the course of the hospital stay. Fortunately we did see a trend down in her D-dimer and CRP. We also saw trended down and her supplemental oxygen requirements. Over the next several days we were able to wean her down and eventually off of the heated/high flow oxygen down to just a high flow nasal cannula. This was further titrated to a regular nasal cannula and eventually off of supplemental oxygen. She has completed 10 days of steroids. She has completed just over 10 days of baricitinib. She feels weak but is feeling quite a bit better. We have been able to wean down the medications for her atrial fibrillation with good control despite reductions in the medications. Since she had a D-dimer that did reach quite high levels and she had the episodes of atrial fibrillation the plan is for her to be on anticoagulation for 1 month. The plan is to use rivaroxaban. She has completed adequate treatment with the other medications and no additional medication is needed. She will try to increase her activity as tolerated over the next several days to several weeks depending on how quickly she recovers. She has follow-up with primary care scheduled in just over a week. - Patient Instructions Diet: Regular Diet as Tolerated Activity: As Tolerated Notify Provider of: Fever Other/Special Instructions: 1. You were in the hospital for management of COVID- 19 pneumonia complicated by acute respiratory failure with hypoxia. Your condition has been improving with therapies provided here in the hospital. You have completed courses of remdesivir, baricitinib as well as dexamethasone. I do recommend additional anticoagulation because of the elevated D-dimer related to the Covid infection as well as the atrial fibrillation. Please take rivaroxaban (Xarelto) 10 mg daily at suppertime for 30 doses. You may discontinue the medication at that time. You may increase your activity as tolerated but I would expect that your strength and endurance will both be decreased and it will take time to recover over the next few weeks. You have completed adequate quarantine for your illness and no longer need to quarantine. 2. Continue your usual home medications as previously prescribed. 3. Follow up with your primary care as scheduled in about 10 days - Discharge Plan *PRESCRIPTION DRUG MONITORING PROGRAM REVIEWED*: Not Applicable *COPY OF PRESCRIPTION DRUG MONITORING REPORT IN PATIENT ANIVAL: Not Applicable Prescriptions/Med Rec: Rivaroxaban [Xarelto] 10 mg PO WITHTITUS #30 tablet Home Medications: Home Meds Ubidecarenone [Coenzyme Q10] 100 mg PO DAILY 03/01/16 [History] Magnesium Oxide [Magnesium] 1,000 mg PO DAILY 10/05/19 [History] Vit C/Ascorbate Calcium,Sodium [Vitamin C] 500 mg PO DAILY 12/05/19 [History] Metoprolol Succinate 25 mg PO DAILY 05/24/20 [History] Multivitamin with Minerals [Multiple Vitamin] 1 tab PO DAILY 05/24/20 [History] Cholecalciferol (Vitamin D3) [Vitamin D] 5,000 unit PO DAILY 06/26/20 [History] Melatonin 10 mg PO ASDIRECTED PRN 06/26/20 [History] Aspirin [Halfprin] 81 mg PO DAILY 06/30/20 [History] Selenium 400 mcg PO DAILY 03/05/21 [History] Rivaroxaban [Xarelto] 10 mg PO WITHDINNER #30 tablet 03/14/21 [Rx] Oxygen Therapy Mode: Room Air Patient Handouts: Fall Prevention in the Home, Adult, [id number], COVID-19, Atrial Fibrillation, [id number] Referrals: Ab Urbano MD [Physician] - 03/26/21 1:40 pm (Please arrive 15 minutes early to register for your appointment.) - Discharge Summary/Plan Comment DC Time >30 min.: No Total # of Minutes for Discharge Time: 25 - Patient Data Vitals - Most Recent: Last Vital Signs Temp 36.6 C 03/14/21 07:42 Pulse 84 03/14/21 08:37 Resp 22 H 03/14/21 07:42 BP 123/89 03/14/21 08:37 Pulse Ox 93 L 03/14/21 07:42 Weight - Most Recent: 83.915 kg I&O - Last 24 hours: Intake & Output 03/13/21 03/14/21 03/14/21 22:59 06:59 14:59 Intake Total 480 240 Balance 480 240 Med Orders - Current: Current Medications Acetaminophen (Acetaminophen 325 Mg Tab) 650 mg PO Q4H PRN PRN Reason: Fever Greater Than 101 Last Admin: 03/13/21 18:01 Dose: 650 mg Documented by: Albuterol (Albuterol 8 Gm Inhaler) 0 gm INH Q2H PRN PRN Reason: Dyspnea Ascorbic Acid (Ascorbic Acid 500 Mg Tab) 500 mg PO DAILY [facility] Last Admin: 03/14/21 08:38 Dose: 500 mg Documented by: Baricitinib (Baricitinib 2 Mg Tab) 4 mg PO DAILY [facility] Stop: 03/16/21 09:01 Last Admin: 03/14/21 08:37 Dose: 4 mg Documented by: Benzonatate (Benzonatate 100 Mg Cap) 100 mg PO Q8H PRN PRN Reason: Cough Last Admin: 03/07/21 20:26 Dose: 100 mg Documented by: Bisacodyl (Bisacodyl 5 Mg Tab) 10 mg PO DAILY PRN PRN Reason: Constipation Last Admin: 03/14/21 08:38 Dose: 10 mg Documented by: Cholecalciferol (Cholecalciferol (Vitamin D3) 25 Mcg Tab) 25 mcg PO DAILY [facility] Last Admin: 03/14/21 08:38 Dose: 25 mcg Documented by: Docusate Sodium (Docusate Sodium 100 Mg Cap) 100 mg PO BID PRN PRN Reason: Constipation Last Admin: 03/14/21 08:37 Dose: 100 mg Documented by: Guaifenesin (Guaifenesin 100 Mg/5 Ml Soln Ml (118 Ml Bottle)) 200 mg PO Q4H PRN PRN Reason: Cough Last Admin: 03/04/21 18:15 Dose: 100 mg Documented by: Guaifenesin/Codeine Phosphate (Codeine/Guaifenesin 10-100 Mg/5 Ml Syrup 5 Ml Cup) 10 ml PO Q6H PRN PRN Reason: Cough Last Admin: 03/05/21 21:42 Dose: 10 ml Documented by: Multivitamins/Minerals 10 ml/Thiamine HCl 100 mg/ Folic Acid 1 mg/ Magnesium Sulfate 3 gm/ Sodium Chloride 1,017.2 mls @ 500 mls/hr IV ASDIRECTED [facility] Stop: 03/14/21 14:01 Lorazepam (Lorazepam 2 Mg/Ml Sdv) 1 mg IV Q6H PRN PRN Reason: Nausea/Vomiting Lorazepam (Lorazepam 0.5 Mg Tab) 0.5 mg PO Q4H PRN PRN Reason: Anxiety Last Admin: 03/03/21 17:54 Dose: 0.5 mg Documented by: Magnesium Hydroxide (Magnesium Hydroxide 400 Mg/5 Ml Susp 30 Ml Cup) 30 ml PO BID PRN PRN Reason: Constipation Last Admin: 03/12/21 18:02 Dose: 30 ml Documented by: Magnesium Oxide (Magnesium Oxide 400 Mg Tab) 400 mg PO DAILY [facility] Last Admin: 03/14/21 08:37 Dose: 400 mg Documented by: Melatonin (Melatonin 3 Mg Tab) 9 mg PO BEDTIME PRN PRN Reason: Insomnia Last Admin: 03/07/21 20:26 Dose: 9 mg Documented by: Metoprolol Succinate (Metoprolol Succinate 50 Mg Tab.Er) 50 mg PO Q12H [facility] Last Admin: 03/14/21 08:37 Dose: 50 mg Documented by: Morphine Sulfate (Morphine 2 Mg/Ml Syringe) 2 mg IVPUSH Q2H PRN PRN Reason: Pain (severe 7-10) Ondansetron HCl (Ondansetron 4 Mg Tab.Dis) 4 mg PO Q6H PRN PRN Reason: Nausea able to take PO Last Admin: 03/08/21 05:16 Dose: 4 mg Documented by: Ondansetron HCl (Ondansetron 4 Mg/2 Ml Sdv) 4 mg IV Q4H PRN PRN Reason: Nausea/Vomiting Last Admin: 03/03/21 10:08 Dose: 4 mg Documented by: Oxycodone HCl (Oxycodone 5 Mg Tab) 5 mg PO Q4H PRN PRN Reason: Pain (moderate 4-6) Pantoprazole Sodium (Pantoprazole 40 Mg Tab.Cr) 40 mg PO ACBREAKFAST [facility] Last Admin: 03/14/21 07:49 Dose: 40 mg Documented by: Patient's Own Medication Selenium 200 Mcg 0 each PO DAILY [facility] Last Admin: 03/14/21 08:37 Dose: 1 each Documented by: Rivaroxaban (Rivaroxaban 10 Mg Tab) 10 mg PO WITHDINNER [facility] Last Admin: 03/13/21 17:58 Dose: 10 mg Documented by: Sodium Chloride (Sodium Chloride 0.9% 10 Ml Syringe) 10 ml FLUSH ASDIRECTED PRN PRN Reason: Keep Vein Open Last Admin: 03/02/21 20:32 Dose: 10 ml Documented by: Discontinued Medications Albuterol/Ipratropium (Albuterol/Ipratropium 4 Gm Inhalation Emerson) 0 gm INH Q4H PRN PRN Reason: Dyspnea Albuterol/Ipratropium (Albuterol/Ipratropium 4 Gm Inhalation Emerson) 0 gm INH QIDRT [facility] Last Admin: 03/04/21 11:08 Dose: Not Given Documented by: Dexamethasone (Dexamethasone 4 Mg/Ml Sdv) 6 mg IVPUSH DAILY [facility] Stop: 03/11/21 09:01 Last Admin: 03/02/21 20:30 Dose: 6 mg Documented by: Dexamethasone (Dexamethasone 4 Mg/Ml Sdv) 6 mg IVPUSH BEDTIME ANA Stop: 03/11/21 21:01 Last Admin: 03/10/21 21:01 Dose: 6 mg Documented by: Digoxin (Digoxin 125 Mcg Tab) 250 mcg PO ONETIME ONE Stop: 03/03/21 00:35 Last Admin: 03/03/21 01:09 Dose: 250 mcg Documented by: Diltiazem HCl (Diltiazem Ir 30 Mg Tab) 60 mg PO Q6HR [facility] Last Admin: 03/04/21 05:04 Dose: Not Given Documented by: Diltiazem HCl (Diltiazem Ir 30 Mg Tab) 60 mg PO ONETIME ONE Stop: 03/06/21 00:49 Last Admin: 03/06/21 01:07 Dose: 60 mg Documented by: Diltiazem HCl (Diltiazem Ir 30 Mg Tab) 30 mg PO Q6HR [facility] Diltiazem HCl (Diltiazem Ir 30 Mg Tab) 30 mg PO Q6H [facility] Last Admin: 03/08/21 15:59 Dose: Not Given Documented by: Diltiazem HCl (Diltiazem 180 Mg Cap.Cd) 180 mg PO DAILY [facility] Last Admin: 03/10/21 08:07 Dose: 180 mg Documented by: Diltiazem HCl (Diltiazem 120 Mg Cap.Cd) 240 mg PO DAILY [facility] Last Admin: 03/13/21 08:05 Dose: 240 mg Documented by: Enoxaparin Sodium (Enoxaparin 40 Mg/0.4 Ml Syringe) 40 mg SUBCUT DAILY [facility] Last Admin: 03/02/21 23:08 Dose: 40 mg Documented by: Enoxaparin Sodium (Enoxaparin 40 Mg/0.4 Ml Syringe) 40 mg SUBCUT BEDTIME [facility] Last Admin: 03/11/21 20:48 Dose: 40 mg Documented by: Guaifenesin (Guaifenesin 100 Mg/5 Ml Soln Ml (118 Ml Bottle)) 200 mg PO Q4H PRN PRN Reason: Cough Sodium Chloride (Normal Saline) 1,000 mls @ 150 mls/hr IV ASDIRECTED [facility] Last Admin: 03/02/21 20:28 Dose: 150 mls/hr Documented by: Remdesivir 200 mg/ Sodium (Chloride) 250 mls @ 250 mls/hr IV ONETIME ONE Stop: 03/02/21 20:05 Last Admin: 03/02/21 23:05 Dose: 250 mls/hr Documented by: Sodium Chloride (Normal Saline) 1,000 mls @ 125 mls/hr IV ASDIRECTED [facility] Last Admin: 03/03/21 05:44 Dose: 125 mls/hr Documented by: Remdesivir 100 mg/ Sodium (Chloride) 100 mls @ 100 mls/hr IV Q24H [facility] Stop: 03/06/21 21:59 Last Admin: 03/06/21 20:36 Dose: 100 mls/hr Documented by: Sodium Chloride (Sodium Chloride 3%) 500 mls @ 100 mls/hr IV ASDIRECTED [facility] Stop: 03/03/21 00:01 Last Admin: 03/03/21 00:41 Dose: 100 mls/hr Documented by: Sodium Chloride (Sodium Chloride 3%) 100 mls @ 100 mls/hr IV ASDIRECTED [facility] Stop: 03/03/21 12:01 Last Admin: 03/03/21 11:16 Dose: 100 mls/hr Documented by: Magnesium Sulfate 2 gm/ Premix 50 mls @ 25 mls/hr IV Q6H [facility] Stop: 03/03/21 20:59 Last Admin: 03/03/21 19:43 Dose: 25 mls/hr Documented by: Metoprolol Succinate (Metoprolol Succinate 25 Mg Tab.Er) 25 mg PO DAILY [facility] Last Admin: 03/10/21 08:07 Dose: 25 mg Documented by: Metoprolol Succinate (Metoprolol Succinate 50 Mg Tab.Er) 50 mg PO DAILY [facility] Last Admin: 03/11/21 08:20 Dose: 50 mg Documented by: Non-Formulary Medication (Magnesium Oxide [Magnesium]) 1,000 mg PO DAILY [facility] Non-Formulary Medication (Melatonin [Melatonin]) 10 mg PO ASDIRECTED PRN PRN Reason: Insomnia Ondansetron HCl (Ondansetron 4 Mg Tab.Dis) 4 mg PO ONETIME ONE Stop: 03/02/21 19:34 Last Admin: 03/02/21 19:51 Dose: 4 mg Documented by: Ondansetron HCl (Ondansetron 4 Mg Tab.Dis) Confirm Administered Dose 4 mg .ROUTE .STK-MED ONE Stop: 03/02/21 19:36 Last Admin: 03/02/21 20:19 Dose: Not Given Documented by:
[2021-03-14] MEDS ORDERED: MVI, Adult with Vitamin K 10 ML, Thiamine 100 MG, Folic Acid 1 MG, Magnesium Sulfate 3 ... IV SCH ×5 (14:00)
[2021-03-14 15:04] VITALS: BP 117/74; PULSE 78
[2021-03-14] MEDS: Rivaroxaban 10 MG Tab PO SCH (17:21)
== END 2021-03-14 18:45 | disposition home or self-care (01) | DRG 177 ==
LOC: JP.ED 17:40 → JP.2SS 20:08
PROVIDERS: ADMIT Internal Medicine; ATTEND Internal Medicine
PROC: 3E0333Z Introduction of Anti-inflammatory into Peripheral Vein, Percutaneous Approach (ICD-10-PCS; principal; 2021-03-02)
PROC: XW033E5 Introduction of Remdesivir Anti-infective into Peripheral Vein, Percutaneous Approach, New Technology Group 5 (ICD-10-PCS; 2021-03-02)
PROC: 8E0ZXY6 Isolation (ICD-10-PCS; 2021-03-02)
PROC: XW0DXM6 Introduction of Baricitinib into Mouth and Pharynx, External Approach, New Technology Group 6 (ICD-10-PCS; 2021-03-03)
PROC: 5A0935A Assistance with Respiratory Ventilation, Less than 24 Consecutive Hours, High Flow/Velocity Cannula (ICD-10-PCS; 2021-03-04)
DX: U07.1 COVID-19 (principal); J12.82 Pneumonia due to coronavirus disease 2019; J96.01 Acute respiratory failure with hypoxia; J96.91 Respiratory failure, unspecified with hypoxia; E87.1 Hypo-osmolality and hyponatremia; I48.91 Unspecified atrial fibrillation; I48.0 Paroxysmal atrial fibrillation; H54.7 Unspecified visual loss; Z91.048 Other nonmedicinal substance allergy status; E66.9 Obesity, unspecified; Z96.651 Presence of right artificial knee joint; Z88.0 Allergy status to penicillin; Z79.82 Long term (current) use of aspirin; Z79.899 Other long term (current) drug therapy; Z68.33 Body mass index [BMI] 33.0-33.9, adult
CPT/HCPCS: 36415; 36600; 71045 ×2; 80053; 80076; 82728; 82803; 83605; 83615; 84145; 85025; 85379; 85610; 85730; 86140; 99285; A9270; 80048; 81001; 82550; 83735; 84295; 85027; 87040; 94640; 94762; J1100; J1650; J2405; J3411; J3475; J3490; J7030; J7050; J7131

== ENCOUNTER 2022-10-22 08:49 | Day surgery (SDC) | payer MEDICARE ==
[~2022-10-22 08:49] MED LIST: Bupivacaine 0.5% 50 ML MDV ONE; Lidocaine 1% with EPINEPHrine 1:100,000 50 ML MDV ONE; Midazolam 1 MG/ML 2 ML SDV ONE; Propofol 200 MG/20 ML SDV ONE; fentaNYL 100 MCG/2 ML SDV ONE
[2022-10-22] MEDS ORDERED: Dextrose 5%-Lactated Ringers 1,000 ML IV SCH (09:00)
[2022-10-22] MEDS ORDERED: ceFAZolin 2 GM in Premix Bag 1 BAG IV ONE (09:45)
[2022-10-22] MEDS ORDERED: Bacitracin Oint 1 GM U/D Packet ONE (11:52)
[2022-10-22] MEDS ORDERED: fentaNYL 50 MCG/ML SDV IVPUSH ONE (12:30)
[2022-10-22] MEDS ORDERED: Ondansetron 4 MG/2 ML SDV IVPUSH ONE (13:00)
[2022-10-22 13:42] VITALS: BP 110/68; PULSE 59
== END 2022-10-22 14:00 | disposition home or self-care (01) ==
LOC: JP.SDS 08:49
PROVIDERS: ATTEND Surgery
DX: R22.0 Localized swelling, mass and lump, head (principal); I10 Essential (primary) hypertension; E66.9 Obesity, unspecified; M19.90 Unspecified osteoarthritis, unspecified site; Z68.33 Body mass index [BMI] 33.0-33.9, adult; Z88.0 Allergy status to penicillin; Z91.048 Other nonmedicinal substance allergy status; Z79.899 Other long term (current) drug therapy
CPT/HCPCS: 21014; 88304; J0690; J2250; J2405; J2704; J3010; J3490; J7121

== ENCOUNTER 2025-03-02 16:32 | Inpatient (IN) | payer MEDICARE ==
[~2025-03-02 16:32] MED LIST changes: -Bupivacaine 0.5% 50 ML MDV ONE; -Lidocaine 1% with EPINEPHrine 1:100,000 50 ML MDV ONE; -Midazolam 1 MG/ML 2 ML SDV ONE; -fentaNYL 100 MCG/2 ML SDV ONE
[2025-03-02 17:04] LABS: APPEARANCE,URINE CLEAR (CLEAR); GLUCOSE,URINE NEGATIVE (NEGATIVE); OCCULT BLOOD,URINE TRACE-INTACT (NEGATIVE)
[2025-03-02 17:09] LABS: SQUAMOUS EPITHELIAL CELLS,UR RARE /HPF; UROTHELIAL CELLS,URINE NOT SEEN /HPF
[2025-03-02] MEDS ORDERED: Albuterol 0.083% 2.5 MG/3 ML Neb Soln NEB PRN (17:58)
[2025-03-02] MEDS ORDERED: Ondansetron 4 MG/2 ML SDV IV PRN (17:58)
[2025-03-02] MEDS ORDERED: Sodium Chloride 0.9% 10 ML Syringe FLUSH PRN (17:58)
[2025-03-03 06:17] LABS: BLOOD UREA NITROGEN,BUN 15.0 mg/dL (7-18); CARBON DIOXIDE,CO2 30.0 mmol/L (21-32); CHLORIDE,CL 107.0 mmol/L (100-108); CREATININE 0.6 mg/dL (0.6-1.0); EST CRCL DRUG DOSING (CG) 64.07 mL/min; ESTIMATED GFR 94.0 mL/min (>60); GLUCOSE RANDOM 90.0 mg/dL (74-106); POTASSIUM,K 3.8 mmol/L (3.6-5.2); SODIUM,NA 143.0 mmol/L (140-148)
[2025-03-03] MEDS ORDERED: Lactated Ringers 1,000 ML IV SCH (06:30)
[2025-03-03 14:13] VITALS: BP 161/98; PULSE 71
== END 2025-03-03 14:00 | disposition home or self-care (01) | DRG 310 ==
PROVIDERS: ADMIT Hospitalist; ATTEND Hospitalist
PROC: 5A2204Z Restoration of Cardiac Rhythm, Single (ICD-10-PCS; principal; 2025-03-02)
DX: I48.91 Unspecified atrial fibrillation (principal); E66.9 Obesity, unspecified; Z96.659 Presence of unspecified artificial knee joint; I10 Essential (primary) hypertension; R39.15 Urgency of urination; R35.0 Frequency of micturition; Z88.0 Allergy status to penicillin; Z91.048 Other nonmedicinal substance allergy status; Z79.899 Other long term (current) drug therapy; Z79.01 Long term (current) use of anticoagulants; Z86.16 Personal history of COVID-19; Z68.32 Body mass index [BMI] 32.0-32.9, adult
CPT/HCPCS: 36415; 80048; 81001; 83735; 93010; 93246; 99223; 99238; A9270-GY; J2704; J7030